=== PATIENT | male | born 1940 | race Caucasian/White ===

== ENCOUNTER → 2016-12-19 | Outpatient (CLI) | payer BC | END | disposition home or self-care (01) | LOC: C.MAMM 08:44 | PROVIDERS: ATTEND Internal Medicine | DX: M85.851 Other specified disorders of bone density and structure, right thigh (principal); M85.852 Other specified disorders of bone density and structure, left thigh ==

== ENCOUNTER → 2017-06-17 | Outpatient (CLI) | payer BC ==
[2017-06-17 13:37] LABS: URINE APPEARANCE CLEAR (CLEAR); URINE BILIRUBIN NEG (NEG); URINE COLOR DK YELLOW; URINE NITRITE NEG (NEG); URINE SPECIFIC GRAVITY 1.017 (1.000-1.030); UROBILINOGEN NEG (NEG)
[2017-06-17 13:41] LABS: MANUAL MICROSCOPIC REQUIRED? NO; REVIEW REQ? NO
== END | disposition home or self-care (01) ==
LOC: C.LABBC 11:43
PROVIDERS: ATTEND Internal Medicine
DX: R39.9 Unspecified symptoms and signs involving the genitourinary system (principal)

== ENCOUNTER → 2017-10-27 | Outpatient (CLI) | payer BC ==
[2017-10-27 11:02] LABS: BASO % 0.5 %; BASO ABS # 0.03 K/uL (0-0.2); EOS % 1.9 %; EOS ABS # 0.12 K/uL (0-0.5); HEMATOCRIT 40.5 % (42-52); HEMOGLOBIN 13.6 g/dL (14.0-18.0); IG# 0.01 K/uL (0.00-0.02); LYMPH % 35.3 %; LYMPH ABS # 2.19 K/uL (1.2-3.4); MEAN CELL VOLUME 94.2 fL (80-100); MEAN CORPUSCULAR HEMOGLOBIN 31.6 pg (25-34); MEAN CORPUSCULAR HGB CONC 33.6 g/dl (32-36); MEAN PLATELET VOLUME 10.8 fL (7.4-10.4); MONO ABS # 0.81 K/uL (0.11-0.59); NEUT % 49.1 %; NEUT ABS # 3.05 K/uL (1.4-6.5); PLATELET COUNT 217 K/uL (130-400); RED CELL DISTRIBUTION WIDTH CV 12.9 % (11.5-14.5); RED CELL DISTRIBUTION WIDTH SD 44.6 fL (36.4-46.3); WHITE BLOOD COUNT 6.21 K/uL (4.8-10.8)
[2017-10-27 11:23] LABS: ALT/SGPT 26 U/L (12-78); AST/SGOT 23 U/L (15-37); BLOOD UREA NITROGEN 26 mg/dl (7-18); CALCIUM 8.8 mg/dl (8.5-10.1); CARBON DIOXIDE 30 mmol/L (21-32); CHOLESTEROL 193 mg/dl (0-200); CREATININE 1.13 mg/dl (0.60-1.40); GLUCOSE 90 mg/dl (70-99); POTASSIUM 4.3 mmol/L (3.5-5.1); SODIUM 138 mmol/L (136-145)
[2017-10-27 11:28] LABS: LDL CHOLESTEROL CALCULATED 116 mg/dl
== END | disposition home or self-care (01) ==
LOC: C.LABBC 07:41
PROVIDERS: ATTEND Internal Medicine
DX: Z12.5 Encounter for screening for malignant neoplasm of prostate (principal); E78.5 Hyperlipidemia, unspecified; D64.9 Anemia, unspecified

== ENCOUNTER → 2018-02-25 | Outpatient (CLI) | payer BC | END | disposition home or self-care (01) | LOC: C.PATHSPEC 10:44 | PROVIDERS: ATTEND Otolaryngology | DX: L57.0 Actinic keratosis (principal) ==

== ENCOUNTER → 2018-05-19 | Outpatient (CLI) | payer BC ==
--- NOTE | 2018-05-19 10:18 | DIAGNOSTIC IMAGING REPORT ---
R HIP UNILATERAL 2 VIEWS CLINICAL HISTORY: M25.551 Right hip painM25.561 Right knee painRADRight pain COMPARISON: None. DISCUSSION: Significant degenerative narrowing right hip joint space. Sclerosis of the margins of the acetabulum. Minimal peripheral osteophytic reaction. No evidence for acetabular protrusion. There is no evidence for soft tissue swelling. IMPRESSION: Significant degenerative change. No acute process. The above report was generated using voice recognition software. It may contain grammatical, syntax or spelling errors. Electronically signed by: Stoney Vuaghn M.D. 05/19/2018 10:16 AM Dictated Date/Time: 05/19/2018 10:16 AM
--- NOTE | 2018-05-19 10:20 | DIAGNOSTIC IMAGING REPORT ---
R KNEE 2 VIEWS ROUTINE CLINICAL HISTORY: M25.551 Right hip pain M25.561 Right knee painRADRight COMPARISON: None. DISCUSSION: No fractures or dislocations are visualized. There is no radiographic evidence of joint effusion. There is chondrocalcinosis. The joint space appears relatively well preserved for age. IMPRESSION: 1. Chondrocalcinosis 2. No fractures or destructive lesions are visualized. Electronically signed by: Lexx Molina M.D. 05/19/2018 10:18 AM Dictated Date/Time: 05/19/2018 10:17 AM
== END | disposition home or self-care (01) ==
LOC: C.RAD1850 09:39
PROVIDERS: ATTEND Internal Medicine
DX: M25.551 Pain in right hip (principal); M25.561 Pain in right knee; M11.261 Other chondrocalcinosis, right knee

== ENCOUNTER 2020-03-29 15:06 | Inpatient (IN) ==
[2020-03-29] MEDS ORDERED: SODIUM CHLORIDE 0.9% 1000ML 1,000 ML IV ONE (16:45)
[2020-03-29] MEDS ORDERED: DiphenhydrAMINE HCL 50 MG/ML VIAL IV STA (16:48)
[2020-03-29] MEDS ORDERED: METOCLOPRAMIDE HCL INJ 5 MG/ML 2 ML VIAL IV STA (16:49)
[2020-03-29] MEDS ORDERED: FAMOTIDINE 20MG/5ML IV PUSH IV ONE (16:54)
[2020-03-29] MEDS ORDERED: FAMOTIDINE 20 MG in SYRINGE 3 ML IV SCH (17:00)
[2020-03-29] MEDS ORDERED: PROCHLORPERAZINE 2 ML IV ONE (17:36)
[2020-03-29 17:45] LABS: Lipase 168 U/L (73-393); Phosphorus 3.5 mg/dl (2.5-4.9); Troponin I < 0.015 ng/ml (0-0.045)
[2020-03-29] MEDS ORDERED: MoRPHine SULFATE 10 MG/ML CARP/VIAL IV STA (17:59)
[2020-03-29] MEDS ORDERED: MoRPHine SULFATE 4 MG/ML 1 ML CARP\\VIAL ONE (18:00)
[2020-03-29] MEDS ORDERED: MoRPHine SULFATE 2 MG/ML CARP ONE (18:01)
[2020-03-29] MEDS ORDERED: IOVERSOL 100ml IV PRN (18:19)
--- NOTE | 2020-03-29 18:35 | CT Scan Report ---
CT abd pelvis IV con only CLINICAL HISTORY: Abdominal pain, nausea, vomiting, history of gastric carcinoma. COMPARISON STUDY: 02/07/2020 TECHNIQUE: Patient was scanned in a dynamic helical fashion during intravenous administration of 93 c c of Optiray 320 A dose lowering technique was utilized adhering to the principles of ALARA. CT DOSE: 475.36 mGycm FINDINGS: Lower chest: There are persistent right basilar interstitial opacities, similar to the prior study an d likely inflammatory/postinflammatory. Liver: There are stable nonspecific subcentimeter hepatic hypodensities. These likely are present hep atic cysts. The portal vein is patent. The hepatic veins appear patent. Gallbladder: Unremarkable. Spleen: Normal in size and attenuation. Pancreas: Unremarkable. Adrenal glands: Unremarkable. Kidneys: There is symmetric renal cortical enhancement. The kidneys are normal in size without hydron ephrosis. Bowel: There is gastric wall thickening. There are fluid-filled mid abdominal small bowel loops with associated bowel wall thickening. There are focal transition zones both proximal and distal to the di lated small bowel loops. This could represent a closed loop obstruction. There is associated mesenter ic fluid. There is colonic diverticulosis. There is no evidence of acute diverticulitis. Peritoneum: There is low volume ascites. There is fluid within bilateral inguinal hernias. Vasculature: The abdominal aorta is normal in course and caliber. Adenopathy: None. Pelvic viscera: The bladder, and pelvic viscera are unremarkable. Skeletal structures: No destructive osseous lesions are seen. IMPRESSION: 1. Focally dilated fluid-filled mid abdominal small bowel loops with associated bowel wall thickening . The findings are consistent with a small bowel obstruction, possibly closed loop. There is associat ed interloop fluid, as well as associated low volume ascites. 2. Nonspecific gastric wall thickening 3. No evidence of portal venous gas. No evidence of free intraperitoneal air. ACT 112: Negative or not required by law. Electronically signed by: Lexx Molina M.D. 03/29/2020 6:34 PM
--- NOTE | 2020-03-29 18:43 | Emergency Department Note ---
Impression & Plan Small bowel obstruction, Gastric adenocarcinoma, Abdominal pain, Nausea & vomiting ED Provider Note NAME: SHARMAINE HAQ II AGE: 80 SEX: M ARRIVES VIA: Walk-In INFORMANT: Patient, ED PROVIDER(S): Ronny Ruelas MD CHIEF COMPLAINT: Abdominal pain, nausea and vomiting. PLAN: Disposition: Admit MEDICAL DECISION MAKING: The patient is a pleasant 80-year-old gentleman with a past medical history of stage 4 gastric adenocarcinoma diagnosed several months ago on chemotherapy who presents emergency department with acute onset nausea and vomiting began today after lunch with associated abdominal bloating and pain. He reports having a normal bowel movement this morning that was nonbloody nonblack. He reports feeling fine this morning and did his usual activities. He reports emesis was nonbloody and did not have coffee-ground emesis. He initially contact his oncologist office and they arrange to have outpatient bloodwork. However, while at the outpatient [facility] lab he described his symptoms and was referred to the Emergency department. On arrival patient uncomfortable but in no acute distress, afebrile stable vital signs. On exam patient has moderate generalized abdominal tenderness without guarding or rebound. Blood work performed at outpatient lab just prior to arrival demonstrated WBC within normal limits. H/H 11.3/34.1 similar to prior range of values. Platelets within normal limits. Chemistry without acidosis. Electrolytes and LFTs unremarkable. Troponin negative/undetectable. Lipase within normal limits. EKG without overt acute ischemia. CT abd pelvis performed and demonstrates evidence of small bowel obstruction with possibility of closed-loop. On reevaluation the patient was feeling improved after IV fluid hydration, antiemetics and analgesia with morphine. His abdominal tenderness was improved. However he still had persistent fullness and nausea and therefore NG tube was explained and then ordered after patient's agreement. Case was reviewed with general surgery on- call, Dr. Rehman, and we agree that given the patient's abdominal exam is not peritoneal and the patient is without fever or leukocytosis CT findings are less likely to represent closed-loop bowel obstruction. Recommends NG tube and IV fluids which have been ordered. He will be available for inpatient team consultation. Patient ordered for empiric CTX. Case was discussed with Dr. Hong, [facility] hospitalist, who will evaluate the patient for admission. Triage Nursing notes reviewed and agree them. Prior medical records reviewed Vital Signs: reviewed and remarkable for no significant abnormalities Differential diagnosis: Appendicitis, testicular torsion, infections, diverticulitis, UTI, obstruction, mesenteric ischemia, aortic pathology, inflammatory bowel disease, renal colic, PUD, pancreatitis, biliary pathology, hernia, volvulus, constipation, as well as other pathologies. ER treatment provided: See below. Diagnostics interpreted by me: ECG: Sinus Bradycardia, 57 bpm, RBBB, no ectopy, no overt ST elevation or depression. Cardiac Monitoring: An order for continuous cardiac monitoring was placed and demonstrated sinus bradycardia, 57 bpm, no ecotpy. Laboratory studies: See below Imaging studies: CT abd pelvis IV con only CLINICAL HISTORY: Abdominal pain, nausea, vomiting, history of gastric carcinoma. COMPARISON STUDY: 02/07/2020 TECHNIQUE: Patient was scanned in a dynamic helical fashion during intravenous administration of 93 cc of Optiray 320 A dose lowering technique was utilized adhering to the principles of ALARA. CT DOSE: 475.36 mGycm FINDINGS: Lower chest: There are persistent right basilar interstitial opacities, similar to the prior study and likely inflammatory/postinflammatory. Liver: There are stable nonspecific subcentimeter hepatic hypodensities. These likely are present hepatic cysts. The portal vein is patent. The hepatic veins appear patent. Gallbladder: Unremarkable. Spleen: Normal in size and attenuation. Pancreas: Unremarkable. Adrenal glands: Unremarkable. Kidneys: There is symmetric renal cortical enhancement. The kidneys are normal in size without hydronephrosis. Bowel: There is gastric wall thickening. There are fluid-filled mid abdominal small bowel loops with associated bowel wall thickening. There are focal transition zones both proximal and distal to the dilated small bowel loops. This could represent a closed loop obstruction. There is associated mesenteric fluid. There is colonic diverticulosis. There is no evidence of acute diverticulitis. Peritoneum: There is low volume ascites. There is fluid within bilateral inguinal hernias. Vasculature: The abdominal aorta is normal in course and caliber. Adenopathy: None. Pelvic viscera: The bladder, and pelvic viscera are unremarkable. Skeletal structures: No destructive osseous lesions are seen. IMPRESSION: 1. Focally dilated fluid-filled mid abdominal small bowel loops with associated bowel wall thickening. The findings are consistent with a small bowel obstruction, possibly closed loop. There is associated interloop fluid, as well as associated low volume ascites. 2. Nonspecific gastric wall thickening 3. No evidence of portal venous gas. No evidence of free intraperitoneal air. Consultation(s): Dr. Rehman, General surgery on-call. Case was discussed with Dr. Hong, [facility] hospitalist, who will evaluate t he patient for admission. 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 He reports having a normal bowel movement this morning that was nonbloody nonblack. He reports feeling fine this morning and did his usual activities. He reports emesis was nonbloody and did not have coffee-ground emesis. He initially contact his oncologist office and they arrange to have outpatient bloodwork. However, while at the outpatient [facility] lab he described his symptoms and was referred to the Emergency department. ROS: See above HPI for pertinent positives & negatives. A total of 10 systems reviewed and were otherwise negative. PAST MEDICAL HISTORY:See Below PAST SURGICAL HISTORY:See Below FAMILY HISTORY:See Below SOCIAL HISTORY:See Below HOME MEDICATIONS:See Below ALLERGIES:See Below VITALS:See Below PHYSICAL EXAMINATION: GENERAL: Awake, alert, uncomfortable-appearing, in no distress HENT: Normocephalic, atraumatic. Oropharynx with dry mucous membranes and otherwise unremarkable. EYES: Normal conjunctiva. Sclera non-icteric. NECK: Supple. No nuchal rigidity. FROM. No JVD. RESPIRATORY: Clear to auscultation. CARDIAC: Regular rate, normal rhythm. Extremities warm and well perfused. Pulses equal. ABDOMEN: Mild distension but soft. Moderate generalzed tenderness to palpation. No rebound or guarding. No masses. RECTAL: Deferred. MUSCULOSKELETAL: Chest examination reveals no tenderness. The back is symmetrical on inspection without obvious abnormality. There is no CVA tenderness to palpation. No joint edema. LOWER EXTREMITIES: Calves are equal size bilaterally and non-tender. No edema. No discoloration. NEURO: Normal sensorium. No sensory or motor deficits noted. SKIN: No rash or jaundice noted. ED COURSE: Critical Care: I have personally spent greater than 35 minutes of critical care time in the direct management of this patient. This includes bedside care, interpretation of diagnostic studies, and testing, discussion with consultants, patient, and family members, and other required patient management activities. This 35 minutes is in excess of all separately billable procedures. Ronny Ruelas MD Past Med/Surg History Social History Preferred Language: Yemeni Communication Ability: Effective Title Processor Required: No Beliefs That Will Affect Care: None marital status: Current Living Situation: Spouse current occupational status: retired Other Information That Helps Us Care for You: No Feels Safe at Home: Yes Safety Concerns: Feels Safe At This Time Smoking Status: Never smoker Second Hand Exposure: No ; Hx Alcohol Use: Yes Alcohol type: wine Alcohol Intake Frequency: Daily Hx Substance Use: No Dental Care, Regularly: Yes Physical Activity Frequency: 5-6 Times per Week Seatbelt Use: always Sunscreen Use: Yes Allergies Allergies Allergy/AdvReac Type Severity Reaction Status Date / Time No Known Drug Allergies Allergy Unknown Verified 03/29/20 17:38 Home Meds Home Medications Medication Instructions Recorded Confirmed 5-Fu 0 mg IV, .[id number] 03/29/20 03/29/20 ascorbic acid (vitamin C) [Vitamin 1 g PO DAILY 03/29/20 03/29/20 C] famotidine [Pepcid] 20 mg PO QPM 03/29/20 03/29/20 multivitamin 1 tab PO QAM 03/29/20 03/29/20 nivolumab [Opdivo] 0 mg IV MONTHLY 03/29/20 03/29/20 omeprazole 20 mg PO Q9W 03/29/20 03/29/20 ondansetron HCl [Zofran] 8 mg PO Q8 PRN 03/29/20 03/29/20 polysaccharide iron complex 150 mg PO DAILY 03/29/20 03/29/20 prochlorperazine maleate 10 mg PO Q6 PRN 03/29/20 03/29/20 [Compazine] Results & Data (ED) Vital Signs Vital Signs - 24 hr 03/29/20 15:10 03/29/20 16:38 03/29/20 17:00 Temperature 36.4 C L Temperature Source Oral Pulse Rate 56 L 58 L Pulse Rate [Apical] 60 Pulse Rate from SpO2 Sensor 55 L Respiratory Rate 16 17 12 Respiratory Effort / Characteristics Non-Labored Respiratory Depth Normal Blood Pressure 173/83 H 171/83 H Blood Pressure [Right Arm] 168/79 H Blood Pressure Mean 113 102 Blood Pressure Mean [Right Arm] 108 Pulse Oximetry 100 99 100 Oxygen Delivery Method Room Air Room Air Room Air Sepsis Recent Fever Within 48 Hours No Sepsis New/Unexplained Change in Mental Status No Sepsis Action Taken by Nursing No Action Required 03/29/20 17:31 03/29/20 18:38 03/29/20 19:00 Temperature Temperature Source Pulse Rate 65 77 68 Pulse Rate [Apical] Pulse Rate from SpO2 Sensor 61 75 73 Respiratory Rate 24 14 Respiratory Effort / Characteristics Respiratory Depth Blood Pressure 182/92 H 147/72 H 157/75 H Blood Pressure [Right Arm] Blood Pressure Mean 102 109 85 Blood Pressure Mean [Right Arm] Pulse Oximetry 100 94 98 Oxygen Delivery Method Room Air Sepsis Recent Fever Within 48 Hours Sepsis New/Unexplained Change in Mental Status Sepsis Action Taken by Nursing 03/29/20 19:30 03/29/20 20:00 03/29/20 20:30 Temperature Temperature Source Pulse Rate 69 66 74 Pulse Rate [Apical] Pulse Rate from SpO2 Sensor 66 74 Respiratory Rate 14 21 Respiratory Effort / Characteristics Respiratory Depth Blood Pressure 157/69 H 160/84 H 167/90 H Blood Pressure [Right Arm] Blood Pressure Mean 112 121 126 Blood Pressure Mean [Right Arm] Pulse Oximetry 96 95 Oxygen Delivery Method Sepsis Recent Fever Within 48 Hours Sepsis New/Unexplained Change in Mental Status Sepsis Action Taken by Nursing 03/29/20 21:00 Temperature Temperature Source Pulse Rate 65 Pulse Rate [Apical] Pulse Rate from SpO2 Sensor 65 Respiratory Rate 13 Respiratory Effort / Characteristics Respiratory Depth Blood Pressure 171/96 H Blood Pressure [Right Arm] Blood Pressure Mean 131 Blood Pressure Mean [Right Arm] Pulse Oximetry 96 Oxygen Delivery Method Sepsis Recent Fever Within 48 Hours Sepsis New/Unexplained Change in Mental Status Sepsis Action Taken by Nursing Laboratory Data Attestation: I reviewed the patient's lab results. Lab Results 03/29/20 Range/Units 16:57 Phosphorus 3.5 (2.5-4.9) mg/dl Troponin I < 0.015 (0-0.045) ng/ml Lipase 168 (73-393) U/L Administered Medications Sodium Chloride (Nss 1000ml) 1,000 mls @ 125 mls/hr IV .Q8H SANTINO Stop: 04/28/20 19:14 Last Infusion: 03/30/20 00:32 Dose: 125 mls/hr Documented by: [id number] Infusion: 03/29/20 22:44 Dose: 0 mls/hr Documented by: [id number] Admin: 03/29/20 20:07 Dose: 125 mls/hr Documented by: [id number] Metronidazole (Flagyl) 500 mg in 100 mls @ 100 mls/hr IV Q8H SANTINO Stop: 04/08/20 21:59 Last Infusion: 03/29/20 23:44 Dose: 0 mls/hr Documented by: [id number] Admin: 03/29/20 22:44 Dose: 100 mls/hr Documented by: [id number] Famotidine 20 mg/ Syringe 5 mls @ 2.5 mls/min IV BID SANTINO Stop: 04/28/20 21:52 Last Admin: 03/29/20 22:36 Dose: 2.5 mls/min Documented by: [id number] Ioversol (Optiray 320 100ml) 93 ml IV ONCE PRN PRN Reason: Interaction Checking Stop: 04/02/20 18:18 Last Admin: 03/29/20 18:20 Dose: 1 ml Documented by: [id number] Morphine Sulfate (Morphine Sulfate) 2 mg IV Q2H PRN PRN Reason: Pain Stop: 04/12/20 21:52 Last Admin: 03/30/20 02:06 Dose: 2 mg Documented by: [id number] Admin: 03/30/20 00:20 Dose: 2 mg Documented by: [id number] Ondansetron HCl (Zofran) 4 mg IV Q6H PRN PRN Reason: Nausea Stop: 04/28/20 21:52 Last Admin: 03/30/20 00:14 Dose: 4 mg Documented by: [id number] Discontinued Medications Diphenhydramine HCl (Benadryl) 12.5 mg IV NOW STA Stop: 03/29/20 16:49 Last Admin: 03/29/20 17:04 Dose: 12.5 mg Documented by: [id number] Famotidine (Pepcid 20mg Iv Push) Confirm Administered Dose 20 mg IV .STK-MED ONE Stop: 03/29/20 16:55 Last Admin: 03/29/20 17:03 Dose: 20 mg Documented by: [id number] Sodium Chloride (Nss 1000ml) 1,000 mls @ 999 mls/hr IV .Q1H1M ONE Stop: 03/29/20 17:45 Last Infusion: 03/29/20 18:03 Dose: 0 mls/hr Documented by: [id number] Admin: 03/29/20 17:02 Dose: 999 mls/hr Documented by: [id number] Prochlorperazine (Compazine) 2 mls @ 1 mls/min IV ONE ONE Stop: 03/29/20 17:37 Last Admin: 03/29/20 17:48 Dose: 1 mls/min Documented by: [id number] Ceftriaxone Sodium (Rocephin) 2,000 mg in 70 mls @ 140 mls/hr IV NOW STA Stop: 03/29/20 19:42 Last Infusion: 03/29/20 21:23 Dose: 0 mls/hr Documented by: [id number] Admin: 03/29/20 20:04 Dose: 140 mls/hr Documented by: [id number] Metoclopramide HCl (Reglan) 5 mg IV NOW STA Stop: 03/29/20 16:50 Last Admin: 03/29/20 17:04 Dose: 5 mg Documented by: [id number] Morphine Sulfate (Morphine Sulfate) 6 mg IV NOW STA Stop: 03/29/20 18:00 Last Admin: 03/29/20 18:02 Dose: Not Given Documented by: [id number] Morphine Sulfate (Morphine Sulfate) Confirm Administered Dose 4 mg .ROUTE .STK- MED ONE Stop: 03/29/20 18:01 Last Admin: 03/29/20 18:02 Dose: 4 mg Documented by: [id number] Morphine Sulfate (Morphine Sulfate) Confirm Administered Dose 2 mg .ROUTE .STK- MED ONE Stop: 03/29/20 18:02 Last Admin: 03/29/20 18:02 Dose: 2 mg Documented by: [id number] Morphine Sulfate (Morphine Sulfate) 2 mg IV NOW STA Stop: 03/29/20 19:54 Last Admin: 03/29/20 20:04 Dose: 2 mg Documented by: [id number] Blood Pressure Blood Pressure Findings: Elevated blood pressure Discharge Plan Visit Data *Final* Discharge Date/Time: 03/29/20 21:31 Chief Complaint: Vomiting Stated Complaint: [facility] REFERRED,VOMITING ED Provider: Ronny Ruelas Discharge Problem: Small bowel obstruction, Gastric adenocarcinoma, Abdominal pain, Nausea & vomiting Patient Disposition: Admitted As Inpatient Discharge Instructions Interventions: ED Discharge Assessment Last Done: 03/29/20 21:31
[2020-03-29] MEDS ORDERED: cefTRIAXone SODIUM 2,000 MG/70 ML BAG IV STA (19:13)
[2020-03-29] MEDS ORDERED: MoRPHine SULFATE 2 MG/ML CARP IV STA (19:53)
[2020-03-29] MEDS: SODIUM CHLORIDE 0.9% 1000ML 1,000 ML IV SCH (20:07)
[2020-03-29] MEDS ORDERED: ACETAMINOPHEN 1000 MG/100 ML IV IV PRN (21:53)
[2020-03-29] MEDS ORDERED: ONDANSETRON INJ 2 MG/ML 2 ML VIAL IV PRN (21:53)
[2020-03-29] MEDS: FAMOTIDINE 20 MG in SYRINGE 3 ML IV SCH (22:36)
[2020-03-29] MEDS: metroNIDAZOLE 500 MG/100 ML BAG IV SCH (22:44)
[2020-03-30] MEDS: MoRPHine SULFATE 2 MG/ML CARP IV PRN ×2 (00:20→02:06)
[2020-03-30] MEDS ORDERED: HEPARIN 100 UNIT/ML 5ML FLUSH FLUSH PRN (01:56)
[2020-03-30] MEDS: metroNIDAZOLE 500 MG/100 ML BAG IV SCH ×3 (05:32→22:04)
[2020-03-30 06:45] LABS: Creatinine Clr Calc Pharmacy 50.6 ml/min; Est GFR (African American) 76.2; Est GFR (Non-African American) 65.8
[2020-03-30 08:51] LABS: Basophils # (auto) 0.01 K/uL (0-0.2); Basophils % (auto) 0.1 %; Eosinophils # (auto) 0.01 K/uL (0-0.5); Eosinophils % (auto) 0.1 %; Hematocrit (blood only) 37.7 % (42-52); Hemoglobin 12.5 g/dL (14.0-18.0); Immature Granulocytes # (auto) 0.03 K/uL (0.00-0.02); Immature Granulocytes % (auto) 0.4 %; Lymphocytes # (auto) 1.79 K/uL (1.2-3.4); Lymphocytes % (auto) 20.9 %; Mean Corpuscular Hemoglobin 32.2 pg (25-34); Mean Corpuscular Hgb Conc 33.2 g/dL (32-36); Mean Corpuscular Volume 97.2 fL (80-100); Monocytes # (auto) 1.14 K/uL (0.11-0.59); Monocytes % (auto) 13.3 %; Neutrophils # (auto) 5.57 K/uL (1.4-6.5); Neutrophils % (auto) 65.2 %; Platelet Count 186 K/uL (130-400); RDW Coefficient of Variation 16.5 % (11.5-14.5); RDW Standard Deviation 57.9 fL (36.4-46.3); Red Blood Count 3.88 M/uL (4.7-6.1); White Blood Count 8.55 K/uL (4.8-10.8)
[2020-03-30 09:09] LABS: Albumin Level 2.9 gm/dl (3.4-5.0); BUN Creatinine Ratio 27.4 (10-20); Calcium 8.5 mg/dl (8.5-10.1); Est GFR (African American) 69.8; Est GFR (Non-African American) 60.2; Potassium 4.8 mmol/L (3.5-5.1)
[2020-03-30 09:12] LABS: Albumin Globulin Ratio 0.9 (0.9-2); Bilirubin,Total 0.4 mg/dl (0.2-1); Globulin 3.1 gm/dl (2.5-4.0)
[2020-03-30] MEDS: FAMOTIDINE 20 MG in SYRINGE 3 ML IV SCH ×2 (09:20→22:03)
[2020-03-30] MEDS: SODIUM CHLORIDE 0.9% 1000ML 1,000 ML IV SCH ×2 (09:20→17:32)
[2020-03-30] MEDS: ENOXAPARIN INJ 30 MG/0.3 ML SYR SQ SCH (09:21)
--- NOTE | 2020-03-30 11:22 | Surgery Consultation ---
Date of Consultation March 30, 2020 Assessment & Plan (1) Abdominal pain: This patient developed abdominal pain with nausea and minimal vomiting. CT scan shows evidence of small bowel obstruction with concern for closed-loop. His only previous abdominal surgery was an appendectomy. He has no evidence of peritonitis at the present time. There is a chance this could resolve spontaneously. We will need to follow him with serial exams. If there is no improvement then surgical intervention will be necessary. There is also concern with his history of gastric cancer that this could be due to intra-abdominal implants although the CAT scan does not demonstrate them and there has been sig nificant decrease and possible resolution of the primary. The lymph nodes that were enlarged have decreased as well. We will continue to follow make further decisions in the morning. History of Present Illness Reason for Consultation: Small bowel obstruction Requesting Physician: Sherman Schmitz MD Attending Physician: Sherman Schmitz MD History of Present Illness We have been asked by Dr. Schmitz to see this 80-year-old gentleman who presented to the emergency room with abdominal pain and "just not feeling well" the patient states that he was well until yesterday afternoon. He then began to experience discomfort in his abdomen that he described as a dull ache and pressure. The severity however did reach 9 at some points. The discomfort was mostly in the upper abdomen but no one particular area predominated. He has never had discomfort like this before. Associated with this was some nausea and he had what he described as some reflux of material but he denies suresh vomiting. There were these were for small amounts. He has had a few similar episodes since coming to the hospital. He typically has a regular bowel pattern with formed stool. His last normal bowel movement was yesterday morning. He has not passed flatus since the onset of the discomfort. An NG tube was placed with very little output. He was bloated when he came to the hospital but feels that that has almost resolved. The discomfort now is at a level of a maximum of 1. The patient has a history of what is described as stage IV gastric cancer but the patient states it was near the junction of the esophagus and stomach. He is undergoing chemotherapy at the present time. He has had 9 out of 10 treatments and is scheduled for 6 days from now. His last 2 CT scans have showe d a significant decrease if not resolution of the mass. He has an appetite and has been able to eat. Allergies Allergy/AdvReac Type Severity Reaction Status Date / Time No Known Drug Allergies Allergy Unknown Verified 03/29/20 17:38 Home Medications Home Medications Medication Instructions Recorded Confirmed Type 5-Fu 0 mg IV, .[id number] 03/29/20 03/29/20 History ascorbic acid (vitamin C) [Vitamin 1 g PO DAILY 03/29/20 03/29/20 History C] famotidine [Pepcid] 20 mg PO QPM 03/29/20 03/29/20 History multivitamin 1 tab PO QAM 03/29/20 03/29/20 History nivolumab [Opdivo] 0 mg IV MONTHLY 03/29/20 03/29/20 History omeprazole 20 mg PO Q9W 03/29/20 03/29/20 History ondansetron HCl [Zofran] 8 mg PO Q8 PRN 03/29/20 03/29/20 History polysaccharide iron complex 150 mg PO DAILY 03/29/20 03/29/20 History prochlorperazine maleate 10 mg PO Q6 PRN 03/29/20 03/29/20 History [Compazine] Patient History Medical History (Updated 03/30/20 @ 02:43 by Ronny Ruelas MD) Acid reflux Carotid artery plaque "mild carotid plaque and normal velocity" per 2016 PCP records (unable to obtain official imaging) Deafness in left ear per records, not verbalized per patient via RN phone interview 11/19/19 History of anemia History of basal cell carcinoma s/p excision (in office) Metastasis from gastric cancer Osteoarthritis Stomach cancer Surgical History (Updated 03/30/20 @ 11:24 by Stoney Huston MD) History of appendectomy History of bilateral cataract extraction History of colonoscopy History of eye surgery R DETACHED RETINA History of tonsillectomy History of tooth extraction Port-A-Cath in place (11/29/19) Port placement. Dr. Cano 11/29/19 Social History Preferred Language: Ghanaian Communication Ability: Effective Tobacco Wrapping Machine Tender Required: No Beliefs That Will Affect Care: None marital status: Current Living Situation: Spouse current occupational status: retired Other Information That Helps Us Care for You: No Feels Safe at Home: Yes Safety Concerns: Feels Safe At This Time Smoking Status: Never smoker Second Hand Exposure: No ; Hx Alcohol Use: Yes Alcohol type: wine Alcohol Intake Frequency: Daily Hx Substance Use: No Dental Care, Regularly: Yes Physical Activity Frequency: 5-6 Times per Week Seatbelt Use: always Sunscreen Use: Yes Physical Exam Constitutional: no acute distress Respiratory: normal respiratory effort, lungs clear to auscultation Cardiovascular: Rate/Rhythm: regular rate and regular rhythm Gastrointestinal (Abdomen): Inspection/Auscultation: abdomen normal to inspection; abdomen not distended Percussion/Palpation: + abdomen tender (Minimal upper abdomen mostly to the right side) and abdomen soft; no abdominal mass Skin: no rashes, warm and dry Lymphatic: no cervical lymphadenopathy Results & Data Vital Signs (Past 12 Hours) Vital Signs Temp Pulse Resp BP BP Pulse Ox 03/30/20 07:27 36.4 C L 67 16 142/78 H 97 03/30/20 00:38 180/81 H 03/29/20 23:44 173/85 H 03/29/20 23:43 36.6 C 68 18 164/82 H 97 Laboratory Results 03/30/20 03/30/20 03/30/20 Range/Units 08:38 08:38 05:07 WBC 8.55 (4.8-10.8) K/uL RBC 3.88 L (4.7-6.1) M/uL Hgb 12.5 L (14.0-18.0) g/dL Hct 37.7 L (42-52) % MCV 97.2 (80-100) fL MCH 32.2 (25-34) pg MCHC 33.2 (32-36) g/dL RDW Std Deviation 57.9 H (36.4-46.3) fL RDW Coeff of Jf 16.5 H (11.5-14.5) % Plt Count 186 (130-400) K/uL MPV 10.0 (7.4-10.4) fL Immature Gran % (Auto) 0.4 % Neut % (Auto) 65.2 % Lymph % (Auto) 20.9 % Mason % (Auto) 13.3 % Eos % (Auto) 0.1 % Baso % (Auto) 0.1 % Immature Gran # (Auto) 0.03 H (0.00-0.02) K/uL Neut # (Auto) 5.57 (1.4-6.5) K/uL Lymph # (Auto) 1.79 (1.2-3.4) K/uL Mason # (Auto) 1.14 H (0.11-0.59) K/uL Eos # (Auto) 0.01 (0-0.5) K/uL Baso # (Auto) 0.01 (0-0.2) K/uL Sodium 137 (136-145) mmol/L Potassium 4.8 (3.5-5.1) mmol/L Chloride 105 (98-107) mmol/L Carbon Dioxide 26 (21-32) mmol/L Anion Gap 6.0 (3-11) BUN 31 H (7-18) mg/dl Creatinine 1.13 1.05 (0.6-1.4) mg/dl Est Cr Clr Drug Dosing 47.0 50.6 ml/min Est GFR ( Amer) 69.8 76.2 Est GFR (Non-Af Amer) 60.2 65.8 BUN/Creatinine Ratio 27.4 H (10-20) Glucose 121 H (70-99) mg/dl Calcium 8.5 (8.5-10.1) mg/dl Phosphorus (2.5-4.9) mg/dl Total Bilirubin 0.4 (0.2-1) mg/dl AST 35 (15-37) U/L ALT 54 (12-78) U/L Alkaline Phosphatase 88 (45-117) U/L Troponin I (0-0.045) ng/ml Total Protein 6.0 L (6.4-8.2) gm/dl Albumin 2.9 L (3.4-5.0) gm/dl Globulin 3.1 (2.5-4.0) gm/dl Albumin/Globulin Ratio 0.9 (0.9-2) Lipase (73-393) U/L 03/29/20 Range/Units 16:57 WBC (4.8-10.8) K/uL RBC (4.7-6.1) M/uL Hgb (14.0-18.0) g/dL Hct (42-52) % MCV (80-100) fL MCH (25-34) pg MCHC (32-36) g/dL RDW Std Deviation (36.4-46.3) fL RDW Coeff of Jf (11.5-14.5) % Plt Count (130-400) K/uL MPV (7.4-10.4) fL Immature Gran % (Auto) % Neut % (Auto) % Lymph % (Auto) % Mason % (Auto) % Eos % (Auto) % Baso % (Auto) % Immature Gran # (Auto) (0.00-0.02) K/uL Neut # (Auto) (1.4-6.5) K/uL Lymph # (Auto) (1.2-3.4) K/uL Mason # (Auto) (0.11-0.59) K/uL Eos # (Auto) (0-0.5) K/uL Baso # (Auto) (0-0.2) K/uL Sodium (136-145) mmol/L Potassium (3.5-5.1) mmol/L Chloride (98-107) mmol/L Carbon Dioxide (21-32) mmol/L Anion Gap (3-11) BUN (7-18) mg/dl Creatinine (0.6-1.4) mg/dl Est Cr Clr Drug Dosing ml/min Est GFR ( Amer) Est GFR (Non-Af Amer) BUN/Creatinine Ratio (10-20) Glucose (70-99) mg/dl Calcium (8.5-10.1) mg/dl Phosphorus 3.5 (2.5-4.9) mg/dl Total Bilirubin (0.2-1) mg/dl AST (15-37) U/L ALT (12-78) U/L Alkaline Phosphatase (45-117) U/L Troponin I < 0.015 (0-0.045) ng/ml Total Protein (6.4-8.2) gm/dl Albumin (3.4-5.0) gm/dl Globulin (2.5-4.0) gm/dl Albumin/Globulin Ratio (0.9-2) Lipase 168 (73-393) U/L Diagnostic Findings CT abd pelvis IV con only CLINICAL HISTORY: Abdominal pain, nausea, vomiting, history of gastric carcinoma. COMPARISON STUDY: 02/07/2020 TECHNIQUE: Patient was scanned in a dynamic helical fashion during intravenous administration of 93 cc of Optiray 320 A dose lowering technique was utilized adhering to the principles of ALARA. CT DOSE: 475.36 mGycm FINDINGS: Lower chest: There are persistent right basilar interstitial opacities, similar to the prior study and likely inflammatory/postinflammatory. Liver: There are stable nonspecific subcentimeter hepatic hypodensities. These likely are present hepatic cysts. The portal vein is patent. The hepatic veins appear patent. Gallbladder: Unremarkable. Spleen: Normal in size and attenuation. Pancreas: Unremarkable. Adrenal glands: Unremarkable. Kidneys: There is symmetric renal cortical enhancement. The kidneys are normal in size without hydronephrosis. Bowel: There is gastric wall thickening. There are fluid-filled mid abdominal small bowel loops with associated bowel wall thickening. There are focal transition zones both proximal and distal to the dilated small bowel loops. This could represent a closed loop obstruction. There is associated mesenteric fluid. There is colonic diverticulosis. There is no evidence of acute diverticulitis. Peritoneum: There is low volume ascites. There is fluid within bilateral inguinal hernias. Vasculature: The abdominal aorta is normal in course and caliber. Adenopathy: None. Pelvic viscera: The bladder, and pelvic viscera are unremarkable. Skeletal structures: No destructive osseous lesions are seen. IMPRESSION: 1. Focally dilated fluid-filled mid abdominal small bowel loops with associated bowel wall thickening. The findings are consistent with a small bowel obstruction, possibly closed loop. There is associated interloop fluid, as well as associated low volume ascites. 2. Nonspecific gastric wall thickening 3. No evidence of portal venous gas. No evidence of free intraperitoneal air.
--- NOTE | 2020-03-30 13:01 | Hospitalist Progress Note ---
Date of Service March 30, 2020 Assessment & Plan (1) Small bowel obstruction: Mr. 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 - risk factors for SBO include hx of appendectomy and recent gastric neoplasm. He also has bilateral inguinal hernias that were incidentally discovered on CT scan, but denies any associated pain; unlikely to be contributory - given the presence of a closed loop of bowel with interloop fluid, there is concern this may serve as a nidus for infection. Continue IV Flagyl and IV ceftriaxone for anaerobic and gram - coverage. - keep patient NPO, NG tube in place - continue IVF - pain control, anti emetics - general surgery consult placed - will observe with NG tube for now (2) Gastric adenocarcinoma: - stage IV with distal phoebe metastasis - currently undergoing FOLFOX chemo with 5 Fluro-uracil. Most recent infusion 03/22/20. Previously, regimen also contained oxaliplatin, but this was d/c after last infusion - immunotherapy with Opdivo - most recent surveillance CT scan of abdomen showed total resolution of cancer; CT scan performed on admission showed no evidence of recurrence or adenopathy - consulted Dr. Solis (3) GERD (gastroesophageal reflux disease): Continue famotidine bid (4) Bilateral inguinal hernia: incidental finding on CT a/p No groin pain or symptoms (5) Hepatic cyst: - noted incidentally on CT of abdomen/pelvis; characterized as "stable" when compared to scan on 02/07/20 - no acute management (6) Diverticulosis: Seen incidentally on CT No acute diverticulitis (7) Hyperglycemia: Mild, on morning labs A1c am (8) DVT prophylaxis: SCDs, enoxaparin Admission and Anticipated Discharge Date Admission Date: March 29, 2020 Subjective Mr. Xiong denies abdominal pain or nausea. NG tube in place. No other complaints at this time. ROS Constitutional: no chills, aches, sweats or fever Respiratory: no sob,cough, sputum, or wheezing Cardiac: no chest pain, palpitations, edema, orthopnea or lightheadedness GI: no abdominal pain, nausea, vomiting, diarrhea or constipation : no dysuria or hesitancy Extremities: no joint pain or weakness Skin: no rash All other systems reviewed and negative Physical Exam Physical Exam: General: no distress Eyes: normal inspection, PERLL Respiratory: chest non tender, clear to auscultation, normal breath sounds, no respiratory distress, no accessory muscle use Cardiac: regular rate and rhythm, no rub or gallop, no murmur, no edema, no jvd GI/: active bowel sounds, no abd pain or tenderness, soft, non distended Extremities: normal range of motion, normal strength, non tender Neuro/Psych: alert and oriented x 3, normal mood and affect Skin: normal color, dry Results & Data Results & Data ([facility]) Vital Signs (Past 12 Hours) Vital Signs Temp Pulse Resp BP Pulse Ox 03/30/20 07:27 36.4 C L 67 16 142/78 H 97 PG Care Time/CCT Total # of Minutes Spent Total Time Spent with Patient: Total time spent is greater than 50% in coordination of care (as documented) at patient's floor/unit and/or counseling patient: Coding Level of Care Code 46646 Subseq Hosp Care Lvl 3 Diagnoses Small bowel obstruction K56.609 Gastric adenocarcinoma C16.9 GERD (gastroesophageal reflux disease) K21.9 Bilateral inguinal hernia K40.20 Hepatic cyst K76.89 Diverticulosis K57.90 Hyperglycemia R73.9 DVT prophylaxis Z29.9
--- NOTE | 2020-03-30 19:13 | Electrocardiogram Report ---
Test Reason : Blood Pressure : / mmHG Vent. Rate : 057 BPM Atrial Rate : 057 BPM P-R Int : 206 ms QRS Dur : 132 ms QT Int : 484 ms P-R-T Axes : 032 020 018 degrees QTc Int : 471 ms Sinus bradycardia Right bundle branch block Abnormal ECG When compared with ECG of 17-NOV-2019 10:09, No significant change was found Confirmed by Berry Rivera ([id number]) on 03/30/2020 7:13:25 PM Referred By: Sharmaine Moreland Confirmed By:Berry Rivera
[2020-03-30] MEDS: cefTRIAXone SODIUM 1,000 MG in DEXTROSE 5% 50 ML IV SCH (20:13)
[2020-03-31] MEDS: SODIUM CHLORIDE 0.9% 1000ML 1,000 ML IV SCH ×3 (02:55→11:36)
[2020-03-31] MEDS: metroNIDAZOLE 500 MG/100 ML BAG IV SCH ×3 (06:03→21:03)
[2020-03-31 07:30] LABS: Estimated Average Glucose 123 mg/dl; Hemoglobin A1C 5.9 % (4.5-5.6)
[2020-03-31 08:38] LABS: Basophils # (auto) 0.01 K/uL (0-0.2); Basophils % (auto) 0.1 %; Eosinophils # (auto) 0.03 K/uL (0-0.5); Eosinophils % (auto) 0.3 %; Hematocrit (blood only) 34.2 % (42-52); Hemoglobin 11.3 g/dL (14.0-18.0); Immature Granulocytes # (auto) 0.03 K/uL (0.00-0.02); Immature Granulocytes % (auto) 0.3 %; Lymphocytes # (auto) 1.45 K/uL (1.2-3.4); Lymphocytes % (auto) 16.1 %; Mean Corpuscular Hemoglobin 32.4 pg (25-34); Mean Platelet Volume 9.8 fL (7.4-10.4); Monocytes # (auto) 1.14 K/uL (0.11-0.59); Monocytes % (auto) 12.6 %; Neutrophils # (auto) 6.36 K/uL (1.4-6.5); Neutrophils % (auto) 70.6 %; Platelet Count 179 K/uL (130-400); RDW Standard Deviation 59.3 fL (36.4-46.3); Red Blood Count 3.49 M/uL (4.7-6.1); White Blood Count 9.02 K/uL (4.8-10.8)
--- NOTE | 2020-03-31 08:46 | Surgery Progress Note ---
Date of Service March 31, 2020 Assessment & Plan (1) SBO (small bowel obstruction): CT originally concerning for closed loop obstruction. NO signs of ischemia. minimal NGT output since admission + bowel function abdominal distention resolved, abdominal pain resolved Plan: Remove NGT and start clear liquids ambulate in hallway continue medical management Dr. Cano covering this weekend (2) Abdominal pain: Secondary to SBO resolved plan as above Dr. Huston has seen and examined pt, agrees with above Subjective feeling better this am had normal bowel movement and passed gas this am no nausea or vomiting Physical Exam Constitutional: WD/WN, vitals as above no acute distress Respiratory: normal respiratory effort Gastrointestinal (Abdomen): Inspection/Auscultation: abdomen normal to inspection; abdomen not distended Percussion/Palpation: + abdomen tender (mild) and abdomen soft; no guarding and abdomen not rigid NGT with bilious output, minimal in canister Skin: no rashes, warm and dry Psychiatric: A+Ox3, euthymic affect Results & Data Vital Signs (Past 12 Hours) Vital Signs Temp Pulse Resp BP BP Pulse Ox 03/31/20 07:41 36.7 C 80 16 149/82 H 96 03/30/20 23:08 36.7 C 76 16 173/77 H 155/81 H 96 Laboratory Results 03/31/20 03/31/20 03/30/20 Range/Units 08:15 08:15 08:38 WBC 9.02 (4.8-10.8) K/uL RBC 3.49 L (4.7-6.1) M/uL Hgb 11.3 L (14.0-18.0) g/dL Hct 34.2 L (42-52) % MCV 98.0 (80-100) fL MCH 32.4 (25-34) pg MCHC 33.0 (32-36) g/dL RDW Std Deviation 59.3 H (36.4-46.3) fL RDW Coeff of Jf 17.0 H (11.5-14.5) % Plt Count 179 (130-400) K/uL MPV 9.8 (7.4-10.4) fL Immature Gran % (Auto) 0.3 % Neut % (Auto) 70.6 % Lymph % (Auto) 16.1 % Long % (Auto) 12.6 % Eos % (Auto) 0.3 % Baso % (Auto) 0.1 % Immature Gran # (Auto) 0.03 H (0.00-0.02) K/uL Neut # (Auto) 6.36 (1.4-6.5) K/uL Lymph # (Auto) 1.45 (1.2-3.4) K/uL Long # (Auto) 1.14 H (0.11-0.59) K/uL Eos # (Auto) 0.03 (0-0.5) K/uL Baso # (Auto) 0.01 (0-0.2) K/uL Sodium Pending (136-145) mmol/L Potassium Pending (3.5-5.1) mmol/L Chloride Pending (98-107) mmol/L Carbon Dioxide Pending (21-32) mmol/L Anion Gap Pending (3-11) BUN Pending (7-18) mg/dl Creatinine Pending (0.6-1.4) mg/dl Est Cr Clr Drug Dosing Pending ml/min Est GFR ( Amer) Pending Est GFR (Non-Af Amer) Pending BUN/Creatinine Ratio Pending (10-20) Glucose Pending (70-99) mg/dl Estimat Average Glucose 123 mg/dl Hemoglobin A1c 5.9 H (4.5-5.6) % Calcium Pending (8.5-10.1) mg/dl Total Bilirubin Pending (0.2-1) mg/dl AST Pending (15-37) U/L ALT Pending (12-78) U/L Alkaline Phosphatase Pending (45-117) U/L Total Protein Pending (6.4-8.2) gm/dl Albumin Pending (3.4-5.0) gm/dl Globulin Pending (2.5-4.0) gm/dl Albumin/Globulin Ratio Pending (0.9-2) 03/30/20 03/30/20 Range/Units 08:38 08:38 WBC 8.55 (4.8-10.8) K/uL RBC 3.88 L (4.7-6.1) M/uL Hgb 12.5 L (14.0-18.0) g/dL Hct 37.7 L (42-52) % MCV 97.2 (80-100) fL MCH 32.2 (25-34) pg MCHC 33.2 (32-36) g/dL RDW Std Deviation 57.9 H (36.4-46.3) fL RDW Coeff of Jf 16.5 H (11.5-14.5) % Plt Count 186 (130-400) K/uL MPV 10.0 (7.4-10.4) fL Immature Gran % (Auto) 0.4 % Neut % (Auto) 65.2 % Lymph % (Auto) 20.9 % Long % (Auto) 13.3 % Eos % (Auto) 0.1 % Baso % (Auto) 0.1 % Immature Gran # (Auto) 0.03 H (0.00-0.02) K/uL Neut # (Auto) 5.57 (1.4-6.5) K/uL Lymph # (Auto) 1.79 (1.2-3.4) K/uL Long # (Auto) 1.14 H (0.11-0.59) K/uL Eos # (Auto) 0.01 (0-0.5) K/uL Baso # (Auto) 0.01 (0-0.2) K/uL Sodium 137 (136-145) mmol/L Potassium 4.8 (3.5-5.1) mmol/L Chloride 105 (98-107) mmol/L Carbon Dioxide 26 (21-32) mmol/L Anion Gap 6.0 (3-11) BUN 31 H (7-18) mg/dl Creatinine 1.13 (0.6-1.4) mg/dl Est Cr Clr Drug Dosing 47.0 ml/min Est GFR ( Amer) 69.8 Est GFR (Non-Af Amer) 60.2 BUN/Creatinine Ratio 27.4 H (10-20) Glucose 121 H (70-99) mg/dl Estimat Average Glucose mg/dl Hemoglobin A1c (4.5-5.6) % Calcium 8.5 (8.5-10.1) mg/dl Total Bilirubin 0.4 (0.2-1) mg/dl AST 35 (15-37) U/L ALT 54 (12-78) U/L Alkaline Phosphatase 88 (45-117) U/L Total Protein 6.0 L (6.4-8.2) gm/dl Albumin 2.9 L (3.4-5.0) gm/dl Globulin 3.1 (2.5-4.0) gm/dl Albumin/Globulin Ratio 0.9 (0.9-2)
[2020-03-31] MEDS: FAMOTIDINE 20 MG in SYRINGE 3 ML IV SCH ×2 (09:12→20:13)
[2020-03-31] MEDS: ENOXAPARIN INJ 30 MG/0.3 ML SYR SQ SCH (09:12)
[2020-03-31 09:13] LABS: Albumin Globulin Ratio 0.9 (0.9-2); Albumin Level 2.6 gm/dl (3.4-5.0); BUN Creatinine Ratio 38.2 (10-20); Bilirubin,Total 0.5 mg/dl (0.2-1); Calcium 8.3 mg/dl (8.5-10.1); Creatinine Clr Calc Pharmacy 54.7 ml/min; Est GFR (African American) 83.9; Est GFR (Non-African American) 72.4; Globulin 3.1 gm/dl (2.5-4.0); Potassium 3.8 mmol/L (3.5-5.1); Total Protein 5.7 gm/dl (6.4-8.2)
--- NOTE | 2020-03-31 14:26 | Hospitalist Progress Note ---
Date of Service March 31, 2020 Assessment & Plan (1) Small bowel obstruction: -closed loop of bowel with interloop fluid - Continue IV Flagyl and IV ceftriaxone for anaerobic and gram - coverage. - NG removed, tolerating clears - dc IVF - pain control, anti emetics - general surgery consulted (2) Gastric adenocarcinoma: - stage IV with distal phoebe metastasis - currently undergoing FOLFOX chemo with 5 Fluro-uracil. Most recent infusion 03/22/20. Previously, regimen also contained oxaliplatin, but this was d/c after last infusion - immunotherapy with Opdivo - most recent surveillance CT scan of abdomen showed total resolution of cancer; CT scan performed on admission showed no evidence of recurrence or adenopathy - consulted Dr. Solis (3) GERD (gastroesophageal reflux disease): Continue famotidine bid (4) Bilateral inguinal hernia: incidental finding on CT a/p No groin pain or symptoms (5) Hepatic cyst: - noted incidentally on CT of abdomen/pelvis; characterized as "stable" when compared to scan on 02/07/20 - no acute management (6) Diverticulosis: Seen incidentally on CT No acute diverticulitis (7) Hyperglycemia: Mild, on morning labs now resolved A1c 5.9 - follow up with pcp (8) DVT prophylaxis: SCDs, enoxaparin Admission and Anticipated Discharge Date Admission Date: March 29, 2020 Subjective Feeling better, tolerated clear liquids, up and moving around the room. No further abdominal pain or nausea. Had bm ROS Constitutional: no chills, aches, sweats or fever Respiratory: no sob,cough, sputum, or wheezing Cardiac: no chest pain, palpitations, edema, orthopnea or lightheadedness GI: no abdominal pain, nausea, vomiting, diarrhea or constipation : no dysuria or hesitancy Extremities: no joint pain or weakness Skin: no rash All other systems reviewed and negative Physical Exam Physical Exam: General: no distress Eyes: normal inspection, PERLL Respiratory: chest non tender, clear to auscultation, normal breath sounds, no respiratory distress, no accessory muscle use Cardiac: regular rate and rhythm, no rub or gallop, no murmur, no edema, no jvd GI/: active bowel sounds, no abd pain or tenderness, soft, non distended Extremities: normal range of motion, normal strength, non tender Neuro/Psych: alert and oriented x 3, normal mood and affect Skin: normal color, dry Results & Data Results & Data ([facility]) Vital Signs (Past 12 Hours) Vital Signs Temp Pulse Resp BP Pulse Ox 03/31/20 07:41 36.7 C 80 16 149/82 H 96 PG Care Time/CCT Total # of Minutes Spent Total Time Spent with Patient: Total time spent is greater than 50% in coordination of care (as documented) at patient's floor/unit and/or counseling patient: Coding Level of Care Code 62306 Subseq Hosp Care Lvl 2 Diagnoses Small bowel obstruction K56.609 Gastric adenocarcinoma C16.9 GERD (gastroesophageal reflux disease) K21.9 Bilateral inguinal hernia K40.20 Hepatic cyst K76.89 Diverticulosis K57.90 Hyperglycemia R73.9 DVT prophylaxis Z29.9
[2020-03-31] MEDS: cefTRIAXone SODIUM 1,000 MG in DEXTROSE 5% 50 ML IV SCH (20:19)
[2020-04-01] MEDS: metroNIDAZOLE 500 MG/100 ML BAG IV SCH ×2 (05:56→13:51)
[2020-04-01 06:29] LABS: Basophils # (auto) 0.01 K/uL (0-0.2); Basophils % (auto) 0.1 %; Eosinophils # (auto) 0.09 K/uL (0-0.5); Hematocrit (blood only) 33.4 % (42-52); Hemoglobin 11.1 g/dL (14.0-18.0); Immature Granulocytes # (auto) 0.02 K/uL (0.00-0.02); Immature Granulocytes % (auto) 0.2 %; Lymphocytes # (auto) 1.76 K/uL (1.2-3.4); Lymphocytes % (auto) 20.1 %; Mean Corpuscular Hemoglobin 32.1 pg (25-34); Mean Corpuscular Hgb Conc 33.2 g/dL (32-36); Mean Corpuscular Volume 96.5 fL (80-100); Mean Platelet Volume 10.3 fL (7.4-10.4); Monocytes # (auto) 1.34 K/uL (0.11-0.59); Monocytes % (auto) 15.3 %; Neutrophils # (auto) 5.54 K/uL (1.4-6.5); Neutrophils % (auto) 63.3 %; Platelet Count 188 K/uL (130-400); RDW Coefficient of Variation 16.7 % (11.5-14.5); RDW Standard Deviation 57.1 fL (36.4-46.3); Red Blood Count 3.46 M/uL (4.7-6.1); White Blood Count 8.76 K/uL (4.8-10.8)
[2020-04-01 06:58] LABS: Albumin Level 2.6 gm/dl (3.4-5.0); Calcium 7.9 mg/dl (8.5-10.1); Creatinine Clr Calc Pharmacy 57.1 ml/min; Est GFR (African American) 88.3; Est GFR (Non-African American) 76.2; Potassium 3.7 mmol/L (3.5-5.1)
[2020-04-01 07:00] LABS: Albumin Globulin Ratio 0.9 (0.9-2); Bilirubin,Total 0.5 mg/dl (0.2-1); Total Protein 5.6 gm/dl (6.4-8.2)
[2020-04-01] MEDS: ENOXAPARIN INJ 30 MG/0.3 ML SYR SQ SCH (08:55)
[2020-04-01] MEDS: FAMOTIDINE 20 MG in SYRINGE 3 ML IV SCH (08:58)
--- NOTE | 2020-04-01 09:16 | Surgery Progress Note ---
Date of Service April 01, 2020 Assessment & Plan (1) SBO (small bowel obstruction): NGT out yesterday, pt has been tolerating clears Starting to have BM's Denies abdominal pain, n/v Will advance to full liquids this AM, if does well can advance diet as tolerates Continue medical management, onc following Dr Cano- agree with above plan Subjective Patient examined, waking up this AM. He has been tolerating clear liquids. Denies any nausea/vomiting or abdominal pain. Said he is starting to have BM's, last was yesterday. Physical Exam Physical Exam: awake/alert Gastrointestinal (Abdomen): Inspection/Auscultation: + abdomen distended (mild) Percussion/Palpation: abdomen soft; abdomen nontender Results & Data Vital Signs (Past 12 Hours) Vital Signs Temp Pulse Resp BP Pulse Ox 04/01/20 08:19 36.6 C 69 16 144/77 H 95 03/31/20 23:10 36.7 C 72 16 122/68 96 PG Care Time/CCT Total # of Minutes Spent Total Time Spent with Patient: Total time spent is greater than 50% in coordination of care (as documented) at patient's floor/unit and/or counseling p atient: Coding Level of Care Code 07330 Subseq Hosp Care Lvl 1 Diagnoses SBO (small bowel obstruction) K56.609
--- NOTE | 2020-04-01 14:01 | Discharge Summary ---
Date of Service April 01, 2020 Admission HPI Per Admitting Provider Mr. 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 He is currently on FOLFOX chemotherapy (most recent infusion 03/22/20) and immunotherapy with Opdivo. He presented to the ED today for nausea with multiple vomiting episodes that came on abruptly this morning. His vomitus was non-bloody and non- bilious. He experienced associated bloating and abdominal pain. He had a bowel movement upon awakening in the morning, but has not passed gas since. He also did not consume any food today, endorsing a diminished appetite. Of note, Mr. Xiong's had a surveillance cat scan of the abdomen/pelvis on 02/07/20 which showed total resolution of his cancer. He followed with Dr. 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 He denies any surgery or radiation therapy as part of his cancer treatment. He also has a history of GERD, for which he takes famotidine 20mg, daily. ED course: Patient with low temperature of 36.4 on admission. WBC WNL. Hgb low at 11.3, MCV 95. Lipase WNL. AST mildly elevated to 49. Electrolytes normal with the exception of magnesium to 2.5. Troponin undetectable. CT scan of abdomen and pelvis revealed evidence of a closed loop small bowel obstruction with interloop fluid; diverticulosis without diverticulitis, bilateral inguinal hernias and sta ble hepatic cysts. Patient was started on IV fluids, administered a dose of Zofran and given 6mg IV morphine. NG tube was placed in the emergency department. Principal Diagnosis SBO Discharge Exam Constitutional WD/WN, vitals as above Respiratory normal respiratory effort, lungs clear to auscultation Cardiovascular RRR, no murmur, no edema Gastrointestinal (Abdomen) Inspection/Auscultation: abdomen normal to inspection and normal bowel sounds; abdomen not distended Percussion/Palpation: abdomen soft; abdomen nontender Musculoskeletal no cyanosis or clubbing, extremities motor strength 5/5 Skin no rashes, warm and dry Neurologic moves all extremities and awake Psychiatric A+Ox3, euthymic affect Discharge Data Allergies Allergy/AdvReac Type Severity Reaction Status Date / Time No Known Drug Allergies Allergy Unknown Verified 03/29/20 17:38 Consultations 03/29/20 19:11 ED Decision to Admit Stat 03/29/20 21:53 Consult General Surgery Routine Ordered Studies 03/29/20 16:45 CT abd pelvis IV con only Stat Hospital Course (1) Small bowel obstruction: -closed loop of bowel with interloop fluid - Given IV Flagyl and IV ceftriaxone for anaerobic and gram - coverage while inpatient but will dc for discharge as patient does not have any indication for infection - NG removed 03/31, tolerating low fat/low fiber diet, ambulating the halls, no further abdominal pain or nausea, had large bm - pain control, anti emetics - general surgery consulted (2) Gastric adenocarcinoma: - stage IV with distal phoebe metastasis - currently undergoing FOLFOX chemo with 5 Fluro-uracil. Most recent infusion 03/22/20. Previously, regimen also contained oxaliplatin, but this was d/c after last infusion - immunotherapy with Opdivo - most recent surveillance CT scan of abdomen showed total resolution of cancer; CT scan performed on admission showed no evidence of recurrence or adenopathy - consulted Dr. Solis (3) GERD (gastroesophageal reflux disease): Continue famotidine bid (4) Bilateral inguinal hernia: incidental finding on CT a/p No groin pain or symptoms (5) Hepatic cyst: - noted incidentally on CT of abdomen/pelvis; characterized as "stable" when compared to scan on 02/07/20 - no acute management (6) Diverticulosis: Seen incidentally on CT No acute diverticulitis (7) Hyperglycemia: Mild, on morning labs now resolved A1c 5.9 - follow up with pcp (8) DVT prophylaxis: SCDs, enoxaparin Total Time Total Time Spent Total Time Spent (In Minutes): greater than 30 minutes Discharge Plan Discharge Items Patient Disposition: Home - Self-Care Reason For Visit: SMALL BOWEL OBSTRUCTION Discharge Diagnosis: Small bowel obstruction Activity: Resume your previous activity Non-emergency contact: Primary Care Provider Call non-emergency contact if: you have any medication questions Follow-up/Referrals: Alli Dick MD [Primary Care Provider] - Diet: Low Fiber and Low Fat Diet Comment: advance your diet slowly as tolerated Addtl Attending Provider Instructions: (1) Small bowel obstruction: Resolved - general surgery was consulted and you were seen by Dr. Huston as well as Luna Mccormick PA-C and Deborah Berrios PA-C (2) Gastric adenocarcinoma: Please follow up with Dr. Martin (3) Bilateral inguinal hernia: incidental finding on your CT scan. Please discuss with your doctor in follow up. Please read the enclosed information on inguinal hernias so that you are aware of warning signs and when to see your doctor. (4) Hepatic cyst: - noted incidentally on CT of abdomen/pelvis; characterized as "stable" when compared to scan on 02/07/20 - no acute management (5) Diverticulosis: Seen incidentally on CT No acute inflammation, no need for intervention at this time. (6) Hyperglycemia: Mild, on morning labs Your A1c, which is a measure of your three month average blood sugar, was 5.9 - this value is above normal but below threshold for diabetes Please discuss this with your doctor at your next follow up Pending Studies at Discharge: No Stand-Alone Forms: My [facility] [email or web address], Smoking Cessation Medications and DC Order Prescriptions: Continued multivitamin Tablet 1 tab PO QAM RF: 0 ascorbic acid (vitamin C) [Vitamin C] 1,000 mg Tablet 1 g PO DAILY RF: 0 ondansetron HCl [Zofran] 8 mg tablet 8 mg PO Q8 PRN (Reason: Nausea) RF: 0 polysaccharide iron complex 150 mg iron Capsule 150 mg PO DAILY RF: 0 prochlorperazine maleate [Compazine] 10 mg tablet 10 mg PO Q6 PRN (Reason: Nausea) RF: 0 famotidine [Pepcid] 20 mg tablet 20 mg PO QPM RF: 0 omeprazole 20 mg Tablet,Delayed Release (Dr/Ec) 20 mg PO Q9W RF: 0 5-Fu 0 mg IV, .[id number] RF: 0 Opdivo 40 mg/4 mL Solution 0 mg IV MONTHLY RF: 0 Discharge Orders: Discharge Order (Routine); Ordered 04/01/20 Ordered By: Cassia Caceres/Other Patient Handouts: ED Hernia Inguinal Admission Data Admit Date/Time: 03/29/20 21:04 Attending Provider: Sherman Schmitz Admit Provider: Jessica Batista Primary Care Provider: Alli Dick Other Providers: Des Rehman ; Sherman Schmitz Other Interventions: Discharge Summary Assessment (RN) Last Done: 04/01/20 14:07 DC Date/Time DO NOT enter until pt leaves facility: 04/01/20 16:04 Supervising Physician Co-Signing Physician Notes I supervised Cassia Zaragoza NP on this patient's care. I examined the patient today independently of her. I discussed the plan of care with her with the plan being as written in her note except for any following changes/exceptions: None. In no distress today. Will have lunch with us and if he tolerates solid food, he can go today. Discussed with Dr. Martin. Coding Level of Care Code D/C Day Management >30 mins Diagnoses Small bowel obstruction K56.609 Gastric adenocarcinoma C16.9 GERD (gastroesophageal reflux disease) K21.9 Bilateral inguinal hernia K40.20 Hepatic cyst K76.89 Diverticulosis K57.90 Hyperglycemia R73.9 DVT prophylaxis Z29.9
== END 2020-04-01 16:04 | disposition home or self-care (01) | DRG 389 ==
LOC: ED 15:06 → 3E 21:04 → SUATTDRO 21:04 → 3E 21:31

== ENCOUNTER 2022-06-29 12:03 | Observation (INO) ==
[2022-06-29] MEDS ORDERED: XYLOCAINE 1%/SOD BICARB 20 ML VIAL INFIL ONE (12:14)
[2022-06-29] MEDS ORDERED: ONDANSETRON INJ 2 MG/ML 2 ML VIAL IV STA (12:14)
[2022-06-29] MEDS ORDERED: SODIUM CHLORIDE 0.9% 500 ML IV SCH (12:15)
--- NOTE | 2022-06-29 12:19 | Emergency Department Note ---
Impression & Plan Syncope, Anemia, Laceration of scalp, Elevated troponin ED Provider Note NAME: SHARMAINE HAQ II AGE: 82 SEX: M : 1940 ARRIVES VIA: Ambulance INFORMANT: [Patient][nursing] ED PROVIDER(S): [Yahir William MD] CHIEF COMPLAINT: Syncope HISTORY OF PRESENT ILLNESS: The patient is an 82-year-old male who presents to the ER after a syncopal event. The patient played some basketball and had gone for a walk. He was on the way back to his car when he collapsed and struck the back of his head. He cannot recall feeling dizzy or lightheaded. He was not short of breath, there was no chest pain. He was unconscious for about 2 minutes and when he woke up, seemed a bit confused and was slurring his words. He remembers waking up in the back of the ambulance. He does not remember lying on the ground. He did suffer a laceration of the posterior scalp. The bleeding is controlled. He states his tetanus is current. There has been no cough or congestion. No vomiting or diarrhea. He has not had fever. He has been in baseline health. His exercise regimen is stable, today's activity was not unusual for him. The patient did eat this morning, he felt well and at baseline this morning. REVIEW OF SYSTEMS: See HPI for pertinent positives and negatives. A total of ten systems were reviewed and were otherwise negative. PMHx/PSHx: See Below SOCIAL HISTORY: See Below. PHYSICAL EXAM: GENERAL: Patient is in no acute distress. HEENT: There is a 2 cm posterior scalp laceration, no active bleeding. No facial trauma. Mucous membranes moist. NECK: No stridor, no adenopathy, nontender cervical spine, trachea is midline. LUNGS: Clear to auscultation bilaterally, no wheeze, no rhonchi, breath sounds equal. HEART: Subtle systolic murmur, regular rate and rhythm. ABDOMEN: Soft, nontender, bowel sounds positive, no peritonitis. EXTREMITIES: No cyanosis or edema, full range of motion of all the joints without pain or difficulty, no signs for acute trauma. NEUROLOGIC: Oriented x 3, no acute motor or sensory deficits, no focal weakness. SKIN: No rash, no jaundice, no diaphoresis. Rectal: Darker stool, heme-negative. DIFFERENTIAL DIAGNOSIS: Infection, dehydration, dysrhythmia, metabolic abnormality, hypo/hyperglycemia, electrolyte disturbance, anemia, hypoxia, cardiac sources, intracerebral event, toxicologic issues, stroke, TIA, as well as other pathologies. EMERGENCY DEPARTMENT COURSE/PROCEDURES: ECG: Indication was syncope. The ECG shows a sinus rhythm with a first-degree AV block. The rate is 80. There is no ST elevation, no PVCs. The QTc is 472. A right bundle branch block is present. Compared to an ECG from 03/29/2020, criteria for the first degree A-V block is now present. Continuous Cardiac Monitoring: An order was placed for continuous cardiac monitoring. The monitor shows a rate of 75 with sinus rhythm with a first- degree block. Observation Note: The patient has a family history of cancer. Patient was first seen at 1220 and observation began at 1220 and was necessary in order to evaluate for potential cardiac ischemia or dysrhythmia. Upon reevaluation, over 4 hours of observation revealed that the patient should be admitted for further work-up. Laceration repair: This procedure was performed by me. The wound was prepped and draped in sterile fashion. The area was anesthetized with lidocaine. Using saline it was cleansed thoroughly. No foreign debris was noted. The wound was visualized and explored to its deepest regions. There was no nervous, deep structure, or tendon involvement. Using sterile technique the wound was closed. There were no complications. The area was then dressed. The patient tolerated the procedure well. Number of phuong: 3. MEDICAL DECISION MAKING: There is no leukocytosis. The patient is anemic with a hemoglobin of 10.4. He has been anemic before but today's value was a bit lower than baseline. A rectal exam was done, the stool was heme-negative. There was a normal platelet count. Some renal insufficiency was noted although this, appears baseline. No electrolyte abnormality in need of emergent correction. No concerning liver enzyme elevation. Total CK was not elevated making rhabdomyolysis unlikely. The patient appeared to be in a euthyroid state. Urinalysis does not show i nfection. COVID test returned negative. Chest x-ray does not show pneumonia or CHF. Brain CT shows no acute bleed or mass-effect. ECG shows a sinus rhythm with a first review block. No obvious ischemia. Cardiac enzyme testing x2 does show an elevation to the troponin concerning for potential dysrhythmia or cardiac injury. The patient received a 500 cc saline bolus, a second bolus was given. He was given IV Zofran for nausea. His laceration was repaired as noted above without complication. I did speak with Dr. Alston of cardiology, given the circumstances surrounding the syncope/drop event, given the elevation of the delta troponin, hospitalization, observation and further cardiac work-up was felt warranted. I spoke with the patient and case management, the on-call hospitalist was consulted. 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 Osteoarthritis SBO (small bowel obstruction) Small bowel obstruction Stomach cancer Surgical History History of appendectomy History of bilateral cataract extraction History of colonoscopy History of eye surgery History of tonsillectomy History of tooth extraction Port-A-Cath in place (11/29/19) S/P appendectomy S/P tonsillectomy Family History Mother Colon cancer Colorectal cancer Grandfather (Maternal) Myocardial infarction Grandfather Colorectal cancer Father Heart disease Other Hearing loss No family history of adverse response to anesthesia No family history of bleeding disorder Denies family history of Ovarian cancer Prostate cancer Breast cancer Social History Smoking Status: Never smoker Second Hand Exposure: No; Hx Alcohol Use: Yes Alcohol type: wine Hx Substance Use: No Preferred Language: Malaysian Communication Ability: Effective Visual Impairment: No Limitations Securities Analyst Required: No Beliefs That Will Affect Care: None marital status: Current Living Situation: Spouse current occupational status: retired Feels Safe at Home: Yes Dental Care, Regularly: Yes Physical Activity Frequency: 5-6 Times per Week Seatbelt Use: always Sunscreen Use: Yes Assistive Devices: None Allergies Allergies Allergy/AdvReac Type Severity Reaction Status Date / Time No Known Drug Allergies Allergy Unknown Verified 06/29/22 15:17 Home Meds Home Medications Medication Instructions Recorded Confirmed multivitamin 1 tab PO QAM 03/29/20 06/26/22 polysaccharide iron complex 150 mg 150 mg PO DAILY 03/29/20 06/26/22 iron capsule cholecalciferol (vitamin D3) 50 50 mcg PO DAILY 09/21/21 06/26/22 mcg (2,000 unit) capsule famotidine 20 mg tablet (Pepcid) 20 mg PO BID 09/21/21 06/26/22 Previous Rx's Medication Instructions Recorded calcitriol 0.25 mcg capsule 0.25 mcg PO DAILY #90 caps 04/02/22 Results & Data (ED) Vital Signs Vital Signs - 24 hr 06/29/22 12:06 06/29/22 12:06 06/29/22 12:38 Temperature 36.8 C 36.8 C Temperature Source Oral Oral Pulse Rate 75 Pulse Rate [Right Finger] 75 Pulse Rate from SpO2 Sensor Respiratory Rate 16 17 Respiratory Effort / Characteristics Non-Labored Respiratory Depth Normal Respiratory Pattern Regular Blood Pressure 159/93 H Blood Pressure [Right Arm] 159/93 H Blood Pressure Mean 115 Blood Pressure Mean [Right Arm] 115 Blood Pressure Position Sitting Blood Pressure Position [Right Arm] Lying Pulse Oximetry 97 99 100 Oxygen Delivery Method Room Air Room Air Room Air Sepsis Recent Fever Within 48 Hours No Sepsis New/Unexplained Change in Mental Status No Sepsis Action Taken by Nursing No Action Required 06/29/22 12:38 06/29/22 12:07 06/29/22 12:08 Temperature Temperature Source Pulse Rate 68 79 Pulse Rate [Right Finger] Pulse Rate from SpO2 Sensor 79 Respiratory Rate 18 17 Respiratory Effort / Characteristics Respiratory Depth Respiratory Pattern Blood Pressure 159/93 H Blood Pressure [Right Arm] Blood Pressure Mean 115 Blood Pressure Mean [Right Arm] Blood Pressure Position Blood Pressure Position [Right Arm] Pulse Oximetry 100 98 Oxygen Delivery Method Room Air Sepsis Recent Fever Within 48 Hours Sepsis New/Unexplained Change in Mental Status Sepsis Action Taken by Nursing 06/29/22 12:10 06/29/22 12:20 06/29/22 12:30 Temperature Temperature Source Pulse Rate 78 71 71 Pulse Rate [Right Finger] Pulse Rate from SpO2 Sensor 77 72 71 Respiratory Rate 22 12 21 Respiratory Effort / Characteristics Respiratory Depth Respiratory Pattern Blood Pressure Blood Pressure [Right Arm] Blood Pressure Mean Blood Pressure Mean [Right Arm] Blood Pressure Position Blood Pressure Position [Right Arm] Pulse Oximetry 97 98 99 Oxygen Delivery Method Sepsis Recent Fever Within 48 Hours Sepsis New/Unexplained Change in Mental Status Sepsis Action Taken by Nursing 06/29/22 12:40 06/29/22 12:50 06/29/22 13:00 Temperature Temperature Source Pulse Rate 73 70 68 Pulse Rate [Right Finger] Pulse Rate from SpO2 Sensor 73 69 69 Respiratory Rate 17 15 19 Respiratory Effort / Characteristics Respiratory Depth Respiratory Pattern Blood Pressure Blood Pressure [Right Arm] Blood Pressure Mean Blood Pressure Mean [Right Arm] Blood Pressure Position Blood Pressure Position [Right Arm] Pulse Oximetry 100 100 99 Oxygen Delivery Method Sepsis Recent Fever Within 48 Hours Sepsis New/Unexplained Change in Mental Status Sepsis Action Taken by Nursing 06/29/22 13:19 06/29/22 13:20 06/29/22 13:30 Temperature Temperature Source Pulse Rate 69 67 71 Pulse Rate [Right Finger] Pulse Rate from SpO2 Sensor Respiratory Rate 16 16 13 Respiratory Effort / Characteristics Respiratory Depth Respiratory Pattern Blood Pressure Blood Pressure [Right Arm] Blood Pressure Mean Blood Pressure Mean [Right Arm] Blood Pressure Position Blood Pressure Position [Right Arm] Pulse Oximetry Oxygen Delivery Method Sepsis Recent Fever Within 48 Hours Sepsis New/Unexplained Change in Mental Status Sepsis Action Taken by Nursing 06/29/22 13:40 06/29/22 13:50 06/29/22 14:00 Temperature Temperature Source Pulse Rate 68 77 83 Pulse Rate [Right Finger] Pulse Rate from SpO2 Sensor Respiratory Rate 14 22 19 Respiratory Effort / Characteristics Respiratory Depth Respiratory Pattern Blood Pressure Blood Pressure [Right Arm] Blood Pressure Mean Blood Pressure Mean [Right Arm] Blood Pressure Position Blood Pressure Position [Right Arm] Pulse Oximetry Oxygen Delivery Method Sepsis Recent Fever Within 48 Hours Sepsis New/Unexplained Change in Mental Status Sepsis Action Taken by Nursing 06/29/22 14:06 06/29/22 14:06 06/29/22 14:10 Temperature Temperature Source Pulse Rate 76 67 Pulse Rate [Right Finger] Pulse Rate from SpO2 Sensor Respiratory Rate 19 17 Respiratory Effort / Characteristics Respiratory Depth Respiratory Pattern Blood Pressure 174/79 H Blood Pressure [Right Arm] Blood Pressure Mean 110 Blood Pressure Mean [Right Arm] Blood Pressure Position Blood Pressure Position [Right Arm] Pulse Oximetry Oxygen Delivery Method Sepsis Recent Fever Within 48 Hours Sepsis New/Unexplained Change in Mental Status Sepsis Action Taken by Nursing 06/29/22 14:20 06/29/22 14:30 06/29/22 14:40 Temperature Temperature Source Pulse Rate 70 76 79 Pulse Rate [Right Finger] Pulse Rate from SpO2 Sensor Respiratory Rate 15 19 22 Respiratory Effort / Characteristics Respiratory Depth Respiratory Pattern Blood Pressure Blood Pressure [Right Arm] Blood Pressure Mean Blood Pressure Mean [Right Arm] Blood Pressure Position Blood Pressure Position [Right Arm] Pulse Oximetry Oxygen Delivery Method Sepsis Recent Fever Within 48 Hours Sepsis New/Unexplained Change in Mental Status Sepsis Action Taken by Nursing 06/29/22 14:50 06/29/22 15:00 06/29/22 15:00 Temperature Temperature Source Pulse Rate 70 70 Pulse Rate [Right Finger] Pulse Rate from SpO2 Sensor Respiratory Rate 18 12 Respiratory Effort / Characteristics Respiratory Depth Respiratory Pattern Blood Pressure 155/82 H Blood Pressure [Right Arm] Blood Pressure Mean 106 Blood Pressure Mean [Right Arm] Blood Pressure Position Blood Pressure Position [Right Arm] Pulse Oximetry Oxygen Delivery Method Sepsis Recent Fever Within 48 Hours Sepsis New/Unexplained Change in Mental Status Sepsis Action Taken by Nursing 06/29/22 15:10 06/29/22 15:20 06/29/22 15:30 Temperature Temperature Source Pulse Rate 75 79 76 Pulse Rate [Right Finger] Pulse Rate from SpO2 Sensor Respiratory Rate 19 25 H 24 Respiratory Effort / Characteristics Respiratory Depth Respiratory Pattern Blood Pressure Blood Pressure [Right Arm] Blood Pressure Mean Blood Pressure Mean [Right Arm] Blood Pressure Position Blood Pressure Position [Right Arm] Pulse Oximetry Oxygen Delivery Method Sepsis Recent Fever Within 48 Hours Sepsis New/Unexplained Change in Mental Status Sepsis Action Taken by Nursing 06/29/22 15:40 06/29/22 15:50 06/29/22 16:00 Temperature Temperature Source Pulse Rate 75 79 Pulse Rate [Right Finger] Pulse Rate from SpO2 Sensor Respiratory Rate 18 17 Respiratory Effort / Characteristics Respiratory Depth Respiratory Pattern Blood Pressure 165/86 H Blood Pressure [Right Arm] Blood Pressure Mean 112 Blood Pressure Mean [Right Arm] Blood Pressure Position Blood Pressure Position [Right Arm] Pulse Oximetry Oxygen Delivery Method Sepsis Recent Fever Within 48 Hours Sepsis New/Unexplained Change in Mental Status Sepsis Action Taken by Nursing 06/29/22 16:00 06/29/22 16:10 06/29/22 16:20 Temperature Temperature Source Pulse Rate 73 71 74 Pulse Rate [Right Finger] Pulse Rate from SpO2 Sensor Respiratory Rate 21 24 Respiratory Effort / Characteristics Respiratory Depth Respiratory Pattern Blood Pressure Blood Pressure [Right Arm] Blood Pressure Mean Blood Pressure Mean [Right Arm] Blood Pressure Position Blood Pressure Position [Right Arm] Pulse Oximetry Oxygen Delivery Method Sepsis Recent Fever Within 48 Hours Sepsis New/Unexplained Change in Mental Status Sepsis Action Taken by [facility] Medications Current Medication List: was personally reviewed by me Laboratory Data Attestation: I reviewed the patient's lab results. Result diagrams: 06/29/22 12:20 06/29/22 12:20 Lab Results 06/29/22 06/29/22 06/29/22 Range/Units 12:20 12:20 12:20 WBC 7.27 (4.8-10.8) K/ul RBC 3.41 L (4.63-6.08) M/uL Hgb 10.4 L (14.0-18.0) g/dl Hct 31.4 L (40.1-51.0) % MCV 92.1 (80.0-100.0) fL MCH 30.5 (25.0-34.0) pg MCHC 33.1 (32.0-36.0) g/dL RDW Std Deviation 42.5 (36.4-46.3) fL RDW Coeff of Jf 12.7 (11.5-14.5) % Plt Count 184 (130-400) K/uL MPV 10.4 (9.4-12.4) fL Immature Gran % (Auto) 0.6 % Neut % (Auto) 67.9 % Lymph % (Auto) 20.4 % [place] % (Auto) 8.8 % Eos % (Auto) 1.9 % Baso % (Auto) 0.4 % Neut # (Auto) 4.94 (1.4-6.5) K/uL Lymph # (Auto) 1.48 (1.2-3.4) K/uL [place] # (Auto) 0.64 (0.24-0.82) K/uL Eos # (Auto) 0.14 (0-0.50) K/uL Baso # (Auto) 0.03 (0-0.2) K/uL Immature Gran # (Auto) 0.04 H (0.00-0.02) K/uL Sodium 135 L (136-145) mmol/L Potassium 5.1 (3.5-5.1) mmol/L Chloride 102 (98-107) mmol/L Carbon Dioxide 25 (21-32) mmol/L Anion Gap 8 (3-11) BUN 34 H (6-23) mg/dl Creatinine 1.64 H (0.6-1.4) mg/dl Est Cr Clr Drug Dosing 34.4 ml/min Est GFR ( Amer) 43.9 ml/min Est GFR (Non-Af Amer) 37.8 ml/min BUN/Creatinine Ratio 20.7 H (10-20) Glucose 115 H (70-99(Fasting)) mg/dl Calcium 8.8 (8.5-10.1) mg/dl Magnesium 2.3 (1.7-2.4) mg/dl Total Bilirubin 0.5 (0.2-1.0) mg/dl AST 32 (13-39) U/L ALT 18 (7-52) U/L Alkaline Phosphatase 54 (34-104) U/L Troponin I High Sens 11.0 (0-20) pg/ml Total Protein 6.6 (6.0-8.3) gm/dl Albumin 4.0 (3.4-5.0) gm/dl Globulin 2.6 (2.5-4.0) gm/dl Albumin/Globulin Ratio 1.5 (0.9-2) TSH 3.144 (0.300-4.500) uIu/ml Urine Color Urine Appearance (Clear) Urine pH (4.5-7.5) Ur Specific [place] (1.000-1.030) Urine Protein (Negative) Urine Glucose (UA) (Negative) Urine Ketones (Negative) Urine Blood (Negative) Urine Nitrite (Negative) Urine Bilirubin (Negative) Urine Urobilinogen (Negative) Ur Leukocyte Esterase (Negative) Urine WBC (Auto) (0-5) /hpf Urine RBC (Auto) (0-4) /hpf U Hyaline Cast (Auto) (0-5) /lpf U Epithel Cells (Auto) (0-5) /lpf Urine Bacteria (Auto) (Negative) SARS-CoV-2, RNA, NAAT (NEGATIVE) 06/29/22 06/29/22 06/29/22 Range/Units 12:23 14:07 15:20 WBC (4.8-10.8) K/ul RBC (4.63-6.08) M/uL Hgb (14.0-18.0) g/dl Hct (40.1-51.0) % MCV (80.0-100.0) fL MCH (25.0-34.0) pg MCHC (32.0-36.0) g/dL RDW Std Deviation (36.4-46.3) fL RDW Coeff of Jf (11.5-14.5) % Plt Count (130-400) K/uL MPV (9.4-12.4) fL Immature Gran % (Auto) % Neut % (Auto) % Lymph % (Auto) % [place] % (Auto) % Eos % (Auto) % Baso % (Auto) % Neut # (Auto) (1.4-6.5) K/uL Lymph # (Auto) (1.2-3.4) K/uL [place] # (Auto) (0.24-0.82) K/uL Eos # (Auto) (0-0.50) K/uL Baso # (Auto) (0-0.2) K/uL Immature Gran # (Auto) (0.00-0.02) K/uL Sodium (136-145) mmol/L Potassium (3.5-5.1) mmol/L Chloride (98-107) mmol/L Carbon Dioxide (21-32) mmol/L Anion Gap (3-11) BUN (6-23) mg/dl Creatinine (0.6-1.4) mg/dl Est Cr Clr Drug Dosing ml/min Est GFR ( Amer) ml/min Est GFR (Non-Af Amer) ml/min BUN/Creatinine Ratio (10-20) Glucose (70-99(Fasting)) mg/dl Calcium (8.5-10.1) mg/dl Magnesium (1.7-2.4) mg/dl Total Bilirubin (0.2-1.0) mg/dl AST (13-39) U/L ALT (7-52) U/L Alkaline Phosphatase (34-104) U/L Troponin I High Sens 28.1 H D (0-20) pg/ml Total Protein (6.0-8.3) gm/dl Albumin (3.4-5.0) gm/dl Globulin (2.5-4.0) gm/dl Albumin/Globulin Ratio (0.9-2) TSH (0.300-4.500) uIu/ml Urine Color Yellow Urine Appearance Clear (Clear) Urine pH 8.0 H (4.5-7.5) Ur Specific [place] 1.013 (1.000-1.030) Urine Protein Trace H (Negative) Urine Glucose (UA) Negative (Negative) Urine Ketones Negative (Negative) Urine Blood Negative (Negative) Urine Nitrite Negative (Negative) Urine Bilirubin Negative (Negative) Urine Urobilinogen Negative (Negative) Ur Leukocyte Esterase Negative (Negative) Urine WBC (Auto) 1-5 (0-5) /hpf Urine RBC (Auto) 0-4 (0-4) /hpf U Hyaline Cast (Auto) 0 (0-5) /lpf U Epithel Cells (Auto) 0-5 (0-5) /lpf Urine Bacteria (Auto) Negative (Negative) SARS-CoV-2, RNA, NAAT NEGATIVE (NEGATIVE) Administered Medications Discontinued Medications Sodium Chloride (Nss) 500 mls @ 999 mls/hr IV .Q31M SANTINO Stop: 06/29/22 12:45 Last Infusion: 06/29/22 13:03 Dose: 0 mls/hr Documented By: Admin: 06/29/22 12:26 Dose: 999 mls/hr Documented By: PARK Sodium Chloride (Nss 1000ml) 500 mls @ 999 mls/hr IV .Q31M ONE Stop: 06/29/22 14:09 Last Infusion: 06/29/22 14:33 Dose: 0 mls/hr Documented By: Admin: 06/29/22 13:48 Dose: 999 mls/hr Documented By: PARK Lidocaine HCl (Xylocaine 1%/Sod Bicarb 20 Ml Vial) 20 ml INFIL NOW ONE Stop: 06/29/22 12:15 Last Admin: 06/29/22 12:37 Dose: 20 ml Documented By: PARK Ondansetron HCl (Ondansetron Inj 2 Mg/Ml 2 Ml Vial) 4 mg IV NOW STA Stop: 06/29/22 12:15 Last Admin: 06/29/22 12:37 Dose: 4 mg Documented By: PARK Imaging Data Radiologist's Impression: Head CT 06/29/22 12:14 CT OF THE HEAD WITHOUT CONTRAST CLINICAL HISTORY: fall, hit head COMPARISON STUDY: MRI of the brain October 27, 2012. CT DOSE: 614.27 mGy.cm TECHNIQUE: Helical axial images of the head were obtained without IV contrast. Automated exposure control was utilized for the study. A dose lowering technique was utilized adhering to the principles of ALARA. FINDINGS: No acute intracranial hemorrhage, midline shift or mass effect is present. White matter hypodensity suggests small vessel disease. Atrophy is noted. The ventricular system is unremarkable. The basal cisterns are patent. No extra-axial collections are present. There are no findings to suggest acute dural sinus thrombosis or acute territorial infarct. Right posterior scalp laceration is noted. No associated calvarial fracture. Postoperative findings of the right globe are incidentally noted. IMPRESSION: 1. No acute intracranial findings. 2. Posterior right scalp laceration. No calvarial fracture. ACT 112: Negative or not required by law. Electronically signed by: Trevor Smart M.D. 06/29/2022 1:31 PM Chest X-Ray 06/29/22 12:15 XR chest 1V portable CLINICAL HISTORY: weakness COMPARISON STUDY: Chest CT September 26, 2020. FINDINGS: Left subclavian [id number] is in place. Calcified granulomas within the right lower lobe are unchanged. Lung volumes are normal. Linear left basilar opacity reflects atelectasis. There is no pneumothorax or pleural effusion. Cardiac size is normal. Mediastinal contours are normal. There is no evidence fo r pulmonary edema. IMPRESSION: No acute cardiopulmonary findings. No change in appearance of the chest. ACT 112: Negative or not required by law. Electronically signed by: Trevor Smart M.D. 06/29/2022 1:05 PM Discharge Plan Visit Data Chief Complaint: Syncope Stated Complaint: syncope ED Provider: Yahir William Discharge Problem: Syncope, Anemia, Laceration of scalp, Elevated troponin Patient Disposition: Admitted As Inpatient Condition: Good Forms Stand Alone Forms: [employer] Prescriptions Prescriptions: No Action cholecalciferol (vitamin D3) 50 mcg (2,000 unit) capsule 50 mcg PO DAILY calcitriol 0.25 mcg capsule 0.25 mcg PO DAILY Qty: 90 3RF multivitamin Tablet 1 tab PO QAM polysaccharide iron complex 150 mg iron Capsule 150 mg PO DAILY famotidine [Pepcid] 20 mg tablet 20 mg PO BID Referrals Referrals: Pro,Alli Mai MD [Primary Care Provider] -
[2022-06-29 12:44] LABS: Basophils # (auto) 0.03 K/uL (0-0.2); Basophils % (auto) 0.4 %; Eosinophils # (auto) 0.14 K/uL (0-0.50); Eosinophils % (auto) 1.9 %; Hematocrit (blood only) 31.4 % (40.1-51.0); Hemoglobin 10.4 g/dl (14.0-18.0); Immature Granulocytes # (auto) 0.04 K/uL (0.00-0.02); Immature Granulocytes % (auto) 0.6 %; Lymphocytes # (auto) 1.48 K/uL (1.2-3.4); Lymphocytes % (auto) 20.4 %; Mean Corpuscular Hemoglobin 30.5 pg (25.0-34.0); Mean Corpuscular Hgb Conc 33.1 g/dL (32.0-36.0); Mean Corpuscular Volume 92.1 fL (80.0-100.0); Mean Platelet Volume 10.4 fL (9.4-12.4); Monocytes # (auto) 0.64 K/uL (0.24-0.82); Monocytes % (auto) 8.8 %; Neutrophils # (auto) 4.94 K/uL (1.4-6.5); Neutrophils % (auto) 67.9 %; Platelet Count 184 K/uL (130-400); RDW Coefficient of Variation 12.7 % (11.5-14.5); RDW Standard Deviation 42.5 fL (36.4-46.3); Red Blood Count 3.41 M/uL (4.63-6.08); White Blood Count 7.27 K/ul (4.8-10.8)
--- NOTE | 2022-06-29 13:06 | XRay Report ---
XR chest 1V portable CLINICAL HISTORY: weakness COMPARISON STUDY: Chest CT September 26, 2020. FINDINGS: Left subclavian Xgoily-i-Ayan is in place. Calcified granulomas within the right lower lobe are unchanged. Lung volumes are normal. Linear left basilar opacity reflects atelectasis. There is n o pneumothorax or pleural effusion. Cardiac size is normal. Mediastinal contours are normal. There is no evidence for pulmonary edema. IMPRESSION: No acute cardiopulmonary findings. No change in appearance of the chest. ACT 112: Negative or not required by law. Electronically signed by: Trevor Smart M.D. 06/29/2022 1:05 PM
[2022-06-29 13:08] LABS: Albumin Globulin Ratio 1.5 (0.9-2); BUN Creatinine Ratio 20.7 (10-20); Bilirubin,Total 0.5 mg/dl (0.2-1.0); Calcium 8.8 mg/dl (8.5-10.1); Creatinine Clr Calc Pharmacy 34.4 ml/min; Est GFR (African American) 43.9 ml/min; Est GFR (Non-African American) 37.8 ml/min; Globulin 2.6 gm/dl (2.5-4.0); Magnesium 2.3 mg/dl (1.7-2.4); Potassium 5.1 mmol/L (3.5-5.1); Total Protein 6.6 gm/dl (6.0-8.3)
--- NOTE | 2022-06-29 13:32 | CT Scan Report ---
CT OF THE HEAD WITHOUT CONTRAST CLINICAL HISTORY: fall, hit head COMPARISON STUDY: MRI of the brain October 27, 2012. CT DOSE: 614.27 mGy.cm TECHNIQUE: Helical axial images of the head were obtained without IV contrast. Automated exposure con trol was utilized for the study. A dose lowering technique was utilized adhering to the principles o f ALARA. FINDINGS: No acute intracranial hemorrhage, midline shift or mass effect is present. White matter hyp odensity suggests small vessel disease. Atrophy is noted. The ventricular system is unremarkable. The basal cisterns are patent. No extra-axial collections are present. There are no findings to suggest acute dural sinus thrombosis or acute territorial infarct. Right posterior scalp laceration is noted. No associated calvarial fracture. Postoperative findings of the right globe are incidentally noted. IMPRESSION: 1. No acute intracranial findings. 2. Posterior right scalp laceration. No calvarial fracture. ACT 112: Negative or not required by law. Electronically signed by: Trevor Smart M.D. 06/29/2022 1:31 PM
[2022-06-29] MEDS ORDERED: SODIUM CHLORIDE 0.9% 1000ML 500 ML IV ONE (13:39)
[2022-06-29 15:03] LABS: Appearance Urine Clear (Clear); Bacteria Urine Automated Negative (Negative); Bilirubin Urine Negative (Negative); Blood Urine Negative (Negative); Cast Urine Automated 0 /lpf (0-5); Color Urine Yellow; Epithelial Cell Urine Auto 0-5 /lpf (0-5); Glucose Urine UA Negative (Negative); Ketones Urine Negative (Negative); Leukocyte Esterase Urine Negative (Negative); Nitrite Urine Negative (Negative); RBC Urine Automated 0-4 /hpf (0-4); Specific Gravity Urine 1.013 (1.000-1.030); Urobilinogen Urine Negative (Negative)
[2022-06-29 15:04] LABS: Protein Urine Trace (Negative)
--- NOTE | 2022-06-29 15:20 | History & Physical Report ---
Date of Service June 29, 2022 Assessment & Plan (1) Syncope: Plan: -Admit to med/tele -Patient is currently afebrile, hemodynamically stable, and stable on RA -Etiology of patient's syncopal episode include cardiac arrhythmia, valvular abnormality, carotid stenosis, stroke, seizure -CT of the head negative for acute intracranial findings, will obtain MRI of the brain WO contrast to rule out other structural causes. 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 In the ED the patient was found to be afebrile, hemodynamically stable, and stable on room air. Chest xray was negative for acute changes and CT of the head revealed a Posterior right scalp laceration but no other abnormalities. He was noted to have an increased createnine of 1.64, his baseline appears to be around 1.30-1.50. He was given 2L NSS bolus in the ED. At the time of the exam the patient was resting comfortably in bed in no acute distress. They state that the patient had been in his normal state of health, of which he plays basketball every morning without issue. They went for a hike this morning for approximately 30 minutes. They were walking downhill at the end of their hike and his was a few steps in front of him when he suddenly fell backwards, hitting the back of his head. He denies any symptoms prior to the fall such as lightheadedness, dizziness, headache, changes in vision, hearing, taste, and smell, chest pain, heart palpitations, and SOB. His states that his eyes remained open the entire time but he would not respond to her. She also noticed that the patient was posturing with both his upper extremities flexed. He would not respond to her questioning for about 5-10 minutes during the episode but eventually regained consciousness and would respond appropriately. He denies any loss of bowel or bladder function and he denies any other pain besides the pain from the laceration on his posterior scalp. Of note, the patient has been off chemotherapy and immunotherapy for the past year due to interstitial nephritis, he is still followed outpatient by heme/onc (Sathya Kunz). His last echo was in 2019 and showed a LVEF of 65-70%, aortic valve sclerosis without stenosis, trace mitral regurg and tricuspid regurg, and normal PA and RA pressures. Allergies Allergy/AdvReac Type Severity Reaction Status Date / Time No Known Drug Allergies Allergy Unknown Verified 06/29/22 15:17 Home Medications Medication Instructions Recorded Confirmed Type multivitamin 1 tab PO QAM 03/29/20 06/29/22 History polysaccharide iron complex 150 mg 150 mg PO DAILY 03/29/20 06/29/22 History iron capsule cholecalciferol (vitamin D3) 50 50 mcg PO DAILY 09/21/21 06/29/22 History mcg (2,000 unit) capsule famotidine 20 mg tablet (Pepcid) 20 mg PO BID 09/21/21 06/29/22 History calcitriol 0.25 mcg capsule 0.25 mcg PO DAILY #90 caps 04/02/22 06/29/22 Rx 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 Osteoarthritis SBO (small bowel obstruction) Small bowel obstruction Stomach cancer Surgical History History of appendectomy History of bilateral cataract extraction History of colonoscopy History of eye surgery History of tonsillectomy History of tooth extraction Port-A-Cath in place (11/29/19) S/P appendectomy S/P tonsillectomy Family History Mother Colon cancer Colorectal cancer Grandfather (Maternal) Myocardial infarction Grandfather Colorectal cancer Father Heart disease Other Hearing loss No family history of adverse response to anesthesia No family history of bleeding disorder Denies family history of Ovarian cancer Prostate cancer Breast cancer Social History Smoking Status: Never smoker Second Hand Exposure: No; Hx Alcohol Use: Yes Alcohol type: wine Hx Substance Use: No Preferred Language: Amharic Communication Ability: Effective Visual Impairment: No Limitations Doctor Of Dental Surgery Required: No Beliefs That Will Affect Care: None marital status: Current Living Situation: Spouse current occupational status: retired Other Information That Helps Us Care for You: No Feels Safe at Home: Yes Safety Concerns: Feels Safe At This Time Dental Care, Regularly: Yes Physical Activity Frequency: 5-6 Times per Week Seatbelt Use: always Sunscreen Use: Yes Assistive Devices: Glasses Review of Systems Review of Systems: Denies current fever, chills, headache, changes in vision, hearing, taste, and smell, chest pain, SOB, cough, abdominal pain, nausea, vomiting, diarrhea, hematemesis, melena, dysuria, hematuria All systems have been reviewed and are otherwise negative. Physical Exam Physical Exam: Physical Exam: General: In no acute distress, stated age, well-nourished, good hygiene HEENT: Normocephalic, patient currently with head wrap in place over posterior scalp laceration, no other acute trauma of the head or neck, no scleral icterus, pupils around round, symmetrical, and reactive to light, moist mucus membranes, trachea midline, no thyromegaly Chest/Pulm: Patient with mediport in place in the left upper chest without signs of irritation or infection, No respiratory distress, symmetrical chest expansion, clear breath sounds throughout Cardiac: RRR, systolic murmur noted Abdomen: Negative for ascites and bruising, normoactive bowel sounds, soft, non-tender to palpation throughout Musculoskeletal: Symmetrical and without signs of acute trauma, upper and lower extremities with full ROM, no atrophy, spasticity, or flaccidity Extremities: Radial, dorsalis pedis, and posterior tibial pulses are intact and symmetrical, no edema noted in the BL LE's Skin: Warm, dry, no rashes , lesions, or scars noted Neuro: Alert and oriented to person, place, month, year, and president, no focal defects, CN II-XII tested and intact, finger to nose test negative, no tremors noted Psych: No acute distress, calm and cooperative during the exam Results & Data Results & Data ([facility]) Vital Signs (Past 12 Hours) Vital Signs Temp Pulse Pulse Resp BP BP Pulse Ox 06/29/22 12:38 68 18 100 06/29/22 12:38 100 06/29/22 12:06 36.8 C 75 17 159/93 H 99 06/29/22 12:06 36.8 C 75 16 159/93 H 97 O2 Del Method 06/29/22 12:38 Room Air 06/29/22 12:38 Room Air 06/29/22 12:06 Room Air 06/29/22 12:06 Room Air Laboratory Results Abnormal lab results 06/29/22 06/29/22 06/29/22 Range/Units 12:20 12:20 14:07 RBC 3.41 L (4.63-6.08) M/uL Hgb 10.4 L (14.0-18.0) g/dl Hct 31.4 L (40.1-51.0) % Immature Gran # (Auto) 0.04 H (0.00-0.02) K/uL Sodium 135 L (136-145) mmol/L BUN 34 H (6-23) mg/dl Creatinine 1.64 H (0.6-1.4) mg/dl BUN/Creatinine Ratio 20.7 H (10-20) Glucose 115 H (70-99(Fasting)) mg/dl Urine pH 8.0 H (4.5-7.5) Urine Protein Trace H (Negative) Diagnostic Findings Head CT 06/29/22 12:14 CT OF THE HEAD WITHOUT CONTRAST CLINICAL HISTORY: fall, hit head COMPARISON STUDY: MRI of the brain October 27, 2012. CT DOSE: 614.27 mGy.cm TECHNIQUE: Helical axial images of the head were obtained without IV contrast. Automated exposure control was utilized for the study. A dose lowering technique was utilized adhering to the principles of ALARA. FINDINGS: No acute intracranial hemorrhage, midline shift or mass effect is present. White matter hypodensity suggests small vessel disease. Atrophy is noted. The ventricular system is unremarkable. The basal cisterns are patent. No extra-axial collections are present. There are no findings to suggest acute dural sinus thrombosis or acute territorial infarct. Right posterior scalp laceration is noted. No associated calvarial fracture. Postoperative findings of the right globe are incidentally noted. IMPRESSION: 1. No acute intracranial findings. 2. Posterior right scalp laceration. No calvarial fracture. ACT 112: Negative or not required by law. Electronically signed by: Trevor Smart M.D. 06/29/2022 1:31 PM Chest X-Ray 06/29/22 12:15 XR chest 1V portable CLINICAL HISTORY: weakness COMPARISON STUDY: Chest CT September 26, 2020. FINDINGS: Left subclavian [id number] is in place. Calcified granulomas within the right lower lobe are unchanged. Lung volumes are normal. Linear left basilar opacity reflects atelectasis. There is no pneumothorax or pleural effusion. Cardiac size is normal. Mediastinal contours are normal. There is no evidence for pulmonary edema. IMPRESSION: No acute cardiopulmonary findings. No change in appearance of the chest. ACT 112: Negative or not required by law. Electronically signed by: Trevor Smart M.D. 06/29/2022 1:05 PM ECG Additional Comments: 29-JUN-2022 12:08:43 [facility]-EDSTAT ROUTINE RETRIEVAL Sinus rhythm with 1st degree A-V block Right bundle branch block Abnormal ECG When compared with ECG of 29-MAR-2020 16:35, No significant change was found Code Status & VTE Plan Code Status Ful code VTE Prophylaxis Plan VTE Prophylaxis will be ordered: Yes Supervising Physician Co-Signing Physician Notes I supervised Stephan Keller PA-C on this admission. I interviewed and examined the patient independently of him. The plan is as written in his note except for any following changes/exceptions: None 82yo M w/ hx of metastatic gastric cancer who presents with syncopal episode. The patient and report they were out walking, and with no warning at all, he fell backwards. The patient has no recollection of the event and has no recollection of any prodrome including lightheadedness, dizziness, palpitations, or anything else. He fell back, and his notes that he postured with his arms updrawn against him and stared straight ahead. He also had some kind of "gasping" breaths. He woke up, and for about 5 minutes, he could not speak, then he slowly regained his speech and was quite confused about where he was and what happened. EMS arrived and brought him to the hospital. Hx is concerning for a more serious type of syncope, namely seizure or possibly arrhythmia. MRI pending. Prolactin is elevated to roughly 3x normal, which from my reading would be fairly specific for a seizure. Will reach out to neurology and determine next steps. For arrhythmia, will also consider 30-day Holter monitor. Other medical issues fairly stable. PG Care Time/CCT Total # of Minutes Spent Total Time Spent with Patient: Total time spent is greater than 50% in coordination of care (as documented) at patient's floor/unit and/or counseling patient: Coding Level of Care Code Established Pt INT OBSERVATION CARE 70M LVL 3 Patient Type Established Medical Decision Making High Complexity Diagnoses Syncope R55 SOM (acute kidney injury) N17.9 Hyperlipidemia E78.5 Gastric adenocarcinoma C16.9 GERD (gastroesophageal reflux disease) K21.9
[2022-06-29] MEDS ORDERED: ONDANSETRON INJ 2 MG/ML 2 ML VIAL IV PRN (17:59)
[2022-06-29] MEDS ORDERED: ACETAMINOPHEN 325 MG TAB PO PRN (19:33)
[2022-06-29] MEDS: FAMOTIDINE 20 MG TAB PO SCH (19:34)
[2022-06-29] MEDS: HEPARIN SOD 5,000 UNIT/0.5 ML VIAL SQ SCH (21:15)
[2022-06-30 05:49] LABS: Hematocrit (blood only) 29.2 % (40.1-51.0); Mean Corpuscular Hemoglobin 30.9 pg (25.0-34.0); Mean Corpuscular Hgb Conc 34.2 g/dL (32.0-36.0); Mean Corpuscular Volume 90.1 fL (80.0-100.0); Mean Platelet Volume 9.8 fL (9.4-12.4); Platelet Count 163 K/uL (130-400); RDW Coefficient of Variation 12.6 % (11.5-14.5); RDW Standard Deviation 41.1 fL (36.4-46.3); Red Blood Count 3.24 M/uL (4.63-6.08); White Blood Count 7.89 K/ul (4.8-10.8)
[2022-06-30 06:12] LABS: BUN Creatinine Ratio 18.1 (10-20); Calcium 8.5 mg/dl (8.5-10.1); Creatinine Clr Calc Pharmacy 34.5 ml/min; Est GFR (African American) 45.2 ml/min; Magnesium 2.3 mg/dl (1.7-2.4); Potassium 4.4 mmol/L (3.5-5.1)
--- NOTE | 2022-06-30 08:15 | Hospitalist Progress Note ---
Date of Service June 30, 2022 Assessment & Plan (1) Syncope: Plan: -remain on telemetry for arrhythmia monitoring. given trauma will recommend arrhythmia work up if eeg negative -Patient is currently afebrile, hemodynamically stable, and stable on RA -Etiology of patient's syncopal episode include cardiac arrhythmia, valvular abnormality, carotid stenosis, stroke, seizure -CT of the head negative for acute intracranial findings, pending MRI of the brain read -ECHO preserved EF mild , no RWMA would recommend event recorder on discharge -Could consider seizure as elevated prolactin, repeat prolactin 07/01, have neurology eval and EEG prolactin could be up due to CKD3 (2) SMO (acute kidney injury): Plan: -Cr today is 1.64, baseline appears to be 1.3-1.5 -HAs been given 2L NSS in the ED able to take po -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 -Avoid nephrotoxic agents (3) Hyperlipidemia: Plan: -Not currently on a statin (4) Gastric adenocarcinoma: Plan: -Follows outpatient with Heme/onc -Has been off therapy for the past year due to interstitial nephritis from treatment (5) GERD (gastroesophageal reflux disease): 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 Admission and Anticipated Discharge Date Admission Date: June 29, 2022 Subjective pt is in his usual state with his , has no residual defects except scalp laceration Review of Systems Review of Systems: Mild distress and fatigue no headache, no visual changes no speech or swallowing issues no chest pain, pressure or palpitations no shortness of breath, cough or wheezes no abdominal pain, nausea or vomiting, diarrhea or constipation no dysuria, hematuria or frequency no focal joint pain or swelling no back pain, CVA tenderness or radicular pain Laceration on scalp with bandage in place no focal signs of weakness or numbness or altered sensation no complaints of anxiety or depression.. Physical Exam Physical Exam: The patient appeared well nourished and normally developed. Vital signs as documented. Head exam is normocephalic wound closed with 3 phuong Neck is without JVD, thyromegaly, or carotid bruits. Lungs are clear to auscultation, no focal loss of breath sounds Cardiac exam, Rhythm is regular.. No murmurs, rubs or gallops. Abdominal exam reveals normal bowel sounds, soft non tender, no masses Extremities are nonedematous and both pedal pulses are present Neurologic exam is alert and oriented, no focal loss of strength or sensation Skin is without bruises or rashes Psychologically is without concerns for anxiety or depression.. Results & Data Results & Data ([facility]) Vital Signs (Past 12 Hours) Vital Signs Temp Pulse Pulse Resp BP BP Pulse Ox 06/30/22 07:29 97.9 F 57 L 18 129/75 96 06/30/22 07:22 55 L 06/30/22 03:10 97.7 F 59 L 16 115/53 L 97 06/30/22 00:07 60 06/29/22 22:18 98.4 F 63 18 148/73 H 98 O2 Del Method 06/30/22 07:29 Room Air 06/30/22 07:22 06/30/22 03:10 06/30/22 00:07 06/29/22 22:18 Room Air PG Care Time/CCT Total # of Minutes Spent Total Time Spent with Patient: Total time spent is greater than 50% in coordination of care (as documented) at patient's floor/unit and/or counseling patient: Coding Level of Care Code 34501 Subseq Hosp Care Lvl 3 Diagnoses Syncope R55 SOM (acute kidney injury) N17.9 Hyperlipidemia E78.5 Gastric adenocarcinoma C16.9 GERD (gastroesophageal reflux disease) K21.9
[2022-06-30] MEDS: FAMOTIDINE 20 MG TAB PO SCH ×2 (08:34→21:41)
[2022-06-30] MEDS: CALCITRIOL 0.25 MCG CAPSULE PO SCH (08:34)
--- NOTE | 2022-06-30 09:45 | Magnetic Resonance Report ---
MR brain wo con HISTORY: 82 years-old Male No prodrome syncope acute syncope with head trauma COMPARISON: Head CT of same day, brain MRI 10/27/2012 TECHNIQUE: Multiplanar multisequence MRI of the brain was obtained without the use of IV contrast. FINDINGS: Posterior right scalp laceration with scalp hematoma measuring up to 6.4 cm transversely. No restrict ed diffusion to suggest acute or subacute infarct. The midline structures appear unremarkable. Partia lly empty sella. Degenerative changes of the imaged cervical spine. The study is mildly motion degrad ed. No acute intracranial hemorrhage, midline shift, abnormal extra axial collection, hydrocephalus or in tracranial mass. Involutional changes. Moderate to extensive T2/FLAIR hyperintense foci are noted thr oughout the white matter. Cerebral venous sinuses and major arterial flow voids appear patent. Prior bilateral lens repair with right-sided scleral banding. Mastoid air cells and paranasal sinuses appea r clear. IMPRESSION: 1. No acute intracranial abnormality. 2. Right posterior scalp laceration and hematoma. 3. Involutional changes with chronic microvascular ischemic disease. ACT 112: Negative or not required by law. The above report was generated using voice recognition software. It may contain grammatical, syntax o r spelling errors. Electronically signed by: Rolo Brar M.D. 06/30/2022 9:44 AM
[2022-06-30] MEDS: HEPARIN SOD 5,000 UNIT/0.5 ML VIAL SQ SCH ×2 (10:34→21:43)
--- NOTE | 2022-06-30 14:47 | Electrocardiogram Report ---
Test Reason : Blood Pressure : / mmHG Vent. Rate : 080 BPM Atrial Rate : 080 BPM P-R Int : 222 ms QRS Dur : 140 ms QT Int : 410 ms P-R-T Axes : 041 039 016 degrees QTc Int : 472 ms Sinus rhythm with 1st degree A-V block Right bundle branch block Abnormal ECG When compared with ECG of 29-MAR-2020 16:35, No significant change was found Confirmed by Nader Alston ([id number]) on 06/30/2022 2:46:59 PM Referred By: REFERRED SELF Confirmed By:Nader Alston
[2022-07-01 07:08] LABS: BUN Creatinine Ratio 23.2 (10-20); Calcium 8.7 mg/dl (8.5-10.1); Est GFR (Non-African American) 46.6 ml/min; Potassium 4.1 mmol/L (3.5-5.1)
[2022-07-01] MEDS: HEPARIN SOD 5,000 UNIT/0.5 ML VIAL SQ SCH (09:04)
[2022-07-01] MEDS: CALCITRIOL 0.25 MCG CAPSULE PO SCH (09:08)
[2022-07-01] MEDS: FAMOTIDINE 20 MG TAB PO SCH (09:09)
--- NOTE | 2022-07-01 09:25 | Neurology Consultation ---
Date of Consultation July 01, 2022 Assessment & Plan (1) Seizure-like activity: (2) Syncope: (3) Head trauma: Plan Patient had an episode June 29 of sudden onset (no warning backwards fall/ passing out hitting his right occiput with a brief loss of consciousness, scalp contusion and laceration, and some very brief generalized tonic seizure activity. clinical examination is unremarkable with no focal abnormalities, meningeal signs, or encephalopathy. Subjectively he feels back to normal today. MRI of the brain showed no stroke or focal findings although it did show moderate old small vessel ischemic disease and atrophy. EEG showed no abnormalities (no slowing or potentially epileptogenic activities). Overall, I believe this patient had a syncopal event ( cardiovascular in origin ), had closed head trauma and brief concussion, with some brief secondary seizure activity. Recommendations: 1. In lieu of his small-vessel ischemic disease he would be a candidate for 81 mg aspirin tablet daily. 2. I see no need for additional neurologic testing at this time. 3. see no need to initiate anticonvulsants on this patient at this time. 4. I can follow up as an outpatient in Neurology ( in 2-3 weeks with a PA). Overall, I spent a total of house 90 minutes with this case including review of records, review of MRI films, direct evaluation the patient bedside, and discussion of the case with the patient and RN at bedside, and Dr. Marshall including differential diagnosis and treatment options. History of Present Illness Reason for Consultation: Patient is an 82-year-old, who I was asked to see at the request of Dr. Marshall, for neurologic consultation regarding syncope, question seizure. Requesting Physician: Dr. Marshall Attending Physician: Nilesh Marshall MD History of Present Illness this patient has a borderline history of hypertension, dyslipidemia and carotid artery plaque without stenosis. The patient has a history of gastric adenocarcinoma diagnosed in October 2019 post chemotherapy with [id number], followed by Oncology at [facility]. He had metastasis to supraclavicular lymph nodes. He stopped chemotherapy in April of 2021 and there has been no obvious recurrence and he is being followed closely. Unfortunately he had some nephrotoxicity has been following with Dr. Ventura. This has improved over time. The patient exercises regularly shooting baskets in his driveway for about 20-30 minutes then walking for about 30 minutes. He also will do a rowing machine. He has no history of syncope or seizures. On June 29, the patient finished his shooting of baskets in the morning around 10 30 and then arrived at [place] to walk [place] the [place] at around 11:15 a.m.. He had eaten and drink fluids that morning. He was feeling well with no significant issues although he was slightly tired. He noted that it was very hot outside and he was sweaty. Near the end of his walk which lasted about 30 minutes, he suddenly, without any warning or symptoms, fell straight back hit his right occiput on the pavement causing a contusion and laceration. He had some clenching of his fists and flexing of the arms for few seconds and then it was over. When he came to he was tired somewhat but was otherwise unremarkable.He had no tongue biting or incontinence of urine. He arrived to the emergency room at 12:06 p.m. with a temperature of 36.8, pulse 75 and regular, respiratory rate 16, blood pressure 159/93 and O2 saturation 97%. His neurologic and general physical exam was totally within normal limits with no meningeal signs, focal abnormalities, or encephalopathy. CBC showed mild anemia ( chronic ). His BUN and creatinine were elevated still and the rest of his urinalysis thyroid and other tests were normal. Prolactin was elevated at 38 on admission and then today is down to 9.1. CT scan of the head showed right scalp laceration and contusion was otherwise unremarkable intracranially. Chest x-ray was unremarkable. MRI of the brain showed moderate atrophy and moderate old small vessel ischemia. I reviewed these films. This morning he feels asymptomatic and back to baseline. Nursing reports no issues overnight and has been in normal sinus rhythm. Creatinine is approved and blood pressure is down to 133/74. Pulse is low at 59. EEG was unremarkable with no focal abnormalities or potentially epileptogenic Discharges. Echocardiogram was largely unremarkable although there was a calcified aortic valve and mild concentric LVH Allergies Allergy/AdvReac Type Severity Reaction Status Date / Time No Known Drug Allergies Allergy Unknown Verified 06/29/22 15:17 Home Medications Medication Instructions Recorded Confirmed Type multivitamin 1 tab PO QAM 03/29/20 06/29/22 History polysaccharide iron complex 150 mg 150 mg PO DAILY 03/29/20 06/29/22 History iron capsule cholecalciferol (vitamin D3) 50 50 mcg PO DAILY 09/21/21 06/29/22 History mcg (2,000 unit) capsule famotidine 20 mg tablet (Pepcid) 20 mg PO BID 09/21/21 06/29/22 History calcitriol 0.25 mcg capsule 0.25 mcg PO DAILY #90 caps 04/02/22 06/29/22 Rx Patient History Medical History Acid reflux Bilateral inguinal hernia Carotid artery plaque "mild carotid plaque and normal velocity" per 2016 PCP records (unable to obtain official imaging) Deafness in left ear per records, not verbalized per patient via RN phone interview 11/19/19 Hepatic cyst History of actinic keratosis History of anemia History of basal cell carcinoma s/p excision (in office) Metastasis from gastric cancer Osteoarthritis SBO (small bowel obstruction) Small bowel obstruction Stomach cancer Surgical History History of appendectomy History of bilateral cataract extraction History of colonoscopy History of eye surgery R DETACHED RETINA History of tonsillectomy History of tooth extraction Port-A-Cath in place (11/29/19) Port placement. Dr. Cano 11/29/19 S/P appendectomy S/P tonsillectomy Family History Mother , age 60 colon cancer Colon cancer Colorectal cancer Grandfather (Maternal) Myocardial infarction Grandfather Colorectal cancer Father , age 77 of heart disease Heart disease Other Hearing loss No family history of adverse response to anesthesia No family history of bleeding disorder Denies family history of Ovarian cancer Prostate cancer Breast cancer Social History Smoking Status: Never smoker Second Hand Exposure: No; Hx Alcohol Use: Yes Alcohol type: wine Alcohol Intake Frequency Comment: 1 glass with dinner 4 times a week Hx Substance Use: No Preferred Language: Setswana Communication Ability: Effective Visual Impairment: No Limitations Hog Driver Required: No Beliefs That Will Affect Care: None marital status: Current Living Situation: Spouse current occupational status: retired 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 [employer] Other Information That Helps Us Care for You: No Feels Safe at Home: Yes Safety Concerns: Feels Safe At This Time Dental Care, Regularly: Yes Physical Activity Frequency: 5-6 Times per Week Seatbelt Use: always Sunscreen Use: Yes Assistive Devices: Glasses Review of Systems Constitutional: no fever, no fatigue and no weakness Eyes: + loss of peripheral vision ( on the right); no diplopia, no eye pain and no worsening vision Ear, Nose, Mouth, Throat: + hearing loss ( on the left); no ear pain, no tinnitus, no dizziness, no snoring, no hoarseness and no dysphagia Respiratory: no cough and no dyspnea Cardiovascular: no chest pain, no palpitations and no lightheadedness Gastrointestinal: no abdominal pain, no nausea and no vomiting Musculoskeletal: no back pain, no neck pain, no radicular pain, no joint pain and no myalgia Integumentary: no rash and no lesions Neurologic: no gait abnormality, no localized weakness, no generalized weakness, no tingling, no numbness, no tremor(s), no abnormal movements, no headache(s), no abnormal speech, no confusion and no memory loss Psychiatric: no depression, no irritability, no anxiety, no difficulty concentrating, no confusion and no hallucinations Endocrine: no fatigue and no flushing Hematologic / Lymphatic: no easy bleeding and no easy bruising Allergy / Immunological: no urticaria and no problem reported Exam (Neuro) Physical Exam: The patient is right-handed. The patient is awake, alert, and attentive. Speech is normal without any aphasia or dysarthria. The patient can name objects, repeat phrases, and has normal spontaneous speech. Mentation and thought processes are intact, with orientation to person, place and time, and normal fund of knowledge. Attention and concentration are normal. Mood and affect are normal and appropriate. Gen eral appearance and grooming are normal. Short and long-term memory are intact. Pupils are 2-3 mm bilaterally and reactive to light. Extraocular eye muscles are intact without nystagmus. Visual acuity and visual reeves seem normal, although there may be some decreased far lateral vision on the right There are no deficits to sensation in the face in all 3 distributions of the fifth cranial nerve bilaterally. Corneal reflexes are positive bilaterally. Facial strength and symmetry was normal bilaterally. Hearing is decreased particularly on the left. Palate moves well without asymmetry. There is normal sternocleidomastoid and trapezius (shoulder shrug) strength bilaterally. Tongue is midline with good strength bilaterally. Neck has a full range of motion without discomfort. There are no cervical bruits bilaterally. There are no cranial or ocular bruits. Heart is without murmur. There is a regular rhythm and rate. Cervical, thoracic, and lumbar spine are nontender to palpation. Gait is narrow based, with good arm swing, turns, and stance. Balance is normal eyes open or closed. With outstretched arms there is no drift. There are no resting, postural, or action tremors. There is no ataxia with finger to nose testing. There is good facility in the hands. No other abnormal involuntary movements are noted. Motor strength is 5/5 diffusely in the arms bilaterally including deltoids, biceps, triceps, brachioradialis, wrist flexors and extensors, network communications engineer, and intrinsic hand muscles. Motor strength is 5/5 diffusely in the legs bilaterally including hip flexors, quadriceps, hamstrings, gastrocnemius, tibialis anterior, tibialis posterior, and Peroneii muscles. Toe extensors are normal and there is good bulk in the extensor digitorum brevis muscles bilaterally. The limbs have good tone without rigidity or spasticity. There is no atrophy noted in the muscles. Muscle bulk is normal, there is no tenderness to palpation, no myotonia to percussion, and no fasciculations seen. Sensory examination is intact to touch and pin throughout all 4 limbs diffusely. Reflexes are 1/4 in the biceps, triceps, and quadriceps tendons bilaterally. brachioradialis and Achilles tendon reflexes were absent bilaterally. There is no clonus bilaterally. Toes are downgoing with plantar stimulation bilaterally. Peripheral pulses are present and of normal quality distally in all 4 limbs. T here is no peripheral edema noted in the limbs. Results & Data ([facility]) Vital Signs (Past 12 Hours) Vital Signs Temp Pulse Pulse Resp BP Pulse Ox O2 Del Method 07/01/22 07:30 37.0 C 59 L 18 133/74 97 Room Air 07/01/22 03:00 36.6 C 57 L 18 109/62 99 Room Air 06/30/22 22:15 55 L 06/30/22 22:00 36.9 C 59 L 20 153/73 H 99 Room Air PG Care Time/CCT Total # of Minutes Spent Total Time Spent with Patient: Total time spent is greater than 50% in coordination of care (as documented) at patient's floor/unit and/or counseling patient: Coding Level of Care Code 60506 Initial Inpt Care Lvl 3 Diagnoses Seizure-like activity R56.9 Syncope R55 Syncope type: unspecified Head trauma S09.90XA Time Spent (min) 90 Comment add modifiers as able (1) Syncope Syncope type: unspecified Qualified Code(s): R55 - Syncope and collapse
--- NOTE | 2022-07-01 09:36 | Electroencephalogram ---
EEG Procedure Note Date of Service July 01, 2022 Start / End Times Start Time: 658 End Time: [address] Marshall. History 82-year-old with history of syncope and seizure-like activity. Home Medication List Medication Instructions Recorded Confirmed Type multivitamin 1 tab PO QAM 03/29/20 06/29/22 History polysaccharide iron complex 150 mg 150 mg PO DAILY 03/29/20 06/29/22 History iron capsule cholecalciferol (vitamin D3) 50 50 mcg PO DAILY 09/21/21 06/29/22 History mcg (2,000 unit) capsule famotidine 20 mg tablet (Pepcid) 20 mg PO BID 09/21/21 06/29/22 History calcitriol 0.25 mcg capsule 0.25 mcg PO DAILY #90 caps 04/02/22 06/29/22 Rx Inpatient Medication List Acetaminophen (Acetaminophen 325 Mg Tab) 650 mg PO Q4H PRN PRN Reason: pain or fever Stop: 07/29/22 19:32 Last Admin: 06/29/22 20:03 Dose: 650 mg Documented By: [id number] Calcitriol (Calcitriol 0.25 Mcg Capsule) 0.25 mcg PO DAILY SANTINO Stop: 07/30/22 08:59 Last Admin: 07/01/22 09:08 Dose: Not Given Documented By: Admin: 06/30/22 08:34 Dose: 0.25 mcg Documented By: AMANDA Famotidine (Famotidine 20 Mg Tab) 20 mg PO BID SANTINO Stop: 07/29/22 20:59 Last Admin: 07/01/22 09:09 Dose: Not Given Documented By: Admin: 06/30/22 21:41 Dose: Not Given Documented By: Admin: 06/30/22 08:34 Dose: 20 mg Documented By: Admin: 06/29/22 19:34 Dose: 20 mg Documented By: [id number] Heparin Sodium (Porcine) (Heparin Sod 5,000 Unit/0.5 Ml Vial) 5,000 units SQ Q12 SANTINO Stop: 07/29/22 20:59 Last Admin: 07/01/22 09:04 Dose: Not Given Documented By: Admin: 06/30/22 21:43 Dose: Not Given Documented By: Admin: 06/30/22 10:34 Dose: Not Given Documented By: Admin: 06/29/22 21:15 Dose: Not Given Documented By: [id number] Discontinued Medications Sodium Chloride (Nss) 500 mls @ 999 mls/hr IV .Q31M SANTINO Stop: 06/29/22 12:45 Last Infusion: 06/29/22 13:03 Dose: 0 mls/hr Documented By: Admin: 06/29/22 12:26 Dose: 999 mls/hr Documented By: PARK Sodium Chloride (Nss 1000ml) 500 mls @ 999 mls/hr IV .Q31M ONE Stop: 06/29/22 14:09 Last Infusion: 06/29/22 14:33 Dose: 0 mls/hr Documented By: Admin: 06/29/22 13:48 Dose: 999 mls/hr Documented By: PARK Lidocaine HCl (Xylocaine 1%/Sod Bicarb 20 Ml Vial) 20 ml INFIL NOW ONE Stop: 06/29/22 12:15 Last Admin: 06/29/22 12:37 Dose: 20 ml Documented By: PARK Ondansetron HCl (Ondansetron Inj 2 Mg/Ml 2 Ml Vial) 4 mg IV NOW STA Stop: 06/29/22 12:15 Last Admin: 06/29/22 12:37 Dose: 4 mg Documented By: PARK Description This is a 21 electrode EEG with a single channel dedicated to limited EKG. The electrodes were placed in accordance with the International 10-20 system. Interpretation The predominant background activity consists of a very well modulated 8 Hz activity, of up to 40 mV in amplitude,seen symmetrically distributed over the posterior head regions bilaterally. This activity attenuates nicely with eye- opening and other alerting procedures. Photic stimulation was performed and elicited no change in the background activity and no abnormal responses were seen. Hyperventilation was not performed. A minimal amount of muscle and movement artifact activity contaminated the recording and did not hinder interpretation to any significant degree. Throughout the waking portion of the recording, no focal abnormalities, abnormal slow activity, or potentially epileptogenic discharges are seen. The patient entered the drowsy state and brief periods of stage II sleep with no further activation. In summary, this EEG was normal during wakefulness and sleep. No focal abnormalities, potentially epileptogenic discharges, or abnormal slow activity was seen. Clinical Correlation The abscence of potentially epileptogenic activity does not exclude a seizure disorder, since interictally, EEGs can be normal. Clinical correlation is required. [facility] EEG Procedure Codes Indication for Procedure (1) Seizure-like activity: (2) Syncope: (3) Head trauma: Neurology Neurology: 82581 EEG include record awake & sleepy
--- NOTE | 2022-07-01 18:28 | Discharge Summary ---
Date of Service July 01, 2022 Admission HPI Per Admitting Provider Juan Antonio is an 82 year old male with a PMH significant for GERD, hyperparathyroidism, history of basal cell carcinoma, metastatic adenocarcinoma of the gastric cardia with mets to the supraclavicular lymph node previously on leucovorin and opdivo, small bowel obstruction, anemia, diverticulosis, and hyperglycemia who presented to the [facility] ED on 06/29/22 with syncope. In the ED the patient was found to be afebrile, hemodynamically stable, and stable on room air. Chest xray was negative for acute changes and CT of the head revealed a Posterior right scalp laceration but no other abnormalities. He was noted to have an increased createnine of 1.64, his baseline appears to be around 1.30-1.50. He was given 2L NSS bolus in the ED. At the time of the exam the patient was resting comfortably in bed in no acute distress. They state that the patient had been in his normal state of health, of which he plays basketball every morning without issue. They went for a hike this morning for approximately 30 minutes. They were walking downhill at the end of their hike and his was a few steps in front of him when he suddenly fell backwards, hitting the back of his head. He denies any symptoms prior to the fall such as lightheadedness, dizziness, headache, changes in vision, hearing, taste, and smell, chest pain, heart palpitations, and SOB. His states that his eyes remained open the entire time but he would not respond to her. She also noticed that the patient was posturing with both his upper extremities flexed. He would not respond to her questioning for about 5-10 minutes during the episode but eventually regained consciousness and would respond appropriately. He denies any loss of bowel or bladder function and he denies any other pain besides the pain from the laceration on his posterior scalp. Of note, the patient has been off chemotherapy and immunotherapy for the past year due to interstitial nephritis, he is still followed outpatient by heme/onc (Sathya Kunz). His last echo was in 2019 and showed a LVEF of 65-70%, aortic valve sclerosis without stenosis, trace mitral regurg and tricuspid regurg, and normal PA and RA pressures. Principal Diagnosis traumatic syncope scalp laceration Discharge Exam The patient appeared well nourished and normally developed. Vital signs as documented. Head exam is normocephalic wound closed with 3 phuong Neck is without JVD, thyromegaly, or carotid bruits. Lungs are clear to auscultation, no focal loss of breath sounds Cardiac exam, Rhythm is regular.. No murmurs, rubs or gallops. Abdominal exam reveals normal bowel sounds, soft non tender, no masses Extremities are nonedematous and both pedal pulses are present Neurologic exam is alert and oriented, no focal loss of strength or sensation Skin is without bruises or rashes Psychologically is without concerns for anxiety or depression.. Discharge Data Allergies Allergy/AdvReac Type Severity Reaction Status Date / Time No Known Drug Allergies Allergy Unknown Verified 06/29/22 15:17 Consultations 06/29/22 15:00 ED Decision to Admit Stat 06/30/22 14:32 Consult Neurology Routine Ordered Studies 06/29/22 12:14 CT head/brain wo con Stat 06/29/22 17:59 MR brain wo con Routine Hospital Course (1) Syncope: -no significant arrythmia seen while pt on monitor -Patient is currently afebrile, hemodynamically stable, and stable on RA -Etiology of patient's syncopal episode has had neurogenic ruled out , will arrange for a multiday event monitor and cardiology follow up -CT of the head negative for acute intracranial findings, pending MRI of the brain read -ECHO preserved EF mild , no RWMA would recommend event recorder on discharge on admission elevated prolactin, repeat prolactin 07/01negative , have neurology eval and read negative EEG feels prolactin from head trauma also prolactin could be up due to CKD3 (2) SOM (acute kidney injury): -resolved -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 -Avoid nephrotoxic agents (3) Hyperlipidemia: -Not currently on a statin (4) Gastric adenocarcinoma: -Follows outpatient with Heme/onc -Has been off therapy for the past year due to interstitial nephritis from treatment (5) GERD (gastroesophageal reflux disease): -PEARL RESTORER famotidine Total Time Total Time Spent Total Time Spent (In Minutes): It required greater than 30 minutes to prepare this patient for discharge Discharge Plan Discharge Items Patient Disposition: Home - Self-Care Reason For Visit: NO PRODROME SYNCOPE Discharge Diagnosis: fall syncope with head laceration Condition on Discharge: Good Activity: Per Instructions section Activity Comment: be careful when standing for long periods or when changing posture Non-emergency contact: Primary Care Provider and Mathematics Instructor Call non-emergency contact if: your symptoms worsen Follow-up/Referrals: Dave Vidal MD, PhD [Physician] - 07/31/22 10:15 am Alli Dick MD [Primary Care Provider] - 07/09/22 11:45 am Diet: Regular Addtl Attending Provider Instructions: Dr Ridley does not feel that you had a seizure, will recommend starting aspirin and we will have Cardiology send you a multi day event monitor and follow up with Cardiology to discuss, you will be recommended to see you family doctor and Dr Dick can take out your phuong at that time. Pending Studies at Discharge: No Stand-Alone Forms: My [facility] LIN TV, Smoking Cessation Medications and DC Order Prescriptions: New aspirin [Elvin Low Dose Aspirin] 81 mg tablet,delayed release (DR/EC) 81 mg PO DAILY Qty: 30 0RF Continued cholecalciferol (vitamin D3) 50 mcg (2,000 unit) capsule 50 mcg PO DAILY calcitriol 0.25 mcg capsule 0.25 mcg PO DAILY Qty: 90 3RF multivitamin Tablet 1 tab PO QAM polysaccharide iron complex 150 mg iron Capsule 150 mg PO DAILY famotidine [Pepcid] 20 mg tablet 20 mg PO BID Discharge Orders: Discharge Order (Routine); Ordered 07/01/22 Ordered By: Nilesh Caceres/Other Patient Handouts: Scalp Laceration Tx Admission Data Admit Date/Time: 06/29/22 15:27 Attending Provider: Nilesh Marshall Admit Provider: Sherman Schmitz Primary Care Provider: Alli Dick Other Providers: Sherman Schmitz ; Jonathon Ridley Other Interventions: Discharge Summary Assessment (RN) Last Done: 07/01/22 13:28 Coding Level of Care Code D/C DAY MANAGEMENT >30 MINS Diagnoses Syncope R55 SOM (acute kidney injury) N17.9 Hyperlipidemia E78.5 Gastric adenocarcinoma C16.9 GERD (gastroesophageal reflux disease) K21.9
== END 2022-07-01 15:16 | disposition home or self-care (01) ==
LOC: 2N 12:03 → ED 12:03 → SUATTDRO 15:27 → 2N 17:10
DX: R55 Syncope and collapse; S01.01XA Laceration without foreign body of scalp, initial encounter; E78.5 Hyperlipidemia, unspecified; Z79.899 Other long term (current) drug therapy; N17.9 Acute kidney failure, unspecified; K21.9 Gastro-esophageal reflux disease without esophagitis; C16.9 Malignant neoplasm of stomach, unspecified

== ENCOUNTER 2022-09-23 16:19 | Inpatient (IN) ==
[2022-09-23] MEDS ORDERED: IBUPROFEN 600 MG TAB PO STA (17:29)
--- NOTE | 2022-09-23 17:32 | Emergency Department Note ---
Impression & Plan LeFort I fracture ED Provider Note CHIEF COMPLAINT: Fall 2 hours ago, head and facial injuries HISTORY OF PRESENT ILLNESS: Patient is a an 82-year-old male who presents emergency department for evaluation after he sustained a mechanical fall about 2 hours ago. He is without, when he tripped and fell, landing on his face. There was no loss of consciousness. He was able to get up and walk home. He notes pain, swelling and bruising in his face and lips. He has several abrasions. There was no epistaxis. He is complaining primarily of facial pain, denies headache, no lightheadedness or dizziness. No vision changes. He denies any neck pain. He did chip a tooth. He denies any other injuries. He states that his jaw initially did not feel like it was lining up properly, but now it feels like it is. His pain was initially a 2/10, but he now states that it is a 5/10. He was given an ice pack here in the emergency department. He has not had any medication for pain. No nausea or vomiting. He does not use any blood thinning medications. REVIEW OF SYSTEMS: Review of systems as per HPI. All other systems reviewed were negative. 10 systems reviewed. PMH: Electronic medical records are reviewed and summarized as above/below. See Problem List. Last tetanus administered in May 2021. SOCIAL HISTORY: Patient lives at home. PHYSICAL EXAM: Vital Signs: Reviewed Nurse's notes. GCS 15 GENERAL: Patient is a pleasant well-appearing 82-year-old male who is awake and alert and in no acute distress. HEENT: Head - normocephalic and atraumatic. Pupils are equal, round, and reactive to light. Extraocular eye muscles are intact and sclera are anicteric. Ears - bilaterally patent canals with no evidence of hemotympanum. Nose -nasal bridge is swollen and ecchymotic, tender to palpation. Nasal mucosa are moist, no evidence for septal hematoma. Mouth - moist buccal mucosa, there is a small chip from the left upper lateral incisor. The lips are both swollen and bruised. There is a minor mucosal injury on the inner aspect of the bottom lip. He is able to open and close the jaw fully. No appreciable malalignment. FACE: Abrasions noted on the left forehead, nasal bridge, upper and lower lips and the chin. He is quite swollen and ecchymotic primarily over the left cheek. No pain over the superior orbital rims bilaterally. He does have some disco mfort over the inferior orbital rims, left greater than right. There is subcutaneous air palpable in the cheeks primarily, he is tender over the nasal bridge, over the zygomatic's and over the maxilla. No pain over the mandible. Neck: The neck is supple and there is no pain to palpation over the posterior cervical spine and no obvious step-offs or deformities. There is no JVD or tracheal deviation. Chest: There are no signs of deformities, contusions or abrasions to the chest wall. There is no obvious crepitus or paradoxical chest rise. Heart: Regular rate, and regular rhythm. Lungs: Breath sounds equal and clear to auscultation. Extremities: Superficial abrasions and bruising over the anterior knees bilaterally. There are easily palpable peripheral pulses. Neuro: The patient is awake and alert and easily able to follow commands. Muscle strength is 5 out of 5 in all 4 extremities. ED course: The patient was seen and assessed as above. Old records were reviewed. He was initially reluctant but then was agreeable to some p.o. ibuprofen for discomfort. Head and maxillofacial CT scan were obtained. Findings are concerning for a LeFort I facial fracture. There are facial contusions and subcutaneous and deep tissue gas in the face and layering hemorrhage in the maxillary sinuses. Head CT is negative for acute intracranial bleed or skull fracture. Patient history and presentation were reviewed with attending physician Dr. Thomas. I did discuss CT scan findings with maxillofacial surgery, Dr. Dimas, who would like to have the patient admitted for IV antibiotics and for consideration of surgical intervention. This was discussed with the patient and he was in agreement. IV lock was initiated. He was given Unasyn 3 g IV. Blood work and COVID test were obtained for admitting purposes. He was ordered a full liquid diet prior to being made n.p.o. this evening. Consultation was placed with the [facility] for further care and management. Dr. Dimas will see the patient tomorrow morning. Differential diagnoses considered included skull fracture, acute intracranial bleed, concussion, facial fracture, C-spine injury, among others. 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 Dr. Cano 11/29/19 S/P appendectomy S/P tonsillectomy Family History Mother Colon cancer Colorectal cancer Grandfather (Maternal) Myocardial infarction Grandfather Colorectal cancer Father Heart disease Other Hearing loss No family history of adverse response to anesthesia No family history of bleeding disorder Denies family history of Ovarian cancer Prostate cancer Breast cancer Social History Smoking Status: Never smoker Second Hand Exposure: No; Hx Alcohol Use: Yes Alcohol type: wine Alcohol Intake Frequency Comment: 1 glass with dinner 4 times a week Hx Substance Use: No Preferred Language: Slovak Communication Ability: Effective Visual Impairment: No Limitations Income Tax Auditor Required: No Beliefs That Will Affect Care: None marital status: Current Living Situation: Spouse current occupational status: retired 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 [employer] Feels Safe at Home: Yes Dental Care, Regularly: Yes Physical Activity Frequency: 5-6 Times per Week Seatbelt Use: always Sunscreen Use: Yes Assistive Devices: None Allergies Allergies Allergy/AdvReac Type Severity Reaction Status Date / Time No Known Drug Allergies Allergy Unknown Verified 09/17/22 10: Home Meds Home Medications Medication Instructions Recorded Confirmed multivitamin 1 tab PO QAM 03/29/20 09/17/22 polysaccharide iron complex 150 mg 150 mg PO DAILY 03/29/20 09/17/22 iron capsule cholecalciferol (vitamin D3) 50 50 mcg PO DAILY 09/21/21 09/17/22 mcg (2,000 unit) capsule famotidine 20 mg tablet (Pepcid) 20 mg PO BID 09/21/21 09/17/22 Previous Rx's Medication Instructions Recorded calcitriol 0.25 mcg capsule 0.25 mcg PO DAILY #90 caps 04/02/22 Results & Data (ED) Vital Signs Vital Signs - 24 hr 09/23/22 16:39 09/23/22 19:25 09/23/22 19:25 Temperature 36.5 C Temperature Source Temporal Artery Scan Pulse Rate 72 80 Pulse Rate [Left Finger] 80 Pulse Rhythm Regular Pulse Rhythm [Left Finger] Regular Pulse Strength [Left Finger] Strong Respiratory Rate 20 16 16 Respiratory Effort / Characteristics Non-Labored Non-Labored Spontaneous Respiratory Depth Normal Normal Respiratory Pattern Regular Blood Pressure 193/92 H Blood Pressure [Right Arm] 185/100 H Blood Pressure Mean 125 Blood Pressure Mean [Right Arm] 128 Blood Pressure Position Sitting Blood Pressure Position [Right Arm] Sitting Pulse Oximetry 99 100 100 Oxygen Delivery Method Room Air Room Air Room Air Sepsis Recent Fever Within 48 Hours No Sepsis New/Unexplained Change in Mental Status Yes Sepsis Action Taken by Nursing No Action Required 09/23/22 19:57 09/23/22 19:57 Temperature Temperature Source Pulse Rate Pulse Rate [Left Finger] 80 Pulse Rhythm Pulse Rhythm [Left Finger] Pulse Strength [Left Finger] Respiratory Rate 20 Respiratory Effort / Characteristics Respiratory Depth Respiratory Pattern Blood Pressure Blood Pressure [Right Arm] 165/93 H Blood Pressure Mean Blood Pressure Mean [Right Arm] 117 Blood Pressure Position Blood Pressure Position [Right Arm] Pulse Oximetry 98 98 Oxygen Delivery Method Room Air Room Air Sepsis Recent Fever Within 48 Hours Sepsis New/Unexplained Change in Mental Status Sepsis Action Taken by Halfway Medications Current Medication List: was personally reviewed by me Laboratory Data Attestation: I reviewed the patient's lab results. Result diagrams: 09/23/22 19:35 09/23/22 19:35 Lab Results 09/23/22 09/23/22 09/23/22 Range/Units 19:30 19:35 19:35 WBC 12.02 H (4.8-10.8) K/ul RBC 3.81 L (4.63-6.08) M/uL Hgb 12.1 L (14.0-18.0) g/dl Hct 34.7 L (40.1-51.0) % MCV 91.1 (80.0-100.0) fL MCH 31.8 (25.0-34.0) pg MCHC 34.9 (32.0-36.0) g/dL RDW Std Deviation 40.3 (36.4-46.3) fL RDW Coeff of Jf 12.0 (11.5-14.5) % Plt Count 190 (130-400) K/uL MPV 9.7 (9.4-12.4) fL Immature Gran % (Auto) 0.2 % Neut % (Auto) 81.3 % Lymph % (Auto) 11.6 % [facility] % (Auto) 6.5 % Eos % (Auto) 0.2 % Baso % (Auto) 0.2 % Neut # (Auto) 9.75 H (1.4-6.5) K/uL Lymph # (Auto) 1.40 (1.2-3.4) K/uL [facility] # (Auto) 0.78 (0.24-0.82) K/uL Eos # (Auto) 0.03 (0-0.50) K/uL Baso # (Auto) 0.03 (0-0.2) K/uL Immature Gran # (Auto) 0.03 H (0.00-0.02) K/uL PT 10.4 (9.0-12.0) Seconds INR 1.0 (0.9-1.1) APTT 26.1 (21.0-31.0) Seconds PTT Ratio 0.9 Sodium (136-145) mmol/L Potassium (3.5-5.1) mmol/L Chloride (98-107) mmol/L Carbon Dioxide (21-32) mmol/L Anion Gap (3-11) BUN (6-23) mg/dl Creatinine (0.6-1.4) mg/dl Est Cr Clr Drug Dosing ml/min Est GFR ( Amer) ml/min Est GFR (Non-Af Amer) ml/min BUN/Creatinine Ratio (10-20) Glucose (70-99(Fasting)) mg/dl Calcium (8.5-10.1) mg/dl SARS-CoV-2, RNA, NAAT NEGATIVE (NEGATIVE) 09/23/22 Range/Units 19:35 WBC (4.8-10.8) K/ul RBC (4.63-6.08) M/uL Hgb (14.0-18.0) g/dl Hct (40.1-51.0) % MCV (80.0-100.0) fL MCH (25.0-34.0) pg MCHC (32.0-36.0) g/dL RDW Std Deviation (36.4-46.3) fL RDW Coeff of Jf (11.5-14.5) % Plt Count (130-400) K/uL MPV (9.4-12.4) fL Immature Gran % (Auto) % Neut % (Auto) % Lymph % (Auto) % [facility] % (Auto) % Eos % (Auto) % Baso % (Auto) % Neut # (Auto) (1.4-6.5) K/uL Lymph # (Auto) (1.2-3.4) K/uL [facility] # (Auto) (0.24-0.82) K/uL Eos # (Auto) (0-0.50) K/uL Baso # (Auto) (0-0.2) K/uL Immature Gran # (Auto) (0.00-0.02) K/uL PT (9.0-12.0) Seconds INR (0.9-1.1) APTT (21.0-31.0) Seconds PTT Ratio Sodium 132 L (136-145) mmol/L Potassium 4.2 (3.5-5.1) mmol/L Chloride 98 (98-107) mmol/L Carbon Dioxide 26 (21-32) mmol/L Anion Gap 8 (3-11) BUN 28 H (6-23) mg/dl Creatinine 1.52 H (0.6-1.4) mg/dl Est Cr Clr Drug Dosing 36.9 ml/min Est GFR ( Amer) 48.1 ml/min Est GFR (Non-Af Amer) 41.5 ml/min BUN/Creatinine Ratio 18.4 (10-20) Glucose 94 (70-99(Fasting)) mg/dl Calcium 9.3 (8.5-10.1) mg/dl SARS-CoV-2, RNA, NAAT (NEGATIVE) Administered Medications Discontinued Medications Ampicillin Sodium/Sulbactam Sodium 3,000 mg/ Sodium Chloride 108 mls @ 200 mls/hr IV NOW STA; Protocol Stop: 09/23/22 19:41 Last Infusion: 09/23/22 20:35 Dose: 0 mls/hr Documented By: Admin: 09/23/22 19:56 Dose: 200 mls/hr Documented By: RASHAWN Ibuprofen (Ibuprofen 600 Mg Tab) 600 mg PO NOW STA Stop: 09/23/22 17:30 Last Admin: 09/23/22 17:48 Dose: 600 mg Documented By: GENEVA Imaging Data Attestation: I personally reviewed and interpreted this imaging study as fo llows: Radiologist's Impression: Face CT 09/23/22 17:29 CT facial bones wo con CLINICAL HISTORY: 82 years-old Male presenting with FALL, EVAL FX. Acute head and facial trauma status post fall COMPARISON STUDY: Head CT of same day TECHNIQUE: High-resolution CT scan of the facial bones is performed. Images are reviewed in the axial, sagittal, and coronal planes. IV contrast was not administered for this examination. A dose lowering technique was utilized adhering to the principles of ALARA. FINDINGS: Degenerative changes of the imaged cervical spine. Mastoid air cells are clear. The mandible appears intact. Acute and comminuted fractures involving the medial and lateral pterygoid plates bilaterally. Acute comminuted acute mildly displaced fractures are noted involving the anterior and posterior maxillary w alls bilaterally as well as the medial wall of the left maxillary sinus. Acute, angulated and displaced nasal septal fracture. The zygomatic arches appear intact. Acute nondisplaced fracture involves the left aspect of the bony palate with fracture extension into the root of the left lateral incisor. The anterior maxillary wall fractures extend into the inferior orbital floors. No displaced orbital wall fracture identified. There is mild cortical regularity involving the right lamina papyracea. Nasal bone appears intact. Layering hemorrhage within the maxillary sinuses. Moderate mucosal thickening of the ethmoid air cells. Moderate subcutaneous gas in face. Right-sided scleral banding. Prior bilateral 1.. Facial contusions. No acute intracranial hemorrhage. IMPRESSION: 1. Numerous acute facial bone fractures which includes a LeFort type I component as described above. 2. Facial contusions with subcutaneous and deep tissue gas of the face. 3. Layering hemorrhage within the maxillary sinuses. ACT 112: Negative or not required by law. The above report was generated using voice recognition software. It may contain grammatical, syntax or spelling errors. Electronically signed by: Rolo Brar M.D. 09/23/2022 6:[address] 09/23/22 17:29 CT head/brain wo con CLINICAL HISTORY: 82 years-old Male with FALL, EVAL TRAUMA. Acute head trauma TECHNIQUE: Multiple axial CT images of the head were obtained without contrast. A dose lowering technique was utilized adhering to the principles of ALARA. CT DOSE: 832.45 mGy.cm COMPARISON: Brain MRI and head CT studies 06/29/2022. FINDINGS: No acute intracranial hemorrhage, midline shift, intracranial mass, hydrocephalus, territorial ischemia or abnormal extra-axial collection. Involutional changes with chronic microvascular ischemic disease. No acute calvarial fracture identified. Mastoid air cells are clear. Acute facial bone fractures with layering hemorrhage within the maxillary sinuses. Soft tissue gas is noted within the face. Facial soft tissue swelling. Prior bilateral lens repair. Right-sided scleral banding. IMPRESSION: 1. No acute intracranial abnormality or calvarial fracture. 2. Please refer to CT maxillofacial study of same day for discussion of the acute facial bone fractures. ACT 112: Negative or not required by law. The above report was generated using voice recognition software. It may contain grammatical, syntax or spelling errors. Electronically signed by: Rolo Brar M.D. 09/23/2022 6:06 PM Chest X-Ray 09/23/22 20:17 XR chest 1V portable HISTORY: 82 years-old Male pre-op preoperative exam. No acute chest complaints COMPARISON: Chest radiograph 06/29/2022, PET CT 04/04/2021 TECHNIQUE: AP view of the chest FINDINGS: Calcified granuloma of the lateral right midlung. Left subclavian [id number] in similar positioning. Cardiomediastinal and hilar silhouettes are within normal limits. Chronic interstitial coarsening. There is no pneumothorax, pleu ral effusion, airspace consolidation or overt pulmonary edema. Degenerative changes of the shoulders and spine. IMPRESSION: No acute process. ACT 112: Negative or not required by law. The above report was generated using voice recognition software. It may contain grammatical, syntax or spelling errors. Electronically signed by: Rolo Brar M.D. 09/23/2022 8:52 PM Discharge Plan Visit Data Chief Complaint: Bleeding Stated Complaint: FALL, ABRASION,CUTS TO FACE AND FOREHEAD. ED Provider: Jamilah Thomas ED Midlevel Provider: Jaime Reynolds Discharge Problem: LeFort I fracture Patient Disposition: Admitted As Inpatient Discharge Instructions Interventions: ED Discharge Assessment Last Done: 09/23/22 21:44
--- NOTE | 2022-09-23 18:08 | CT Scan Report ---
CT head/brain wo con CLINICAL HISTORY: 82 years-old Male with FALL, EVAL TRAUMA. Acute head trauma TECHNIQUE: Multiple axial CT images of the head were obtained without contrast. A dose lowering tech nique was utilized adhering to the principles of ALARA. CT DOSE: 832.45 mGy.cm COMPARISON: Brain MRI and head CT studies 06/29/2022. FINDINGS: No acute intracranial hemorrhage, midline shift, intracranial mass, hydrocephalus, territorial ischem ia or abnormal extra-axial collection. Involutional changes with chronic microvascular ischemic disea se. No acute calvarial fracture identified. Mastoid air cells are clear. Acute facial bone fractures wit h layering hemorrhage within the maxillary sinuses. Soft tissue gas is noted within the face. Facial soft tissue swelling. Prior bilateral lens repair. Right-sided scleral banding. IMPRESSION: 1. No acute intracranial abnormality or calvarial fracture. 2. Please refer to CT maxillofacial study of same day for discussion of the acute facial bone fractur es. ACT 112: Negative or not required by law. The above report was generated using voice recognition software. It may contain grammatical, syntax o r spelling errors. Electronically signed by: Rolo Brar M.D. 09/23/2022 6:06 PM
--- NOTE | 2022-09-23 18:19 | CT Scan Report ---
CT facial bones wo con CLINICAL HISTORY: 82 years-old Male presenting with FALL, EVAL FX. Acute head and facial trauma statu s post fall COMPARISON STUDY: Head CT of same day TECHNIQUE: High-resolution CT scan of the facial bones is performed. Images are reviewed in the axia l, sagittal, and coronal planes. IV contrast was not administered for this examination. A dose lower ing technique was utilized adhering to the principles of ALARA. FINDINGS: Degenerative changes of the imaged cervical spine. Mastoid air cells are clear. The mandible appears intact. Acute and comminuted fractures involving the medial and lateral pterygoid plates bilaterally. Acute comminuted acute mildly displaced fractures are noted involving the anterior and posterior max illary cary bilaterally as well as the medial wall of the left maxillary sinus. Acute, angulated and displaced nasal septal fracture. The zygomatic arches appear intact. Acute nondisplaced fracture inv olves the left aspect of the bony palate with fracture extension into the root of the left lateral in cisor. The anterior maxillary wall fractures extend into the inferior orbital floors. No displaced or bital wall fracture identified. There is mild cortical regularity involving the right lamina papyrace a. Nasal bone appears intact. Layering hemorrhage within the maxillary sinuses. Moderate mucosal thickening of the ethmoid air cell s. Moderate subcutaneous gas in face. Right-sided scleral banding. Prior bilateral 1.. Facial contusi ons. No acute intracranial hemorrhage. IMPRESSION: 1. Numerous acute facial bone fractures which includes a LeFort type I component as described above. 2. Facial contusions with subcutaneous and deep tissue gas of the face. 3. Layering hemorrhage within the maxillary sinuses. ACT 112: Negative or not required by law. The above report was generated using voice recognition software. It may contain grammatical, syntax o r spelling errors. Electronically signed by: Rolo Brar M.D. 09/23/2022 6:17 PM
[2022-09-23] MEDS ORDERED: AMPICILLIN/SULBACTAM SOD 3,000 MG in 0.9 % SODIUM CHLORIDE 100 ML IV STA (19:09)
--- NOTE | 2022-09-23 19:34 | History & Physical Report ---
Date of Service September 23, 2022 Assessment & Plan (1) LeFort I fracture: Plan: Mechanical fall this afternoon while walking in neighborhood. Face CT: * Acute and comminuted fractures involving the medial and lateral pterygoid plates bilaterally * Acute comminuted acutely mildly displaced fractures involving anterior and posterior maxillary cary bilaterally as well as medial wall of the left maxillary sinus * Acute angulated displaced nasal septal fracture, zygomatic arches appear intact * Acute nondisplaced fractures involving the left aspect of the bony palate with fracture extension into the root of the left lateral incisor * Anterior maxillary wall fracture extending to the inferior orbital floors, no displaced orbital wall fracture identified, * Layering hemorrhage within the maxillary sinuses and moderate subcutaneous gas in the face with right-sided scleral banding No acute hemorrhage or other findings on head CT. Per oromaxillary surgery: ABX coverage w/ Unasyn, may have a diet as tolerated and then NPO at midnight for possible OR tomorrow. Pain adequately controlled so far with ibuprofen, will switch to Tylenol for mild pain given CKD, Dilaudid for more severe pain. Admitted to PCU to monitor airway status. (2) Gastric adenocarcinoma: Plan: Initially diagnosed in 2019, with metastatic disease supraclavicular lymph nodes Continue Pepcid, no longer on chemo due to interstitial nephritis, however follows with oncology [id number]. (3) GERD (gastroesophageal reflux disease): Plan: Continue Pepcid. (4) First degree atrioventricular block by electrocardiogram: Plan: New as of June, thought to be a potential cause of syncope at that time, follows with cardiology. On telemetry, admission/pre-op EKG pending. (5) CKD (chronic kidney disease): Plan: Cr baseline 1.3 - 1.5, about baseline today. Avoid nephrotoxins and renally dose medications as able. Plan Admit to PCU. SCDs, defer on chemoppx given facial fractures with evidence fo bleeding/to OR tomorrow. - Full Code. 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 Patient was out for his daily walk when he stepped off a curb and fell, landing on his face. He denies feeling any preceding lightheadedness, dizziness, chest pain, palpitations, shortness of breath and is adamant it was mechanical fall from him tripping over his feet or curb. No loss of consciousness, patient was able to get back up and walk quarter mile home before presenting to the ED. Head CT unremarkable, however face CT shows numerous acute facial bone fractures which include a LeFort type I fracture with facial contusions and subcutaneous, deep tissue gas of the face and layering hemorrhage within the maxillary sinuses. The case was discussed by ED provider with Dr. Dimas of oromaxillary surgery, he recommended the patient be admitted to the medicine service for IV antibiotics, with possible surgery tomorrow morning. On presentation to the ED, is significantly hypertensive 193/92, recheck after pain medications given, now down to 165/83. Otherwise vital signs within normal limits and stable. Labs largely unremarkable, WBC 12, Hgb 12.1 which is his baseline, sodium mildly low at 132, BUN 28 and Cr 1.5, which is his baseline. COVID negative. Allergies Allergy/AdvReac Type Severity Reaction Status Date / Time No Known Drug Allergies Allergy Unknown Verified 09/17/22 10:22 Home Medications Medication Instructions Recorded Confirmed Type multivitamin 1 tab PO QAM 03/29/20 09/24/22 History polysaccharide iron complex 150 mg 150 mg PO DAILY 03/29/20 09/24/22 History iron capsule cholecalciferol (vitamin D3) 50 50 mcg PO DAILY 09/21/21 09/24/22 History mcg (2,000 unit) capsule famotidine 20 mg tablet (Pepcid) 20 mg PO BID 09/21/21 09/24/22 History calcitriol 0.25 mcg capsule 0.25 mcg PO DAILY #90 caps 04/02/22 09/24/22 Rx amoxicillin 875 mg-potassium 1 tab PO Q12H #20 tabs 09/24/22 Rx clavulanate 125 mg tablet chlorhexidine gluconate 0.12 % 15 ml mucous membrane BID #473 mL 09/24/22 Rx mouthwash (Peridex) hydrocodone 5 mg-acetaminophen 325 1 tab PO Q4H PRN pain #14 tabs 09/24/22 Rx mg tablet sodium chloride 0.65 % nasal spray 3 spray intranasal Q4H #1 mL 09/24/22 Rx aerosol (Saline Nose) Past Med/Surg History Medical History Acid reflux Bilateral inguinal hernia Carotid artery plaque Deafness in left ear Hepatic cyst History of actinic keratosis History of anemia History of basal cell carcinoma Metastasis from gastric cancer Osteoarthritis SBO (small bowel obstruction) Small bowel obstruction Stomach cancer Surgical History History of appendectomy History of bilateral cataract extraction History of colonoscopy History of eye surgery History of tonsillectomy History of tooth extraction Port-A-Cath in place (11/29/19) S/P appendectomy S/P tonsillectomy Family History Mother Colon cancer Colorectal cancer Grandfather (Maternal) Myocardial infarction Grandfather Colorectal cancer Father Heart disease Other Hearing loss No family history of adverse response to anesthesia No family history of bleeding disorder Denies family history of Ovarian cancer Prostate cancer Breast cancer Social History Smoking Status: Never smoker Second Hand Exposure: No; Hx Alcohol Use: Yes Alcohol type: wine Alcohol Intake Frequency Comment: 1 glass with dinner 4 times a week Hx Substance Use: No Preferred Language: Italian Communication Ability: Effective Visual Impairment: No Limitations Rn Charge Required: No Beliefs That Will Affect Care: None marital status: Current Living Situation: Spouse current occupational status: retired 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 [employer] Feels Safe at Home: Yes Dental Care, Regularly: Yes Physical Activity Frequency: 5-6 Times per Week Seatbelt Use: always Sunscreen Use: Yes Assistive Devices: None Review of Systems Review of Systems: Constitutional: No fever/chills, weakness, fatigue, myalgias, anorexia, night sweats Eyes: No diplopia, no worsening or blurred vision ENT: nose, jaw, face pain with some difficulty breathing through nose due to congestion; normal hearing, no trouble swallowing Respiratory: No cough, sputum, dyspnea at rest or on exertion Cardiovascular: No chest pain, tightness or palpitations Abdomen: No pain, nausea, vomiting, diarrhea or constipation : Denies dysuria, hematuria, increased urgency/frequency, urinary retention Musculoskeletal: No joint pain, calf pain, swelling Neurologic: No weakness, numbness/tingling, or balance problems Psychiatric: No anxiety or depression Skin: No rash or itch Physical Exam Physical Exam: General: awake, alert, no apparent distress, on RA Head: abrasions above left orbit, upper and lower lips, and bridge of nose, none requiring suture repair in ED ENT: b/l nares patent but full of blood product; airway is patent without unilateral swelling, oropharynx with some evidence of post-nasal blood drainage upper and lower lips swollen; TTP along forehead, bridge of nose, mandible and maxilla b/l; PERRL, EOMI, no pharyngeal exudate, mucous membranes moist Chest: Clear to auscultation, on room air, no adventitious breath sounds Cardiac: Regular rate and rhythm, no murmur, no JVD, normal peripheral pulses, good capillary refill Abdominal: NABS x 4 quadrants, soft, nontender to palpation, no rebound, guarding or tenderness Extremities: Normal inspection, no peripheral edema or erythema, calfs nontender to palpation Psych: Normal mood and affect Neuro: AAO x 3, strength intact bilaterally and rated 5/5, no motor deficits, speech is clear, no peripheral sensory deficits Skin: no rash or erythema Results & Data Results & Data ([place]) Vital Signs (Past 12 Hours) Vital Signs Temp Pulse Resp BP Pulse Ox O2 Del Method 09/23/22 16:39 36.5 C 72 20 193/92 H 99 Room Air Laboratory Results Abnormal lab results 09/23/22 09/23/22 Range/Units 19:35 19:35 WBC 12.02 H (4.8-10.8) K/ul RBC 3.81 L (4.63-6.08) M/uL Hgb 12.1 L (14.0-18.0) g/dl Hct 34.7 L (40.1-51.0) % Neut # (Auto) 9.75 H (1.4-6.5) K/uL Immature Gran # (Auto) 0.03 H (0.00-0.02) K/uL Sodium 132 L (136-145) mmol/L BUN 28 H (6-23) mg/dl Creatinine 1.52 H (0.6-1.4) mg/dl Diagnostic Findings Face CT 09/23/22 17:29 CT facial bones wo con CLINICAL HISTORY: 82 years-old Male presenting with FALL, EVAL FX. Acute head and facial trauma status post fall COMPARISON STUDY: Head CT of same day TECHNIQUE: High-resolution CT scan of the facial bones is performed. Images are reviewed in the axial, sagittal, and coronal planes. IV contrast was not admini stered for this examination. A dose lowering technique was utilized adhering to the principles of ALARA. FINDINGS: Degenerative changes of the imaged cervical spine. Mastoid air cells are clear. The mandible appears intact. Acute and comminuted fractures involving the medial and lateral pterygoid plates bilaterally. Acute comminuted acute mildly displaced fractures are noted involving the anterior and posterior maxillary cary bilaterally as well as the medial wall of the left maxillary sinus. Acute, angulated and displaced nasal septal fracture. The zygomatic arches appear intact. Acute nondisplaced fracture involves the left aspect of the bony palate with fracture extension into the root of the left lateral incisor. The anterior maxillary wall fractures extend into the inferior orbital floors. No displaced orbital wall fracture identified. There is mild cortical regularity involving the right lamina papyracea. Nasal bone appears intact. Layering hemorrhage within the maxillary sinuses. Moderate mucosal thickening of the ethmoid air cells. Moderate subcutaneous gas in face. Right-sided scleral banding. Prior bilateral 1.. Facial contusions. No acute intracranial hemorrhage. IMPRESSION: 1. Numerous acute facial bone fractures which includes a LeFort type I component as described above. 2. Facial contusions with subcutaneous and deep tissue gas of the face. 3. Layering hemorrhage within the maxillary sinuses. ACT 112: Negative or not required by law. The above report was generated using voice recognition software. It may contain grammatical, syntax or spelling errors. Electronically signed by: Rloo Brar M.D. 09/23/2022 6:[address] 09/23/22 17:29 CT head/brain wo con CLINICAL HISTORY: 82 years-old Male with FALL, EVAL TRAUMA. Acute head trauma TECHNIQUE: Multiple axial CT images of the head were obtained without contrast. A dose lowering technique was utilized adhering to the principles of ALARA. CT DOSE: 832.45 mGy.cm COMPARISON: Brain MRI and head CT studies 06/29/2022. FINDINGS: No acute intracranial hemorrhage, midline shift, intracranial mass, hydrocephalus, territorial ischemia or abnormal extra-axial collection. Involutional changes with chronic microvascular ischemic disease. No acute calvarial fracture identified. Mastoid air cells are clear. Acute facial bone fractures with layering hemorrhage within the maxillary sinuses. Soft tissue gas is noted within the face. Facial soft tissue swelling. Prior bilateral lens repair. Right-sided scleral banding. IMPRESSION: 1. No acute intracranial abnormality or calvarial fracture. 2. Please refer to CT maxillofacial study of same day for discussion of the acute facial bone fractures. ACT 112: Negative or not required by law. The above report was generated using voice recognition software. It may contain grammatical, syntax or spelling errors. Electronically signed by: Rolo Brar M.D. 09/23/2022 6:06 PM Code Status & VTE Plan Code Status Full Code. Supervising Physician Co-Signing Physician Notes Attending addendum: I have physically seen this patient, have supervised the KATARZYNA's activities, and agree with the H&P unless as otherwise noted. Assessment and Plan: LeFort I fracture- Status post mechanical fall by walking Acute fractures as noted Maxillofacial surgery Dr. Dimas aware and will see patient in a.m. Unasyn 3 g IV every 6 hours N.p.o. after midnight IV fluids as noted Admitting to PCU to monitor airway status Gastric adenocarcinoma- Metastatic disease to supraclavicular lymph nodes Symptomatic treatment with famotidine Following outpatient with oncology every 3 months CKD- Creatinine near baseline of 1.3-1.5 Follow serially First-degree heart block- N remaining orders and notations as noted ot on any negative inotropes Follow-up telemetry Not likely symptomatic Remaining orders and notations as noted PG Care Time/CCT Total # of Minutes Spent Total Time Spent with Patient: Total time spent is greater than 50% in coordination of care (as documented) at patient's floor/unit and/or counseling patient: Coding Level of Care Code 87772 Initial Inpt Care Lvl 3 Diagnoses LeFort I fracture S02.411A Gastric adenocarcinoma C16.9 GERD (gastroesophageal reflux disease) K21.9 First degree atrioventricular block by electrocardiogram I44.0 CKD (chronic kidney disease) N18.9
[2022-09-23 19:57] LABS: Basophils # (auto) 0.03 K/uL (0-0.2); Basophils % (auto) 0.2 %; Eosinophils # (auto) 0.03 K/uL (0-0.50); Eosinophils % (auto) 0.2 %; Hematocrit (blood only) 34.7 % (40.1-51.0); Hemoglobin 12.1 g/dl (14.0-18.0); Immature Granulocytes # (auto) 0.03 K/uL (0.00-0.02); Immature Granulocytes % (auto) 0.2 %; Lymphocytes % (auto) 11.6 %; Mean Corpuscular Hemoglobin 31.8 pg (25.0-34.0); Mean Corpuscular Hgb Conc 34.9 g/dL (32.0-36.0); Mean Corpuscular Volume 91.1 fL (80.0-100.0); Mean Platelet Volume 9.7 fL (9.4-12.4); Monocytes # (auto) 0.78 K/uL (0.24-0.82); Monocytes % (auto) 6.5 %; Neutrophils # (auto) 9.75 K/uL (1.4-6.5); Neutrophils % (auto) 81.3 %; Platelet Count 190 K/uL (130-400); RDW Standard Deviation 40.3 fL (36.4-46.3); Red Blood Count 3.81 M/uL (4.63-6.08); White Blood Count 12.02 K/ul (4.8-10.8)
[2022-09-23 20:12] LABS: Partial Thromboplastin Ratio 0.9; Partial Thromboplastin Time 26.1 Seconds (21.0-31.0); Prothrombin Time 10.4 Seconds (9.0-12.0)
[2022-09-23 20:23] LABS: BUN Creatinine Ratio 18.4 (10-20); Calcium 9.3 mg/dl (8.5-10.1); Creatinine Clr Calc Pharmacy 36.9 ml/min; Est GFR (African American) 48.1 ml/min; Est GFR (Non-African American) 41.5 ml/min; Potassium 4.2 mmol/L (3.5-5.1)
--- NOTE | 2022-09-23 20:54 | XRay Report ---
XR chest 1V portable HISTORY: 82 years-old Male pre-op preoperative exam. No acute chest complaints COMPARISON: Chest radiograph 06/29/2022, PET CT 04/04/2021 TECHNIQUE: AP view of the chest FINDINGS: Calcified granuloma of the lateral right midlung. Left subclavian [id number] in similar positionin g. Cardiomediastinal and hilar silhouettes are within normal limits. Chronic interstitial coarsening. There is no pneumothorax, pleural effusion, airspace consolidation or overt pulmonary edema. Degener ative changes of the shoulders and spine. IMPRESSION: No acute process. ACT 112: Negative or not required by law. The above report was generated using voice recognition software. It may contain grammatical, syntax o r spelling errors. Electronically signed by: Rolo Brar M.D. 09/23/2022 8:52 PM
[2022-09-23] MEDS ORDERED: ACETAMINOPHEN 1,000 MG/100 ML VIAL IV PRN (22:12)
[2022-09-23] MEDS ORDERED: POLYETHYLENE (MIRALAX) 17 GM PACK PO PRN (22:12)
[2022-09-23] MEDS ORDERED: HYDROmorphone INJ 0.5 MG/0.5 ML SYR IV PRN ×2 (22:12)
[2022-09-23] MEDS ORDERED: ALUMINUM/MAGNESIUM SUSP 30 ML UDC PO PRN (22:12)
[2022-09-23] MEDS ORDERED: ONDANSETRON INJ 2 MG/ML 2 ML VIAL IV PRN (22:12)
[2022-09-23 22:14] LABS: Albumin Level 4.3 gm/dl (3.4-5.0); Bilirubin Direct 0.1 mg/dl (0-0.2); Bilirubin,Total 0.6 mg/dl (0.2-1.0); Total Protein 7.2 gm/dl (6.0-8.3)
[2022-09-23] MEDS: FAMOTIDINE 20 MG TAB PO SCH (22:43)
[2022-09-23] MEDS: LACTATED RINGER'S 1,000 ML IV SCH (22:43)
[2022-09-24] MEDS: AMPICILLIN/SULBACTAM SOD 3,000 MG in 0.9 % SODIUM CHLORIDE 100 ML IV SCH ×2 (02:35→08:36)
--- NOTE | 2022-09-24 08:46 | Hospitalist Progress Note ---
Date of Service September 24, 2022 Assessment & Plan (1) LeFort I fracture: Plan: Mechanical fall 09/23/22 while walking in neighborhood. Face CT: * Acute and comminuted fractures involving the medial and lateral pterygoid plates bilaterally * Acute comminuted acutely mildly displaced fractures involving anterior and posterior maxillary cary bilaterally as well as medial wall of the left maxillary sinus * Acute angulated displaced nasal septal fracture, zygomatic arches appear intact * Acute nondisplaced fractures involving the left aspect of the bony palate with fracture extension into the root of the left lateral incisor * Anterior maxillary wall fracture extending to the inferior orbital floors, no displaced orbital wall fracture identified, * Layering hemorrhage within the maxillary sinuses and moderate subcutaneous gas in the face with right-sided scleral banding No acute hemorrhage or other findings on head CT. Per oromaxillary surgery: ABX coverage w/ Unasyn, may have a diet as tolerated and then NPO at midnight for possible OR today 09/24/22. Pain adequately controlled so far with ibuprofen, will switch to Tylenol for mild pain given CKD, Dilaudid for more severe pain. Admitted to PCU to monitor airway status. (2) Gastric adenocarcinoma: Plan: Initially diagnosed in 2019, with metastatic disease supraclavicular lymph nodes Continue Pepcid, no longer on chemo due to interstitial nephritis, however follows with oncology [id number]. (3) GERD (gastroesophageal reflux disease): Plan: Continue Pepcid. (4) First degree atrioventricular block by electrocardiogram: Plan: New as of June, thought to be a potential cause of syncope at that time, follows with cardiology. On telemetry, admission/pre-op EKG with non-specific intra-ventricular conduction block has replaced the Right bundle branch block when compared with EKG 06/2022 (5) CKD (chronic kidney disease): Plan: Cr baseline 1.3 - 1.5, about baseline today (1.52) Avoid nephrotoxins and renally dose medications as able. Plan Admitted to PCU. SCDs, defer on chemoppx given facial fractures with evidence fo bleeding/to OR tomorrow. - Full Code. Admission and Anticipated Discharge Date Admission Date: September 23, 2022 Subjective Patient Results & Data Results & Data ([facility]) Vital Signs (Past 12 Hours) Vital Signs Temp Pulse Pulse Resp BP BP Pulse Ox 09/24/22 06:00 57 L 12 09/24/22 06:00 112/54 L 09/24/22 05:00 58 L 14 09/24/22 05:00 125/63 09/24/22 04:00 61 13 99 09/24/22 04:00 126/60 09/24/22 03:00 60 15 09/24/22 03:00 126/63 09/24/22 02:00 61 15 09/24/22 02:00 133/65 09/24/22 01:00 61 13 09/24/22 01:00 131/61 09/24/22 00:00 66 20 09/24/22 00:00 134/71 09/23/22 23:24 64 15 99 09/23/22 23:24 132/63 09/23/22 23:00 66 13 09/23/22 23:00 140/68 09/23/22 22:47 68 12 100 09/23/22 22:47 153/72 H 09/23/22 22:35 112/57 L 09/23/22 22:34 109/67 09/23/22 22:33 99 09/23/22 22:32 93/77 L 09/23/22 21:46 78 20 97 09/23/22 21:20 132/74 09/23/22 21:20 79 20 98 09/23/22 21:00 85 19 99 09/24/22 02:30 36.5 C 09/23/22 22:00 36.6 C 68 15 140/68 96 09/23/22 23:00 36.6 C 09/23/22 23:30 36.4 C L 09/23/22 21:22 78 20 132/74 98 09/23/22 21:21 99 O2 Del Method 09/24/22 06:00 09/24/22 06:00 09/24/22 05:00 09/24/22 05:00 09/24/22 04:00 09/24/22 04:00 09/24/22 03:00 09/24/22 03:00 09/24/22 02:00 09/24/22 02:00 09/24/22 01:00 09/24/22 01:00 09/24/22 00:00 09/24/22 00:00 09/23/22 23:24 09/23/22 23:24 09/23/22 23:00 09/23/22 23:00 09/23/22 22:47 09/23/22 22:47 09/23/22 22:35 09/23/22 22:34 09/23/22 22:33 09/23/22 22:32 09/23/22 21:46 09/23/22 21:20 09/23/22 21:20 09/23/22 21:00 09/24/22 02:30 09/23/22 22:00 Room Air 09/23/22 23:00 09/23/22 23:30 09/23/22 21:22 Room Air 09/23/22 21:21 Room Air Laboratory Results Abnormal lab results 09/23/22 09/23/22 Range/Units 19:35 19:35 WBC 12.02 H (4.8-10.8) K/ul RBC 3.81 L (4.63-6.08) M/uL Hgb 12.1 L (14.0-18.0) g/dl Hct 34.7 L (40.1-51.0) % Neut # (Auto) 9.75 H (1.4-6.5) K/uL Immature Gran # (Auto) 0.03 H (0.00-0.02) K/uL Sodium 132 L (136-145) mmol/L BUN 28 H (6-23) mg/dl Creatinine 1.52 H (0.6-1.4) mg/dl Diagnostic Findings Face CT 09/23/22 17:29 CT facial bones wo con CLINICAL HISTORY: 82 years-old Male presenting with FALL, EVAL FX. Acute head and facial trauma status post fall COMPARISON STUDY: Head CT of same day TECHNIQUE: High-resolution CT scan of the facial bones is performed. Images are reviewed in the axial, sagittal, and coronal planes. IV contrast was not administered for this examination. A dose lowering technique was utilized adhering to the principles of ALARA. FINDINGS: Degenerative changes of the imaged cervical spine. Mastoid air cells are clear. The mandible appears intact. Acute and comminuted fractures involving the medial and lateral pterygoid plates bilaterally. Acute comminuted acute mildly displaced fractures are noted involving the anterior and posterior maxillary cary bilaterally as well as the medial wall of the left maxillary sinus. Acute, angulated and displaced nasal septal fracture. The zygomatic arches appear intact. Acute nondisplaced fracture involves the left aspect of the bony palate with fracture extension into the root of the left lateral incisor. The anterior maxillary wall fractures extend into the inferior orbital floors. No displaced orbital wall fracture identified. There is mild cortical regularity involving the right lamina papyracea. Nasal bone appears intact. Layering hemorrhage within the maxillary sinuses. Moderate mucosal thickening of the ethmoid air cells. Moderate subcutaneous gas in face. Right-sided scleral banding. Prior bilateral 1.. Facial contusions. No acute intracranial hemorrhage. IMPRESSION: 1. Numerous acute facial bone fractures which includes a LeFort type I component as described above. 2. Facial contusions with subcutaneous and deep tissue gas of the face. 3. Layering hemorrhage within the maxillary sinuses. ACT 112: Negative or not required by law. The above report was generated using voice recognition software. It may contain grammatical, syntax or spelling errors. Electronically signed by: Rolo Brar M.D. 09/23/2022 6:[address] 09/23/22 17:29 CT head/brain wo con CLINICAL HISTORY: 82 years-old Male with FALL, EVAL TRAUMA. Acute head trauma TECHNIQUE: Multiple axial CT images of the head were obtained without contrast. A dose lowering technique was utilized adhering to the principles of ALARA. CT DOSE: 832.45 mGy.cm COMPARISON: Brain MRI and head CT studies 06/29/2022. FINDINGS: No acute intracranial hemorrhage, midline shift, intracranial mass, hydrocephalus, territorial ischemia or abnormal extra-axial collection. Involutional changes with chronic microvascular ischemic disease. No acute calvarial fracture identified. Mastoid air cells are clear. Acute facial bone fractures with layering hemorrhage within the maxillary sinuses. Soft tissue gas is noted within the face. Facial soft tissue swelling. Prior bilateral lens repair. Right-sided scleral banding. IMPRESSION: 1. No acute intracranial abnormality or calvarial fracture. 2. Please refer to CT maxillofacial study of same day for discussion of the acute facial bone fractures. ACT 112: Negative or not required by law. The above report was generated using voice recognition software. It may contain grammatical, syntax or spelling errors. Electronically signed by: Rolo Brar M.D. 09/23/2022 6:06 PM Chest X-Ray 12/05/22 20:17 XR chest 1V portable HISTORY: 82 years-old Male pre-op preoperative exam. No acute chest complaints COMPARISON: Chest radiograph 06/29/2022, PET CT 04/04/2021 TECHNIQUE: AP view of the chest FINDINGS: Calcified granuloma of the lateral right midlung. Left subclavian [id number] in similar positioning. Cardiomediastinal and hilar silhouettes are within normal limits. Chronic interstitial coarsening. There is no pneumothorax, pleural effusion, airspace consolidation or overt pulmonary edema. Degenerative changes of the shoulders and spine. IMPRESSION: No acute process. ACT 112: Negative or not required by law. The above report was generated using voice recognition software. It may contain grammatical, syntax or spelling errors. Electronically signed by: Rolo Brar M.D. 09/23/2022 8:52 PM PG Care Time/CCT Total # of Minutes Spent Total Time Spent with Patient: Total time spent is greater than 50% in coordination of care (as documented) at patient's floor/unit and/or counseling patient: Coding Diagnoses LeFort I fracture S02.411A Gastric adenocarcinoma C16.9 GERD (gastroesophageal reflux disease) K21.9 First degree atrioventricular block by electrocardiogram I44.0 CKD (chronic kidney disease) N18.9
[2022-09-24] MEDS: LACTATED RINGER'S 1,000 ML IV SCH (08:48)
[2022-09-24] MEDS ORDERED: IRON POLYSACCHARIDE COMPLEX 150 MG CAPSULE PO SCH (09:00)
[2022-09-24] MEDS ORDERED: CHOLECALCIFEROL 1,000 UNITS 25 MCG TAB PO SCH (09:00)
[2022-09-24] MEDS ORDERED: MULTIVITAMIN TAB PO SCH (09:00)
[2022-09-24] MEDS ORDERED: CALCITRIOL 0.25 MCG CAPSULE PO SCH (09:00)
--- NOTE | 2022-09-24 10:03 | Oral/Maxillofacial Consult ---
Date of Consultation September 24, 2022 Assessment & Plan (1) LeFort I fracture: (2) Head trauma: (3) First degree atrioventricular block by electrocardiogram: (4) CKD (chronic kidney disease): (5) Maxillary sinus fracture: History of Present Illness Attending Physician: Polo Araujo History of Present Illness Oral Maxillofacial Surgery Exam Diagnoses LeFort I fracture S02.411A Head trauma S09.90XA First degree atrioventricular block by electrocardiogram I44.0 CKD (chronic kidney disease) N18.9 Maxillary sinus fracture S02.401A Present Complaint: Patient tripped yesterday falling on his denia (left side) Taken to the ER He sustained a LeFort fracture (I possible II) left side His bite is off and the left marian maxilla is mobile. He has swelling and numbness left side Ecchymosis of the face lip chin and forehead Chipped # 10 tooth The swelling is to extensive to operate at present--a nasal intubation is needed I allowing the nasal swelling to subsite is necessary Oral Exam: Finding-Teeth are in an abnormal position as a result of the fracture and reduction will be necessary once the swelling subsides, Hopefully by Friday or Friday Imaging: CT facial bones wo con CLINICAL HISTORY: 82 years-old Male presenting with FALL, EVAL FX. Acute head and facial trauma status post fall COMPARISON STUDY: Head CT of same day FINDINGS: Acute and comminuted fractures involving the medial and lateral pterygoid plates bilaterally. Acute comminuted acute mildly displaced fractures are noted involving the anterior and posterior maxillary cary bilaterally as well as the medial wall of the left maxillary sinus. Acute, angulated and displaced nasal septal fracture. Acute nondisplaced fracture involves the left aspect of the bony palate with fracture extension into the root of the left lateral incisor The anterior maxillary wall fractures extend into the inferior orbital floors. Degenerative changes of the imaged cervical spine. Mastoid air cells are clear. The mandible appears intact. The zygomatic arches appear intact. No displaced orbital wall fracture identified. There is mild cortical regularity involving the right lamina papyracea. Nasal bone appears intact. Layering hemorrhage within the maxillary sinuses. Moderate mucosal thickening of the ethmoid air cells. Moderate subcutaneous gas in face. Right-sided scleral banding. Prior bilateral 1.. Facial contusions. No acute intracranial hemorrhage. IMPRESSION: 1. Numerous acute facial bone fractures which includes a LeFort type I component as described above. 2. Facial contusions with subcutaneous and deep tissue gas of the face. 3. Layering hemorrhage within the maxillary sinuses. Soft tissue: floor of the mouth, tongue all WNL Swelling and ecchymosis of the left posterior pharyngeal area, cheek, palate hard and soft Mucobuccal fold grossly swollen left side Oral Care: Overall oral care is good Occlusion: Class I with crowding Bite is off and not meeting secondary to the displacement from the fracture TMJ exam: No pop, clicking, pain, good ROM, No history of TMJ injury or dysfunction Periodontal exam: Healthy gingival tissue without evidence of periodontal pathology. Fracture between 10-11 across hard palate, lateral sinus wall (LeFort I ) Head/Neck exam: Neck is supple, FROM, Able to extend and flex neck w/o difficulty, no masses, no abnormalities, no airway issues, no evidence of sleep apnea. Treatment Plan: I will discuss with hospitalist and consider D/C., Send home with oral antibiotics, soft diet and arrange for follow up on . Once swelling subsides plan open reduction LeFort fracture in OR Set up with general anesthesia in hospital due to complexity of the procedure I reviewed the treatment plan and consent with the patient Understanding was expressed. Time was given for questions regarding the possible surgery, risks and post op care. Discussed alternative to treatment--procedure as planned, Do not do surgery I will finalize the treatment once I see him . Risks discussed: Bleeding,Pain,swelling,infection, delayed healing, nerve injury to face,lips,tongue,chin area which could be permanent (rare). TMJ, jaw stiffness, change in bite (rare), ear pain (referred). Sinus problems like fistula or infection. infection from plates.damage to roots of upper teeth need for possible jaw fixation Home care reviewed: tooth brushing, rinsing, follow up care with Dr Dimas. diet=[id number] dental. Discussed activity level, driving/work while on Rx pain Meds. Surgery to be set up once he is evaluated on at 1 pm Allergies Allergy/AdvReac Type Severity Reaction Status Date / Time No Known Drug Allergies Allergy Unknown Verified 09/25/22 09:33 Home Medications Medication Instructions Recorded Confirmed Type multivitamin 1 tab PO QAM 03/29/20 09/26/22 History cholecalciferol (vitamin D3) 50 50 mcg PO QDL 09/21/21 09/26/22 History mcg (2,000 unit) capsule famotidine 20 mg tablet (Pepcid) 20 mg PO BID 09/21/21 09/26/22 History calcitriol 0.25 mcg capsule 0.25 mcg PO DAILY #90 caps 04/02/22 09/26/22 Rx amoxicillin 875 mg-potassium 1 tab PO Q12H #20 tabs 09/24/22 09/26/22 Rx clavulanate 125 mg tablet chlorhexidine gluconate 0.12 % 15 ml mucous membrane BID #473 mL 09/24/22 Rx mouthwash (Peridex) hydrocodone 5 mg-acetaminophen 325 1 tab PO Q4H PRN pain #14 tabs 09/24/22 09/26/22 Rx mg tablet sodium chloride 0.65 % nasal spray 3 spray intranasal Q4H #1 mL 09/24/22 09/26/22 Rx aerosol (Saline Nose) Patient History Medical History Acid reflux Bilateral inguinal hernia Carotid artery plaque "mild carotid plaque and normal velocity" per 2016 PCP records (unable to obtain official imaging) Chronic anemia CKD (chronic kidney disease) Deafness in left ear per records, not verbalized per patient via RN phone interview 11/19/19 Gastric adenocarcinoma Hepatic cyst History of actinic keratosis History of anemia History of basal cell carcinoma s/p excision (in office) Hyperlipidemia LeFort I fracture 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 (until 03/2021) Mild aortic stenosis Per 06/2022 echo Osteoarthritis Osteopenia SBO (small bowel obstruction) Hx Surgical History History of bilateral cataract extraction History of colonoscopy History of eye surgery R DETACHED RETINA History of Mohs micrographic surgery for skin cancer History of tonsillectomy History of tooth extraction Port-A-Cath in place Port placement S/P appendectomy S/P tonsillectomy Family History Mother , age 60 colon cancer Colon cancer Colorectal cancer Grandfather (Maternal) Myocardial infarction Grandfather Colorectal cancer Father , age 77 of heart disease Heart disease Other Hearing loss No family history of adverse response to anesthesia No family history of bleeding disorder Denies family history of Ovarian cancer Prostate cancer Breast cancer Social History Smoking Status: Never smoker Second Hand Exposure: No; Do You Dip or Chew Tobacco: No; Tobacco Cessation Education Requested by Patient: No Hx Alcohol Use: Yes Alcohol type: wine Alcohol Intake Frequency Comment: 1 glass with dinner 4 times a week Hx Substance Use: No Preferred Language: [place] Communication Ability: Effective Visual Impairment: No Limitations Bag Repairer Required: No Beliefs That Will Affect Care: None marital status: Current Living Situation: Spouse current occupational status: retired 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 Other Information That Helps Us Care for You: No Feels Safe at Home: Yes Safety Concerns: Feels Safe At This Time Dental Care, Regularly: Yes Physical Activity Frequency: 5-6 Times per Week Seatbelt Use: always Sunscreen Use: Yes Assistive Devices: Glasses Assistive Devices Comment: 2 DENTAL IMPLANTS Results & Data ([facility]) Vital Signs (Past 12 Hours) Vital Signs Temp Pulse Pulse Resp BP BP Pulse Ox 09/24/22 06:00 57 L 12 09/24/22 06:00 112/54 L 09/24/22 05:00 58 L 14 09/24/22 05:00 125/63 09/24/22 04:00 61 13 99 09/24/22 04:00 126/60 09/24/22 03:00 60 15 09/24/22 03:00 126/63 09/24/22 02:00 61 15 09/24/22 02:00 133/65 09/24/22 01:00 61 13 09/24/22 01:00 131/61 09/24/22 00:00 66 20 09/24/22 00:00 134/71 09/23/22 23:24 64 15 99 09/23/22 23:24 132/63 09/23/22 23:00 66 13 09/23/22 23:00 140/68 09/23/22 22:47 68 12 100 09/23/22 22:47 153/72 H 09/23/22 22:35 112/57 L 09/23/22 22:34 109/67 09/23/22 22:33 99 09/23/22 22:32 93/77 L 09/24/22 02:30 36.5 C 09/23/22 22:00 36.6 C 68 15 140/68 96 09/23/22 23:00 36.6 C 09/23/22 23:30 36.4 C L O2 Del Method 09/24/22 06:00 09/24/22 06:00 09/24/22 05:00 09/24/22 05:00 09/24/22 04:00 09/24/22 04:00 09/24/22 03:00 09/24/22 03:00 09/24/22 02:00 09/24/22 02:00 09/24/22 01:00 09/24/22 01:00 09/24/22 00:00 09/24/22 00:00 09/23/22 23:24 09/23/22 23:24 09/23/22 23:00 09/23/22 23:00 09/23/22 22:47 09/23/22 22:47 09/23/22 22:35 09/23/22 22:34 09/23/22 22:33 09/23/22 22:32 09/24/22 02:30 09/23/22 22:00 Room Air 09/23/22 23:00 09/23/22 23:30 PG Care Time/CCT Total # of Minutes Spent Total Time Spent with Patient: Total time spent is greater than 50% in coordination of care (as documented) at patient's floor/unit and/or counseling patient: Coding Level of Care Code 55772 Initial Inpt Care Lvl 3 Diagnoses LeFort I fracture S02.411A Head trauma S09.90XA First degree atrioventricular block by electrocardiogram I44.0 CKD (chronic kidney disease) N18.9 Maxillary sinus fracture S02.401A
[2022-09-24] MEDS: FAMOTIDINE 20 MG TAB PO SCH (11:11)
[2022-09-24] MEDS ORDERED: SODIUM CHLORIDE 0.65% NA SOLN 45 ML (OCEAN) ONE (11:15)
[2022-09-24] MEDS ORDERED: NURSING DECISION MEDICATION ONE (12:45)
--- NOTE | 2022-09-24 13:13 | Discharge Summary ---
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 Patient was out for his daily walk when he stepped off a curb and fell, landing on his face. He denies feeling any preceding lightheadedness, dizziness, chest pain, palpitations, shortness of breath and is adamant it was mechanical fall from him tripping over his feet or curb. No loss of consciousness, patient was able to get back up and walk quarter mile home before presenting to the ED. Head CT unremarkable, however face CT shows numerous acute facial bone fractures which include a LeFort type I fracture with facial contusions and subcutaneous, deep tissue gas of the face and layering hemorrhage within the maxillary sinuses. The case was discussed by ED provider with Dr. Dimas of oromaxillary surgery, he recommended the patient be admitted to the medicine service for IV antibiotics, with possible surgery tomorrow morning. On presentation to the ED, is significantly hypertensive 193/92, recheck after pain medications given, now down to 165/83. Otherwise vital signs within normal limits and stable. Labs largely unremarkable, WBC 12, Hgb 12.1 which is his baseline, sodium mildly low at 132, BUN 28 and Cr 1.5, which is his baseline. COVID negative. Admission Exam Per Admitting Provider General: awake, alert, no apparent distress, on RA Head: abrasions above left orbit, upper and lower lips, and bridge of nose, none requiring suture repair in ED ENT: b/l nares patent but full of blood product; airway is patent without unilateral swelling, oropharynx with some evidence of post-nasal blood drainage upper and lower lips swollen; TTP along forehead, bridge of nose, mandible and maxilla b/l; PERRL, EOMI, no pharyngeal exudate, mucous membranes moist Chest: Clear to auscultation, on room air, no adventitious breath sounds Cardiac: Regular rate and rhythm, no murmur, no JVD, normal peripheral pulses, good capillary refill Abdominal: NABS x 4 quadrants, soft, nontender to palpation, no rebound, guarding or tenderness Extremities: Normal inspection, no peripheral edema or erythema, calfs nontender to palpation Psych: Normal mood and affect Neuro: AAO x 3, strength intact bilaterally and rated 5/5, no motor deficits, speech is clear, no peripheral sensory deficits Skin: no rash or erythema Principal Diagnosis LeFort I fracture Discharge Exam Constitutional WD/WN, vitals as above Eyes Abrasion above left orbit to frontal area, bilateral eyes slightly swollen, PERRLA, Full EOM ENMT Bilateral nares full of dried blood, oropharynx with some old blood in posterior pharynx, uvula midline, lips swollen left side greater than right top and bottom Teeth/bite slightly off Neck trachea midline, no thyromegaly Respiratory normal respiratory effort, lungs clear to auscultation Cardiovascular RRR, no murmur, no edema Gastrointestinal (Abdomen) normal bowel sounds, soft, nontender, no hepatosplenomegaly Musculoskeletal small abrasion left proximal knee, FROM extremities and nontender no deformities Neurologic patellar DTR's 2+ bilat, sensation intact and PERRL, EOMI, accommodation nl, no face palsy, no dysarthria Psychiatric A+Ox3, euthymic affect Discharge Data Allergies Allergy/AdvReac Type Severity Reaction Status Date / Time No Known Drug Allergies Allergy Unknown Verified 10/01/22 06:06 Consultations 09/23/22 19:31 ED Decision to Admit Stat 09/23/22 22:12 Consult Oromaxillofacial Surgery Routine Ordered Studies 09/23/22 17:29 CT facial bones wo con Stat CT head/brain wo con Stat Hospital Course (1) LeFort I fracture: Mechanical fall 09/23/22 while walking in neighborhood. - Patient denies any syncope, he states he knows he tripped on the uneven pavement and had no LOC Face CT: * Acute and comminuted fractures involving the medial and lateral pterygoid plates bilaterally * Acute comminuted acutely mildly displaced fractures involving anterior and posterior maxillary cary bilaterally as well as medial wall of the left maxillary sinus * Acute angulated displaced nasal septal fracture, zygomatic arches appear intact * Acute nondisplaced fractures involving the left aspect of the bony palate with fracture extension into the root of the left lateral incisor * Anterior maxillary wall fracture extending to the inferior orbital floors, no displaced orbital wall fracture identified, * Layering hemorrhage within the maxillary sinuses and moderate subcutaneous gas in the face with right-sided scleral banding No acute hemorrhage or other findings on head CT. Per oromaxillary surgery: ABX coverage w/ Unasyn, may have a diet as tolerated and then NPO at midnight for possible OR today 09/24/22. Pain adequately controlled so far with ibuprofen, will switch to Tylenol for mild pain given CKD, Dilaudid for more severe pain. Admitted to PCU to monitor airway status. (2) Gastric adenocarcinoma: Initially diagnosed in 2019, with metastatic disease supraclavicular lymph nodes Continue Pepcid, no longer on chemo due to interstitial nephritis, however follows with oncology [id number]. (3) GERD (gastroesophageal reflux disease): Continue Pepcid. (4) First degree atrioventricular block by electrocardiogram: New as of June, thought to be a potential cause of syncope at that time, follows with cardiology. On telemetry, admission/pre-op EKG with non-specific intra-ventricular conduction block has replaced the Right bundle branch block when compared with EKG 06/2022 - Patient follows with cardiology (Dr Finley) and last visit was 07/26/22 - Patient denies any syncope and denies any chest pain or SOB (5) CKD (chronic kidney disease): Cr baseline 1.3 - 1.5, about baseline today (1.52) Avoid nephrotoxins and renally dose medications as able. Plan Patient was admitted to PCU and evaluated in the AM by Dr Dimas who suggested to d/c patient to home today with office follow up in 48 hours and surgery either Friday08/28/22 or Friday08/31/22 after the inflammation has improved. SCDs, defer on chemoppx given facial fractures with evidence of bleeding - Full Code. Dr Dimas ordered Augmentin 875 mg one BID saline nasal spray Peridex mouth wash Percocet as needed for severe pain Total Time Total Time Spent Total Time Spent (In Minutes): 35 Discharge Plan Discharge Items Patient Disposition: Home - Self-Care Reason For Visit: MULTIPLE MAXILLARY FRACTURES Discharge Diagnosis: Maxillary Fractures-too swollen for procedure I will follow and arrange surgery in a few days Condition on Discharge: Good Activity: Per Instructions section Lifting: No more than 5 pounds Bathing: No limitations Exercise/Sports: Wait until after follow-up appointment Driving/Machine Use: none until you see Dr Dimas on Sep 26 at 1 pm Weightbearing: Full weightbearing Non-emergency contact: Surgeon Call non-emergency contact if: your wound has increased redness and your wound has increased drainage Follow-up/Referrals: Kaela Dickerson PA-C [Physician Teacher Theater Arts] - 10/04/22 11:00 am Leland Dimas DMD [Physician] - 09/26/22 1:15 pm Diet: Other - See Diet Comment Diet Texture: Mechanical soft (ground) Diet Comment: clear--full--dental soft==no chewing Addtl Attending Provider Instructions: Fracture INSTRUCTIONS FOLLOW UP APPOINTMENT FridaySEPTEMBER 26 AT 1:15 BLEEDING: Some oozing or blood-tinged saliva may persist for up to 24 hours. Should excessive bleeding occur call the office or Dr. Dimas. Expect nasal oozing for a few days. This also will occur after getting up or after you shower. PAIN: Is best controlled by the medications recommended. They are most effective when taken before the local anesthesia diminishes and normal sensation returns to the area. Do not take pain pills on an empty stomach. Narcotic pain medication such as Vicodin or Percocet may cause nausea, vomiting, drowsiness, dizziness, itching or constipation. If these side effects occur, discontinue the medication. You may take an alternative over the counter pain medication (Tylenol or Motrin) as necessary or call our office for assistance. SWELLING: May occur immediately and increase gradually over 24-48 hours. Swelling from the surgical procedure will maximize at 48-72 hours. Ice packs applied externally to the area at 20 minute intervals throughout the day of surgery may help control swelling, but only use them if advised to by our office. Sleeping with the head of bed elevated above the level of the heart for the first two post-operative nights may tend to lessen swelling. NAUSEA: May result from a general anesthetic or the drugs prescribed for pain. Drinking a small glass of a carbonated beverage will generally control mild nausea. If not controlled, call the office. The Zofran ODT may be used as instructed. DIET: Soft foods and liquids will be required for 24-48 hours following surgery. Avoid hot, spicy foods. Do not smoke. Non-chewy foods are okay if you are using the elastic bands. ORAL HYGIENE: Should not be neglected. [place] your teeth as usual and rinse with warm salt water after each meal beginning gently the night of surgery. Use Peridex twice a day. Other mouth rinses can be used to keep your mouth clean. ACTIVITY: None until I see you afternoon . Strenuous work or exercise may promote bleeding. SIDE EFFECTS: Such as an ear ache, temporary ache of adjacent teeth, restricted mouth opening, stretching or cracking at the corners of the mouth or discoloration These are temporary conditions that will improve as healing progresses. As a result of the surgery your bite will feel off, this is normal. Your lower and upper lip will also feel numb as a result of trauma EMERGENCIES: In case of profuse bleeding, uncontrolled pain, persistent nausea or abnormal elevation of temperature, if you have any questions about these instructions or your surgery please call our office or Dr. Rodgers cell phone. Our goal is to make this procedure as safe and pleasant as possible. Email Dr. Dimas---[email or web address] Phone Dr. Dimas after hours and weekends, Add Candy Catcher Provider Instructions: You were admiited to the hospital after a mechanical ground level fall and suffering multiple facial fractures. You were evaluated by Dr Dimas a oromaxillary surgeon who evaluated you and cleared you yari discharged home today. You will be discharged on [id number] mg one pill two times per day, you also will be given some pain medication to use for severe pain or discomfort. Also will be prescribed peridex oral mouth wash. The saline nasal spray is OTC. Pending Studies at Discharge: No Stand-Alone Forms: My [facility], Pain - Opioid Pain Management Medications and DC Order Prescriptions: Continued cholecalciferol (vitamin D3) 50 mcg (2,000 unit) capsule 50 mcg PO QDL calcitriol 0.25 mcg capsule 0.25 mcg PO DAILY Qty: 90 3RF multivitamin Tablet 1 tab PO QAM famotidine [Pepcid] 20 mg tablet 20 mg PO BID hydrocodone-acetaminophen 5-325 mg tablet 1 tab PO Q4H PRN (Reason: pain) Qty: 14 0RF amoxicillin-pot clavulanate 875-125 mg tablet 1 tab PO Q12H Qty: 20 0RF Saline Nose 0.65 % aerosol,spray 3 spray intranasal Q4H Qty: 1 0RF Rx Instructions: while awake chlorhexidine gluconate [Peridex] 0.12 % mouthwash 15 ml mucous membrane BID Qty: 473 0RF Rx Instructions: RINSE WITH 15 ML 2 X A DAY HOLD IN MOUTH FO R30 SECONDS AND SPIT OUT No Action ibuprofen 100 mg Tablet 100 mg PO DIRECTED PRN (Reason: Pain) Discharge Orders: Discharge Order (Routine); Ordered 09/24/22 Ordered By: Angelia Caceres/Other Patient Handouts: ED Facial Fracture Admission Data Admit Date/Time: 09/23/22 20:36 Attending Provider: Polo Araujo Admit Provider: Phu Hong Primary Care Provider: Alli Dick Other Providers: Leland Dimas Other Interventions: Discharge Summary Assessment (RN) Last Done: 09/24/22 10:52 Supervising Physician Co-Signing Physician Notes During face to face encounter with patient. I discussed the hospital course and obtained a physical examination. I discussed discharge plan with patient and ZAFAR Duff. I reviewed above note and agree with it. Patient admitted with a Lefort I fracture. Patient will followup with Dr. Dimas as an outpatient and will be placed on antibiotics. Coding Level of Care Code D/C DAY MANAGEMENT >30 MINS Diagnoses LeFort I fracture S02.411A Gastric adenocarcinoma C16.9 GERD (gastroesophageal reflux disease) K21.9 First degree atrioventricular block by electrocardiogram I44.0 CKD (chronic kidney disease) N18.9 Time Spent (min) 35
--- NOTE | 2022-09-24 16:39 | Electrocardiogram Report ---
Test Reason : Blood Pressure : / mmHG Vent. Rate : 061 BPM Atrial Rate : 061 BPM P-R Int : 222 ms QRS Dur : 134 ms QT Int : 442 ms P-R-T Axes : 038 031 040 degrees QTc Int : 444 ms Sinus rhythm with 1st degree A-V block Non-specific intra-ventricular conduction block Abnormal ECG When compared with ECG of 29-JUN-2022 12:08, Non-specific intra-ventricular conduction block has replaced Right bundle branch block Confirmed by Alli Gtz ([id number]) on 09/24/2022 4:39:12 PM Referred By: REFERRED SELF Confirmed By:Alli Gtz
== END 2022-09-24 12:49 | disposition home or self-care (01) | DRG 158 ==
LOC: ED 16:19 → SUATTDRO 20:36 → 1E 20:36
DX: Z80.0 Family history of malignant neoplasm of digestive organs; C16.9 Malignant neoplasm of stomach, unspecified; K21.9 Gastro-esophageal reflux disease without esophagitis; W10.1XXA Fall (on)(from) sidewalk curb, initial encounter; S02.411A LeFort I fracture, initial encounter for closed fracture; I44.0 Atrioventricular block, first degree; Z20.822 Contact with and (suspected) exposure to COVID-19; Z79.899 Other long term (current) drug therapy; Y99.8 Other external cause status; Y93.01 Activity, walking, marching and hiking; N12 Tubulo-interstitial nephritis, not specified as acute or chronic; D64.9 Anemia, unspecified; N18.9 Chronic kidney disease, unspecified

== ENCOUNTER 2022-10-01 05:42 | Observation (INO) ==
--- NOTE | 2022-09-26 09:41 | Anesthesiology Consultation ---
Date of Service September 26, 2022 Assessment & Plan (1) Encounter for pre-operative examination: - COVID screening: Per assessment on 09/26: No known COVID-19 positive contacts or current COVID-19 related symptoms. Travel screen negative. Patient vaccinated. At surgeon discretion if preop Covid testing being done. Pt requiring admission post-operatively. Plan for recheck with COVID Kevin AM DOS due to possibility that patient may have a roommate. Kevin order placed. - Cardiology office visit (07/26/22): "Syncope: At this point we have no specific etiology for his syncope, in some ways it sounds like it was probably an arrhythmia (likely bradycardia, possibly complete heart block based on his electrocardiogram) although another ways it does not sound like it including the fact that he may have had a pulse very quickly after this occurred but I do not know timing and this is thirdhand. He is wearing an event monitor now, we should wait for the results of that but so far I believe nothing serious has been identified. If this monitor is unremarkable we should consider a loop recorder implantation. I showed him one, I told him that is the only way we would be able to identify infrequent episodes and if he had another episode of syncope having a monitor in place would be helpful, even if it was not an arrhythmia because it could exclude it. The other option is continued ob servation and he is leaning toward this rather than having a monitor implanted. We can reevaluate this once we have the monitor results.. Elevated troponin: His troponin elevation is a little bit worrisome. Although not specific it does suggest there is some type of cardiac event, either transient bradycardia or a tachycardia causing transient ischemia. I do not suspect a coronary artery event however.. Right bundle branch block: He has longstanding right bundle branch block, this in and of itself is not worrisome however in associated with syncope it could suggest infra his block as a cause which would be compatible with his symptoms. I do not think we have enough data to implant a pacemaker however.. First-degree AV block: First-degree AV block appears to be new compared to his electrocardiogram from several years ago. This also suggests AV block may have been a cause of his episode. Again, I do not think we have enough information at this point to implant a pacemaker. I will review the monitor when available and see whether any specific treatment is indicated." 19 day hall monitor done 06/2022-07/2022- no significant findings (no high grade AVB or pauses greater than 2 seconds). - [facility] admission (09/23-09/24/22): "Patient was out for his daily walk when he stepped off a curb and fell, landing on his face. He denies feeling any preceding lightheadedness, dizziness, chest pain, palpitations, shortness of breath and is adamant it was mechanical fall from him tripping over his feet or curb. No loss of consciousness, patient was able to get back up and walk quarter mile home before presenting to the ED. Head CT unremarkable, however face CT shows numerous acute facial bone fractures which include a LeFort type I fracture with facial contusions and subcutaneous, deep tissue gas of the face and layering hemorrhage within the maxillary sinuses. The case was discussed by ED provider with Dr. Dimas of oromaxillary surgery, he recommended the patient be admitted to the medicine service for IV antibiotics.. Patient was admitted to PCU and evaluated in the AM by Dr Dimas who suggested to d/c patient to home today with office follow up in 48 hours and surgery either Friday.. or Friday.. after the inflammation has improved." - Case reviewed with Dr. Slaughter. He feels patient okay to proceed with given surgery as scheduled without further cardiac evaluation and/or testing from his perspective. He does feel that patient should stay at least overnight and be monitored/on telemetry post-operatively (Melody at surgeon's office aware). At anesthesiologist discretion AM DOS regarding A-line/pacer pads. Chart Review Chart Review: Acceptable Risk for Surgery (pending evaluation AM DOS) and Patient NOT seen in Pre Admission Testing History Surgery Operation Date: 10/01/22 07:15 Proposed Procedures p Open Reduction of Lefort 1 Fracture with Bone Plates - Leland Dimas, DMD Height/Weight Height: 6 ft Weight: 70.307 kg Allergies Allergy/AdvReac Type Severity Reaction Status Date / Time No Known Drug Allergies Allergy Unknown Verified 09/25/22 09:33 Medications Home Medications Medication Instructions Recorded Confirmed Last Taken multivitamin 1 tab PO QAM 03/29/20 09/26/22 Unknown cholecalciferol (vitamin D3) 50 50 mcg PO QDL 09/21/21 09/26/22 Unknown mcg (2,000 unit) capsule famotidine 20 mg tablet (Pepcid) 20 mg PO BID 09/21/21 09/26/22 Unknown calcitriol 0.25 mcg capsule 0.25 mcg PO DAILY #90 caps 04/02/22 09/26/22 Unknown amoxicillin 875 mg-potassium 1 tab PO Q12H #20 tabs 09/24/22 09/26/22 Unknown clavulanate 125 mg tablet chlorhexidine gluconate 0.12 % 15 ml mucous membrane BID #473 mL 09/24/22 09/26/22 Unknown mouthwash (Peridex) hydrocodone 5 mg-acetaminophen 325 1 tab PO Q4H PRN pain #14 tabs 09/24/22 09/26/22 Unknown mg tablet sodium chloride 0.65 % nasal spray 3 spray intranasal Q4H #1 mL 09/24/22 09/26/22 Unknown aerosol (Saline Nose) Past Medical History Medical History Acid reflux Bilateral inguinal hernia Carotid artery plaque "mild carotid plaque and normal velocity" per 2016 PCP records (unable to obtain official imaging) Chronic anemia CKD (chronic kidney disease) Deafness in left ear per records, not verbalized per patient via RN phone interview 11/19/19 Gastric adenocarcinoma Hepatic cyst History of actinic keratosis History of anemia History of basal cell carcinoma s/p excision (in office) Hyperlipidemia LeFort I fracture 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 (until 03/2021) Mild aortic stenosis Per 06/2022 echo Osteoarthritis Osteopenia SBO (small bowel obstruction) Hx Past Family History Family History Mother , age 60 colon cancer Colon cancer Colorectal cancer Grandfather (Maternal) Myocardial infarction Grandfather Colorectal cancer Father , age 77 of heart disease Heart disease Other Hearing loss No family history of adverse response to anesthesia No family history of bleeding disorder Denies family history of Ovarian cancer Prostate cancer Breast cancer Past Surgical History Surgical History History of bilateral cataract extraction History of colonoscopy History of eye surgery R DETACHED RETINA History of Mohs micrographic surgery for skin cancer History of tonsillectomy History of tooth extraction Port-A-Cath in place Port placement S/P appendectomy S/P tonsillectomy Social History Smoking Status: Never smoker Do You Dip or Chew Tobacco: No Hx Alcohol Use: Yes Alcohol type: wine alcohol intake frequency: a few times a week Hx Substance Use: No substance use type: does not use Lab Results Anesthesia Preop Results Results Anesthesia Widget: WBC 12.02 K/ul (4.8-10.8) H 09/23/22 Hgb 12.1 g/dl (14.0-18.0) L 09/23/22 Hct 34.7 % (40.1-51.0) L 09/23/22 Plt 190 K/uL (130-400) 09/23/22 Na 132 mmol/L (136-145) L 09/23/22 K 4.2 mmol/L (3.5-5.1) 09/23/22 Cl 98 mmol/L (98-107) 09/23/22 CO2 26 mmol/L (21-32) 09/23/22 BUN 28 mg/dl (6-23) H 09/23/22 Creat 1.52 mg/dl (0.6-1.4) H 09/23/22 Glucose Level 94 mg/dl (70-99(Fasting)) 09/23/22 PT 10.4 Seconds (9.0-12.0) 09/23/22 PTT 26.1 Seconds (21.0-31.0) 09/23/22 INR 1.0 (0.9-1.1) 09/23/22 TSH 2.349 uIu/ml (0.300-4.500) 09/10/22 HA1c 5.9 % (4.5-5.6) H 09/10/22 SARS-CoV-2, RNA, NAAT NEGATIVE (NEGATIVE) 09/23/22 Testing Electrocardiogram Date: 09/23/22 SR with first degree AVB at 61bpm. NS IVCD. Chest X-Ray Date: 09/23/22 FINDINGS: Calcified granuloma of the lateral right midlung. Left subclavian [id number] in similar positioning. Cardiomediastinal and hilar silhouettes are within normal limits. Chronic interstitial coarsening. There is no pneumothorax, pleural effusion, airspace consolidation or overt pulmonary edema. Degenerative changes of the shoulders and spine. IMPRESSION: No acute process. Echocardiogram Date: 06/30/22 EF 55-60%. No RWMA. Mild LAD/RAD. Mild MR. Grade I DD. Mild aortic stenosis (dimensionless index 0.55, BRITTANY 1.29cm2, MG 9.1mmhg). Other Testing nurse monitoring (07/04/22-07/26/22) Rare PACs. No pairs or PSVT. Max HR 120 (sinus tachy). Min HR 50 (sinus nikhil). No pauses greater than 2 secs. No high grade AVB. Baseline rhythm is sinus, IVCD, with borderline 1st degree AVB and intermittent first degree AVB. Patient triggered once for NSR. Head CT (09/23/22) No acute intracranial abnormality or calvarial fracture. Please refer to CT maxillofacial study of same day for discussion of the acute facial bone fractures. Face CT (09/23/22) Numerous acute facial bone fractures which includes a LeFort type I component as described above. Facial contusions with subcutaneous and deep tissue gas of the face. Layering hemorrhage within the maxillary sinuses.
[2022-10-01] MEDS ORDERED: LACTATED RINGER'S 1,000 ML IV SCH (06:00)
[2022-10-01] MEDS ORDERED: ceFAZolin 2000MG 2,000 MG/15 ML SYR IV SCH (06:00)
[2022-10-01] MEDS ORDERED: OXYMETAZOLINE 0.05% 30 ML BTL ONE (06:49)
[2022-10-01] MEDS ORDERED: PHENYLEPHRINE 100MCG/ML 5ML SYR ONE (07:15)
[2022-10-01] MEDS ORDERED: ROCURONIUM BROMIDE 10 MG/ML 5 ML VIAL IV ONE (07:15)
[2022-10-01] MEDS ORDERED: fentaNYL citrate 100 MCG/2 ML VIAL ONE (07:15)
[2022-10-01] MEDS ORDERED: PROPOFOL IV EMULSION 10 MG/ML 20 ML VIAL IV ONE (07:15)
[2022-10-01] MEDS ORDERED: DEXAMETHASONE SOD INJ 4 MG/ML VIAL ONE (07:15)
[2022-10-01] MEDS ORDERED: LIDOCAINE 2% MPF LOCAL 5 ML VIAL INFIL ONE (07:15)
[2022-10-01] MEDS ORDERED: ONDANSETRON INJ 2 MG/ML 2 ML VIAL ONE (07:15)
[2022-10-01] MEDS ORDERED: GLYCOPYRROLATE 0.2 MG/ML VIAL ONE (07:15)
[2022-10-01] MEDS ORDERED: ePHEDrine sulfate 50 MG/ML SYR ONE (07:15)
[2022-10-01] MEDS ORDERED: NEOSTIGMINE METHYLSULFATE 1 MG/ML 10ML VIAL ONE (07:15)
--- NOTE | 2022-10-01 07:16 | History & Physical Bridge Note ---
Date of Service October 01, 2022 History & Physical Bridge Note I have examined the patient, reviewed the History & Physical and in the interval since the performance of the History & Physical I have noted the following changes of clinical significance: no changes noted Swelling has decreased and we will be planning for open reduction of maxillary fracture (level I or II) all questions answered OK for surgery plan 23 hr observation
[2022-10-01] MEDS ORDERED: TRIAMCINOLONE ACET 0.1% OINT 15 GM TUBE ONE (07:18)
[2022-10-01] MEDS ORDERED: BUPIVACAINE/EPINEPHRINE 0.5% 1:200,000 1.8 ML CARP ONE (07:19)
[2022-10-01] MEDS ORDERED: CHLORHEXIDINE GLUCONATE 0.12% 480 ML MT ONE (07:19)
[2022-10-01] MEDS ORDERED: LABETALOL HCL IV 5 MG/ML 20ML IV ONE (08:04)
[2022-10-01] MEDS ORDERED: ePHEDrine sulfate 50 MG/ML AMP ONE (08:11)
[2022-10-01] MEDS ORDERED: ONDANSETRON INJ 2 MG/ML 2 ML VIAL IV PRN (09:59)
[2022-10-01] MEDS ORDERED: ACETAMINOPHEN SUSP 325 MG/10.15 ML UDC PO PRN (09:59)
[2022-10-01] MEDS ORDERED: MoRPHine SULFATE 2 MG/ML CARP IV PRN (09:59)
[2022-10-01] MEDS ORDERED: OXYMETAZOLINE 0.05% 30 ML BTL PRN (09:59)
[2022-10-01] MEDS ORDERED: SODIUM CHLORIDE 0.65% NA SOLN 45 ML (OCEAN) PRN (09:59)
[2022-10-01] MEDS ORDERED: LORazepam 1 MG in SYRINGE 0 ML IV PRN (09:59)
[2022-10-01] MEDS ORDERED: ACETAMINOPHEN/HYDROcodone ELIX 15 ML/CUP PO PRN ×2 (09:59)
--- NOTE | 2022-10-01 10:10 | Post Operative Brief Note ---
PG Immediate Post Op with CF Date of Surgery October 01, 2022 Pre & Post Diagnosis Operation Date: 10/01/22 07:15 Pre-Op Diagnosis: Fractures Upper Jaw Lefort II Fracture Post-Op Diagnosis: Fractures Upper Jaw Lefort II Fracture I identified the patient and participated in the time-out.: No Procedure Operation Date: 10/01/22 07:15 Actual Procedures p Open Reduction of Lefort II Fracture(Not Applicable) - Leland Dimas, ALLAN Surgeon Leland Dimas, ALLAN Market Development Director none Estimated Blood Loss 10 Findings Consistent with Post-Op Diagnosis grossly fractured maxillary fracture+ Specimens Specimen Description: None per surgeon Anesthesia Type General Complications none
--- NOTE | 2022-10-01 10:27 | Anesthesiology Progress Note ---
Date of Service October 01, 2022 Anesthesia Post Procedure Vital Signs Vital Signs: Temp Pulse Pulse Resp BP Pulse Ox O2 Del Method 10/01/22 10:15 62 14 167/69 H 100 Oxymask 10/01/22 10:05 57 L 11 L 162/69 H 100 Oxymask 10/01/22 09:57 36.0 C L 53 L 16 165/79 H 99 Oxymask 10/01/22 06:13 36.7 C 70 20 175/81 H 100 Room Air O2 Flow Rate 10/01/22 10:15 6 10/01/22 10:05 6 10/01/22 09:57 6 10/01/22 06:13 Transfer of Care Handoff Completed per policy Notes Mental Status: alert / awake / arousable Patient Amnestic to Procedure: Yes Nausea / Vomiting: adequately controlled Pain: adequately controlled Airway Patency, RR, SpO2: stable & adequate BP & HR: stable & adequate Hydration State: stable & adequate Anesthetic Complications: no major complications apparent
[2022-10-01] MEDS: KETOROLAC TROMETHAMINE 15 MG/ML VIAL IV SCH ×3 (11:42→23:15)
[2022-10-01] MEDS: dexAMETHasone 6 MG in SYRINGE 0 ML IV SCH ×3 (11:43→23:15)
--- NOTE | 2022-10-01 13:37 | Hospitalist Consultation ---
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 He was seen by OMFS at that time, was recommended for discharge home with oral antibiotics and soft diet with close outpatient follow-up. Once initial swelling improved p atient was recommended to return for open reduction of Le Fort fracture. He was seen 10/01/2022 for scheduled open reduction of LeFort II fracture, medicine has been consulted for postoperative management of comorbidities. S/p open reduction of LeFort II fracture 10/01/2022 EBL 10 cc, no complications during procedure Postoperative care per OMFS Preoperative x-ray was normal DVT prophylaxis per primary team Pain adequately controlled at bedside Gastric adenocarcinoma Diagnosed 2019 with metastatic disease to supraclavicular lymph nodes Follows as outpatient with oncology every 3 months, on chemotherapy/immunotherapy until 2018 which was discontinued due to interstitial nephritis development. Subsequent to this has followed up every 3 months with [facility], "he is administrated them, cancer has been latent and not growing or causing any problems since " No acute management, has a known residual gastric junction tumor but patient has no dysphagia or odynophagia, continue outpatient follow-up Continue H2 jayce First-degree heart block Follows with cardiology, had an episode of syncope 06/2022 Preop EKG: Sinus rhythm. First-degree heart block OR 2 2 2 ms. QTc 4 [address] segment changes or T wave inversions. QRS 134. Nonspecific IV conduction block Echo 06/2022: EF 55-60%, normal wall motion and size. Cardiac event monitor 07/2022: No pauses greater than 2 seconds, no high-grade block, Baseline rhythm sinus IVCD with borderline first-degree AV block and intermittent first-degree AV block. Single patient trigger occurred during normal sinus rhythm. Rare PACs. Occasional PVCs Patient reports he did not syncopized, he was walking on his daily walk when he stepped off the curb and misstepped causing him to slip forward and landed on the pavement striking his face. He had no preceding syncopal/presyncopal symptoms, shortness of breath, or chest pain and sustained no loss of consciousness. He did get up and walk home before going to the ER for evaluation. He does have a history of heart block, patient was adamant at time of assessment that his fall was not caused by a syncopal/presyncopal event Continue to monitor clinically for chest pain, lightheadedness, syncopal symptoms. Slow disease no remained present we will continue to monitor on medical surgical. 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 Has deferred aspirin therapy previously. Continue outpatient follow-up Hyperlipidemia monitoring LDL 123 08/2022, takes [id number] supplements and is active daily. Has discussed pharmacologic management in context with mild carotid plaque versus lifestyle, will continue with lifestyle and OTC medications at this time and continue outpatient follow-up Patient is doing well postoperatively, is hemodynamically stable, and neurovascularly intact. Recommend management of LeFort II fracture per OMFS recommendations, other chronic medical issues are stable. BMP in the morning and adjust medications for renal function as needed. 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 He was seen by OMFS at that time, was recommended for discharge home with oral antibiotics and soft diet with close outpatient follow-up. Once initial swelling improved patient was recommended to return for open reduction of Le Fort fracture. He was seen 10/01/2022 for scheduled open reduction of LeFort II fracture, medicine has been consulted for postoperative management of comorbidities. Seen at bedside with his present Some dry throat postop, otherwise feels OK. Denies any pain postop, no pain in the face at time of assessment No fevers, chills, sweats no abdominal pain no chest pain, chest pressure, shortness of breath, dyspnea No hx of lung disease, COPD, heart disease, GA, hyperlipidemia, or HTN Pt reports he exercises for 90 minutes 6x per week without chest pain or SoB Fall that led to his fxr was mechanical, stepped off an uneven curb and fell forward. No syncope/presyncope/dizziness No tobacco, rare social ETOH use Past chemo/rads with Optivo and nivalumab for gastric adeno. No recent tx since 2018 2/2 renal nephritis. Doing well since, no tumor progression. Follows [facility]3M with [facility], serial surveillance. No problems with swallowing Medical History: Reviewed Medications: Reviewed Surgical History: Reviewed Allergies: Reviewed Social History: No tobacco, social ETOH/wine Code Status: Full Allergies Allergy/AdvReac Type Severity Reaction Status Date / Time No Known Drug Allergies Allergy Unknown Verified 10/01/22 06:06 Home Medications Medication Instructions Recorded Confirmed Type multivitamin 1 tab PO QAM 03/29/20 10/01/22 History cholecalciferol (vitamin D3) 50 50 mcg PO QDL 09/21/21 10/01/22 History mcg (2,000 unit) capsule famotidine 20 mg tablet (Pepcid) 20 mg PO BID 09/21/21 10/01/22 History calcitriol 0.25 mcg capsule 0.25 mcg PO DAILY #90 caps 04/02/22 10/01/22 Rx amoxicillin 875 mg-potassium 1 tab PO Q12H #20 tabs 09/24/22 10/01/22 Rx clavulanate 125 mg tablet chlorhexidine gluconate 0.12 % 15 ml mucous membrane BID #473 mL 09/24/22 10/01/22 Rx mouthwash (Peridex) hydrocodone 5 mg-acetaminophen 325 1 tab PO Q4H PRN pain #14 tabs 09/24/22 10/01/22 Rx mg tablet sodium chloride 0.65 % nasal spray 3 spray intranasal Q4H #1 mL 09/24/22 10/01/22 Rx aerosol (Saline Nose) ibuprofen 100 mg tablet 100 mg PO DIRECTED PRN Pain 10/01/22 10/01/22 History Patient History Medical History Acid reflux Bilateral inguinal hernia Carotid artery plaque "mild carotid plaque and normal velocity" per 2016 PCP records (unable to obtain official imaging) Chronic anemia CKD (chronic kidney disease) Deafness in left ear per records, not verbalized per patient via RN phone interview 11/19/19 Gastric adenocarcinoma Hepatic cyst History of actinic keratosis History of anemia History of basal cell carcinoma s/p excision (in office) Hyperlipidemia LeFort I fracture 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 (until 03/2021) Mild aortic stenosis Per 06/2022 echo Osteoarthritis Osteopenia SBO (small bowel obstruction) Hx Surgical History History of bilateral cataract extraction History of colonoscopy History of eye surgery R DETACHED RETINA History of Mohs micrographic surgery for skin cancer History of tonsillectomy History of tooth extraction Port-A-Cath in place Port placement S/P appendectomy S/P tonsillectomy Family History Mother , age 60 colon cancer Colon cancer Colorectal cancer Grandfather (Maternal) Myocardial infarction Grandfather Colorectal cancer Father , age 77 of heart disease Heart disease Other Hearing loss No family history of adverse response to anesthesia No family history of bleeding disorder Denies family history of Ovarian cancer Prostate cancer Breast cancer Social History Smoking Status: Never smoker Second Hand Exposure: No; Do You Dip or Chew Tobacco: No; Tobacco Cessation Education Requested by Patient: No Hx Alcohol Use: Yes Alcohol type: wine Alcohol Intake Frequency Comment: 1 glass with dinner 4 times a week Hx Substance Use: No Preferred Language: Slovak Communication Ability: Effective Visual Impairment: No Limitations Vp Celebrity Services Required: No Beliefs That Will Affect Care: None marital status: Current Living Situation: Spouse current occupational status: retired 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 Other Information That Helps Us Care for You: No Feels Safe at Home: Yes Safety Concerns: Feels Safe At This Time Dental Care, Regularly: Yes Physical Activity Frequency: 5-6 Times per Week Seatbelt Use: always Sunscreen Use: Yes Assistive Devices: None Assistive Devices Comment: 2 DENTAL IMPLANTS Review of Systems Review of Systems: All systems reviewed & are unremarkable except as noted in HPI & below Physical Exam Physical Exam: General: A&Ox3. NAD. Cooperative. HEENT: Jaw with postoperative ice pack in place. Right mandible with overlying contusion, ecchymoses and no fluctuance/redness/firm hematoma. Upper L incisor w/ chip. Airway patent, no wheezing Pulm: Breathing unlabored, no wheezing symmetrical chest rise. No increased work of breathing. No respiratory distress. Cardiac: RRR, -mrg. Radial pulses intact and symmetrical. Abdominal: Nontender, nondistended, soft. BS present. Extremities: Warm, dry. 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, ankle dorsiflexion/plantarflexion Results & Data Results & Data ([facility]) Vital Signs (Past 12 Hours) Vital Signs Temp Pulse Pulse Resp BP Pulse Ox O2 Del Method 10/01/22 12:35 36.5 C 75 15 125/74 95 Room Air 10/01/22 12:05 36.7 C 74 17 150/75 H 94 Room Air 10/01/22 11:35 69 12 169/80 H 94 Room Air 10/01/22 11:20 66 13 163/77 H 95 Room Air 10/01/22 11:05 60 16 154/70 H 93 Room Air 10/01/22 10:50 63 14 158/74 H 95 Room Air 10/01/22 10:35 58 L 15 160/74 H 96 Room Air 10/01/22 10:25 36.1 C L 59 L 15 170/75 H 96 Room Air 10/01/22 10:15 62 14 167/69 H 100 Oxymask 10/01/22 10:05 57 L 11 L 162/69 H 100 Oxymask 10/01/22 09:57 36.0 C L 53 L 16 165/79 H 99 Oxymask 10/01/22 06:13 36.7 C 70 20 175/81 H 100 Room Air O2 Flow Rate 10/01/22 12:35 10/01/22 12:05 10/01/22 11:35 10/01/22 11:20 10/01/22 11:05 10/01/22 10:50 10/01/22 10:35 10/01/22 10:25 10/01/22 10:15 6 10/01/22 10:05 6 10/01/22 09:57 6 10/01/22 06:13 PG Care Time/CCT Total # of Minutes Spent Total Time Spent with Patient: Total time spent is greater than 50% in coordination of care (as documented) at patient's floor/unit and/or counseling patient: Coding Level of Care Code 11429 Inpt Consult Level 3 Diagnoses LeFort I fracture S02.411A RBBB (right bundle branch block) I45.10 Carotid artery plaque I65.29 CKD (chronic kidney disease) N18.9 Stomach cancer C16.9 GERD (gastroesophageal reflux disease) K21.9
[2022-10-01] MEDS ORDERED: ceFAZolin 1000MG 1,000 MG/7.5 ML SYR IV ONE (15:00)
[2022-10-01] MEDS ORDERED: ACETAMINOPHEN 1,000 MG/100 ML VIAL IV PRN (16:15)
[2022-10-01] MEDS: CHLORHEXIDINE GLUCONATE 0.12% 480 ML MT SCH (20:20)
[2022-10-01] MEDS ORDERED: TRIAMCINOLONE ACET 0.1% OINT 15 GM TUBE EXT SCH (21:00)
[2022-10-02] MEDS: dexAMETHasone 6 MG in SYRINGE 0 ML IV SCH ×2 (04:55→10:18)
[2022-10-02] MEDS: KETOROLAC TROMETHAMINE 15 MG/ML VIAL IV SCH ×2 (04:55→10:18)
[2022-10-02] MEDS: CHLORHEXIDINE GLUCONATE 0.12% 480 ML MT SCH (08:27)
--- NOTE | 2022-10-02 09:46 | Oral/Maxillofacial Progress Nt ---
Date of Service October 02, 2022 Assessment & Plan Admission and Anticipated Discharge Date Admission Date: October 01, 2022 Subjective Fracture surgery post op note at 24 hours Excellent result, ROM improving almost back to normal pre-surgical range Sutures in place Tissue tone, gingival tissue--excellent Occlusion very stable with a reproducible bite. No TMJ issues-pain, nose, pop. Reviewed use of functional elastics No nasal congestion or bleeding, septum well positioned. No sinus issues Facial alignment excellent Reviewed post op care--diet, oral care, use of elastics, activities. Next appointment set up for: October 08 at 3:15 Overall excellent result from recent fracture repair surgery RTC for continued follow up Results & Data ([facility]) Vital Signs (Past 12 Hours) Vital Signs Temp Pulse Pulse Resp BP BP Pulse Ox 10/02/22 07:17 36.8 C 73 16 112/60 96 10/02/22 04:52 36.9 C 90 16 113/64 97 10/01/22 23:30 36.9 C 88 18 116/65 95 O2 Del Method 10/02/22 07:17 Room Air 10/02/22 04:52 Room Air 10/01/22 23:30 Room Air PG Care Time/CCT Total # of Minutes Spent Total Time Spent with Patient: Total time spent is greater than 50% in coordination of care (as documented) at patient's floor/unit and/or counseling patient: Coding
--- NOTE | 2022-10-02 12:56 | XRay Report ---
XR mandible <4V CLINICAL HISTORY: Status Post-Op Surgery AP Mandibular and Jaw View COMPARISON STUDY: None. FINDINGS: Small maxillary plate and screws are noted. The hardware appears intact. Multiple wire is n oted overlying the teeth. Right greater than left maxillary sinus fluid levels. IMPRESSION: 1. Status post maxillary surgery with plates and screws. The hardware appears intact. 2. Small maxillary sinus fluid levels, right greater than left. ACT 112: Negative or not required by law. Electronically signed by: Duane Fang M.D. 10/02/2022 12:54 PM
--- NOTE | 2022-10-06 22:27 | Operative Report ---
PG Post Operative Report Pre & Post Diagnosis Operation Date: 10/01/22 07:15 Pre-Op Diagnosis: Fractures Upper Jaw Lefort 1Fracture Post-Op Diagnosis: Fractures Upper Jaw Lefort 1Fracture I identified the patient and participated in the time-out.: Yes Procedure Operation Date: 10/01/22 07:15 Actual Procedures p Open Reduction of Lefort II Fracture(Not Applicable) - Leland Dimas DMD Surgeon Leland Dimas, ALLAN Switch Technician none Estimated Blood Loss 10 Findings Consistent with Post-Op Diagnosis Specimens none Anesthesia Type General Complications none Description of Procedure Operation Date: 09/02/22 13:15 Pre-Op Diagnosis: Lefort II Fracture Mid Face Fracture Post-Op Diagnosis: LeFort II Fracture Mid Face Fracture I identified the patient and participated in the time-out.: Yes Procedure LeFort II Fracture and Nasal laceration Repair Codes CPT 57004 LeFort II Fracture repair ICD 10 SO2.412B When Juan Antonio wascleared for surgery general anesthesia was achieved, the eyes were protected by the anesthesia dept criteria.A time out was take for patient ID, antibiotics, equipment and position verification once all agreed the procedure began.Local anesthesia was given into each area using Marcaine with a vasoconstrictor ( 1.8 ml per site). A throat pack was placed after the oral cavity was irrigated with saline. Once a surgical level of anesthesia was obtained and the local anesthesia was given time for the blocks the surgery was started. I turned my attention now to the fractured maxilla. This patient has a LeFort II fracture with separation of the naso-maxillary area. The maxillary-nasal segment was fractured resulting in a posterior displacement of the maxilla with open bite. There was also a fracture between teeth 10-11 splitting the maxilla along the palate. Pre operatively I was able to obtain a set of models of the upper and lower teeth. I preformed model surgery on the upper model to establish an ideal arch form. From the model surgery I was able to make a palatal splint and an occlusion guide to help establish the most ideal occlusion. To accomplish the reduction of thisLe Fort II a maxillary osteotomy a soft tissue incision was carried out. An electrocautery instrument was used to make an incision from the 1st bicuspid area on the right side across the midline to the opposite bicuspid area. The tissues reflected in the usual manner to expose the mucoperiosteal tissue and to get good exposure of the anterior nasal spine, the roots of the maxillary anterior and posterior teeth and the piriform rim. In addition I was able to get good visualization of the posterior maxilla and noted the the buttress was not fractured and would act a stable posterior vertical support. Once the tissue was was reflected I was able to get a good idea of the fracture anatomy and density of the bone to plan the direct fixation process. I was able to then reflect posteriorly to get good access to the pterygoid plate areas. I then spent a lot of time dissecting superior to ensure that we had good visualization of the stable bone. With temporary interdental fixation I established occlusion. Once I was able to reduce the LeFort II fracture and line up the teeth I had excellent alignment of the fracture sites.Starting posterior I was able to bend bone plates and placed them with fixation screws. Once I was able to achieve superior stability of the fractured left segment and across the palate I noted that a plate parallel to the occlusion plan from the buttress across the nasomaxillary area required a long plate to secure fixation.Now the anterior maxilla, inferior orbital rims and nasal frontal area were very stable. I now adapted another plate across stable bone on the right side to complete the direct fixation. Once this was done the stability of the LeFort fracture was excellent. I now removed the fixation wires and the intermediate splint.I noted that the maxilla was extremely stable The occlusion was reproducible.The maxilla was now stable and in ideal post surgical position. I irrigated the maxillary sinuses of any debris and/or polyps that were noted. Hemostasis was in good control.I noted that the maxilla was now positioned in its Natural position. The hemostasis was in control and all bony margins were stable and in excellent position. At this time, the oropharyngeal throat pack was placed and I then began the closure. To ensure proper closure with good anatomical form, I was able to grasp the alar cartilages on both the right and left side and then using a 3-0 Mersilene suture, I was ableto perform an alar cinch technique to ensure good positioning of the lateral alar cartilages of the nose and to establish good base anatomy of the nose. Once this was done, I made sure that the nasal septum was well positioned in the midline. Being satisfied with this, I then began the V-Y closure of the mucosal tissue starting in the midline and then closed laterally on either side to ensure an even contouring of the tissue. When all was said and done, we had excellent closure of the soft tissue with great support of the nose. Overall, he did extremely well from the surgery, we had minimal blood loss, probably less than 20 ml. I placed 2 light elastics on the right and left MICHELLE LOOPS to help with aligning the dental units. The patient was now turned over to the Anesthesia Department. The patient was allowed to recover and then once fully recovered he was extubated and transferred to the hospital litter and moved to the recovery room with all VS stable. Overall, the procedure went extremely well and I am anticipating a good postoperative phase. I attest to the content of the Intraoperative Record and any orders documented therein. Any exceptions are noted below.
--- NOTE | 2022-10-06 22:32 | Discharge Summary ---
Date of Service October 06, 2022 Admission HPI Per Admitting Provider [facility], [id number] Oral/Maxillofacial Progress Nt Signed Patient:SHARMAINE HAQ II Admit Date:10/01/22 MR#:[id number] Att Phy:Leland Dimas DMD Acct ID:[id number] Annabel Phy:Alli Dick MD Date:1940 Fam Phy: Age:82 Location:3N Sex:M Room/Bed:N375-2 cc: ~ *NOTICE TO RECEIVING CONSTITUTION PARTY/AGENCY This information is strictly Confidential and protected under [place] law. [place] law prohibits you from making any further disclosure of this information unless further disclosure is expressly permitted by the written consent of the person to whom it pertains or is authorized by law. A general authorization for the release of medical or other information is not sufficient for this purpose. Hospital accepts no responsibility if the information is made available to any other person, INCLUDING THE PATIENT. Date of Service October 02, 2022 Subjective Fell 1 week ago sustained a LeFort II fracture Operative procedure October 01 23 hr observation Don did extremely well and is able to be discharged this morning. Fracture surgery post op note at 24 hours OK for discharge reviewed post op care--see instructions Excellent result, ROM improving almost back to normal pre-surgical range Sutures in place Tissue tone, gingival tissue--excellent Occlusion very stable with a reproducible bite. No TMJ issues-pain, nose, pop. Reviewed use of functional elastics No nasal congestion or bleeding, septum well positioned. No sinus issues Facial alignment excellent Reviewed post op care--diet, oral care, use of elastics, activities. Next appointment set up for: October 08 at 3:15 Overall excellent result from recent fracture repair surgery RTC for continued follow up Discharge Data Consultations 10/01/22 10:05 Consult Hospitalist Routine Procedures Performed Operation Date: 10/01/22 07:15 Actual Procedures p Open Reduction of Lefort II Fracture(Not Applicable) - Leland Dimas DMD Coding Level of Care Code 34297 OBS Care - Discharge
== END 2022-10-02 12:58 | disposition home or self-care (01) ==
LOC: ASU 05:42 → PACUINP 05:42 → 3N 13:19

== ENCOUNTER 2023-12-10 13:05 | Inpatient (IN) ==
--- NOTE | 2023-12-10 13:27 | Emergency Department Note ---
ED Provider Note History of Present Illness Chief Complaint: Hip Pain Stated Complaint: HIP PAIN Time Seen by Provider: 12/10/23 13:25 This is an 83-year-old male with a history of CKD, cancer survivor, patient at [facility], accompanied by his , who presents to the emergency department with a fall last night and right hip pain. Patient has been experiencing acute right hip pain over the past 2 months and has been following with [facility] orthopedics. In short, patient has had a lumbar MRI to rule out any back pathology related to his hip pain. He saw Dr. castro who did not feel his pain was related to his MRI. He did see Dr. Samuels at [facility] orthopedics who scheduled him for a hip replacement next week. Last night the patient was using his walker, lost his balance and fell to the left side. He laid on the couch and his walker. Did not hit his head and remembers everything. States that his right hip pain has become slightly more significant than it has been. He has not been able to walk on the right hip/leg since the fall occurred. Was evaluated by his primary care provider today who referred him to the emergency department due to the amount of pain he has been experiencing. Was initially using Tylenol for pain and was placed on oxycodone to control his pain. That is not helping either. His states that patient had some outpatient blood work done which showed anemia and low sodium. Patient currently denies any headache, neck pain, back pain, chest pain, shortness of breath, abdominal pain, nausea, vomiting, numbness tingling weakness in his lower extremities. Does not take any blood thinners. Patient also states that he has had an increase in lower extremity edema over the past 2 months as he has not been very active due to the pain in his right hip. No history of CHF. No cough or dyspnea. Home Medications Medication Instructions Recorded Confirmed Type multivitamin 1 tab PO QAM 03/29/20 12/10/23 History famotidine 20 mg tablet (Pepcid) 20 mg PO BID 09/21/21 12/10/23 History B6 100 mg-FA 800 mcg-B12 200 1 tab PO HS 01/03/23 12/10/23 History mcg-co Q10 100 mg-herbal no.225 tablet (Healthy Heart Complex) polysaccharide iron complex 150 mg 150 mg PO QPM 01/03/23 12/10/23 History iron capsule (Ferrex) fluocinonide 0.05 % topical 1 applic topical UD PRN scalp 02/21/23 12/10/23 History solution acetaminophen 500 mg capsule 1,000 mg PO Q6H PRN Pain 12/08/23 12/10/23 History calcitriol 0.25 mcg capsule 0.25 mcg PO QPM 12/08/23 12/10/23 History cholecalciferol (vitamin D3) 25 25 mcg PO QPM 12/08/23 12/10/23 History mcg (1,000 unit) capsule oxycodone 5 mg tablet 5 mg PO Q4H PRN Pain 12/08/23 12/10/23 History Allergies Allergy/AdvReac Type Severity Reaction Status Date / Time gabapentin AdvReac Intermediate Hallucinati Verified 12/10/23 15:21 ng pregabalin [From Lyrica] AdvReac Intermediate Dizziness Verified 12/10/23 15:21 Past Med/Surg History Medical History 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, chemo and immunotherapy tx only (11/2019-04/18/21) Mild aortic stenosis Per 11/2023 echo CKD (chronic kidney disease) Chronic anemia Seizure-like activity - 06/2022, had episode of fall/syncope- seen by neuro at [facility] 07/01/22- "believe this patient had a syncopal event ( cardiovascular in origin ), had closed head trauma and brief concussion, with some brief secondary seizure activity." No need for additional neurological testing or anticonvulsants; EEG normal - No recurrence of issues since that time (possibly dehydrated per patient) SBO (small bowel obstruction) Hx- during chemo Hepatic cyst Acid reflux Well controlled and stable 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 (until 03/2021) Deafness in left ear per records, bilat hearing aids History of actinic keratosis History of basal cell carcinoma s/p excision (in office) Osteopenia Hyperlipidemia Carotid artery plaque "mild carotid plaque and normal velocity" per 2015 PCP records (unable to obtain official imaging) Surgical History History of esophagogastroduodenoscopy (EGD) Hx of detached retina repair Hx of oral surgery (10/01/22) Open Reduction of Lefort II Fracture(Not Applicable) - Leland Dimas, DMD able to open mouth entire way History of Mohs micrographic surgery for skin cancer Port-A-Cath in place History of tonsillectomy History of colonoscopy History of tooth extraction History of bilateral cataract extraction S/P appendectomy S/P tonsillectomy Family History Mother , age 60 colon cancer Colon cancer Colorectal cancer Grandfather (Maternal) Myocardial infarction Grandfather Colorectal cancer Father , age 77 of heart disease Heart disease Other Hearing loss No family history of adverse response to anesthesia No family history of bleeding disorder Denies family history of Ovarian cancer Prostate cancer Breast cancer Social History Smoking Status: Never smoker Second Hand Exposure: No; Do You Dip or Chew Tobacco: No; Hx Alcohol Use: No Hx Substance Use: No Preferred Language: Occitan Communication Ability: Effective Visual Impairment: No Limitations Hearing Ability: Normal Donation Specialist Required: No Beliefs That Will Affect Care: None marital status: Current Living Situation: Spouse current occupational status: retired 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 [employer] Other Information That Helps Us Care for You: No Feels Safe at Home: Yes Safety Concerns: Feels Safe At This Time Childhood Exposure to Second-Hand Smoke: No Dental Care, Regularly: Yes Physical Activity Frequency: 5-6 Times per Week Seatbelt Use: always Sunscreen Use: Yes Assistive Devices: Glasses and Hearing Aid - Bilateral Physical Exam Vital Signs Vital Signs - 24 hr 12/10/23 13:19 12/10/23 13:59 Temperature 98.2 F Temperature Source Oral Pulse Rate 79 90 Respiratory Rate 16 Respiratory Effort / Characteristics Non-Labored Spontaneous Respiratory Depth Normal Respiratory Pattern Regular Blood Pressure 157/87 H Blood Pressure Mean 110 Blood Pressure Position Semi-fowlers Pulse Oximetry 95 Oxygen Delivery Method Room Air Sepsis Recent Fever Within 48 Hours No Sepsis New/Unexplained Change in Mental Status No Sepsis Action Taken by Nursing No Action Required CONSTITUTIONAL: Well developed, well nourished, in no acute distress resting comfortably on stretcher. Appears to be in pain in the right hip anytime he tries to change position with the right leg. HEAD: Normocephalic, atraumatic. NECK: Full active range of motion. No spinous process tenderness RESPIRATORY: Breathing unlabored and symmetric. Lungs clear to auscultation bilaterally. No wheeze, rales, or rhonchi. CARDIOVASCULAR: Regular rate and rhythm. No murmurs, rubs, or gallops. DP pulses 2+ bilaterally. 3+ pitting edema in bilateral lower extremities. CHEST: Nontender, no crepitus. ABDOMEN: Soft, nontender, no peritonitis. No masses. MUSCULOSKELETAL: Moves bilateral upper and left lower extremities at all joints without pain or difficulty. Pain elicited in the right hip with AP compression of the pelvis. Patient with some mild reproducible tenderness over the right hip region. Unable to perform straight leg raise on the right. Pain elicited in the right hip with passive hip flexion. Moves all toes bilaterally. Back: No thoracic, lumbar, sacral spinous process tenderness. No step-off deformity. SKIN: [place], warm, dry. NEUROLOGIC: Awake, alert, oriented. Gaze is conjugate. Face symmetric. No sensory deficits in bilateral lower extremities. PSYCHIATRIC: Appropriate. Normal affect. Course Administered Medications Acetaminophen (Acetaminophen 325 Mg Tab) 650 mg PO Q6H [facility] Stop: 01/09/24 17:59 Last Admin: 12/10/23 18:04 Dose: Not Given Documented By: [facility] Calcitriol (Calcitriol 0.25 Mcg Capsule) 0.25 mcg PO QDL [facility] Stop: 01/09/24 20:59 Last Admin: 12/10/23 20:15 Dose: 0.25 mcg Documented By: RPW Famotidine (Famotidine 20 Mg Tab) 20 mg PO BID [facility] Stop: 01/09/24 20:59 Last Admin: 12/10/23 20:15 Dose: 20 mg Documented By: RPW Morphine Sulfate (Morphine Sulfate 2 Mg/Ml Carp) 2 mg IV Q4H PRN PRN Reason: Pain (5+) Stop: 12/24/23 18:59 Last Admin: 12/10/23 18:54 Dose: 2 mg Documented By: [facility] Vitamin D (Cholecalciferol 25 Mcg (1000 Units) Tab) 25 mcg PO QDL [facility] Stop: 01/09/24 20:59 Last Admin: 12/10/23 20:15 Dose: 25 mcg Documented By: RPW Discontinued Medications Acetaminophen (Ofirmev) 1,000 mg in 100 mls @ 400 mls/hr IV NOW STA Stop: 12/10/23 15:06 Last Infusion: 12/10/23 16:38 Dose: Infused Documented By: Admin: 12/10/23 15:22 Dose: 400 mls/hr Documented By: AB Lidocaine (Lidocaine 5% 1 Patch) 1 patch TD NOW STA Stop: 12/10/23 16:24 Last Admin: 12/10/23 18:17 Dose: 1 patch Documented By: LAURIE Morphine Sulfate (Morphine Sulfate 2 Mg/Ml Carp) 2 mg IV NOW STA Stop: 12/10/23 13:45 Last Admin: 12/10/23 13:58 Dose: 2 mg Documented By: AB Morphine Sulfate (Morphine Sulfate 4 Mg/Ml 1 Ml Carp\\Vial) 4 mg IV NOW Stop: 12/10/23 14:53 Last Admin: 12/10/23 15:02 Dose: Not Given Documented By: OAC Medical Decision Making Differential Diagnosis Fracture, dislocation, subluxation, neurovascular injury, contusion, avascular necrosis, hematoma, osteoarthritis, CHF, anemia, ambulatory dysfunction, electrolyte imbalance, among other pathology Laboratory Data 12/10/23 13:53 12/10/23 13:53 Lab Results 12/10/23 Range/Units 13:53 WBC 8.87 (4.8-10.8) K/ul RBC 3.37 L (4.70-6.10) M/uL Hgb 10.4 L (14.0-18.0) g/dl Hct 29.5 L (42.0-52.0) % MCV 87.5 (80.0-100.0) fL MCH 30.9 (25.0-34.0) pg MCHC 35.3 (32.0-36.0) g/dL RDW Std Deviation 42.1 (36.4-46.3) fL RDW Coeff of Jf 13.3 (11.5-14.5) % Plt Count 224 (130-400) K/uL MPV 9.2 L (9.4-12.4) fL Immature Gran % (Auto) 0.6 % Neut % (Auto) 81.5 % Lymph % (Auto) 8.2 % [place] % (Auto) 8.8 % Eos % (Auto) 0.7 % Baso % (Auto) 0.2 % Neut # (Auto) 7.23 H (1.40-6.50) K/uL Lymph # (Auto) 0.73 L (1.20-3.40) K/uL [place] # (Auto) 0.78 H (0.11-0.59) K/uL Eos # (Auto) 0.06 (0.00-0.50) K/uL Baso # (Auto) 0.02 (0.00-0.20) K/uL Immature Gran # (Auto) 0.05 (0.01-0.20) K/uL ESR 79 H (0-20) mm/hr Sodium 127 L (136-145) mmol/L Potassium 4.7 (3.5-5.1) mmol/L Chloride 95 L (98-107) mmol/L Carbon Dioxide 22 (21-32) mmol/L Anion Gap 10 (3-11) BUN 43 H (6-23) mg/dl Creatinine 1.40 (0.6-1.4) mg/dl Est Cr Clr Drug Dosing 39.8 ml/min Est GFR ( Amer) 52.7 ml/min Est GFR (Non-Af Amer) 45.5 ml/min BUN/Creatinine Ratio 30.7 H (10-20) Glucose 106 H (70-99(Fasting)) mg/dl Calcium 9.2 (8.6-10.3) mg/dl Total Bilirubin 0.7 (0.2-1.0) mg/dl AST 47 H (13-39) U/L ALT 51 (7-52) U/L Alkaline Phosphatase 127 H (34-104) U/L C-Reactive Protein 14.10 H (0-0.5) mg/dl Total Protein 6.7 (6.0-8.3) gm/dl Albumin 3.6 (3.4-5.0) gm/dl Globulin 3.1 (2.5-4.0) gm/dl Albumin/Globulin Ratio 1.2 (0.9-2) Imaging Data Radiologist's Impression: Hip/Pelvis X-Ray 12/10/23 13:31 XR hip RT 2V w pelvis CLINICAL HISTORY: fall right hip injury TECHNIQUE: 2 views of the right hip and single frontal view of the pelvis were obtained. Comparison: Comparison is made to the radiograph 05/19/2018 and PET/CT 05/22/2023 FINDINGS: Likely impacted fracture of the right femoral head and neck. Severe degenerative changes are seen. Soft tissue swelling is seen. IMPRESSION: Likely impacted fracture of the right femoral head and neck. ACT 112: Negative or not required by law. Electronically signed by: Chris Angeles M.D. 12/10/2023 2:[address] 12/10/23 16:08 CT pelvis wo con CLINICAL HISTORY: fall, R hip pain, abnormal xray TECHNIQUE: Helical axial images of the pelvis were obtained and displayed at 5 and 1 mm intervals. Automated dose lowering techniques and/or adjustment according to patient size were utilized for this exam. This exam was performed without intravenous contrast. CT DOSE: 632.91 mGy.cm COMPARISON: Comparison is made to CT abdomen pelvis 11/22/2020 FINDINGS: Bladder: Unremarkable. Reproductive organs: Unremarkable. Bowel: Unremarkable. Lymph nodes Pelvic: Unremarkable. Mesenteric: Unremarkable. Peritoneum: Normal Vessels: Atherosclerotic calcifications are seen. Abdominal wall: Bilateral fat-containing inguinal hernias. The left also contains nondilated loops of bowel. Bones: Degenerative changes in the visualized spine. Severe degenerative changes are seen in the right hip joint with collapse of the femoral head, however no acute component is seen. Bony fragmentation is seen about the lateral aspect of the acetabulum. IMPRESSION: Severe degenerative changes with flattening of the right femoral head and bone on bone morphology. However, no definite acute fracture is seen bony fragmentation about the acetabulum is likely chronic. ACT 112: Negative or not required by law. Electronically signed by: Chris Angeles M.D. 12/10/2023 5:05 PM MDM Narrative 83-year-old male is referred to the emergency department for worsening right hip pain, is due for a right hip replacement next week due to progression of right hip pain over the past few months. Had a fall yesterday, was unable to ambulate today. Has had recent blood work that showed anemia and hyponatremia. See above for further details. Patient well-appearing in no acute distress at rest, appears to be in pain in the right hip anytime he changes position. There is some reproducible tenderness over the right hip and patient unable to perform straight leg raise on the right. Neurovascularly intact. He has significant edema in bilateral lower extremities which he states is not new though seems to be worse over the past few months possibly secondary to inactivity. No history of CHF. X-ray of the right hip and pelvis was obtained. Initially read as a likely impacted fracture of the right femoral head and neck. Admission was initiated and case was reviewed with ED attending Dr. Agrawal. Labs: No leukocytosis. Mild anemia hemoglobin 10.4. Hyponatremia at 127 which has been trending down recently. Stable creatinine at 1.4. I spoke with Dr. Eaton (orthopedics on-call) regarding the patient's abnormal x-ray. 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 CT of the pelvis was obtained demonstrating severe degenerative changes with flattening of the right femoral head no definitive fracture was seen. Dr. Eaton recommends that the patient will require a total hip arthroplasty within the next day or 2 and recommends additional labs which were conveyed to hospitalist group. Patient not demonstrating any infectious symptoms at this time. Due to the patient's rapid progressive ambulatory dysfunction, I spoke with Dr. Claros and Stephan Keller PA-C with the [facility] hospitalist group. They both agree admission is warranted. Patient agreeable with this plan. Impression Arthralgia of hip, right, Ambulatory dysfunction, Hyponatremia Discharge Plan Visit Data Chief Complaint: Hip Pain Stated Complaint: HIP PAIN ED Provider: Lenny Agrawal ED Midlevel Provider: Alex Paredes Discharge Problem: Arthralgia of hip, right, Ambulatory dysfunction, Hyponatremia Patient Disposition: Admitted As Inpatient Condition: Fair Discharge Instructions Interventions: ED Discharge Assessment Last Done: 12/10/23 16:47
[2023-12-10] MEDS: MoRPHine SULFATE 2 MG/ML CARP IV STA (13:58)
[2023-12-10 14:16] LABS: Basophils # (auto) 0.02 K/uL (0.00-0.20); Basophils % (auto) 0.2 %; Eosinophils # (auto) 0.06 K/uL (0.00-0.50); Eosinophils % (auto) 0.7 %; Hematocrit (blood only) 29.5 % (42.0-52.0); Hemoglobin 10.4 g/dl (14.0-18.0); Immature Granulocytes # (auto) 0.05 K/uL (0.01-0.20); Immature Granulocytes % (auto) 0.6 %; Lymphocytes # (auto) 0.73 K/uL (1.20-3.40); Lymphocytes % (auto) 8.2 %; Mean Corpuscular Hemoglobin 30.9 pg (25.0-34.0); Mean Corpuscular Hgb Conc 35.3 g/dL (32.0-36.0); Mean Corpuscular Volume 87.5 fL (80.0-100.0); Mean Platelet Volume 9.2 fL (9.4-12.4); Monocytes # (auto) 0.78 K/uL (0.11-0.59); Monocytes % (auto) 8.8 %; Neutrophils # (auto) 7.23 K/uL (1.40-6.50); Neutrophils % (auto) 81.5 %; Platelet Count 224 K/uL (130-400); RDW Coefficient of Variation 13.3 % (11.5-14.5); RDW Standard Deviation 42.1 fL (36.4-46.3); Red Blood Count 3.37 M/uL (4.70-6.10); White Blood Count 8.87 K/ul (4.8-10.8)
--- NOTE | 2023-12-10 14:31 | XRay Report ---
XR hip RT 2V w pelvis CLINICAL HISTORY: fall right hip injury TECHNIQUE: 2 views of the right hip and single frontal view of the pelvis were obtained. Comparison: Comparison is made to the radiograph 05/19/2018 and PET/CT 05/22/2023 FINDINGS: Likely impacted fracture of the right femoral head and neck. Severe degenerative changes are seen. So ft tissue swelling is seen. IMPRESSION: Likely impacted fracture of the right femoral head and neck. ACT 112: Negative or not required by law. Electronically signed by: Chris Angeles M.D. 12/10/2023 2:29 PM
[2023-12-10 14:40] LABS: Albumin Globulin Ratio 1.2 (0.9-2); Albumin Level 3.6 gm/dl (3.4-5.0); BUN Creatinine Ratio 30.7 (10-20); Bilirubin,Total 0.7 mg/dl (0.2-1.0); Calcium 9.2 mg/dl (8.6-10.3); Creatinine Clr Calc Pharmacy 39.8 ml/min; Est GFR (African American) 52.7 ml/min; Est GFR (Non-African American) 45.5 ml/min; Globulin 3.1 gm/dl (2.5-4.0); Potassium 4.7 mmol/L (3.5-5.1); Total Protein 6.7 gm/dl (6.0-8.3)
--- NOTE | 2023-12-10 14:47 | Emergency Department Note ---
ED Visit Note I was consulted by the Advanced Practice Provider Alex Paredes PA-C. I personally made/approved the management plan and take responsibility for the patient management. I performed a substantive portion of the visit. This includes the aspects of: -History/Physical/Personally seeing the patient -MDM -I independently interpreted the following studies: I informally interpreted the patient's right hip and pelvis x-ray which does show impaction of the right femoral head. Patient presented due to concern for ground level fall. Patient may have an impacted femur fracture although the patient was discussed with orthopedics and thought that the patient would benefit from a CT of the pelvis to better evaluate whether or not the patient does have an acute fracture. Patient was admitted to the medicine service. .
[2023-12-10] MEDS: MoRPHine SULFATE 4 MG/ML 1 ML CARP\\VIAL IV STA (15:02)
[2023-12-10] MEDS: ACETAMINOPHEN 1,000 MG/100 ML VIAL IV STA (15:22)
--- NOTE | 2023-12-10 15:51 | History & Physical Report ---
Date of Service December 10, 2023 Assessment & Plan (1) Right hip pain: Plan: -Admit to med/surge on pulse oximetry -Currently stable and non-toxic appearing -Presented to the ED this am after sustaining a mechanical fall last night while ambulating in their home -Did not hit his head or lose consciousness -Patient had known, severe right hip osteoarthritis and was scheduled for elective hip replacement with Dr. Samuels on 12/16/23 -Initial xray of the right hip/pelvis was read as "Likely impacted fracture of the right femoral head and neck." -Spoke with Orthopedics, appreciate their help, after examination of the xray they are not convinced the patient has an acute fracture, they recommend CT of the pelvis for further evaluation -CT of the pelvis has been ordered -Regardless, the patient is unable to ambulate safely at this time and has significant shortening of the RLE compared to left on exam; we will admit to medicine with orthopedics following to help with coordination of likely hip replacement while admitted -Orthopedics requested we obtain an ESR and CRP to monitor for signs of infection, will order these on admission -Orthopedic surgery consult placed -Will obtain CXR with his fall last night to rule out other trauma -Pain control with tylenol, IV morphine, heat, and lidocaine patch -PRN Narcan for oversedation/respiratory depression -SQ lovenox for DVT PPX -HH diet for now, NPO except meds at midnight in case of OR tomorrow -AM CBC, CMP, mag, PT/INR (2) Fall: Plan: -Fall precuations -PT/OT -Orthopedic surgery consult (3) Ambulatory dysfunction: Plan: -See right hip pain (4) Hyponatremia: Plan: -Patient noted to have a sodium of 127 today -Was noted to be 127 yesterday when pre-operative labs were obtained in the outpatient setting -Patient appears dry on exam, has not been eating/drinking as well over the past week with increased pain and oxycodone use -Chloride noted to be low as well -Not on diuretics -Will obtain serum/urine osmolality and urine sodium for further evaluation -Free water restriction until workup is back -Monitor am electrolytes (5) GERD (gastroesophageal reflux disease): Plan: -Continue famotidine Plan The patient was discussed with Dr. Claros at the time of the admission History of Present Illness Primary Care Provider: MD Juan Antonio Elliott is an 83 year old male with a PMH significant for metastatic gastric adenocarcinoma S/P chemotherapy (currently on surveillance), lumbar spinal stenosis, and GERD who presented to the [facility] ED on 12/10/23 after sustaining a fall at home with resultant right hip pain. He remained stable in the ED. Labs were significant for a sodium of 127, and chloride of 95. Xray of the right hip and BL pelvis was read as "Likely impacted fracture of the right femoral head and neck.". Prior to admission the patient was given 1gm IV tylenol and a total of 6 mg IV morphine. At the time of the exam the patient was lying in bed in no acute distress with his bedside. The patient was drowsy due to recent dose of morphine given in the ED. They explain that the patient had been scheduled for right hip replacement with Dr. Samuels on 12/16/23 due to severe right hip arthritis. His ambulation has been difficult recently due to pain, he had been using a walker. Last night, while walking in their hallway the patient's foot hit the edge of the wall, causing him to fall. He denies lightheadedness/dizziness, chest pain, or SOB prior to the fall but states that he did feel a bit "loopy" due to taking oxycodone at home. He did not lose consciousness or hit his head. His pain progressed throughout the night causing ED evaluation this am. When asked, the patient states that his appetite has been poor recently due to pain and oxycodone. They deny the patient having recent fever, chills, headache, neck/back pain, chest pain, SOB, abd pain, nausea, vomiting, diarrhea, dysuria, hematuria, and melena. He is a full code and his is his POA if he cannot make decisions himself. Please refer to Dr. Claros's attestation for any changes to the treatment plan Allergies Allergy/AdvReac Type Severity Reaction Status Date / Time gabapentin AdvReac Intermediate Hallucinati Verified 12/10/23 15:21 ng pregabalin [From Lyrica] AdvReac Intermediate Dizziness Verified 12/10/23 15:21 Home Medications Medication Instructions Recorded Confirmed Type multivitamin 1 tab PO QAM 03/29/20 12/10/23 History famotidine 20 mg tablet (Pepcid) 20 mg PO BID 09/21/21 12/10/23 History B6 100 mg-FA 800 mcg-B12 200 1 tab PO HS 01/03/23 12/10/23 History mcg-co Q10 100 mg-herbal no.225 tablet (Healthy Heart Complex) polysaccharide iron complex 150 mg 150 mg PO QPM 01/03/23 12/10/23 History iron capsule (Ferrex) fluocinonide 0.05 % topical 1 applic topical UD PRN scalp 02/21/23 12/10/23 History solution acetaminophen 500 mg capsule 1,000 mg PO Q6H PRN Pain 12/08/23 12/10/23 History calcitriol 0.25 mcg capsule 0.25 mcg PO QPM 12/08/23 12/10/23 History cholecalciferol (vitamin D3) 25 25 mcg PO QPM 12/08/23 12/10/23 History mcg (1,000 unit) capsule oxycodone 5 mg tablet 5 mg PO Q4H PRN Pain 12/08/23 12/10/23 History Past Med/Surg History Medical History 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, chemo and immunotherapy tx only (11/2019-04/18/21) Mild aortic stenosis Per 11/2023 echo CKD (chronic kidney disease) Chronic anemia Seizure-like activity - 06/2022, had episode of fall/syncope- seen by neuro at [facility] 07/01/22- "believe this patient had a syncopal event ( cardiovascular in origin ), had closed head trauma and brief concussion, with some brief secondary seizure activity." No need for additional neurological testing or anticonvulsants; EEG normal - No recurrence of issues since that time (possibly dehydrated per patient) SBO (small bowel obstruction) Hx- during chemo Hepatic cyst Acid reflux Well controlled and stable 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 (until 03/2021) Deafness in left ear per records, bilat hearing aids History of actinic keratosis History of basal cell carcinoma s/p excision (in office) Osteopenia Hyperlipidemia Carotid artery plaque "mild carotid plaque and normal velocity" per 2016 PCP records (unable to obtain official imaging) Surgical History History of esophagogastroduodenoscopy (EGD) Hx of detached retina repair Hx of oral surgery (10/01/22) Open Reduction of Lefort II Fracture(Not Applicable) - Leland Dimas, DMD able to open mouth entire way History of Mohs micrographic surgery for skin cancer Port-A-Cath in place History of tonsillectomy History of colonoscopy History of tooth extraction History of bilateral cataract extraction S/P appendectomy S/P tonsillectomy Family History Mother , age 60 colon cancer Colon cancer Colorectal cancer Grandfather (Maternal) Myocardial infarction Grandfather Colorectal cancer Father , age 77 of heart disease Heart disease Other Hearing loss No family history of adverse response to anesthesia No family history of bleeding disorder Denies family history of Ovarian cancer Prostate cancer Breast cancer Social History Smoking Status: Never smoker Second Hand Exposure: No; Do You Dip or Chew Tobacco: No; Hx Alcohol Use: No Hx Substance Use: No Preferred Language: Mozambican Communication Ability: Effective Visual Impairment: No Limitations Hearing Ability: Normal [employer] Fuel Enrichment Technician Required: No Beliefs That Will Affect Care: None marital status: Current Living Situation: Spouse current occupational status: retired 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 [employer] Other Information That Helps Us Care for You: No Feels Safe at Home: Yes Safety Concerns: Feels Safe At This Time Childhood Exposure to Second-Hand Smoke: No Dental Care, Regularly: Yes Physical Activity Frequency: 5-6 Times per Week Seatbelt Use: always Sunscreen Use: Yes Assistive Devices: Cane and Walker Physical Exam Physical Exam: Physical Exam: General: Drowsy, stated age, well-nourished, good hygiene HEENT: Normocephalic, atraumatic, no scleral icterus, pupils around round, symmetrical, and reactive to light, dry mucus membranes, trachea midline, no thyromegaly Chest/Pulm: No respiratory distress, symmetrical chest expansion, clear breath sounds throughout Cardiac: RRR, no murmurs noted Abdomen: Negative for ascites and bruising, normoactive bowel sounds, soft, non-tender to palpation throughout Musculoskeletal: Right LE is currently shortened compared to left, patient with pain on palpation of the right hip but with intact and symmetrical sensation and motor function in the BL feet, no other acute trauma noted on inspection of the head, neck, thoracic/lumbar spine, left hip, left LE, chest, and abdomen Extremities: Radial, dorsalis pedis, and posterior tibial pulses are intact and symmetrical, 1+ edema noted in the BL LE's Skin: Warm, dry, no rashes , lesions, or scars noted Neuro: Alert and oriented to person, place, month, year, and president, no focal defects, CN II-XII tested and intact, no tremors noted Psych: drowsy but wakes easily and responds to questions appropiately, calm and cooperative during the exam Results & Data Results & Data Vital Signs (Past 12 Hours) Vital Signs Temp Pulse Resp BP Pulse Ox O2 Del Method 12/10/23 13:59 90 12/10/23 13:19 36.8 C 79 16 157/87 H 95 Room Air Laboratory Results Abnormal lab results 12/10/23 Range/Units 13:53 RBC 3.37 L (4.70-6.10) M/uL Hgb 10.4 L (14.0-18.0) g/dl Hct 29.5 L (42.0-52.0) % MPV 9.2 L (9.4-12.4) fL Neut # (Auto) 7.23 H (1.40-6.50) K/uL Lymph # (Auto) 0.73 L (1.20-3.40) K/uL Mcculloch # (Auto) 0.78 H (0.11-0.59) K/uL Sodium 127 L (136-145) mmol/L Chloride 95 L (98-107) mmol/L BUN 43 H (6-23) mg/dl BUN/Creatinine Ratio 30.7 H (10-20) Glucose 106 H (70-99(Fasting)) mg/dl AST 47 H (13-39) U/L Alkaline Phosphatase 127 H (34-104) U/L Diagnostic Findings Hip/Pelvis X-Ray 12/10/23 13:31 XR hip RT 2V w pelvis CLINICAL HISTORY: fall right hip injury TECHNIQUE: 2 views of the right hip and single frontal view of the pelvis were obtained. Comparison: Comparison is made to the radiograph 05/19/2018 and PET/CT 05/22/2023 FINDINGS: Likely impacted fracture of the right femoral head and neck. Severe degenerative changes are seen. Soft tissue swelling is seen. IMPRESSION: Likely impacted fracture of the right femoral head and neck. ACT 112: Negative or not required by law. Electronically signed by: Chris Angeles M.D. 12/10/2023 2:29 PM ECG Additional Comments: will obtain at the time of the admission Code Status & VTE Plan Code Status Full code VTE Prophylaxis Plan VTE Prophylaxis will be ordered: Yes Supervising Physician Co-Signing Physician Notes I personally saw and examined the patient. I verified all rowell points and agree with Stephan Keller PA-C with the following exceptions and/or additions: 83 year old male with known avascular necrosis of the right hip presents to the ER with worsening hip pain and unable to weight bear after a fall yesterday. O/E A&Ox3, HS RRR, no murmurs, Chest CTAB, Abdo SNT, bilateral lower extremity pitting edema with lower extremity erythema not including foot without warmth A/P Right hip pain - AVN, consult orthopedics - discussed with Dr Samuels on admission. Given significantly increased CRP will get Blood cultures to assess for infection. Bilateral pitting edema - suspect this is from his decreased mobility but since plan if for THR will get US venous doppler PG Care Time/CCT Total # of Minutes Spent Total Time Spent with Patient: Total time spent is greater than 50% in coordination of care (as documented) at patient's floor/unit and/or counseling patient: Coding [place] [address] INT INP/OBS CARE 3/75MIN Patient Type Established Medical Decision Making High Complexity Diagnoses Right hip pain M25.551 Fall W19.XXXA Ambulatory dysfunction R26.2 Hyponatremia E87.1 GERD (gastroesophageal reflux disease) K21.9
[2023-12-10] MEDS ORDERED: NALOXONE HCL 0.4 MG/1 ML VIAL/CARP IV PRN (16:22)
[2023-12-10 16:50] LABS: C Reactive Protein 14.1 mg/dl (0-0.5)
--- NOTE | 2023-12-10 17:08 | CT Scan Report ---
CT pelvis wo con CLINICAL HISTORY: fall, R hip pain, abnormal xray TECHNIQUE: Helical axial images of the pelvis were obtained and displayed at 5 and 1 mm intervals. Au tomated dose lowering techniques and/or adjustment according to patient size were utilized for this e xam. This exam was performed without intravenous contrast. CT DOSE: 632.91 mGy.cm COMPARISON: Comparison is made to CT abdomen pelvis 11/22/2020 FINDINGS: Bladder: Unremarkable. Reproductive organs: Unremarkable. Bowel: Unremarkable. Lymph nodes Pelvic: Unremarkable. Mesenteric: Unremarkable. Peritoneum: Normal Vessels: Atherosclerotic calcifications are seen. Abdominal wall: Bilateral fat-containing inguinal hernias. The left also contains nondilated loops of bowel. Bones: Degenerative changes in the visualized spine. Severe degenerative changes are seen in the righ t hip joint with collapse of the femoral head, however no acute component is seen. Bony fragmentation is seen about the lateral aspect of the acetabulum. IMPRESSION: Severe degenerative changes with flattening of the right femoral head and bone on bone morphology. Ho wever, no definite acute fracture is seen bony fragmentation about the acetabulum is likely chronic. ACT 112: Negative or not required by law. Electronically signed by: Chris Angeles M.D. 12/10/2023 5:05 PM
--- NOTE | 2023-12-10 17:09 | XRay Report ---
XR chest 1V portable CLINICAL HISTORY: fall TECHNIQUE: Single frontal radiograph of the chest was obtained. Comparison: Comparison is made to chest radiograph 12/09/2023 FINDINGS: A port catheter is seen. The cardiomediastinal silhouette is normal. The lungs are clear. No evidence of pleural effusion or pneumothorax. IMPRESSION: No acute chest disease. ACT 112: Negative or not required by law. Electronically signed by: Chris Angeles M.D. 12/10/2023 5:07 PM
[2023-12-10] MEDS: ACETAMINOPHEN 325 MG TAB PO SCH (18:04)
[2023-12-10] MEDS: LIDOCAINE 5% 1 PATCH TD STA (18:17)
[2023-12-10] MEDS: MoRPHine SULFATE 2 MG/ML CARP IV PRN (18:54)
[2023-12-10 19:54] LABS: Appearance Urine Clear (Clear); Bacteria Urine Automated Negative (Negative); Bilirubin Urine Negative (Negative); Blood Urine Negative (Negative); Color Urine Yellow; Epithelial Cell Urine Auto 0-5 /lpf (0-5); Glucose Urine UA Negative (Negative); Ketones Urine Negative (Negative); Leukocyte Esterase Urine Negative (Negative); Nitrite Urine Negative (Negative); Protein Urine Trace (Negative); RBC Urine Automated 0-4 /hpf (0-4); Specific Gravity Urine 1.013 (1.000-1.030); Urobilinogen Urine Negative (Negative); WBC Urine Automated 0 /hpf (0-5)
[2023-12-10] MEDS: FAMOTIDINE 20 MG TAB PO SCH (20:15)
[2023-12-10] MEDS: CALCITRIOL 0.25 MCG CAPSULE PO SCH (20:15)
[2023-12-10] MEDS: CHOLECALCIFEROL 25 MCG (1000 UNITS) TAB PO SCH (20:15)
[2023-12-10] MEDS ORDERED: ENOXAPARIN INJ 40 MG/0.4 ML SYR SQ SCH (21:00)
--- NOTE | 2023-12-11 01:24 | Ultrasound Report ---
Exam(s): US VENOUS BILATERAL LOWER EXTREMITIES EXAM: US Duplex Bilateral Lower Extremities Veins CLINICAL HISTORY: Reason for exam: b/l leg swelling and pain. TECHNIQUE: Real-time duplex ultrasound scan of the bilateral lower extremity veins integrating B-mode two-dimensional vascular structure, Doppler spectral analysis, color flow Doppler imaging and compression. COMPARISON: US Duplex Lower Extremity Veins dated 11/01/2020 FINDINGS: Right deep veins: 2.0 x 0.6 cm echogenic structure within the right distal femoral vein. Appears attached to the anterior wall. May represent nonocclusive thrombus. Age indeterminate, although new since the prior. Rest of the right lower extremity veins appear normal. Right superficial veins: Unremarkable. No thrombus in the visualized right great saphenous vein. Left deep veins: Unremarkable. No DVT in the left common femoral, femoral, proximal deep femoral or popliteal veins. The veins demonstrate normal color flow, are normally compressible, with normal phasic flow and/or augmentation response. Left superficial veins: Unremarkable. No thrombus in the visualized left great saphenous vein. Soft tissues: Edema in the right popliteal fossa and calf. Edema in the left popliteal fossa and calf. Complex left popliteal cyst 5.8 x 1.3 x 2.5 cm. IMPRESSION: 1. 2.0 x 0.6 cm echogenic structure within the right distal femoral vein. Appears attached to the anterior wall. May represent nonocclusive thrombus. Age indeterminate, although new since the prior. 2. Complex left popliteal cyst 5.8 x 1.3 x 2.5 cm. Communications: Verify Receipt Electronically signed by: Nicole Lopez M.D. 12/11/23 01:23 AM
[2023-12-11 04:03] LABS: Basophils # (auto) 0.02 K/uL (0.00-0.20); Basophils % (auto) 0.3 %; Eosinophils # (auto) 0.08 K/uL (0.00-0.50); Eosinophils % (auto) 1.1 %; Hematocrit (blood only) 25.2 % (42.0-52.0); Hemoglobin 8.7 g/dl (14.0-18.0); Immature Granulocytes # (auto) 0.04 K/uL (0.01-0.20); Immature Granulocytes % (auto) 0.6 %; Lymphocytes # (auto) 0.67 K/uL (1.20-3.40); Lymphocytes % (auto) 9.4 %; Mean Corpuscular Hemoglobin 30.4 pg (25.0-34.0); Mean Corpuscular Hgb Conc 34.5 g/dL (32.0-36.0); Mean Corpuscular Volume 88.1 fL (80.0-100.0); Mean Platelet Volume 8.9 fL (9.4-12.4); Monocytes # (auto) 0.67 K/uL (0.11-0.59); Monocytes % (auto) 9.4 %; Neutrophils # (auto) 5.67 K/uL (1.40-6.50); Neutrophils % (auto) 79.2 %; Platelet Count 195 K/uL (130-400); RDW Coefficient of Variation 13.2 % (11.5-14.5); Red Blood Count 2.86 M/uL (4.70-6.10); White Blood Count 7.15 K/ul (4.8-10.8)
[2023-12-11 04:16] LABS: BUN Creatinine Ratio 28.6 (10-20); Calcium 8.5 mg/dl (8.6-10.3); Creatinine Clr Calc Pharmacy 46.9 ml/min; Est GFR (African American) 64.2 ml/min; Est GFR (Non-African American) 55.4 ml/min; Magnesium 1.9 mg/dl (1.7-2.4); Potassium 4.3 mmol/L (3.5-5.1)
[2023-12-11 04:31] LABS: ANTI-Xa, UFH(UnfractionatedHep < 0.10 IU/ml (0.3-0.7); Partial Thromboplastin Time 27 Seconds (21-31); Prothrombin Time 11.4 Seconds (9.0-12.0)
[2023-12-11] MEDS ORDERED: BUPIVACAINE 0.5 % 5 MG/1 ML PF 10ML VIAL ONE (07:14)
[2023-12-11] MEDS ORDERED: STAT IV/IM STA ×2 (07:36→19:15)
--- NOTE | 2023-12-11 08:57 | Orthopedic Consultation ---
Date of Service December 11, 2023 Assessment & Plan (1) Degenerative joint disease of right hip: His esr and crp are elevated. He has this possible thrombosis on ultrasound. We would recommend vascular consult/evaluation. We are going to order a right hip aspiration with interventional radiology to rule out any hip infection given his elevated esr, crp and worsening images of the hip. Anemia and hyponatremia management per hospitalist service. We will keep him npo for now but unlikely to have hip surgery today. History of Present Illness Reason for Consultation: . Requesting Physician: . Attending Physician: Evangelist Claros MD .Juan Antonio is a 83 year old patient who was scheduled for right total hip arthroplasty next with Dr. Samuels. He came to the ER yesterday after a fall at home. He denies any increase in pain since the fall. Imaging showed worsening degenerative changes in his right hip. He has been having swelling in his right leg for the last 3 days approximately, and ultrasound shows a structure in the right distal femoral vein, possible thrombosis. He did have an intra articular h ip injection about a month ago. Allergies Allergy/AdvReac Type Severity Reaction Status Date / Time gabapentin AdvReac Intermediate Hallucinati Verified 12/10/23 15:21 ng pregabalin [From Lyrica] AdvReac Intermediate Dizziness Verified 12/10/23 15:21 Home Medications Medication Instructions Recorded Confirmed Type multivitamin 1 tab PO QAM 03/29/20 12/10/23 History famotidine 20 mg tablet (Pepcid) 20 mg PO BID 09/21/21 12/10/23 History B6 100 mg-FA 800 mcg-B12 200 1 tab PO HS 01/03/23 12/10/23 History mcg-co Q10 100 mg-herbal no.225 tablet (Healthy Heart Complex) polysaccharide iron complex 150 mg 150 mg PO QPM 01/03/23 12/10/23 History iron capsule (Ferrex) fluocinonide 0.05 % topical 1 applic topical UD PRN scalp 02/21/23 12/10/23 History solution acetaminophen 500 mg capsule 1,000 mg PO Q6H PRN Pain 12/08/23 12/10/23 History calcitriol 0.25 mcg capsule 0.25 mcg PO QPM 12/08/23 12/10/23 History cholecalciferol (vitamin D3) 25 25 mcg PO QPM 12/08/23 12/10/23 History mcg (1,000 unit) capsule oxycodone 5 mg tablet 5 mg PO Q4H PRN Pain 12/08/23 12/10/23 History Past Med/Surg History Medical History 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 07/01/22- "believe this patient had a syncopal event ( cardiovascular in origin ), had closed head trauma and brief concussion, with some brief secondary seizure activity." No need for additional neurological testing or anticonvulsants; EEG normal - No recurrence of issues since that time (possibly dehydrated per patient) SBO (small bowel obstruction) Hx- during chemo Hepatic cyst Acid reflux Well controlled and stable 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 (until 03/2021) Deafness in left ear per records, bilat hearing aids History of actinic keratosis History of basal cell carcinoma s/p excision (in office) Osteopenia Hyperlipidemia Carotid artery plaque "mild carotid plaque and normal velocity" per 2015 PCP records (unable to obtain official imaging) Surgical History History of esophagogastroduodenoscopy (EGD) Hx of detached retina repair Hx of oral surgery (10/01/22) Open Reduction of Lefort II Fracture(Not Applicable) - Leland Dimas, DMD able to open mouth entire way History of Mohs micrographic surgery for skin cancer Port-A-Cath in place History of tonsillectomy History of colonoscopy History of tooth extraction History of bilateral cataract extraction S/P appendectomy S/P tonsillectomy Family History Mother , age 60 colon cancer Colon cancer Colorectal cancer Grandfather (Maternal) Myocardial infarction Grandfather Colorectal cancer Father , age 77 of heart disease Heart disease Other Hearing loss No family history of adverse response to anesthesia No family history of bleeding disorder Denies family history of Ovarian cancer Prostate cancer Breast cancer Social History Smoking Status: Never smoker Second Hand Exposure: No; Do You Dip or Chew Tobacco: No; Hx Alcohol Use: No Hx Substance Use: No Preferred Language: Estonian Communication Ability: Effective Visual Impairment: No Limitations Hearing Ability: Normal Sfdc Architect Required: No Beliefs That Will Affect Care: None marital status: Current Living Situation: Spouse current occupational status: retired 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 Physical Exam .alert and oriented. NAD Right leg: painful and limited hip motion. No knee effusion. +edema of his lower leg and some skin discoloration. He says the discoloration is chronic. He can dorsiflex and plantarflex. Results & Data Results & Data Laboratory Results . Diagnostic Findings . xrays and ct scan of the hip are negative for fracture, but show progressive worsening degenerative changes/femoral head flattening. PG Care Time/CCT Total # of Minutes Spent Total Time Spent with Patient: Total time spent is greater than 50% in coordination of care (as documented) at patient's floor/unit and/or counseling patient: Coding Level of Care Code 10456 IN/OBS CONSULT LVL 4,60M Diagnoses Degenerative joint disease of right hip M16.11
[2023-12-11] MEDS ORDERED: Heparin IV Adult Wt-Based Low-Dose *NO* INITIAL Bolus Protocol IV SCH (09:00)
[2023-12-11] MEDS: SODIUM CHLORIDE 3 % 50 ML IV ONE ×2 (09:06→19:50)
--- NOTE | 2023-12-11 09:37 | Communication Note ---
Date of Service: December 11, 2023 Pt does not require full consult. Venous US imaging reviewed by Dr Longo, small area of DVT RLE femoral vein is echogenic, clearly chronic thrombus. No indications for AC or IVC filter insertion, as pt does not have any acute thrombus. Please call if needed.
[2023-12-11 09:39] LABS: Ferritin 578.2 ng/ml (8-388)
[2023-12-11 09:51] LABS: Basophils # (auto) 0.02 K/uL (0.00-0.20); Basophils % (auto) 0.3 %; Eosinophils # (auto) 0.07 K/uL (0.00-0.50); Hemoglobin 8.9 g/dl (14.0-18.0); Immature Granulocytes # (auto) 0.04 K/uL (0.01-0.20); Immature Granulocytes % (auto) 0.6 %; Lymphocytes # (auto) 0.53 K/uL (1.20-3.40); Lymphocytes % (auto) 7.6 %; Mean Corpuscular Hemoglobin 30.1 pg (25.0-34.0); Mean Corpuscular Hgb Conc 34.2 g/dL (32.0-36.0); Mean Corpuscular Volume 87.8 fL (80.0-100.0); Mean Platelet Volume 9.1 fL (9.4-12.4); Monocytes # (auto) 0.58 K/uL (0.11-0.59); Monocytes % (auto) 8.3 %; Neutrophils # (auto) 5.75 K/uL (1.40-6.50); Neutrophils % (auto) 82.2 %; Platelet Count 202 K/uL (130-400); RDW Coefficient of Variation 13.4 % (11.5-14.5); RDW Standard Deviation 43.3 fL (36.4-46.3); Red Blood Count 2.96 M/uL (4.70-6.10); White Blood Count 6.99 K/ul (4.8-10.8)
[2023-12-11 10:21] LABS: Partial Thromboplastin Time 27 Seconds (21-31); Prothrombin Time 11.4 Seconds (9.0-12.0)
[2023-12-11] MEDS: HEPARIN SODIUM/DEXTROSE 25,000 UNITS/500 ML BAG IV SCH (11:12)
--- NOTE | 2023-12-11 12:52 | Electrocardiogram Report ---
Test Reason : Blood Pressure : / mmHG Vent. Rate : 088 BPM Atrial Rate : 088 BPM P-R Int : 160 ms QRS Dur : 128 ms QT Int : 370 ms P-R-T Axes : -04 110 048 degrees QTc Int : 447 ms Normal sinus rhythm Right bundle branch block Left posterior fascicular block Bifascicular block Cannot rule out Inferior infarct , age undetermined Abnormal ECG When compared with ECG of 09-DEC-2023 12:17, (RBBB and left posterior fascicular block) has replaced RSR' pattern in V1 Confirmed by Tonny Hammond ([id number]) on 12/11/2023 12:51:34 PM Referred By: REFERRED SELF Confirmed By:Gallito Hammond
[2023-12-11 13:23] LABS: Appearance Synovial Fluid Bloody; Color Synovial Fluid Red; Mononuclear WBC Synovial 42.7 %; Polynuclear WBC Synovial 57.3 %; RBC Synovial Fluid Auto 143000 /uL; Source Synovial Fluid Right Hip; WBC Synovial Fluid Auto 283 /ul (0-200)
--- NOTE | 2023-12-11 13:38 | Fluoroscopy Report ---
Fluoroscopic guided right hip aspiration INDICATION: Right hip pain with severe degenerative changes; evaluate for septic arthritis PROCEDURE: Procedure and risks were explained. Informed consent was obtained. A final timeout was com pleted. The right hip was prepped and draped in sterile fashion. 1% lidocaine was utilized for skin a nesthesia. Utilizing fluoroscopic guidance, a 20-gauge spinal needle was advanced into the right hip joint capsu le. A scant amount of blood-tinged fluid was aspirated and sent to the lab for analysis. A small amou nt of iodinated contrast was then injected through the spinal needle confirming intra-articular needl e position. Permanent fluoroscopic images were obtained. An additional aspirate was obtained after th e contrast injection and also sent to the lab for analysis. The needle was removed and Band-Aid appli ed. The patient tolerated the procedure well. Total fluoroscopy time was 1.26 minutes. DAP is 9.3 mcGy/m2. IMPRESSION: Right hip aspiration as detailed above. Performed, dictated, and signed by Rayo Camp PA-C; to be co-signed by Dr. Trevor Smart. Electronically signed by: Trevor Smart M.D. 12/11/2023 5:34 PM
[2023-12-11] MEDS ORDERED: Nursing to Pharmacy Communication SCH (16:45)
[2023-12-11] MEDS: ENOXAPARIN INJ 40 MG/0.4 ML SYR SQ ONE (17:45)
[2023-12-11 17:50] LABS: Thyroid Stimulating Hormone 1.656 uIu/ml (0.300-4.500)
[2023-12-11] MEDS: AMINO ACID SYNERGY PO SCH (18:10)
--- NOTE | 2023-12-11 19:15 | Hospitalist Progress Note ---
Date of Service December 11, 2023 Assessment & Plan (1) Right hip pain: Plan: AVN vs. infection vs pathological gastric adenocarcinoma Discussed with Dr Samuels and plan for radiology to aspirate the hip to rule out infection If not infection present plan for total hip replacement NPO after midnight (2) Fall: Plan: Secondary to significant necrosis of femoral head (3) Ambulatory dysfunction: Plan: -See right hip pain (4) Hyponatremia: Plan: Serum osm 378, Na 27 - inappropriately elevated therefore less likely just tea and toast diet TSH WNL, will get AM cortisol with morning labs ?SIADH, fluid restrict 1L, Will improve sodium acutely with hypertonic saline to get him ready for surgery but may need salt tabs following surgery. (5) GERD (gastroesophageal reflux disease): Plan: -Continue famotidine (6) Normocytic anemia: Plan: Ferritin elevated but iron saturations low. Suspect ferritin raised as acute phase reactant given his CRP is also significantly elevated. Appears to be stable after initial drop Repeat CBC in AM Type and screen sent Transfuse < 7 (7) Gastric adenocarcinoma: Plan: Diagnosed in 2019, stage IV with distant phoebe metastasis Currently under observation with PET/CT, last one in May 2023 with no evidence of metastatic disease at that time. (8) Degenerative joint disease of right hip: (9) Chronic deep vein thrombosis (DVT): Plan: Discussed results of US venous doppler with Dr Smart and vascular surgery. DVT suspected to be chronic therefore no treatment required at this time. (10) Bilateral edema of lower extremity: Plan: JESS hose. Low suspicion of cellulitis at this time but will continue to monitor No significant protein on UA LFT WNL Plan VTE Prophylaxis - Lovenox 40mg SQ one dose now Diet - heart healthy, fluid restrict 1L Disposition - continued admission to med/surg Admission and Anticipated Discharge Date Admission Date: December 10, 2023 Subjective No significant change to hip pain. Afebrile. Patient seen following aspiration of hip. Review of Systems Review of Systems: All systems reviewed & are unremarkable except as noted in HPI & below Physical Exam Constitutional: WD/WN, vitals as above Eyes: + anicteric sclerae; normal pupil size ENMT: external ear and nose normal, oropharynx normal Cardiovascular: Rate/Rhythm: regular rate and regular rhythm Heart Sounds: no murmur Extremities: + pedal edema (2+ pitting edema) Gastrointestinal (Abdomen): normal bowel sounds, soft, nontender, no hepatosplenomegaly Skin: venous stasis erythema stable on bilateral lower extremities without warmth Neurologic: moves all extremities and awake; not confused Psychiatric: A+Ox3, euthymic affect Results & Data Results & Data Vital Signs (Past 12 Hours) Vital Signs Temp Pulse Resp BP Pulse Ox O2 Del Method 12/11/23 15:08 36.8 C 83 16 117/64 92 Room Air PG Care Time/CCT Total # of Minutes Spent Total Time Spent with Patient: Total time spent is greater than 50% in coordination of care (as documented) at patient's floor/unit and/or counseling patient: Coding Level of Care Code 19224 SUB INP/OBS CARE 3/50MIN Diagnoses Right hip pain M25.551 Fall W19.XXXA Ambulatory dysfunction R26.2 Hyponatremia E87.1 GERD (gastroesophageal reflux disease) K21.9 Normocytic anemia D64.9 Gastric adenocarcinoma C16.9 Degenerative joint disease of right hip M16.11 Chronic deep vein thrombosis (DVT) I82.509 Bilateral edema of lower extremity R60.0
[2023-12-12 08:09] LABS: Basophils # (auto) 0.01 K/uL (0.00-0.20); Basophils % (auto) 0.1 %; Eosinophils # (auto) 0.11 K/uL (0.00-0.50); Eosinophils % (auto) 1.6 %; Hemoglobin 9.4 g/dl (14.0-18.0); Immature Granulocytes # (auto) 0.05 K/uL (0.01-0.20); Immature Granulocytes % (auto) 0.7 %; Lymphocytes # (auto) 0.83 K/uL (1.20-3.40); Lymphocytes % (auto) 11.8 %; Mean Corpuscular Hemoglobin 30.3 pg (25.0-34.0); Mean Corpuscular Hgb Conc 34.8 g/dL (32.0-36.0); Mean Corpuscular Volume 87.1 fL (80.0-100.0); Mean Platelet Volume 9.1 fL (9.4-12.4); Monocytes # (auto) 0.59 K/uL (0.11-0.59); Monocytes % (auto) 8.4 %; Neutrophils # (auto) 5.46 K/uL (1.40-6.50); Neutrophils % (auto) 77.4 %; Platelet Count 225 K/uL (130-400); RDW Coefficient of Variation 13.5 % (11.5-14.5); RDW Standard Deviation 43.3 fL (36.4-46.3); White Blood Count 7.05 K/ul (4.8-10.8)
[2023-12-12 08:24] LABS: BUN Creatinine Ratio 29.3 (10-20); C Reactive Protein 14.55 mg/dl (0-0.5); Calcium 8.6 mg/dl (8.6-10.3); Creatinine Clr Calc Pharmacy 48.1 ml/min; Est GFR (African American) 66.2 ml/min; Est GFR (Non-African American) 57.1 ml/min; Magnesium 1.9 mg/dl (1.7-2.4); Potassium 3.7 mmol/L (3.5-5.1)
[2023-12-12 08:25] LABS: ANTI-Xa, UFH(UnfractionatedHep < 0.10 IU/ml (0.3-0.7)
[2023-12-12] MEDS: LACTATED RINGER'S 1,000 ML IV SCH (13:10)
--- NOTE | 2023-12-12 13:17 | Anesthesiology Consultation ---
Date of Service December 12, 2023 Assessment & Plan Chart Review Chart Review: Acceptable Risk for Surgery and Patient NOT seen in Pre Admission Testing Consults Requested Pulmonary History Surgery Operation Date: 12/12/23 13:30 Proposed Procedures p Right Total Hip Arthroplasty Cemented - Dave Samuels MD Height/Weight Height: 5 ft 10 in Weight: 75 kg Allergies Allergy/AdvReac Type Severity Reaction Status Date / Time gabapentin AdvReac Intermediate Hallucinati Verified 12/10/23 15:21 ng pregabalin [From Lyrica] AdvReac Intermediate Dizziness Verified 12/10/23 15:21 Medications Home Medications Medication Instructions Recorded Confirmed Last Taken multivitamin 1 tab PO QAM 03/29/20 12/10/23 09/30/22 08:00 famotidine 20 mg tablet (Pepcid) 20 mg PO BID 09/21/21 12/10/23 09/30/22 19:30 B6 100 mg-FA 800 mcg-B12 200 1 tab PO HS 01/03/23 12/10/23 Unknown mcg-co Q10 100 mg-herbal no.225 tablet (Healthy Heart Complex) polysaccharide iron complex 150 mg 150 mg PO QPM 01/03/23 12/10/23 Unknown iron capsule (Ferrex) fluocinonide 0.05 % topical 1 applic topical UD PRN scalp 02/21/23 12/10/23 Unknown solution acetaminophen 500 mg capsule 1,000 mg PO Q6H PRN Pain 12/08/23 12/10/23 Unknown calcitriol 0.25 mcg capsule 0.25 mcg PO QPM 12/08/23 12/10/23 Unknown cholecalciferol (vitamin D3) 25 25 mcg PO QPM 12/08/23 12/10/23 Unknown mcg (1,000 unit) capsule oxycodone 5 mg tablet 5 mg PO Q4H PRN Pain 12/08/23 12/10/23 Unknown Active Medications Generic Name Dose Route Start Last Admin Trade Name Freq PRN Reason Stop Dose Admin Acetaminophen 650 mg 12/10/23 18:00 12/12/23 12:08 Acetaminophen 325 Mg Tab PO 01/09/24 17:59 Not Given Q6H SANTINO Calcitriol 0.25 mcg 12/10/23 21:00 12/12/23 12:08 Calcitriol 0.25 Mcg Capsule PO 01/09/24 20:59 Not Given QDL SANTINO Famotidine 20 mg 12/10/23 21:00 12/12/23 07:38 Famotidine 20 Mg Tab PO 01/09/24 20:59 20 mg BID SANTINO Administration Lactated Ringer's 1,000 mls @ 15 mls/hr 12/12/23 13:15 12/12/23 13:10 Lr IV 01/11/24 13:14 15 mls/hr .Q24H SANTINO Administration Morphine Sulfate 2 mg 12/10/23 19:00 12/12/23 09:21 Morphine Sulfate 2 Mg/Ml Carp IV 12/24/23 18:59 2 mg Q4H PRN Administration Pain (5+) Amino Acid Synergy: 1 each 12/11/23 09:00 12/12/23 07:34 Non-Formulary PO 01/10/24 08:59 1 each Patient's Own Med DAILY SANTINO Administration Vitamin D 25 mcg 12/10/23 21:00 12/12/23 12:08 Cholecalciferol 25 Mcg (1000 Units) Tab PO 01/09/24 20:59 Not Given QDL SANTINO NPO Date Last Intake of Fluids: 12/11/23 Time Last Intake of Fluids: 23:45 Date Last Intake of Solids: 12/11/23 Time Last Intake of Solids: 17:30 Past Medical History Medical History 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, chemo and immunotherapy tx only (11/2019-04/18/21) Mild aortic stenosis Per 11/2023 echo CKD (chronic kidney disease) Chronic anemia Seizure-like activity - 06/2022, had episode of fall/syncope- seen by neuro at [facility] 07/01/22- "believe this patient had a syncopal event ( cardiovascular in origin ), had closed head trauma and brief concussion, with some brief secondary seizure activity." No need for additional neurological testing or anticonvulsants; EEG normal - No recurrence of issues since that time (possibly dehydrated per patient) SBO (small bowel obstruction) Hx- during chemo Hepatic cyst Acid reflux Well controlled and stable 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 (until 03/2021) Deafness in left ear per records, bilat hearing aids History of actinic keratosis History of basal cell carcinoma s/p excision (in office) Osteopenia Hyperlipidemia Carotid artery plaque "mild carotid plaque and normal velocity" per 2016 PCP records (unable to obtain official imaging) Past Family History Family History Mother , age 60 colon cancer Colon cancer Colorectal cancer Grandfather (Maternal) Myocardial infarction Grandfather Colorectal cancer Father , age 77 of heart disease Heart disease Other Hearing loss No family history of adverse response to anesthesia No family history of bleeding disorder Denies family history of Ovarian cancer Prostate cancer Breast cancer Past Surgical History Surgical History History of esophagogastroduodenoscopy (EGD) Hx of detached retina repair Hx of oral surgery (10/01/22) Open Reduction of Lefort II Fracture(Not Applicable) - Leland Dimas, DMD able to open mouth entire way History of Mohs micrographic surgery for skin cancer Port-A-Cath in place History of tonsillectomy History of colonoscopy History of tooth extraction History of bilateral cataract extraction S/P appendectomy S/P tonsillectomy Social History Smoking Status: Never smoker Do You Dip or Chew Tobacco: No Hx Alcohol Use: No Alcohol type: wine alcohol intake frequency: other Hx Substance Use: No substance use type: does not use Physical Exam Vital Signs Last Vital Signs Temp 36.8 C 12/12/23 13:02 Pulse 96 H 12/12/23 13:02 Resp 20 12/12/23 13:02 BP 155/81 H 12/12/23 13:02 Pulse Ox 92 12/12/23 13:02 O2 Del Method Room Air 12/12/23 13:02 Testing Laboratory Results 12/12/23 07:41 12/12/23 07:41 PT 11.4 Seconds (9.0-12.0) 12/11/23 09:29 INR 1.0 (0.9-1.1) 12/11/23 09:29 APTT 27 Seconds (21-31) 12/11/23 09:29 Urine Color Yellow 12/10/23 19:10 Urine Appearance Clear (Clear) 12/10/23 19:10 Urine pH 6.0 (4.5-7.5) 12/10/23 19:10 Ur Specific [place] 1.013 (1.000-1.030) 12/10/23 19:10 Urine Protein Trace (Negative) H 12/10/23 19:10 Urine Glucose (UA) Negative (Negative) 12/10/23 19:10 Urine Ketones Negative (Negative) 12/10/23 19:10 Urine Nitrite Negative (Negative) 12/10/23 19:10 Ur Leukocyte Esterase Negative (Negative) 12/10/23 19:10 Urine WBC (Auto) 0 /hpf (0-5) 12/10/23 19:10 Urine RBC (Auto) 0-4 /hpf (0-4) 12/10/23 19:10 U Hyaline Cast (Auto) 1-5 /lpf (0-5) 12/10/23 19:10 U Epithel Cells (Auto) 0-5 /lpf (0-5) 12/10/23 19:10 Urine Bacteria (Auto) Negative (Negative) 12/10/23 19:10 Blood Type A Positive 12/11/23 08:10 Antibody Screen NEGATIVE 12/11/23 08:10 12/11/23 Unknown Gram Stain - Final Hip Aerobic and Anaerobic Culture - Preliminary No growth to date. 12/10/23 19:07 Aerobic Blood Culture - Preliminary Blood No growth in Aerobic bottle after 24 hours. Anaerobic Blood Culture - Preliminary No growth in Anaerobic bottle after 24 hours. 12/10/23 19:16 Aerobic Blood Culture - Preliminary Blood No growth in Aerobic bottle after 24 hours. Anaerobic Blood Culture - Preliminary No growth in Anaerobic bottle after 24 hours.
--- NOTE | 2023-12-12 13:31 | History & Physical Bridge Note ---
Date of Service December 12, 2023 History & Physical Bridge Note I have examined the patient, reviewed the History & Physical and in the interval since the performance of the History & Physical I have noted the following changes of clinical significance: no changes noted
[2023-12-12] MEDS: TRANEXAMIC ACID / 0.7% NACL 1,000 MG/100 ML BAG IV ONE (13:38)
[2023-12-12] MEDS: ceFAZolin 2000MG 2,000 MG/15 ML SYR IV ONE (13:43)
[2023-12-12] MEDS ORDERED: fentaNYL citrate PF 100 MCG/2 ML VIAL ONE ×2 (14:18)
[2023-12-12] MEDS ORDERED: DEXAMETHASONE SOD INJ 4 MG/ML VIAL ONE (15:11)
[2023-12-12] MEDS ORDERED: LIDOCAINE 2% 2 ML VIAL/AMP(20MG/ML) INFIL ONE (15:11)
[2023-12-12] MEDS ORDERED: PHENYLEPHRINE 100MCG/ML 10ML SYR IV ONE (15:11)
[2023-12-12] MEDS ORDERED: ONDANSETRON INJ 2 MG/ML 2 ML VIAL ONE (15:11)
[2023-12-12] MEDS ORDERED: ROCURONIUM BROMIDE 10 MG/ML 5 ML VIAL IV ONE (15:11)
[2023-12-12] MEDS ORDERED: PROPOFOL IV EMULSION 10 MG/ML 20 ML VIAL IV ONE (15:11)
[2023-12-12] MEDS: VANCOMYCIN HCL 1000MG/20ML VIAL ONE (15:12)
[2023-12-12] MEDS: BUPIVACAINE/EPINEPHRINE 0.5% MPF 1:200,000 30 ML VIAL ONE (15:24)
[2023-12-12] MEDS ORDERED: GLYCOPYRROLATE 0.2 MG/ML VIAL ONE (15:33)
[2023-12-12] MEDS ORDERED: NEOSTIGMINE METHYLSULFATE 1 MG/ML 10ML VIAL ONE (15:33)
--- NOTE | 2023-12-12 15:44 | Operative Report ---
PG Post Operative Report Pre & Post Diagnosis Operation Date: 12/12/23 13:30 Pre-Op Diagnosis: Degenerative joint disease of right hip Post-Op Diagnosis: Degenerative joint disease of right hip I identified the patient and participated in the time-out.: Yes Procedure Operation Date: 12/12/23 13:30 Actual Procedures p Right Total Hip Arthroplasty Cemented(Right) - Dave Samuels MD Surgeon Dave Samuels MD Boxcar Weigher Hitesh Reyes PA-C Estimated Blood Loss 300 Findings Consistent with Post-Op Diagnosis Operative findings were advanced degenerative changes. He will collapse of the femoral head. Chronic tissue and debris in his acetabulum. Moderate-sized joint effusion. Specimens Right femoral head sent for pathology. Anesthesia Type General Complications none Disposition Accompanied Patient To Recovery: No Indications Patient is an 83-year-old gentleman is had a several month history of markedly progressive increasing right hip pain and discomfort. X-rays initially showed DJD. He went on to further collapse of the femoral head and pain with an ambulatory bill that he became less possible. He is essentially wheelchair- bound. He was brought to emergency room after a fall and could not ambulate. X-rays show collapse of the femoral head. Patient is medically optimized indicated for a total hip replacement. We did aspirate his hip preoperatively to rule out infection. There is no signs of infection. Description of Procedure Operative implants consist of: 1 Biomet G7 size 60 mm acetabular shell. 2. 6.5 cancellous acetabular screws 135 mm length 1 to 25 mm length. 3. [place] hole automotive light mechanic. 4. Highly cross-linked polyethylene liner with a 60 mm outer diameter 40 mm inner diameter. 5. DePuy [place] size 6 high offset femoral stem. 6. +5/40 mm metal articular ball. The patient was taken the op room, identified, placed on the operating table in supine position but all contact areas were appropriately padded. IV antibiotics tried by anesthesia team. A general anesthetic was implemented. He was placed in the left lateral decubitus position. An axillary roll was placed. Stulberg hip positioner was used for positioning. The right hip and leg were then scrubbed with Hibiclens and then prepped with ChloraPrep in the usual sterile fashion. Patient was then draped out. Attention drawn to the procedure. Posterolateral approach of the right hip was then performed to a curvilinear incision centered over the greater trochanter. Sharp dissection Through subcutaneous tissue down to level the IT band gluteal fascia. The IT band gluteal fascia was sized longitudinally in line with skin incision. The underlying greater bursa was excised. The piriformis and external rotators along with the posterior hip joint capsule were then released from the posterior aspect hip as a single layer. The hip was internally rotated and dislocated. Femoral neck osteotomy cut was made with a Final Cut about 12 mm above the lesse r trochanter. Femoral head was removed and sent for pathology. The femur was retracted anteriorly. Attention drawn the acetabulum. The acetabular labrum was excised. There is quite a bit of ossification. I then resected the pulmonary fat. Sequential reaming the acetabular was then performed again with size 45 and progressing up to 59. We reamed a little bit with a 60 reamer and then placed a 60 mm acetabular shell in about 40 degrees lateral opening and 20 degrees of anteversion. It was fixed with two 6.5 cancellous acetabular screws. A large anterior inferior osteophyte was removed. Attention drawn the femur. The proximal femur was entered with a cookie cutter followed by canal finder and lateralizing reamer. I then broached beginning the size 1 and progressing up to a 6. Got good fit with a 6. We trialed the hip and the +5 articular ball provided good stability. Leg lengths seemed appropriate and without soft tissue tension seemed appropriate. We elect to place these implants. I did elect to use a hooded liner in order to maximize his stability in flexion. I will trial liner and implants were removed. A highly cross-linked polyethylene liner with a ballard placed inferior and posterior was then placed. A double batch [place] G cement was mixed. I did place a cement restrictor down the canal and the cement was mixed with 2 additional grams of vancomycin. I then injected the canal. A size 6 high offset [place] femoral stem was then placed. All extraneous cement was removed. Once the cement hardened the +5/40 mm metal articular ball was placed. Hip was located and once again found to be stable. Attention drawn toward closing. The wound was irrigated coconuts of pulsatile lavage solution. I did inject locally with 60 cc of half percent Marcaine with epinephrine. The posterior capsule and actual rotators were then repaired through drill holes with #2 Tycron suture. The IT band gluteal fascia then closed with #1 PDS suture running fashion. Subcutaneous tissues then closed with 2 layers the deep layer #1 Vicryl suture in the subcutaneous tissues with 2-0 Dexon suture in a buried interrupted fashion. Skin was closed skin phuong. Leg was then cleaned and dried and sterile dressed with Xeroform, 4 fours, sterile ABD pad and foam tape was applied. The patient then brought out of general esthesia and transferred to the recovery room in stable condition. The patient tolerated procedure well and there were no complications. Hitesh Reyes, my physician catering assistant, was present for the entire procedure. His assistance was essential and required for appropriate patient positioning, prepping and draping, surgical exposure, performing the technical details of the operation, placement the implants, closure of the wound, and placement of the sterile bandage. I attest to the content of the Intraoperative Record and any orders documented therein. Any exceptions are noted below.
[2023-12-12] MEDS ORDERED: ONDANSETRON INJ 2 MG/ML 2 ML VIAL IV PRN ×2 (15:46→16:52)
[2023-12-12] MEDS ORDERED: ATROPINE SULFATE 0.1 MG/ML 10ML SYR IV PRN (15:46)
[2023-12-12] MEDS ORDERED: ePHEDrine sulfate 50 MG/ML AMP IV PRN (15:46)
[2023-12-12] MEDS: fentaNYL citrate PF 100 MCG/2 ML VIAL IV PRN (15:52)
--- NOTE | 2023-12-12 16:17 | Anesthesiology Progress Note ---
Date of Service December 12, 2023 Anesthesia Post Procedure Vital Signs Vital Signs: Temp Pulse Pulse Resp BP Pulse Ox O2 Del Method 12/12/23 16:05 37.1 C 83 19 119/85 93 Room Air 12/12/23 15:55 77 15 144/69 H 100 Oxymask 12/12/23 15:45 73 16 143/62 H 100 Oxymask 12/12/23 15:36 36 C L 73 18 136/48 L 100 Oxymask 12/12/23 13:02 36.8 C 96 H 20 155/81 H 92 Room Air 12/12/23 12:22 37.1 C 86 15 150/78 H 94 Room Air 12/12/23 07:18 36.8 C 90 14 151/79 H 96 Room Air 12/11/23 19:35 36.5 C 84 16 107/66 95 Room Air O2 Flow Rate 12/12/23 16:05 12/12/23 15:55 5 12/12/23 15:45 11 12/12/23 15:36 11 12/12/23 13:02 12/12/23 12:22 12/12/23 07:18 12/11/23 19:35 Pain Intensity Bilateral Hip: Pain Intensity: 7 Right Hip: Pain Intensity: 4 Transfer of Care Handoff Completed per policy Notes Mental Status: alert / awake / arousable and participated in evaluation Patient Amnestic to Procedure: Yes Nausea / Vomiting: adequately controlled Pain: adequately controlled Airway Patency, RR, SpO2: stable & adequate BP & HR: stable & adequate Hydration State: stable & adequate Anesthetic Complications: no major complications apparent and Pt Satisfied with anesthetic care
--- NOTE | 2023-12-12 16:47 | XRay Report ---
XR hip 1V RT w pelvis HISTORY: 83 years-old Male IN PACU - Post Surgical right hip arthroplasty COMPARISON: 12/10/2023 TECHNIQUE: AP view the pelvis with frog-leg view of the right hip FINDINGS: Moderate left hip osteoarthritis. Right hip arthroplasty with lateral skin phuong, expected postoper ative soft tissue swelling and deep tissue air. No acute fracture or dislocation. IMPRESSION: Right hip arthroplasty with expected postoperative changes. ACT 112: Negative or not required by law. The above report was generated using voice recognition software. It may contain grammatical, syntax o r spelling errors. Electronically signed by: Rolo Brar M.D. 12/12/2023 4:45 PM
[2023-12-12] MEDS ORDERED: bisacodyL 10 MG SUPP PR PRN (16:52)
[2023-12-12] MEDS ORDERED: ALUMINUM/MAGNESIUM SUSP 30 ML UDC PO PRN (16:52)
[2023-12-12] MEDS ORDERED: NALOXONE HCL 0.4 MG/1 ML VIAL/CARP IV PRN (16:52)
[2023-12-12] MEDS ORDERED: MAGNESIUM HYDROXIDE SUSP 30 ML UDC PO PRN (16:52)
[2023-12-12] MEDS ORDERED: HYDROmorphone INJ 0.5 MG/0.5 ML SYR IV PRN (16:52)
[2023-12-12] MEDS ORDERED: METOCLOPRAMIDE HCL INJ 5 MG/ML 2 ML VIAL IV PRN (16:52)
[2023-12-12] MEDS ORDERED: TAMSULOSIN HCL 0.4 MG CAP PO PRN (16:52)
[2023-12-12] MEDS: ASCORBIC ACID 500 MG TAB PO SCH (17:52)
[2023-12-12] MEDS: SODIUM CHLORIDE 0.9% 1,000 ML IV SCH (18:48)
--- NOTE | 2023-12-12 19:43 | Hospitalist Progress Note ---
Date of Service December 12, 2023 Assessment & Plan (1) Right hip pain: Plan: S/p total hip replacement 12/[address] Samuels, PT/OT ordered, likely to need inpatient rehabilitation on discharge Needs post operative VTE prophylaxis - will defer this to orthopedics to start tomorrow Gram stain of aspiration 12/11 with no organisms or white blood cells and no growth to date on culture. Fluid analysis suggests hemarthrosis rather than infection. Blood cultures negative at 48 hours Follow-up pathology on femoral head given metastatic gastric adenocarcinoma - although suspected just to be AVN at this time with improving mediastinal and bilateral hilar lymph nodes decreasing on last PET/CT in May 2023 (2) Fall: Plan: Secondary to significant necrosis of femoral head (3) Chronic deep vein thrombosis (DVT): Plan: Discussed results of US venous doppler with Dr Smart and vascular surgery. DVT suspected to be chronic therefore no treatment required at this time. Post operative VTE Prophylaxis per orthopedics (4) Ambulatory dysfunction: Plan: -See right hip pain (5) Hyponatremia: Plan: Serum osm 378, Na 27 - inappropriately elevated therefore less likely just tea and toast diet. Initially improved to have surgery using hypertonic saline boluses. Now on NaCl 1g BID. TSH WNL, AM cortisol appropriate ?SIADH - repeat urine osm/Na to make sure improving, can remove fluid restriction at this time and continue NaCl 1g BID (6) GERD (gastroesophageal reflux disease): Plan: -Continue famotidine (7) Normocytic anemia: Plan: Ferritin elevated but iron saturations low. Suspect ferritin raised as acute phase reactant given his CRP is also significantly elevated. Appears to be stable after initial drop Repeat CBC in AM Type and screen sent Transfuse < 7 Repeat with a.m. labs postsurgery (8) Gastric adenocarcinoma: Plan: Diagnosed in 2019, stage IV with distant phoebe metastasis Currently under observation with PET/CT, last one in May 2023 with no evidence of metastatic disease at that time. (9) Degenerative joint disease of right hip: (10) Bilateral edema of lower extremity: Plan: JESS hose - can be used bilaterally. Low suspicion of cellulitis at this time but will continue to monitor No significant protein on UA LFT WNL (11) Avascular necrosis of right femoral head: Plan VTE Prophylaxis - to be determined tomorrow by orthopedics Diet - heart healthy Disposition - continued admission to med/surg, PT/OT ordered, likely to need inpatient rehabilitation on discharge Admission and Anticipated Discharge Date Admission Date: December 10, 2023 Subjective Patient seen post total hip replacement and doing well. Not yet been out of bed. Denies any dizziness, shortness of breath or chest pain. Review of Systems 2 Review of Systems: All systems reviewed & are unremarkable except as noted in HPI & below Physical Exam 2 Constitutional: WD/WN, vitals as above Eyes: + anicteric sclerae; normal pupil size ENMT: external ear and nose normal, oropharynx normal Cardiovascular: Rate/Rhythm: regular rate and regular rhythm Heart Sounds: no murmur Extremities: + pedal edema (2+ pitting edema) Gastrointestinal (Abdomen): normal bowel sounds, soft, nontender, no hepatosplenomegaly Skin: *Photos pre-operative Neurologic: moves all extremities and awake; not confused Psychiatric: A+Ox3, euthymic affect Results & Data Results & Data Vital Signs (Past 12 Hours) Vital Signs Temp Pulse Pulse Resp BP Pulse Ox O2 Del Method 12/12/23 18:49 36.5 C 92 H 16 100/54 L 94 Room Air 12/12/23 17:49 90 16 107/62 93 Room Air 12/12/23 17:14 36.7 C 93 H 16 140/68 95 Nasal Cannula 12/12/23 16:48 36.7 C 81 16 160/81 H 98 Nasal Cannula 12/12/23 16:30 81 16 151/66 H 99 Nasal Cannula 12/12/23 16:15 78 19 144/75 H 100 Nasal Cannula 12/12/23 16:05 37.1 C 83 19 119/85 93 Room Air 12/12/23 15:55 77 15 144/69 H 100 Oxymask 12/12/23 15:45 73 16 143/62 H 100 Oxymask 12/12/23 15:36 36 C L 73 18 136/48 L 100 Oxymask 12/12/23 13:02 36.8 C 96 H 20 155/81 H 92 Room Air 12/12/23 12:22 37.1 C 86 15 150/78 H 94 Room Air O2 Flow Rate 12/12/23 18:49 12/12/23 17:49 12/12/23 17:14 2 12/12/23 16:48 2 12/12/23 16:30 2 12/12/23 16:15 2 12/12/23 16:05 12/12/23 15:55 5 12/12/23 15:45 11 12/12/23 15:36 11 12/12/23 13:02 12/12/23 12:22 PG Care Time/CCT Total # of Minutes Spent Total Time Spent with Patient: Total time spent is greater than 50% in coordination of care (as documented) at patient's floor/unit and/or counseling patient: Coding Level of Care Code 62465 SUB INP/OBS CARE 2/35MIN Diagnoses Right hip pain M25.551 Fall W19.XXXA Chronic deep vein thrombosis (DVT) I82.509 Ambulatory dysfunction R26.2 Hyponatremia E87.1 GERD (gastroesophageal reflux disease) K21.9 Normocytic anemia D64.9 Gastric adenocarcinoma C16.9 Degenerative joint disease of right hip M16.11 Bilateral edema of lower extremity R60.0 Avascular necrosis of right femoral head M87.051
[2023-12-12] MEDS: DOCUSATE SODIUM 100 MG CAP PO SCH (20:18)
[2023-12-12] MEDS: SENNA 8.6 MG TAB PO SCH (20:18)
[2023-12-12] MEDS: SODIUM CHLORIDE 1 GM TABLET PO SCH (20:18)
[2023-12-12] MEDS: ceFAZolin 1000MG 1,000 MG/7.5 ML SYR IV SCH (21:52)
[2023-12-12] MEDS: TRANEXAMIC ACID / 0.7% NACL 1,000 MG/100 ML BAG IV SCH (21:56)
[2023-12-12] MEDS: ACETAMINOPHEN 500 MG TAB PO SCH (21:56)
[2023-12-12] MEDS: traMADol HCL 50 MG TABLET PO PRN (23:55)
[2023-12-13 06:15] LABS: Basophils # (auto) 0.01 K/uL (0.00-0.20); Basophils % (auto) 0.1 %; Hematocrit (blood only) 21.5 % (42.0-52.0); Hemoglobin 7.2 g/dl (14.0-18.0); Immature Granulocytes # (auto) 0.05 K/uL (0.01-0.20); Immature Granulocytes % (auto) 0.6 %; Lymphocytes # (auto) 0.53 K/uL (1.20-3.40); Lymphocytes % (auto) 5.9 %; Mean Corpuscular Hemoglobin 29.8 pg (25.0-34.0); Mean Corpuscular Hgb Conc 33.5 g/dL (32.0-36.0); Mean Corpuscular Volume 88.8 fL (80.0-100.0); Mean Platelet Volume 9.3 fL (9.4-12.4); Monocytes # (auto) 0.56 K/uL (0.11-0.59); Monocytes % (auto) 6.2 %; Neutrophils # (auto) 7.88 K/uL (1.40-6.50); Neutrophils % (auto) 87.2 %; Platelet Count 207 K/uL (130-400); RDW Coefficient of Variation 13.2 % (11.5-14.5); RDW Standard Deviation 43.2 fL (36.4-46.3); Red Blood Count 2.42 M/uL (4.70-6.10); White Blood Count 9.03 K/ul (4.8-10.8)
[2023-12-13 06:29] LABS: BUN Creatinine Ratio 28.5 (10-20); Calcium 7.9 mg/dl (8.6-10.3); Creatinine Clr Calc Pharmacy 42.9 ml/min; Est GFR (African American) 57.7 ml/min; Est GFR (Non-African American) 49.8 ml/min; Magnesium 1.8 mg/dl (1.7-2.4); Potassium 4.2 mmol/L (3.5-5.1)
[2023-12-13 06:33] LABS: ANTI-Xa, UFH(UnfractionatedHep < 0.10 IU/ml (0.3-0.7)
[2023-12-13 06:53] LABS: Polychromasia 1+
--- NOTE | 2023-12-13 07:46 | Surgery Progress Note ---
Date of Service December 13, 2023 Assessment & Plan (1) Avascular necrosis of right femoral head: Plan: 83-year-old gentleman with medical medical comorbidities postop day 1 from a right hybrid total hip replacement done for severe of AVN and secondary DJD. Got multiple other medical issues but doing quite well this morning. He looks as good as I have seen him. He is quite anemic this morning but really without symptoms. Likely give him 1 unit of blood. Plan: 1. DVT prophylaxis including thigh-high teds, SCDs, aspirin twice a day for 6 weeks. 2. PT/OT. Weight-bear as tolerated. He can fully weight-bear on this right leg. Needs to obey hip precautions. 3. Pain control doing okay with current pain regimen. 4. Disposition he is hoping to be discharged to [facility]. From the orthopedic standpoint he is pretty stable. May be best to give him a unit of blood and follow this today but probably should be ready for discharge tomorrow if medically stable. I need to see him back 2 weeks out from surgery date. Any orthopedic questions can recommend [phone] (2) Degenerative joint disease of right hip: (3) Status post right hip replacement: (4) Normocytic anemia: Admission and Anticipated Discharge Date Admission Date: December 10, 2023 Subjective 83-year-old gentleman postop day 1 from a right hybrid total hip replacement done for severe AVN and femoral head collapse. He is doing well this morning. Reports no pain. No chest pain or shortness of breath. Not feeling dizzy or lightheaded. Physical Exam Physical Exam: Physical examination is a pleasant early male. He is sitting up in bed and ta sam some notes. He looks completely comfortable. Awake alert and oriented. Examination of the right hip reveals the dressing be clean dry and intact. His leg lengths are equal. Hips located. He is neurologically intact. Results & Data Vital Signs (Past 12 Hours) Vital Signs Temp Pulse Pulse Resp BP Pulse Ox O2 Del Method 12/13/23 07:16 36.6 C 76 18 109/65 95 Nasal Cannula 12/13/23 04:31 36.4 C L 90 14 124/68 90 Room Air 12/13/23 00:25 36.5 C 98 H 14 116/60 95 Room Air 12/12/23 20:10 Room Air 12/12/23 20:01 37.0 C 86 14 115/59 L 95 Room Air O2 Flow Rate 12/13/23 07:16 2 12/13/23 04:31 12/13/23 00:25 12/12/23 20:10 12/12/23 20:01 Laboratory Results Hemoglobin 7.2. MAC is 21.5. Electrolytes are stable. PG Care Time/CCT Total # of Minutes Spent Total Time Spent with Patient: Total time spent is greater than 50% in coordination of care (as documented) at patient's floor/unit and/or counseling patient: Coding Level of Care Code 31301 Post Operative Follow-Up Diagnoses Avascular necrosis of right femoral head M87.051 Degenerative joint disease of right hip M16.11 Status post right hip replacement Z96.641 Normocytic anemia D64.9
[2023-12-13] MEDS: MULTIVITAMIN TAB PO SCH (08:23)
[2023-12-13] MEDS: TAMSULOSIN HCL 0.4 MG CAP PO SCH (08:26)
[2023-12-13] MEDS: dexAMETHasone 10 MG in SYRINGE 0 ML IV SCH (08:28)
--- NOTE | 2023-12-13 12:42 | Hospitalist Progress Note ---
Date of Service December 13, 2023 Assessment & Plan (1) Right hip pain: Plan: Day 1 S/p total hip arthroplasty Pain is under good control Orthopedics, weightbearing as tolerated Continue physical therapy Plan is for rehab (2) Fall: Plan: Secondary to significant necrosis of femoral head (3) Chronic deep vein thrombosis (DVT): Plan: Discussed results of US venous doppler with Dr Smart and vascular surgery. DVT suspected to be chronic therefore no treatment required at this time. Post operative VTE Prophylaxis per orthopedics (4) Ambulatory dysfunction: Plan: -See right hip pain (5) Hyponatremia: Plan: Now resolved (6) GERD (gastroesophageal reflux disease): Plan: -Continue famotidine (7) Normocytic anemia: Plan: Ferritin elevated but iron saturations low. Suspect ferritin raised as acute phase reactant given his CRP is also significantly elevated. Appears to be stable after initial drop Repeat CBC in AM Type and screen sent Transfuse < 7 Repeat with a.m. labs postsurgery (8) Gastric adenocarcinoma: Plan: Diagnosed in 2019, stage IV with distant phoebe metastasis Currently under observation with PET/CT, last one in May 2023 with no evidence of metastatic disease at that time. (9) Degenerative joint disease of right hip: (10) Bilateral edema of lower extremity: Plan: JESS hose - can be used bilaterally. Low suspicion of cellulitis at this time but will continue to monitor No significant protein on UA LFT WNL (11) Avascular necrosis of right femoral head: Plan VTE Prophylaxis - to be determined tomorrow by orthopedics Diet - heart healthy Disposition -continue physical therapy, patient needs rehab Admission and Anticipated Discharge Date Admission Date: December 10, 2023 Subjective Patient seen and examined, and son by the bedside, he is stable status post hip arthroplasty. States pain is under good control Review of Systems Review of Systems: All systems reviewed are negative, apart from the ones contained in the history. Physical Exam Physical Exam: The patient is awake, alert and oriented 3, well developed and well nourished, normocephalic and atraumatic, lying in bed and in no acute distress. HEENT--PERRL, EOMI, mucous membranes and oropharynx mildly dry Neck--supple. No JVD. No bruits. Thyroid normal, trachea midline, no adenopathy. Heart--normal S1 and S2. No murmurs, rubs or gallops. Lungs--clear bilaterally, no respiratory distress, no accessory muscle use. Abdomen--normal bowel sounds and soft. Extremities--no cyanosis or clubbing. No edema. Dermatologic--normal skin turgor, normal color, no abnormal lymph nodes, no rash. Neurologic--cranial nerves II through XII grossly intact. Rheumatologic--normal range of motion. Psychiatric--normal affect. Results & Data Results & Data Vital Signs (Past 12 Hours) Vital Signs Temp Pulse Resp BP Pulse Ox O2 Del Method O2 Flow Rate 12/13/23 12:02 98.1 F 86 18 122/66 93 Room Air 12/13/23 07:16 97.9 F 76 18 109/65 95 Nasal Cannula 2 12/13/23 04:31 97.5 F L 90 14 124/68 90 Room Air PG Care Time/CCT Total # of Minutes Spent Total Time Spent with Patient: Total time spent is greater than 50% in coordination of care (as documented) at patient's floor/unit and/or counseling patient: Coding Level of Care Code 07024 SUB INP/OBS CARE 2/35MIN Diagnoses Right hip pain M25.551 Fall W19.XXXA Chronic deep vein thrombosis (DVT) I82.509 Ambulatory dysfunction R26.2 Hyponatremia E87.1 GERD (gastroesophageal reflux disease) K21.9 Normocytic anemia D64.9 Gastric adenocarcinoma C16.9 Degenerative joint disease of right hip M16.11 Bilateral edema of lower extremity R60.0 Avascular necrosis of right femoral head M87.051 Time Spent (min) 35
[2023-12-13] MEDS ORDERED: SODIUM CHLORIDE 0.9% 250 ML IV PRN (13:57)
[2023-12-13] MEDS: HEPARIN SOD 5,000 UNIT/0.5 ML VIAL SQ SCH (15:16)
[2023-12-13] MEDS ORDERED: Nursing to Pharmacy Communication SCH (17:30)
[2023-12-13] MEDS: FAMOTIDINE 20 MG TAB PO SCH (17:43)
[2023-12-13] MEDS: IRON POLYSACCHARIDE COMPLEX 150 MG CAPSULE PO SCH (20:49)
[2023-12-13] MEDS: APIXABAN 2.5 MG TAB PO SCH (20:49)
[2023-12-14 06:39] LABS: Hematocrit (blood only) 23.8 % (42.0-52.0); Hemoglobin 8.4 g/dl (14.0-18.0); Mean Corpuscular Hemoglobin 30.2 pg (25.0-34.0); Mean Corpuscular Hgb Conc 35.3 g/dL (32.0-36.0); Mean Corpuscular Volume 85.6 fL (80.0-100.0); Mean Platelet Volume 9.3 fL (9.4-12.4); Platelet Count 248 K/uL (130-400); RDW Coefficient of Variation 13.6 % (11.5-14.5); RDW Standard Deviation 42.5 fL (36.4-46.3); Red Blood Count 2.78 M/uL (4.70-6.10)
[2023-12-14 07:50] LABS: ANTI-Xa, UFH(UnfractionatedHep 0.28 IU/ml (0.3-0.7)
--- NOTE | 2023-12-14 08:12 | Surgery Progress Note ---
Date of Service December 14, 2023 Assessment & Plan (1) Status post right hip replacement: Plan: 83-year-old gentleman postop day 2 from a right cemented bipolar hip arthroplasty for severe AVN. Got multiple other medical comorbidities. He is doing well. Pain is controlled. His hemoglobin is improved. Hips located. He is neurologically intact. Appears stable. Plan: 1. DVT prophylaxis including thigh-high teds, SCDs, Eliquis at a prophylactic dose for 1 month. 2. PT/OT. Weight-bear as tolerated. Total hip precautions. He can fully weight-bear on the right leg. 3. Medical management as per the medicine service. 4. Pain control doing well with current pain regimen. Really reports minimal pain. 5. Disposition he is orthopedically okay for discharge anytime medically stable. Believe he is can go to [facility]. (2) Avascular necrosis of right femoral head: (3) Normocytic anemia: Admission and Anticipated Discharge Date Admission Date: December 10, 2023 Subjective 83-year-old gentleman postop day 2 from a right cemented hip replacement done for AVN and collapse. He is doing well. Denies any real hip pain. No other complaints. Not feeling dizzy or lightheaded. No chest pain or shortness of breath. Physical Exam Physical Exam: Physical examination is a pleasant elderly male. He is sitting up in bed and eating his breakfast looks comfortable. Examination of the right hip reveals the leg lengths are equal. Dressings clean dry and intact. Thigh is soft and supple. He can dorsiflex and plantarflex his foot appropriately. Results & Data Vital Signs (Past 12 Hours) Vital Signs Temp Pulse Resp BP Pulse Ox O2 Del Method 12/14/23 07:24 36.6 C 84 18 143/67 H 97 Room Air 12/14/23 03:00 36.4 C L 79 16 136/70 98 Room Air 12/13/23 23:00 36.6 C 88 16 138/80 95 Room Air 12/13/23 20:50 Room Air Laboratory Results Hemoglobin is 8.4. Hematocrit 34.8. PG Care Time/CCT Total # of Minutes Spent Total Time Spent with Patient: Total time spent is greater than 50% in coordination of care (as documented) at patient's floor/unit and/or counseling patient: Coding Level of Care Code 53683 Post Operative Follow-Up Diagnoses Status post right hip replacement Z96.641 Avascular necrosis of right femoral head M87.051 Normocytic anemia D64.9
--- NOTE | 2023-12-14 11:30 | Hospitalist Progress Note ---
Date of Service December 14, 2023 Assessment & Plan (1) Right hip pain: Plan: Day 2 S/p total hip arthroplasty Pain is under good control Orthopedics, weightbearing as tolerated Continue physical therapy, do recommend SNF Continue postop DVT prophylaxis with apixaban 2.5 mg twice daily (2) Fall: Plan: Secondary to significant necrosis of femoral head (3) Chronic deep vein thrombosis (DVT): Plan: Discussed results of US venous doppler with Dr Smart and vascular surgery. DVT suspected to be chronic therefore no treatment required at this time. Apixaban 2.5 mg twice daily (4) Ambulatory dysfunction: Plan: -See right hip pain (5) Hyponatremia: Plan: Now resolved (6) GERD (gastroesophageal reflux disease): Plan: -Continue famotidine (7) Normocytic anemia: Plan: Ferritin elevated but iron saturations low. Suspect ferritin raised as acute phase reactant given his CRP is also significantly elevated. Appears to be stable after initial drop Repeat CBC in AM Type and screen sent Transfuse < 7 Repeat with a.m. labs postsurgery (8) Gastric adenocarcinoma: Plan: Diagnosed in 2019, stage IV with distant phoebe metastasis Currently under observation with PET/CT, last one in May 2023 with no evidence of metastatic disease at that time. (9) Degenerative joint disease of right hip: (10) Bilateral edema of lower extremity: Plan: JESS hose - can be used bilaterally. Low suspicion of cellulitis at this time but will continue to monitor No significant protein on UA LFT WNL (11) Avascular necrosis of right femoral head: Plan VTE Prophylaxis -apixaban 2.5 mg twice daily Diet - heart healthy Disposition -continue physical therapy, patient needs rehab Admission and Anticipated Discharge Date Admission Date: December 10, 2023 Subjective Patient seen and examined, lying quietly in bed, he is day 2 status post hip arthroplasty, participating in physical therapy, awaiting SNF Review of Systems Review of Systems: All systems reviewed are negative, apart from the ones contained in the history. Physical Exam Physical Exam: The patient is awake, alert and oriented 3, well developed and well nourished, normocephalic and atraumatic, lying in bed and in no acute distress. HEENT--PERRL, EOMI, mucous membranes and oropharynx mildly dry Neck--supple. No JVD. No bruits. Thyroid normal, trachea midline, no adenopathy. Heart--normal S1 and S2. No murmurs, rubs or gallops. Lungs--clear bilaterally, no respiratory distress, no accessory muscle use. Abdomen--normal bowel sounds and soft. Extremities--no cyanosis or clubbing. No edema. Dermatologic--normal skin turgor, normal color, no abnormal lymph nodes, no rash. Neurologic--cranial nerves II through XII grossly intact. Rheumatologic--normal range of motion. Psychiatric--normal affect. Results & Data Results & Data Vital Signs (Past 12 Hours) Vital Signs Temp Pulse Resp BP Pulse Ox O2 Del Method 12/14/23 07:24 97.9 F 84 18 143/67 H 97 Room Air 12/14/23 03:00 97.5 F L 79 16 136/70 98 Room Air PG Care Time/CCT Total # of Minutes Spent Total Time Spent with Patient: Total time spent is greater than 50% in coordination of care (as documented) at patient's floor/unit and/or counseling patient: Coding Level of Care Code 93374 SUB INP/OBS CARE 2/35MIN Diagnoses Right hip pain M25.551 Fall W19.XXXA Chronic deep vein thrombosis (DVT) I82.509 Ambulatory dysfunction R26.2 Hyponatremia E87.1 GERD (gastroesophageal reflux disease) K21.9 Normocytic anemia D64.9 Gastric adenocarcinoma C16.9 Degenerative joint disease of right hip M16.11 Bilateral edema of lower extremity R60.0 Avascular necrosis of right femoral head M87.051 Time Spent (min) 35
[2023-12-15 06:34] LABS: Basophils # (auto) 0.02 K/uL (0.00-0.20); Basophils % (auto) 0.3 %; Eosinophils # (auto) 0.15 K/uL (0.00-0.50); Hematocrit (blood only) 23.2 % (42.0-52.0); Hemoglobin 7.8 g/dl (14.0-18.0); Immature Granulocytes % (auto) 1.3 %; Lymphocytes # (auto) 1.54 K/uL (1.20-3.40); Lymphocytes % (auto) 20.6 %; Mean Corpuscular Hemoglobin 29.9 pg (25.0-34.0); Mean Corpuscular Hgb Conc 33.6 g/dL (32.0-36.0); Mean Corpuscular Volume 88.9 fL (80.0-100.0); Mean Platelet Volume 9.2 fL (9.4-12.4); Monocytes # (auto) 0.55 K/uL (0.11-0.59); Monocytes % (auto) 7.3 %; Neutrophils # (auto) 5.13 K/uL (1.40-6.50); Neutrophils % (auto) 68.5 %; Platelet Count 251 K/uL (130-400); RDW Standard Deviation 45.7 fL (36.4-46.3); Red Blood Count 2.61 M/uL (4.70-6.10); White Blood Count 7.49 K/ul (4.8-10.8)
[2023-12-15 06:45] LABS: BUN Creatinine Ratio 28.3 (10-20); Creatinine Clr Calc Pharmacy 46.5 ml/min; Est GFR (African American) 63.5 ml/min; Est GFR (Non-African American) 54.8 ml/min; Potassium 3.8 mmol/L (3.5-5.1)
[2023-12-15 07:03] LABS: Polychromasia 1+
[2023-12-15 07:27] LABS: ANTI-Xa, UFH(UnfractionatedHep 0.34 IU/ml (0.3-0.7)
--- NOTE | 2023-12-15 10:37 | Surgery Progress Note ---
Date of Service December 15, 2023 Assessment & Plan (1) Status post right hip replacement: Plan: 83-year-old gentleman now postop day 3 from right hybrid total hip replacement done for severe AVN. He has done well orthopedically. His pain is controlled. Hips located. He is neurologically intact. He has been anemic but he is chronically anemic to some degree and asymptomatic. Plan: 1. DVT prophylaxis including thigh-high teds, SCDs, Eliquis at a prophylactic dose for 1 month. 2. PT/OT. Weight-bear as tolerated right total hip protocol. 3. Pain control doing okay with current pain regimen. Really not have much pain to speak. 4. Disposition he is orthopedically okay for discharge anytime medically stable. He is hoping to go to [facility]. Admission and Anticipated Discharge Date Admission Date: December 10, 2023 Subjective 83-year-old gentleman postop day 3 from a right hybrid total hip replacement. He is doing pretty well. He has not really had much in the way of pain at all since the surgery. Said a little bit of a low hemoglobin date asymptomatic. Denies any chest pain or shortness of breath. Not feeling dizzy or lightheaded. He is hoping to go back to [facility]. Physical Exam Physical Exam: Physical exam shows a pleasant elderly male. Sitting up in his bedside chair looks comfortable this morning. Examination of the right hip and leg reveals the dressing be clean dry and intact. Thigh is soft and supple. Leg lengths are equal. He can dorsiflex and plantarflex his foot appropriately. He is got persistent but stable edema in both lower extremities. Nothing new. Results & Data Vital Signs (Past 12 Hours) Vital Signs Temp Pulse Resp BP Pulse Ox O2 Del Method 12/15/23 08:23 36.4 C L 93 H 18 155/74 H 91 Room Air 12/15/23 05:22 36.6 C 78 18 134/75 94 Room Air 12/15/23 00:21 36.7 C 75 16 133/73 96 Room Air Laboratory Results Hemoglobin is 7.8. Hematocrit is 23.2. Electrolytes are stable. PG Care Time/CCT Total # of Minutes Spent Total Time Spent with Patient: Total time spent is greater than 50% in coordination of care (as documented) at patient's floor/unit and/or counseling patient: Coding Level of Care Code 52651 Post Operative Follow-Up Diagnoses Status post right hip replacement Z96.641
--- NOTE | 2023-12-15 12:15 | Discharge Summary ---
Date of Service December 15, 2023 Admission HPI Per Admitting Provider Juan Antonio is an 83 year old male with a PMH significant for metastatic gastric adenocarcinoma S/P chemotherapy (currently on surveillance), lumbar spinal stenosis, and GERD who presented to the [facility] ED on 12/10/23 after sustaining a fall at home with resultant right hip pain. He remained stable in the ED. Labs were significant for a sodium of 127, and chloride of 95. Xray of the right hip and BL pelvis was read as "Likely impacted fracture of the right femoral head and neck.". Prior to admission the patient was given 1gm IV tylenol and a total of 6 mg IV morphine. At the time of the exam the patient was lying in bed in no acute distress with his bedside. The patient was drowsy due to recent dose of morphine given in the ED. They explain that the patient had been scheduled for right hip replacement with Dr. Samuels on 12/16/23 due to severe right hip arthritis. His ambulation has been difficult recently due to pain, he had been using a walker. Last night, while walking in their hallway the patient's foot hit the edge of the wall, causing him to fall. He denies lightheadedness/dizziness, chest pain, or SOB prior to the fall but states that he did feel a bit "loopy" due to taking oxycodone at home. He did not lose consciousness or hit his head. His pain progressed throughout the night causing ED evaluation this am. When asked, the patient states that his appetite has been poor recently due to pain and oxycodone. They deny the patient having recent fever, chills, headache, neck/back pain, chest pain, SOB, abd pain, nausea, vomiting, diarrhea, dysuria, hematuria, and melena. He is a full code and his is his POA if he cannot make decisions himself. Principal Diagnosis Status post hip arthroplasty Discharge Exam The patient is awake, alert and oriented 3, well developed and well nourished, normocephalic and atraumatic, lying in bed and in no acute distress. HEENT--PERRL, EOMI, mucous membranes and oropharynx mildly dry Neck--supple. No JVD. No bruits. Thyroid normal, trachea midline, no adenopathy. Heart--normal S1 and S2. No murmurs, rubs or gallops. Lungs--clear bilaterally, no respiratory distress, no accessory muscle use. Abdomen--normal bowel sounds and soft. Extremities--no cyanosis or clubbing. No edema. Dermatologic--normal skin turgor, normal color, no abnormal lymph nodes, no rash. Neurologic--cranial nerves II through XII grossly intact. Rheumatologic--normal range of motion. Psychiatric--normal affect. Discharge Data Allergies Allergy/AdvReac Type Severity Reaction Status Date / Time gabapentin AdvReac Intermediate Hallucinati Verified 12/10/23 15:21 ng pregabalin [From Lyrica] AdvReac Intermediate Dizziness Verified 12/10/23 15:21 Consultations 12/10/23 14:59 ED Decision to Admit Stat 12/10/23 16:44 Consult Orthopedic Surgery Routine 12/11/23 08:42 Consult Vascular Surgery Routine Procedures Performed Operation Date: 12/12/23 13:30 Actual Procedures p Right Total Hip Arthroplasty Cemented(Right) - Dave Samuels MD Ordered Studies 12/10/23 16:08 CT pelvis wo con Stat 12/10/23 17:41 US venous doppler LE BI Urgent 12/11/23 IR inj majr joint sh,hip,kn RT Stat Hospital Course (1) Right hip pain: Day 3 S/p total hip arthroplasty Pain is under good control Orthopedics, weightbearing as tolerated Continue physical therapy, do recommend SNF Continue postop DVT prophylaxis with apixaban 2.5 mg twice daily (2) Fall: Secondary to significant necrosis of femoral head (3) Chronic deep vein thrombosis (DVT): Discussed results of US venous doppler with Dr Smart and vascular surgery. DVT suspected to be chronic therefore no treatment required at this time. Apixaban 2.5 mg twice daily (4) Ambulatory dysfunction: -See right hip pain (5) Hyponatremia: Now resolved (6) GERD (gastroesophageal reflux disease): -Continue famotidine (7) Normocytic anemia: Ferritin elevated but iron saturations low. Suspect ferritin raised as acute phase reactant given his CRP is also significantly elevated. Appears to be stable after initial drop Repeat CBC in AM Type and screen sent Transfuse < 7 Repeat with a.m. labs postsurgery (8) Gastric adenocarcinoma: Diagnosed in 2019, stage IV with distant phoebe metastasis Currently under observation with PET/CT, last one in May 2023 with no evidence of metastatic disease at that time. (9) Degenerative joint disease of right hip: (10) Bilateral edema of lower extremity: JESS hose - can be used bilaterally. Low suspicion of cellulitis at this time but will continue to monitor No significant protein on UA LFT WNL (11) Avascular necrosis of right femoral head: Plan VTE Prophylaxis -apixaban 2.5 mg twice daily Diet - heart healthy Disposition -discharge to SNF Total Time Total Time Spent Total Time Spent (In Minutes): 35 Discharge Plan Discharge Items Patient Disposition: Transfer Long-Term Fac Reason For Visit: FALL, RIGHT HIP PAIN, AMBULATORY DYSFUNCTION Discharge Diagnosis: Right Hip Replacement Condition on Discharge: Fair Activity: Per Instructions section Activity Comment: Follow/Obey hip precautions at all times. Weightbearing: Full weightbearing Weightbearing Comment: Weightbear as tolerated obeying hip precautions at all times. Non-emergency contact: Surgeon Call non-emergency contact if: you have any medication questions Follow-up/Referrals: William Huynh MD [Primary Care Provider] - Diet: Regular Addtl Attending Provider Instructions: ACTIVITY RECOMMENDATIONS: Physical Therapy: * Aggressive physical therapy is not usually needed. You will learn to take care of yourself safely and walk. * Follow the "Hip Precautions Instructions." * In some cases, the social psychologist at the hospital will arrange to have a therapist come to your house for the first couple of weeks to help you learn these skills. * You need to practice on your own or with the help of a family member as needed. * When you learn these skills, most of the therapy can be done on your own. Home Exercise: * You were shown a series of exercises in the hospital. Do these exercises three to four times each day including the exercises you were shown in physical therapy. Walking: * Get up and walk several times each day. For the first four weeks, try not to stand or walk for more than one hour at a time. If you do stand or walk for more than one hour, you will not hurt anything, but your leg will likely swell. * As you feel comfortable, you may change from the walker or crutches to a cane and then to independent walking. MEDICATIONS: New Medicine: * You will likely be taking one or more of these medicines: 1. Tramadol - Take, as directed, when you need it, every six hours to control your pain. 2. Eliquis - Thins your blood to lessen the chance of forming a blood clot. * The most common side effects of pain medicine and iron are nausea and constipation. If nausea or constipation is too much of a problem or if you have any questions about your new medicines or doses, call [facility] at [phone]. We will try to help you manage these issues. "VERY IMPORTANT TO READ AND REVIEW" Pain: * The immediate post-operative period after hip replacement surgery is often quite painful. * You are given a prescription for pain medicine. You should take it, as directed, when you need it, especially before physical therapy and before going to bed. Pain that interferes with sleep is very common and can last several months. * You will likely need pain medicine for the first two to four weeks. It will not stop all of the pain. The pain will lessen and as you feel better, you may change to milder pain medicine such as Tylenol. * The most common side effects of pain medicine are nausea and constipation, so don't take more than you need. SPECIAL CARE INSTRUCTIONS: TEDs/Elastic Stockings: * The white elastic stockings help limit swelling and prevent blood clots from forming in your legs. The more you wear them, the more they work. * Wear them for six weeks. Incision Site Care: * Remove dressing postoperative day 2 and then shower. Keep direct shower pressure off the incision site. * After showering, cover phuong with dry gauze and change daily or more frequently if the dressing is getting saturated with drainage. * May completely stop using bandage if wound is dry and no drainage * Phuong are removed between 2 and 3 weeks post-op. If your follow-up appointment is made before 2 weeks, please have your appointment re- scheduled. It is too early to remove the phuong. Prevention of Infection: * Take antibiotics one hour before any dental cleaning, dental work, urological procedure, gastrointestinal procedure or any invasive surgery in order to prevent your new joint from getting infected. * You may get the antibiotics from the doctor performing the procedure or you may call our office at before and we will call in a prescription to the pharmacy of your choice. Things to Watch For: * Drainage from the incision site that occurs more than one week after your surgery. * Severely increased leg pain or swelling. * Increased redness at the incision site. * Fever above 102 degrees Fahrenheit. * Unusual chest pain or shortness of breath. * Unusual pain or burning with urination. Call [facility] at with any of the above problems or if you have any questions about your medicines or recovery. FOLLOW UP VISIT: Make an appointment to see your doctor for approximately two weeks after surgery for a progress check and staple removal by calling the office at . Pending Studies at Discharge: No Stand-Alone Forms: My [facility] Skilled Items Patient informed of condition?: Yes DNR: No Discharge Level of Care: Skilled Communicable Disease: No Discharge Prognosis: Improving Lines: None Urinary Catheter: No Medications and DC Order Prescriptions: New Eliquis 2.5 mg Tablet 2.5 mg PO BID 30 Days Qty: 60 0RF Continued polysaccharide iron complex [Ferrex 150] 150 mg iron capsule 150 mg PO QPM Healthy Heart Complex [id number] tablet 1 tab PO HS fluocinonide 0.05 % solution 1 applic topical UD PRN (Reason: scalp) multivitamin Tablet 1 tab PO QAM famotidine [Pepcid] 20 mg tablet 20 mg PO BID acetaminophen 500 mg Capsule 1,000 mg PO Q6H PRN (Reason: Pain) Patient Comments: takes TID every day oxycodone 5 mg Tablet 5 mg PO Q4H PRN (Reason: Pain) calcitriol 0.25 mcg capsule 0.25 mcg PO QPM Patient Comments: w/vitamin D3 cholecalciferol (vitamin D3) 25 mcg (1,000 unit) capsule 25 mcg PO QPM Discharge Orders: Discharge Order (Routine); Ordered 12/15/23 Ordered By: Wilda Salvador Admission Data Admit Date/Time: 12/10/23 16:19 Attending Provider: Wilda Salvador Admit Provider: Evangelist Claros Primary Care Provider: William Huynh Other Providers: William Huynh; Evangelist Claros; Dave Samuels; Ever Longo Coding Level of Care Code 55209 INP/OBS DISCH >30 MIN Diagnoses Right hip pain M25.551 Fall W19.XXXA Chronic deep vein thrombosis (DVT) I82.509 Ambulatory dysfunction R26.2 Hyponatremia E87.1 GERD (gastroesophageal reflux disease) K21.9 Normocytic anemia D64.9 Gastric adenocarcinoma C16.9 Degenerative joint disease of right hip M16.11 Bilateral edema of lower extremity R60.0 Avascular necrosis of right femoral head M87.051 Time Spent (min) 35
== END 2023-12-15 15:30 | DRG 470 ==
LOC: ED 13:05 → SUATTDRO 16:19 → EDINP 16:19 → 3N 16:47

== ENCOUNTER 2025-06-07 14:33 | Inpatient (IN) ==
[2025-06-07 16:03] LABS: Hematocrit (blood only) 30.1 % (42.0-52.0); Hemoglobin 10.1 g/dl (14.0-18.0); Immature Granulocytes # (auto) 0.02 K/uL (0.01-0.20); Immature Granulocytes % (auto) 0.3 %; Mean Corpuscular Hemoglobin 30.8 pg (25.0-34.0); Mean Corpuscular Volume 91.8 fL (80.0-100.0); Platelet Count 222 K/uL (130-400); RDW Standard Deviation 44.9 fL (36.4-46.3); Red Blood Count 3.28 M/uL (4.70-6.10); White Blood Count 6.81 K/ul (4.8-10.8)
[2025-06-07 16:18] LABS: Alanine Aminotransferase 23.0 U/L (7-52); Albumin Globulin Ratio 1.4 (0.9-2); Alkaline Phosphatase 72.0 U/L (34-104); Anion Gap 5.0 (3-11); Bilirubin,Total 0.4 mg/dl (0.2-1.0); Blood Urea Nitrogen 50.0 mg/dl (6-23); Calcium 8.8 mg/dl (8.6-10.3); Carbon Dioxide 27.0 mmol/L (21-32); Chloride 106.0 mmol/L (98-107); Creatinine Clr Calc Pharmacy 29.1 ml/min; Globulin 2.6 gm/dl (2.5-4.0); Glucose 86.0 mg/dl (70-99(Fasting)); Potassium 4.9 mmol/L (3.5-5.1); Sodium 138.0 mmol/L (136-145); Total Protein 6.3 gm/dl (6.0-8.3)
--- NOTE | 2025-06-07 16:43 | Emergency Department Note ---
History of Present Illness General Chief complaint: Infection Stated complaint: LT LEG INFECTED Time Seen by Provider: 06/07/25 16:24 History of Present Illness Maximum Pain Intensity: 2 This is an 85-year-old male that presents to the emergency department via private vehicle with complaints of "left leg infection". The patient notes that he was here on 05/28/2025 and had a left leg laceration repaired. Per review of the EMR this was a 17 cm laceration receiving 20, 3-0 nylon sutures in a simple rapid fashion. 5 days ago he was prescribed oral antibiotics noting concern for developing infection and presents today referred by physician noting signs of worsening infection. Current pain 2/10. No fevers or chills. No nausea or vomiting. He was compliant with the oral doxycycline over the past 5 days as prescribed by his physician. He does note some drainage from the wound and arrives with a dressing on the wound at this time. Home Medications Medication Instructions Recorded Confirmed Type famotidine 20 mg tablet (Pepcid) 20 mg PO BID 09/21/21 06/07/25 History calcitriol 0.25 mcg capsule 0.25 mcg PO QDL 12/09/24 06/07/25 History dorzolamide 2 % eye drops 1 drp OPR BID 05/28/25 06/07/25 History doxycycline hyclate 100 mg capsule 100 mg PO BID 06/07/25 06/07/25 History Allergies Allergy/AdvReac Type Severity Reaction Status Date / Time gabapentin AdvReac Intermediate Hallucinati Verified 05/28/25 14:31 ng pregabalin [From Lyrica] AdvReac Intermediate Dizziness Verified 05/28/25 14:31 Past Med/Surg History Problem List (Updated 06/07/25 @ 21:30 by Sarina Post MD) Chronic kidney disease Chronic deep vein thrombosis (DVT) Gastric cancer Anemia Aortic stenosis Cellulitis Cellulitis of left lower extremity (Acute) Laceration of left leg (Acute) SOM (acute kidney injury) (Acute) Post surgical complication Fatigue (Acute) Bilateral edema of lower extremity (Acute) Dyspnea (Acute) Pedal edema Sensorineural hearing loss, bilateral 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 Bilateral edema of lower extremity Chronic deep vein thrombosis (DVT) Normocytic anemia Greater trochanteric pain syndrome Lumbar degenerative disc disease Lumbar radiculopathy Decreased hearing of right ear Hearing loss Post herpetic neuralgia CKD (chronic kidney disease) First degree atrioventricular block by electrocardiogram RBBB (right bundle branch block) wore a holter monitor 07/2022- followed w/ Dr Martinez for results Anemia (Acute) Secondary hyperparathyroidism Hepatic cyst Gastric adenocarcinoma (Acute) hx GERD (gastroesophageal reflux disease) Osteopenia Hyperlipidemia Carotid artery plaque "mild carotid plaque and normal velocity" per 2015 PCP records (unable to obtain official imaging) Medical History Sudden-onset sensorineural hearing loss Lumbar spinal stenosis History of syncope - 06/2022, had episode of fall/syncope- seen by neuro at [facility] 07/01/22- "believe this patient had a syncopal event ( cardiovascular in origin ), had closed head trauma and brief concussion, with some brief secondary seizure activity." No need for additional neurological testing or anticonvulsants; EEG normal - No recurrence of issues since that time (possibly dehydrated per patient) Osteopenia Hyperlipidemia History of basal cell carcinoma s/p excision (in office) Carotid artery plaque "mild carotid plaque and normal velocity" per 2015 PCP records Ambulates with cane History of right bundle branch block (RBBB) [place] cardio 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, chemo and immunotherapy tx only (11/2019-04/18/21) Mild aortic stenosis Per 11/2023 echo CKD (chronic kidney disease) Chronic anemia iron daily SBO (small bowel obstruction) Hx- during chemo Hepatic cyst Acid reflux Well controlled and stable 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 (until 03/2021) Deafness in left ear bilat hearing aids History of actinic keratosis Surgical History History of total right hip replacement History of esophagogastroduodenoscopy (EGD) Hx of detached retina repair Hx of oral surgery (10/01/22) Open Reduction of Lefort II Fracture(Not Applicable) - Leland Dimas, DMD able to open mouth entire way History of Mohs micrographic surgery for skin cancer Port-A-Cath in place (11/29/19) bard power port--left cephalic vein--currently in place History of tonsillectomy History of colonoscopy History of tooth extraction History of bilateral cataract extraction S/P appendectomy S/P tonsillectomy Family History Mother , age 60 colon cancer Colon cancer Colorectal cancer Grandfather (Maternal) Myocardial infarction Grandfather Colorectal cancer Father , age 77 of heart disease Heart disease Other Hearing loss No family history of adverse response to anesthesia No family history of bleeding disorder Denies family history of Ovarian cancer Prostate cancer Breast cancer Social History Smoking Status: Never smoker Second Hand Exposure: No; Do You Dip or Chew Tobacco: No; Hx Alcohol Use: Yes Alcohol type: wine Alcohol Intake Frequency: 2-3 x/Week Alcohol Intake Frequency Comment: 1 glass with dinner 4 times a week Hx Substance Use: No Preferred Language: Bhutanese Communication Ability: Effective Visual Impairment: No Limitations Hearing Ability: Normal Tube Mounter Required: No Beliefs That Will Affect Care: None marital status: Current Living Situation: Spouse Current Living Situation Comment: lives at [facility] with current occupational status: retired 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 [employer] Other Information That Helps Us Care for You: No Feels Safe at Home: Yes Safety Concerns: Feels Safe At This Time Childhood Exposure to Second-Hand Smoke: No Diet: other and regular Diet Comment: mediterranean diet caffeine: Yes (2-3 large cups tea daily) Dental Care, Regularly: Yes Physical Activity Frequency: 5-6 Times per Week Seatbelt Use: always Sunscreen Use: Yes Do you think of yourself as: straight/heterosexual Gender Identity: Male Assistive Devices: Cane Review of Systems A total of 10 systems reviewed and were otherwise negative Physical Exam Vital Signs Vital Signs - 24 hr 06/07/25 18:00 06/07/25 20:00 Pulse Rate [Finger] 64 67 Respiratory Rate 16 16 Respiratory Effort / Characteristics Non-Labored Spontaneous Non-Labored Spontaneous Respiratory Depth Normal Normal Blood Pressure [Right Arm] 146/81 H 156/77 H Blood Pressure Mean [Right Arm] 102 103 Pulse Oximetry 100 97 Oxygen Delivery Method Room Air Room Air VITAL SIGNS - Vital signs and nursing notes were reviewed. Stable and afebrile. GENERAL -85-year-old male appearing his stated age who is in no acute distress. Communicates well with provider and answers questions appropriately. SKIN -large area of erythema and edema to the left lower extremity focused around a sutured wound. Please see picture above. Sutures are in place. Wound is well-approximated. Small amount of yellowish drainage noted from the wound channel. No crepitus. HEAD - NC/AT. EYES - Sclera anicteric. LUNGS - CTA CARDIAC - RRR EXTREMITIES - No clubbing or peripheral cyanosis. Skin as above. There is no crepitus. Left lower extremity well-perfused. Increased warmth around the wound noted. +5/5 strength noted in UE/LE bilaterally. NEUROLOGIC - Cranial nerves grossly intact. Left lower extremity sensory intact to light touch. PSYCH -alert, oriented and pleasant on exam Course Administered Medications Acetaminophen (Acetaminophen 325 Mg Tab) 650 mg PO Q4H PRN PRN Reason: pain/fever Stop: 07/07/25 22:30 Last Admin: 06/08/25 08:19 Dose: 650 mg Documented By: ROSANNA Dorzolamide HCl (Dorzolamide Hcl 2% Oph Soln 10 Ml Btl) 1 drops OPR BID [facility] Stop: 07/07/25 20:59 Last Admin: 06/08/25 08:12 Dose: 1 drops Documented By: Admin: 06/07/25 23:11 Dose: 1 drops Documented By: AILEEN Famotidine (Famotidine 20 Mg Tab) 20 mg PO BID [facility] Stop: 07/07/25 20:59 Last Admin: 06/08/25 08:19 Dose: 20 mg Documented By: Admin: 06/07/25 21:36 Dose: 20 mg Documented By: EDMOND Heparin Sodium (Porcine) (Heparin Sod 5,000 Unit/0.5 Ml Vial) 5,000 units SQ Q12 [facility] Stop: 07/07/25 22:30 Last Admin: 06/08/25 08:19 Dose: 5,000 units Documented By: Admin: 06/07/25 23:19 Dose: 5,000 units Documented By: AILEEN Piperacillin Sod/Tazobactam Sod (Zosyn) 4.5 gm in 100 mls @ 25 mls/hr IV Q8H [facility]; Protocol Stop: 06/15/25 00:00 Last Admin: 06/08/25 16:35 Dose: 25 mls/hr Documented By: Infusion: 06/08/25 13:07 Dose: Infused Documented By: Admin: 06/08/25 08:14 Dose: 25 mls/hr Documented By: Infusion: 06/08/25 03:41 Dose: Infused Documented By: Admin: 06/07/25 23:36 Dose: 25 mls/hr Documented By: AILEEN Discontinued Medications Acetaminophen (Acetaminophen 325 Mg Tab) 650 mg PO NOW STA Stop: 06/07/25 21:37 Last Admin: 06/07/25 21:37 Dose: 650 mg Documented By: EDMOND Doxycycline Hyclate (Doxycycline Hyclate 100 Mg Cap) 100 mg PO BID [facility] Stop: 06/14/25 22:30 Last Admin: 06/08/25 08:12 Dose: 100 mg Documented By: Admin: 06/07/25 23:11 Dose: 100 mg Documented By: AILEEN Piperacillin Sod/Tazobactam Sod (Zosyn) 4.5 gm in 100 mls @ 200 mls/hr IV NOW ONE; Protocol Stop: 06/07/25 17:37 Last Infusion: 06/07/25 19:28 Dose: Infused Documented By: Admin: 06/07/25 18:03 Dose: 200 mls/hr Documented By: EDMOND Medical Decision Making Laboratory Data 06/08/25 06:49 06/08/25 06:49 Lab Results 06/07/25 06/07/25 Range/Units 15:40 18:02 WBC 6.81 (4.8-10.8) K/ul RBC 3.28 L (4.70-6.10) M/uL Hgb 10.1 L (14.0-18.0) g/dl Hct 30.1 L (42.0-52.0) % MCV 91.8 (80.0-100.0) fL MCH 30.8 (25.0-34.0) pg MCHC 33.6 (32.0-36.0) g/dL RDW Std Deviation 44.9 (36.4-46.3) fL RDW Coeff of Jf 13.2 (11.5-14.5) % Plt Count 222 (130-400) K/uL MPV 10.0 (9.4-12.4) fL Immature Gran % (Auto) 0.3 % Neut % (Auto) 63.7 % Lymph % (Auto) 19.2 % Craig % (Auto) 14.4 % Eos % (Auto) 2.1 % Baso % (Auto) 0.3 % Neut # (Auto) 4.34 (1.40-6.50) K/uL Lymph # (Auto) 1.31 (1.20-3.40) K/uL Craig # (Auto) 0.98 H (0.11-0.59) K/uL Eos # (Auto) 0.14 (0.00-0.50) K/uL Baso # (Auto) 0.02 (0.00-0.20) K/uL Immature Gran # (Auto) 0.02 (0.01-0.20) K/uL Sodium 138 (136-145) mmol/L Potassium 4.9 (3.5-5.1) mmol/L Chloride 106 (98-107) mmol/L Carbon Dioxide 27 (21-32) mmol/L Anion Gap 5 (3-11) BUN 50 H (6-23) mg/dl Creatinine 1.78 H (0.6-1.4) mg/dl Est Cr Clr Drug Dosing 29.1 ml/min eGFR 36.47 BUN/Creatinine Ratio 28.1 H (10-20) Glucose 86 (70-99(Fasting)) mg/dl Calcium 8.8 (8.6-10.3) mg/dl Total Bilirubin 0.4 (0.2-1.0) mg/dl AST 29 (13-39) U/L ALT 23 (7-52) U/L Alkaline Phosphatase 72 (34-104) U/L C-Reactive Protein 3.83 H (0-0.5) mg/dl Total Protein 6.3 (6.0-8.3) gm/dl Albumin 3.7 (3.4-5.0) gm/dl Globulin 2.6 (2.5-4.0) gm/dl Albumin/Globulin Ratio 1.4 (0.9-2) Procalcitonin 0.05 (0-0.5) ng/ml Nasal Screen MRSA (PCR) Negative (Negative) Imaging Data Radiologist's Impression: Tibia/Fibula X-Ray 06/07/25 18:29 Study: Left tib-fib 2 views History: Infection Comparison: None Findings: There is no acute fracture or dislocation. Alignment is anatomic. Joint spaces are well maintained. Diffuse lower leg edema. Few scattered tiny phleboliths. No foreign body. No soft tissue gas. Chondrocalcinosis of the medial and lateral menisci. Bone mineralization is normal. Impression: No acute bony abnormality. Lower extremity edema Electronically signed by Hatfield Gallitobella 06-07-2025 7:45 PM MDM Narrative Patient was seen and evaluated as above in room C02. Review was performed of triage nursing notes and vital signs. I did review pertinent previous visits and patient history. After obtaining a thorough history and physical examination the above work up was performed. Patient presents to us today for evaluation of an infected wound to the left lower extremity. IV access was established. Labs were drawn. Verbal consent was obtained and a picture of the wound was uploaded to the EMR as visualized here in the PE section. There is no leukocytosis. There is anemia with hemoglobin at 10.1. There is evidence of CKD noting creatinine 1.78 and BUN of 50. Procalcitonin within normal range. MRSA nasal screen negative. Wound culture ordered. Blood cultures ordered. Left leg x-ray per my interpretation reveals no soft tissue air. IV Zosyn was ordered for broad coverage. Case discussed with the hospitalist service. Please refer to further documentation regarding his stay. I do not suspect necrotizing fasciitis at this time. Verbal consent was obtained and I did remove 3 of the sutures. No dehiscence. No purulence when the sutures were removed. A dressing was applied. GCS: 15 In the evaluation and treatment of this patient the following differential diagnoses were entertained: Cellulitis, abscess, necrotizing fasciitis, retained foreign body, among others. Impression & Plan Cellulitis of left lower extremity Discharge Plan Visit Data Chief Complaint: Infection Stated Complaint: LT LEG INFECTED ED Provider: Ronny Ruelas ED Midlevel Provider: Guzman Jones Discharge Problem: Cellulitis of left lower extremity Patient Disposition: Admitted As Inpatient Condition: Fair Discharge Instructions Interventions: ED Discharge Assessment Last Done: 06/07/25 22:13 Addendum June 08, 2025 17:09 I was consulted by the Advanced Practice Provider and was substantively involved in the patient's visit.This includes aspects of the HPI, MDM, diagnostic interpretations, and disposition/plan. I discussed the case with the KATARZYNA and agree with the findings and plan as documented in KATARZYNA Karen's note.
[2025-06-07] MEDS: PIPERACILLIN/TAZOBACTAM 4.5 GM/100 ML BAG IV ONE (18:03)
--- NOTE | 2025-06-07 19:13 | History & Physical Report ---
Date of Service June 07, 2025 Assessment & Plan (1) Cellulitis: (2) Anemia: (3) Aortic stenosis: (4) Gastric cancer: (5) Chronic deep vein thrombosis (DVT): (6) Chronic kidney disease: Plan Pt is an 85 yo male arriving to the ED today with lower left leg pain as a result of an injury treated on 05/28. PMHx includes Moderate to Severe Valvular Aortic Stenosis, Gastric Adenocarcinoma, Anemia of Chronic Disease, CKD Stage 3, Chronic DVTs. Pt is admitted for resistant cellulitis # Cellulitis -Pt's LLE, below the knee (love area), is erythematous and edematous at the site of the sutures, with a consistent sheen, in comparison to the right LLE. Further, the left LLE is warmer than his right to the touch. -Sepsis & SIRS - Negative; No systemic signs of infection -Wound culture --Pending -Xray Tibia/Fibula -- Unremarkable/simply swelling & edema -In the ED Zosyn 4.5 gm in 100 mls administered; -Zosyn - 4.5 gm in 100 mls IV q8 ordered; (once microbe(s) identified consider downgrade) -Doxycycline - 100 mg PO (for potential MRSA coverage) -CBC, CMP, ESR, CRP - ordered - check AM Labs - Consult General Surgery - for laceration/suture integrity in setting of surrounding skin infection - Consult Wound Care Nurse Ordered # Anemia of Chronic Disease 2/2 Gastric Cancer / CKD -hgb 10.1 (within baseline range) -Continue to monitor with AM labs -no acute issues, follow up with PCP # Aortic Stenosis -Echo 03/20/25 -- Moderate to Severe Aortic Valvular Stenosis -No acute issues, follow up with PCP # Gastric Cancer -in remission # Chronic Kidney Disease -Cr 1.78(within baseline range); eGFR 36.47 --> CKD stage 3 -No acute issues, follow up with PCP # Chronic DVT -Venous Doppler Ultrasound -- 12/10/23 -- Right Deep Veins -2.0 x 0.6 cm echogenic structure within the right distal femoral vein -- appears attached to the anterior wall. May represent nonocclusive thrombus. -Not on prophylaxis prior to admission -Heparin 5000 units sq q12 CODE -- Full Code DVT -- Heparin 5000 Units sq DISPO -- MED/SURG History of Present Illness Chief Complaint: Leg pain,redness Primary Care Provider: William Huynh MD Pt is an 85 yo male arriving to the ED today with lower left leg pain as a result of an injury treated on 05/28. PMHx includes Moderate to Severe Valvular Aortic Stenosis, Gastric Adenocarcinoma, Anemia of Chronic Disease, CKD Stage 3, Chronic DVTs. On May 28, pt lacerated his lower left leg (love) on the bottom of the car door,while trying to get out of his vehicle. The wound was treated with 20 sutures on that day. Antibiotic care, however, did not begin until 5 days later with doxycycline. Pt finally decided to come to the ED today as the love area around the sutures had become red, swollen and warm to the touch. Pt is AOx3, with no SOB or chest pain. Auscultation of lungs reveal vesicular sounds, while auscultation of heart identifies S1 & S2, with no gallops, rubs or murmur. Light and heavy touch elicits no pain in the abdomen region. On examination of pt's lower extremities, ptis left lower extremity is noticeably red and swollen, with a consistent sheen, in comparison to the right lower right extremity. Pt's left lower extremity is warmer than his right at the sight of sutures. Based on this information, we admitted this patient for resistant cellulitis Allergies Allergy/AdvReac Type Severity Reaction Status Date / Time gabapentin AdvReac Intermediate Hallucinati Verified 05/28/25 14:31 ng pregabalin [From Lyrica] AdvReac Intermediate Dizziness Verified 05/28/25 14:31 Home Medications Medication Instructions Recorded Confirmed Type famotidine 20 mg tablet (Pepcid) 20 mg PO BID 09/21/21 06/07/25 History calcitriol 0.25 mcg capsule 0.25 mcg PO QDL 12/09/24 06/07/25 History dorzolamide 2 % eye drops 1 drp OPR BID 05/28/25 06/07/25 History doxycycline hyclate 100 mg capsule 100 mg PO BID 06/07/25 06/07/25 History Past Med/Surg History Problem List (Updated 06/07/25 @ 21:30 by Sarina Post MD) Chronic kidney disease Chronic deep vein thrombosis (DVT) Gastric cancer Anemia Aortic stenosis Cellulitis Cellulitis of left lower extremity (Acute) Laceration of left leg (Acute) SOM (acute kidney injury) (Acute) Post surgical complication Fatigue (Acute) Bilateral edema of lower extremity (Acute) Dyspnea (Acute) Pedal edema Sensorineural hearing loss, bilateral 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 Bilateral edema of lower extremity Chronic deep vein thrombosis (DVT) Normocytic anemia Greater trochanteric pain syndrome Lumbar degenerative disc disease Lumbar radiculopathy Decreased hearing of right ear Hearing loss Post herpetic neuralgia CKD (chronic kidney disease) First degree atrioventricular block by electrocardiogram RBBB (right bundle branch block) wore a holter monitor 07/2022- followed w/ Dr Martinez for results Anemia (Acute) Secondary hyperparathyroidism Hepatic cyst Gastric adenocarcinoma (Acute) hx GERD (gastroesophageal reflux disease) Osteopenia Hyperlipidemia Carotid artery plaque "mild carotid plaque and normal velocity" per 2015 PCP records (unable to obtain official imaging) Medical History Sudden-onset sensorineural hearing loss Lumbar spinal stenosis History of syncope - 06/2022, had episode of fall/syncope- seen by neuro at [facility] 07/01/22- "belie ve this patient had a syncopal event ( cardiovascular in origin ), had closed head trauma and brief concussion, with some brief secondary seizure activity." No need for additional neurological testing or anticonvulsants; EEG normal - No recurrence of issues since that time (possibly dehydrated per patient) Osteopenia Hyperlipidemia History of basal cell carcinoma s/p excision (in office) Carotid artery plaque "mild carotid plaque and normal velocity" per 2016 PCP records Ambulates with cane History of right bundle branch block (RBBB) [place] cardio 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, chemo and immunotherapy tx only (11/2019-04/18/21) Mild aortic stenosis Per 11/2023 echo CKD (chronic kidney disease) Chronic anemia iron daily SBO (small bowel obstruction) Hx- during chemo Hepatic cyst Acid reflux Well controlled and stable 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 (until 03/2021) Deafness in left ear bilat hearing aids History of actinic keratosis Surgical History History of total right hip replacement History of esophagogastroduodenoscopy (EGD) Hx of detached retina repair Hx of oral surgery (10/01/22) Open Reduction of Lefort II Fracture(Not Applicable) - Leland Dimas, DMD able to open mouth entire way History of Mohs micrographic surgery for skin cancer Port-A-Cath in place (11/29/19) bard power port--left cephalic vein--currently in place History of tonsillectomy History of colonoscopy History of tooth extraction History of bilateral cataract extraction S/P appendectomy S/P tonsillectomy Family History Mother , age 60 colon cancer Colon cancer Colorectal cancer Grandfather (Maternal) Myocardial infarction Grandfather Colorectal cancer Father , age 77 of heart disease Heart disease Other Hearing loss No family history of adverse response to anesthesia No family history of bleeding disorder Denies family history of Ovarian cancer Prostate cancer Breast cancer Social History Smoking Status: Never smoker Second Hand Exposure: No; Do You Dip or Chew Tobacco: No; Hx Alcohol Use: Yes Alcohol type: wine Alcohol Intake Frequency: 2-3 x/Week Alcohol Intake Frequency Comment: 1 glass with dinner 4 times a week Hx Substance Use: No Preferred Language: Kyrgyz Communication Ability: Effective Visual Impairment: No Limitations Hearing Ability: Normal Revising Clerk Required: No Beliefs That Will Affect Care: None marital status: Current Living Situation: Spouse Current Living Situation Comment: lives at [facility] with current occupational status: retired 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 [employer] Other Information That Helps Us Care for You: No Feels Safe at Home: Yes Safety Concerns: Feels Safe At This Time Childhood Exposure to Second-Hand Smoke: No Diet: other and regular Diet Comment: mediterranean diet caffeine: Yes (2-3 large cups tea daily) Dental Care, Regularly: Yes Physical Activity Frequency: 5-6 Times per Week Seatbelt Use: always Sunscreen Use: Yes Do you think of yourself as: straight/heterosexual Gender Identity: Male Assistive Devices: Glasses and Hearing Aid - Bilateral Results & Data Results & Data Vital Signs (Past 12 Hours) Vital Signs Temp Pulse Pulse Resp BP BP Pulse Ox 06/07/25 18:00 64 16 146/81 H 100 06/07/25 16:45 58 L 20 141/77 H 100 06/07/25 14:58 36.7 C 68 18 118/60 100 O2 Del Method 06/07/25 18:00 Room Air 06/07/25 16:45 Room Air 06/07/25 14:58 Room Air Supervising Physician Co-Signing Physician Notes I personally examined the patient and verified all rowell points of history and exam, discussed case, and agree with decision making with Dr. Post with the following additions/exceptions: S-pt here with worsening redness, swelling, and pain in left leg despite taking po doxycycline. No fevers/chills. Had recent laceration with sutures placed. Hi story and ROS otherwise reviewed as above O- Vitals Reviewed Gen: [AAOx3, NAD] HEENT: [anicteric sclerae, EOMI] CV: [RRR 3/6 KENNETH at RUSB nl S1S2] Pulm: [CTAB no wcr] Abd: [+BS soft NT ND no masses or hernias] Ext: [left leg anteriorly with erythema on leg and dorsal foot, 2+ pitting edema left leg to knee, large laceration with sutures in place, some scant drainage; no ; 2+ DP pulses] Neuro: [full strength throughout] CBC, BMP reviewed xray tib/fib reviewed A/P: 85 yo male here with left leg wound infection and cellulitis, failed outpatient treatment -continue doxy and add ZOsyn for Staph and Strep -continue Surgery to see about removing sutures/wound care
--- NOTE | 2025-06-07 19:46 | XRay Report ---
Study: Left tib-fib 2 views History: Infection Comparison: None Findings: There is no acute fracture or dislocation. Alignment is anatomic. Joint spaces are well maintained. Diffuse lower leg edema. Few scattered tiny phleboliths. No foreign body. No soft tissue gas. Chondrocalcinosis of the medial and lateral menisci. Bone mineralization is normal. Impression: No acute bony abnormality. Lower extremity edema Electronically signed by Tonny Hatfield 06-07-2025 7:45 PM
[2025-06-07] MEDS: FAMOTIDINE 20 MG TAB PO SCH (21:36)
[2025-06-07] MEDS: ACETAMINOPHEN 325 MG TAB PO STA (21:37)
[2025-06-07] MEDS ORDERED: MELATONIN 3 MG TAB PO PRN (22:31)
[2025-06-07] MEDS ORDERED: POLYETHYLENE (MIRALAX) 17 GM PACK PO PRN (22:31)
[2025-06-07] MEDS ORDERED: ONDANSETRON INJ 2 MG/ML 2 ML VIAL IV PRN (22:31)
[2025-06-07] MEDS: DORZOLAMIDE HCL 2% OPH SOLN 10 ML BTL OPR SCH (23:11)
[2025-06-07] MEDS: DOXYCYCLINE HYCLATE 100 MG CAP PO SCH (23:11)
[2025-06-07] MEDS: HEPARIN SOD 5,000 UNIT/0.5 ML VIAL SQ SCH (23:19)
[2025-06-07] MEDS: PIPERACILLIN/TAZOBACTAM 4.5 GM/100 ML BAG IV SCH (23:36)
--- NOTE | 2025-06-07 23:44 | Billing Data ---
Date of Service June 07, 2025 Coding Level of Care Code 80987 INT INP/OBS CARE
[2025-06-08 07:33] LABS: Hematocrit (blood only) 26.2 % (42.0-52.0); Hemoglobin 8.7 g/dl (14.0-18.0); Immature Granulocytes # (auto) 0.01 K/uL (0.01-0.20); Immature Granulocytes % (auto) 0.2 %; Mean Corpuscular Hemoglobin 29.8 pg (25.0-34.0); Mean Corpuscular Volume 89.7 fL (80.0-100.0); Platelet Count 187 K/uL (130-400); RDW Standard Deviation 43.9 fL (36.4-46.3); Red Blood Count 2.92 M/uL (4.70-6.10); White Blood Count 6.48 K/ul (4.8-10.8)
[2025-06-08 07:39] LABS: Alanine Aminotransferase 28.0 U/L (7-52); Albumin Globulin Ratio 1.5 (0.9-2); Alkaline Phosphatase 60.0 U/L (34-104); Anion Gap 6.0 (3-11); Bilirubin,Total 0.5 mg/dl (0.2-1.0); Blood Urea Nitrogen 44.0 mg/dl (6-23); Calcium 8.5 mg/dl (8.6-10.3); Carbon Dioxide 25.0 mmol/L (21-32); Chloride 108.0 mmol/L (98-107); Creatinine Clr Calc Pharmacy 30.7 ml/min; Globulin 2.2 gm/dl (2.5-4.0); Glucose 89.0 mg/dl (70-99(Fasting)); Potassium 4.1 mmol/L (3.5-5.1); Sodium 139.0 mmol/L (136-145); Total Protein 5.4 gm/dl (6.0-8.3)
[2025-06-08] MEDS: ACETAMINOPHEN 325 MG TAB PO PRN (08:19)
--- NOTE | 2025-06-08 09:27 | Surgery Consultation ---
Date of Consultation June 08, 2025 Assessment & Plan (1) Cellulitis of left lower extremity: no surgical issues or drainable collections treat cellulitis with abx History of Present Illness Attending Physician: Erendira Connor MD History of Present Illness This is 85YO male with primary repair of left leg laceration in ED on 05/28. He was admitted with pain and worsening erythema of leg. He has also had some increased swelling. No fevers. Allergies Allergy/AdvReac Type Severity Reaction Status Date / Time gabapentin AdvReac Intermediate Hallucinati Verified 05/28/25 14:31 ng pregabalin [From Lyrica] AdvReac Intermediate Dizziness Verified 05/28/25 14:31 Home Medications Medication Instructions Recorded Confirmed Type famotidine 20 mg tablet (Pepcid) 20 mg PO BID 09/21/21 06/07/25 History calcitriol 0.25 mcg capsule 0.25 mcg PO QDL 12/09/24 06/07/25 History dorzolamide 2 % eye drops 1 drp OPR BID 05/28/25 06/07/25 History doxycycline hyclate 100 mg capsule 100 mg PO BID 06/07/25 06/07/25 History Patient History Medical History Sudden-onset sensorineural hearing loss Lumbar spinal stenosis History of syncope - 06/2022, had episode of fall/syncope- seen by neuro at [facility] 07/01/22- "believe this patient had a syncopal event ( cardiovascular in origin ), had closed head trauma and brief concussion, with some brief secondary seizure activity." No need for additional neurological testing or anticonvulsants; EEG normal - No recurrence of issues since that time (possibly dehydrated per patient) Osteopenia Hyperlipidemia History of basal cell carcinoma s/p excision (in office) Carotid artery plaque "mild carotid plaque and normal velocity" per 2015 PCP records Ambulates with cane History of right bundle branch block (RBBB) CT cardio 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, chemo and immunotherapy tx only (11/2019-04/18/21) Mild aortic stenosis Per 11/2023 echo CKD (chronic kidney disease) Chronic anemia iron daily SBO (small bowel obstruction) Hx- during chemo Hepatic cyst Acid reflux Well controlled and stable 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 (until 03/2021) Deafness in left ear bilat hearing aids History of actinic keratosis Surgical History History of total right hip replacement History of esophagogastroduodenoscopy (EGD) Hx of detached retina repair Hx of oral surgery (10/01/22) Open Reduction of Lefort II Fracture(Not Applicable) - Leland Dimas, DMD able to open mouth entire way History of Mohs micrographic surgery for skin cancer Port-A-Cath in place (11/29/19) bard power port--left cephalic vein--currently in place History of tonsillectomy History of colonoscopy History of tooth extraction History of bilateral cataract extraction S/P appendectomy S/P tonsillectomy Family History Mother , age 60 colon cancer Colon cancer Colorectal cancer Grandfather (Maternal) Myocardial infarction Grandfather Colorectal cancer Father , age 77 of heart disease Heart disease Other Hearing loss No family history of adverse response to anesthesia No family history of bleeding disorder Denies family history of Ovarian cancer Prostate cancer Breast cancer Social History Smoking Status: Never smoker Second Hand Exposure: No; Do You Dip or Chew Tobacco: No; Hx Alcohol Use: Yes Alcohol type: wine Alcohol Intake Frequency: 2-3 x/Week Alcohol Intake Frequency Comment: 1 glass with dinner 4 times a week Hx Substance Use: No Preferred Language: [place]an Communication Ability: Effective Visual Impairment: No Limitations Hearing Ability: Normal Billing Customer Service Representative Required: No Beliefs That Will Affect Care: None marital status: Current Living Situation: Spouse Current Living Situation Comment: lives at [facility] with current occupational status: retired 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, [place] Other Information That Helps Us Care for You: No Feels Safe at Home: Yes Safety Concerns: Feels Safe At This Time Childhood Exposure to Second-Hand Smoke: No Diet: other and regular Diet Comment: mediterranean diet caffeine: Yes (2-3 large cups tea daily) Dental Care, Regularly: Yes Physical Activity Frequency: 5-6 Times per Week Seatbelt Use: always Sunscreen Use: Yes Do you think of yourself as: straight/heterosexual Gender Identity: Male Assistive Devices: Glasses and Hearing Aid - Bilateral Review of Systems Constitutional: no fever and no chills Eyes: no worsening vision Respiratory: no cough and no dyspnea Cardiovascular: no chest pain Gastrointestinal: no abdominal pain, no nausea and no vomiting Integumentary: + erythema and + change in skin color Neurologic: no localized weakness Psychiatric: no behavioral changes Hematologic / Lymphatic: no easy bleeding and no easy bruising Physical Exam Constitutional: + thin Eyes: no scleral abnormality Respiratory: normal respiratory effort Cardiovascular: Rate/Rhythm: regular rate and regular rhythm Gastrointestinal (Abdomen): Inspection/Auscultation: abdomen normal to inspection; abdomen not distended Percussion/Palpation: abdomen soft; abdomen nontender Musculoskeletal: Head/Neck/Chest: normocephalic and head atraumatic Extremities: + lower leg abnormality (laceration repair left LE; cellulitis; no abscess nor fluctuance) Skin: no rashes, warm and dry Results & Data Vital Signs (Past 12 Hours) Vital Signs Temp Pulse Resp BP Pulse Ox O2 Del Method 06/08/25 07:23 36.8 C 60 16 109/65 98 Room Air 06/07/25 22:34 36.7 C 68 18 169/88 H 99 Room Air 06/07/25 21:56 73 16 96 Room Air
--- NOTE | 2025-06-08 09:58 | Hospitalist Progress Note ---
Date of Service June 08, 2025 Assessment & Plan (1) Cellulitis: (2) Anemia: (3) Aortic stenosis: (4) Chronic deep vein thrombosis (DVT): Plan Pt is an 85 yo male arriving to the ED today with lower left leg pain as a result of an injury treated on 05/28. PMHx includes Moderate to Severe Valvular Aortic Stenosis, Gastric Adenocarcinoma, Anemia of Chronic Disease, CKD Stage 3, Chronic DVTs. Pt is admitted for resistant cellulitis of LLE laceration # Cellulitis - LLE 17cm below the knee laceration repair; erythematous to the knee with mildy edema. No overt discharge, bleeding or drainage from the wound. Sutures are still intact. Wound slightly tender to palpation. Sensation intact in BL LE. Normal ROM of BL LE. - currently no systemic signs of infection - remained afebrile and without leukocytosis - wound cultures positive for Pseudomonas - continue zosyn 4.5mg IV q8h. Discontinue doxycycline. - blood cultures still pending - nasal MRSA swab negative. - XR left tibia/fibula without fracture, only notable swelling and edema - ESR 72 and CRP 3.8 - repeat CBC, CMP - general surgery consulted - no surgical intervention needed at this time; recommended to continue abx therapy. Per surgery PA, plan to keep sutures in until cellulitis improves to avoid dehiscence. - wound care orders placed for regular gentle cleansing with soap and water and repeat dressings. # Anemia of Chronic Disease 2/2 Gastric Cancer / CKD - H&H 8.7 & 26.1 - slightly lower than baseline. - currently following with oncology outpatient - recently increased iron tablets to 325mg BID. - iron studies, vitamin 12, folate, and TSH ordered to evaluate in the morning - no overt signs of bleeding, patient hemodynamically stable - will continue to monitor with CBC qAM # Aortic Stenosis -Echo 03/20/25 -- Moderate to Severe Aortic Valvular Stenosis - has not been following with cardiology outpatient - patient has plans to make appointment with them; asymptomatic this morning, no current management outpatient - plan for cardiology and PCP follow-up after discharge. # Gastric Cancer -in remission - recently had EGD in March with negative biopsies at site of previous gastric cancer # Chronic Kidney Disease - Cr 1.67 this morning - at baseline -No acute issues, follow up with PCP # Chronic DVT -Venous Doppler Ultrasound -- 12/10/23 -- Right Deep Veins -2.0 x 0.6 cm echogenic structure within the right distal femoral vein -- appears attached to the anterior wall. May represent nonocclusive thrombus. - not on chronic anticoagulation outpatient for management. - will manage inpatient with heparin 5000 units sq q12 CODE -- Full Code DVT -- Heparin 5000 Units sq DISPO -- MED/SURG Admission and Anticipated Discharge Date Admission Date: June 07, 2025 Supervising Physician Co-Signing Physician Notes I personally examined the patient and verified all rowell points of history and exam, discussed case, and agree with decision making with Dr. Garces with the following additions/exceptions: S-patient feels the pain in the leg is improving, otherwise no complaints O- Vitals Reviewed Gen: AAOx3, NAD HEENT: Anicteric sclerae, EOMI CV: RRR 3/6 KENNETH at RUSB nl S1S2 Pulm: CTAB no wcr Abd: +BS soft NT ND no masses or hernias Ext: Left leg anteriorly with erythema on leg and dorsal foot much improved from previous, 1+ pitting edema left leg to knee improved from previous, large laceration with sutures in place, some scant purulent drainage;2+ DP pulses CBC, BMP, wound culture, MRSA nasal swab, blood cultures reviewed A/P: 85 yo male here with left leg wound infection and cellulitis, failed outpatient treatment. Growing Pseudomonas and wound culture - Continue IV Zosyn and discontinue Doxy - Hopeful that Pseudomonas will be sensitive fluoroquinolones or can switch to oral therapy for discharge - He is clinically much improved already - Appreciate surgery consult to see about removing sutures/wound care-continue current sutures for now - Ordered daily wound care dressing changes - Add on home ferrous sulfate tablets twice a day and follow CBC for chronic anemia-he had EGD in 03/2025 which was negative for cancer as per patient. He has not had a colonoscopy in 5 years. No gross bleeding anywhere - Will arrange outpatient cardiology follow-up for his moderate-severe aortic stenosis which is asymptomatic Subjective Patient seen and examined at bedside this morning. A&Ox3. Resting comfortably and responding appropriately. States having minimal pain this morning. Has been ambulating without concern. Tolerating regular diet, denies N/V/abdominal pain. Denies chest pain, palpitations, SOB. Remains afebrile and hemodynamically stable Review of Systems Review of Systems: All systems reviewed & are unremarkable except as noted in HPI & below Physical Exam Constitutional: WD/WN, vitals as above Eyes: PERRL, conjunctivae normal, anicteric sclerae Respiratory: normal respiratory effort, lungs clear to auscultation Cardiovascular: Rate/Rhythm: regular rate and regular rhythm Heart Sounds: + murmur Gastrointestinal (Abdomen): normal bowel sounds, soft, nontender, no hepatosplenomegaly Musculoskeletal: no cyanosis or clubbing, extremities motor strength 5/5 Skin: no rashes, warm and dry Results & Data Results & Data Vital Signs (Past 12 Hours) Vital Signs Temp Pulse Resp BP Pulse Ox O2 Del Method 06/08/25 07:23 36.8 C 60 16 109/65 98 Room Air 06/07/25 22:34 36.7 C 68 18 169/88 H 99 Room Air
[2025-06-08 11:53] LABS: Iron 34.0 mcg/dl (35-175); Total Iron Binding Cap Calc 286.0 mcg/dl (250-450); Transferrin 204.0 mg/dl (200-360); Transferrin (FE) Percent Satur 12.0 % (20-50)
--- NOTE | 2025-06-08 18:01 | Billing Data ---
Date of Service June 08, 2025 Coding Level of Care Code 65363 SUB INP/OBS CARE
[2025-06-08] MEDS: FERROUS SULFATE 325 MG TAB PO SCH (19:38)
[2025-06-09 07:17] LABS: Thyroid Stimulating Hormone 1.88 uIu/ml (0.300-4.500)
[2025-06-09 07:23] LABS: Ferritin 44.3 ng/ml (8-388)
[2025-06-09 07:28] LABS: Folate (Folic Acid),Ser orPlas > 22.30 ng/ml (>5.38)
[2025-06-09 07:29] LABS: Vitamin B12 755 pg/ml (180-914)
[2025-06-09 07:39] VITALS: PULSE 66; RESP 16; TEMP 97.2; O2SAT 97
[2025-06-09 08:24] LABS: Hematocrit (blood only) 25.9 % (42.0-52.0); Hemoglobin 8.5 g/dl (14.0-18.0); Immature Granulocytes # (auto) 0.01 K/uL (0.01-0.20); Immature Granulocytes % (auto) 0.2 %; Mean Corpuscular Hemoglobin 29.5 pg (25.0-34.0); Mean Corpuscular Volume 89.9 fL (80.0-100.0); Platelet Count 197 K/uL (130-400); RDW Standard Deviation 44.1 fL (36.4-46.3); Red Blood Count 2.88 M/uL (4.70-6.10); White Blood Count 6.54 K/ul (4.8-10.8)
[2025-06-09 08:26] LABS: Alanine Aminotransferase 48.0 U/L (7-52); Albumin Globulin Ratio 1.4 (0.9-2); Alkaline Phosphatase 58.0 U/L (34-104); Anion Gap 7.0 (3-11); Bilirubin,Total 0.4 mg/dl (0.2-1.0); Blood Urea Nitrogen 47.0 mg/dl (6-23); Calcium 8.4 mg/dl (8.6-10.3); Carbon Dioxide 23.0 mmol/L (21-32); Chloride 110.0 mmol/L (98-107); Creatinine Clr Calc Pharmacy 27.1 ml/min; Globulin 2.2 gm/dl (2.5-4.0); Glucose 92.0 mg/dl (70-99(Fasting)); Potassium 4.1 mmol/L (3.5-5.1); Sodium 140.0 mmol/L (136-145); Total Protein 5.3 gm/dl (6.0-8.3)
--- NOTE | 2025-06-09 10:08 | Hospitalist Progress Note ---
Date of Service June 09, 2025 Assessment & Plan (1) Cellulitis: (2) Anemia: (3) Aortic stenosis: (4) Chronic deep vein thrombosis (DVT): Plan Pt is an 85 yo male arriving to the ED today with lower left leg pain as a result of an injury treated on 05/28. PMHx includes Moderate to Severe Valvular Aortic Stenosis, Gastric Adenocarcinoma, Anemia of Chronic Disease, CKD Stage 3, Chronic DVTs. Pt is admitted for resistant cellulitis of LLE laceration # Cellulitis - LLE 17cm below the knee laceration repair; erythema and edema is improving. No overt discharge, bleeding or drainage from the wound. Sutures are still intact. Wound curing oven tender to palpation. Sensation intact in BL LE. Normal ROM of BL LE. There are currently no systemic signs of infection, as patient has remained hemodynamically stable, afebrile and without leukocytosis. - wound cultures positive for Pseudomonas and have been treating with Zosyn 4.5mg IV q8h. Doxycycline was discontinued yesterday. Sensitivity results showing sensitivity to ciprofloxacin. This would be the favorable option as this can be given orally. Discussed risks with patient and he is agreeable. Will plan for renally-dosed ciprofloxacin - ordered EKG to confirm normal QT interval - Initial workup of injury on admission included XR left tibia/fibula without fracture, only notable swelling and edema. ESR 72 and CRP 3.8 on admission. Blood cultures showing no growth after 24 hours. Nasal MRSA swab was negative. - general surgery consulted and no surgical intervention recommended at this time. Plan to keep sutures in until cellulitis improves to avoid wound dehiscence, however as of today they have been in place for 12 days. Working towards referral to outpatient [facility] for regular follow-up. We would like him to be seen no later than Wednesday 06/13 for suture removal and routine care until healed. # Anemia of Chronic Disease 2/2 Gastric Cancer / CKD - H&H 8.5 & 25.9% - still around patient's baseline. Iron studies completed today showing decreased iron (34) and transferrin sat (12%);ferritin wnl, B12 wnl, folate wnl, TSH wnl. There are no overt signs of bleeding and patient has remained hemodynamically stable. Has been taking iron tablets at home, managing her with ferrous sulfate 325mg po bid. - Patient's last colonoscopy was 5 years ago and has been cleared from routine colon cancer screenings, however due to the chronic anemia in the setting of gastric cancer, iron deficiency, and CKD we would recommend colonoscopy outpatient if fails to improve with iron therapy. Also encouraged following with nephrology as anemia could be the result of CKD and there may be need for EPO repletion. # Aortic Stenosis - patient had echo completed 03/20/25 showing moderate to severe aortic stenosis. Has not been following with cardiology outpatient and there has been no current management of this in outpatient setting. Patient states he has plans to make appointment with them; denies chest pain, palpitations, SOB this morning. Plan for cardiology f/u after discharge # Gastric Cancer - in remission; following with GI and oncology outpatient - recently had EGD in March with negative biopsies at site of previous gastric cancer. Routine follow- up with oncologist outpatient # Chronic Kidney Disease - Cr 1.87 this morning which is slightly higher than -No acute issues, follow up with PCP # Chronic DVT -Venous Doppler Ultrasound -- 12/10/23 -- Right Deep Veins -2.0 x 0.6 cm echogenic structure within the right distal femoral vein -- appears attached to the anterior wall. May represent nonocclusive thrombus. - not on chronic anticoagulation outpatient for management. - will manage inpatient with heparin 5000 units sq q12 CODE -- Full Code DVT -- Heparin 5000 Units sq DISPO -- MED/SURG Admission and Anticipated Discharge Date Admission Date: June 08, 2025 Subjective Patient seen and examined at bedside this morning. A&Ox3. Resting comfortably and responding appropriately. States having minimal burning pain this morning that is really only bothersome when walking. Otherwise, has been ambulating without concern. Tolerating regular diet. Denies chest pain, palpitations, SOB, fever/chills, N/V/D. Remains afebrile and hemodynamically stable Review of Systems 2 Review of Systems: All systems reviewed & are unremarkable except as noted in HPI & below Physical Exam 2 Constitutional: WD/WN, vitals as above Eyes: PERRL, conjunctivae normal, anicteric sclerae Respiratory: normal respiratory effort, lungs clear to auscultation Cardiovascular: Rate/Rhythm: regular rate and regular rhythm Heart Sounds: + murmur Gastrointestinal (Abdomen): normal bowel sounds, soft, nontender, no hepatosplenomegaly Musculoskeletal: no cyanosis or clubbing, extremities motor strength 5/5 Skin: no rashes, warm and dry nails not dystrophic Neurologic: no focal neurological deficits Psychiatric: A+Ox3, euthymic affect Results & Data Results & Data Vital Signs (Past 12 Hours) Vital Signs Temp Pulse Resp BP Pulse Ox O2 Del Method 06/09/25 07:38 36.2 C L 66 16 147/79 H 97 Room Air 06/08/25 23:11 36.6 C 60 18 115/67 98 Room Air CBC Results Results Complete Blood Count Results: 2 RBC 2.88 M/uL (4.70-6.10) L 06/09/25 WBC 6.54 K/ul (4.8-10.8) 06/09/25 Hgb 8.5 g/dl (14.0-18.0) L 06/09/25 Hct 25.9 % (42.0-52.0) L 06/09/25 Plt Count 197 K/uL (130-400) 06/09/25 Chemistry Results CMP Results: 2 Sodium 140 mmol/L (136-145) 06/09/25 Potassium 4.1 mmol/L (3.5-5.1) 06/09/25 Chloride 110 mmol/L (98-107) H 06/09/25 Carbon Dioxide 23 mmol/L (21-32) 06/09/25 Anion Gap 7 (3-11) 06/09/25 BUN 47 mg/dl (6-23) H 06/09/25 Creatinine 1.89 mg/dl (0.6-1.4) H 06/09/25 eGFR 33.93 06/09/25 Est GFR ( Amer) 58.9 ml/min 07/13/24 Est GFR (Non-Af Amer) 50.8 ml/min 07/13/24 BUN/Creatinine Ratio 24.9 (10-20) H 06/09/25 Glucose 92 mg/dl (70-99(Fasting)) 06/09/25 Calcium 8.4 mg/dl (8.6-10.3) L 06/09/25 Phosphorus 3.6 mg/dl (2.5-4.9) 08/30/24 Total Bilirubin 0.4 mg/dl (0.2-1.0) 06/09/25 Direct Bilirubin 0.1 mg/dl (0-0.2) 03/19/25 AST 41 U/L (13-39) H 06/09/25 ALT 48 U/L (7-52) 06/09/25 Alkaline Phosphatase 58 U/L (34-104) 06/09/25 Total Protein 5.3 gm/dl (6.0-8.3) L 06/09/25 Albumin 3.1 gm/dl (3.4-5.0) L 06/09/25 Globulin 2.2 gm/dl (2.5-4.0) L 06/09/25 Albumin/Globulin Ratio 1.4 (0.9-2) 06/09/25 Lactate Dehydrogenase 141 U/L (86-244) 02/08/25
[2025-06-09] MEDS: CALCITRIOL 0.25 MCG CAPSULE PO SCH (11:49)
--- NOTE | 2025-06-09 12:35 | Discharge Summary ---
Date of Service June 09, 2025 Admission HPI Per Admitting Provider Pt is an 85 yo male arriving to the ED today with lower left leg pain as a result of an injury treated on 05/28. PMHx includes Moderate to Severe Valvular Aortic Stenosis, Gastric Adenocarcinoma, Anemia of Chronic Disease, CKD Stage 3, Chronic DVTs. On May 28, pt lacerated his lower left leg (love) on the bottom of the car door,while trying to get out of his vehicle. The wound was treated with 20 sutures on that day. Antibiotic care, however, did not begin until 5 days later with doxycycline. Pt finally decided to come to the ED today as the love area around the sutures had become red, swollen and warm to the touch. Admission Exam Per Admitting Provider Pt is AOx3, with no SOB or chest pain. Auscultation of lungs reveal vesicular sounds, while auscultation of heart identifies S1 & S2, with no gallops, rubs or murmur. Light and heavy touch elicits no pain in the abdomen region. On examination of pt's lower extremities, ptis left lower extremity is noticeably red and swollen, with a consistent sheen, in comparison to the right lower right extremity. Pt's left lower extremity is warmer than his right at the sight of sutures. Based on this information, we admitted this patient for resistant cellulitis. Principal Diagnosis cellulitis of LLE Discharge Exam Constitutional WD/WN, vitals as above Eyes PERRL, conjunctivae normal, anicteric sclerae Respiratory normal respiratory effort, lungs clear to auscultation Cardiovascular Rate/Rhythm: regular rate and regular rhythm Heart Sounds: + murmur Gastrointestinal (Abdomen) normal bowel sounds, soft, nontender, no hepatosplenomegaly Musculoskeletal no cyanosis or clubbing, extremities motor strength 5/5 Skin no rashes, warm and dry There is a notable decrease in erythema and edema compared to photo in ED visit note from 06/07/25 Neurologic no focal neurological deficit Psychiatric A+Ox3, euthymic affect Discharge Data Allergies Allergy/AdvReac Type Severity Reaction Status Date / Time gabapentin AdvReac Intermediate Hallucinati Verified 05/28/25 14:31 ng pregabalin [From Lyrica] AdvReac Intermediate Dizziness Verified 05/28/25 14:31 Consultations 06/07/25 18:24 ED Decision to Admit Stat 06/07/25 22:31 Consult General Surgery Routine Hospital Course (1) Cellulitis: (2) Anemia: (3) Aortic stenosis: (4) Chronic deep vein thrombosis (DVT): Plan Pt is an 85 yo male arriving to the ED today with lower left leg pain as a result of an injury treated on 05/28. PMHx includes Moderate to Severe Valvular Aortic Stenosis, Gastric Adenocarcinoma, Anemia of Chronic Disease, CKD Stage 3, Chronic DVTs. Pt is admitted for resistant cellulitis of LLE laceration # Cellulitis/wound infection - LLE 17cm below the knee laceration repair; erythema and edema is improving. No overt discharge, bleeding or drainage from the wound. Sutures are still intact. Wound polishing machine tender to palpation. Sensation intact in BL LE. Normal ROM of BL LE. There are currently no systemic signs of infection, as patient has remained hemodynamically stable, afebrile and without leukocytosis. - wound cultures positive for Pseudomonas and have been treating with Zosyn 4.5mg IV q8h. Doxycycline was discontinued yesterday. Sensitivity results showing sensitivity to ciprofloxacin. This would be the favorable option as this can be given orally. Discussed risks with patient and he is agreeable. Will plan for renally-dosed ciprofloxacin 500mg every 24 hours for 7 days, for a total of a 10 day antibiotic course including the Zosyn given during admission. EKG performed, QTc interval 422 ms. CTA chest 02/2025 showing aortic size wnl. - There was a small increase in patient AST 29 -> 41, which is likely in the setting of Zosyn. Follow-up LFTs in 1 week to check for resolution. - Initial workup of injury on admission included XR left tibia/fibula without fracture, only notable swelling and edema. ESR 72 and CRP 3.8 on admission. Blood cultures showing no growth after 24 hours. Nasal MRSA swab was negative. - General surgery consulted and no surgical intervention recommended at this time. Plan to keep sutures in until cellulitis improves to avoid wound dehiscence, however as of today they have been in place for 12 days. Working towards referral to outpatient [facility] for regular follow-up. We would like him to be seen no later than Wednesday 06/13 for suture removal and routine care until healed. # Anemia of Chronic Disease 2/2 Gastric Cancer / CKD - H&H 8.5 & 25.9% - still around patient's baseline. Iron studies completed today showing decreased iron (34) and transferrin sat (12%);ferritin wnl, B12 wnl, folate wnl, TSH wnl. There are no overt signs of bleeding and patient has remained hemodynamically stable. Has been taking iron tablets at home, managing here with ferrous sulfate 325mg po bid. - Patient's last colonoscopy was 5 years ago and has been cleared from routine colon cancer screenings, however due to the chronic anemia in the setting of gastric cancer, iron deficiency, and CKD we would recommend colonoscopy outpatient if fails to improve with iron therapy. Also encouraged following with nephrology as anemia could be the result of CKD and there may be need for EPO repletion. # Aortic Stenosis - patient had echo completed 03/20/25 showing moderate to severe aortic stenosis. Has not been following with cardiology outpatient and there has been no current management of this in outpatient setting. Patient states he has plans to make appointment with them; denies chest pain, palpitations, SOB this morning. Plan for cardiology f/u after discharge # Gastric Cancer - in remission; following with GI and oncology outpatient - recently had EGD in March with negative biopsies at site of previous gastric cancer. Routine follow- up with oncologist outpatient # Chronic Kidney Disease - Cr 1.87 this morning which is slightly higher than his baseline -No acute issues, follow up with PCP # Chronic DVT - Venous Doppler Ultrasound -- 12/10/23 -- Right Deep Veins -2.0 x 0.6 cm echogenic structure within the right distal femoral vein -- appears attached to the anterior wall. May represent nonocclusive thrombus. - not on chronic anticoagulation outpatient for management. - will manage inpatient with heparin 5000 units sq q12 CODE -- Full Code DVT -- Heparin 5000 Units sq DISPO -- [facility] to [facility] today Total Time Total Time Spent Total Time Spent (In Minutes): 45 Total Time Includes: Examination of the Patient, Discharge Planning, Medication Reconciliation and Communication With Other Providers Discharge Plan Discharge Items Patient Disposition: Home - Self-Care Reason For Visit: CELLULITIS,WOUND INFECTION Discharge Diagnosis: cellulitis of LLE ; Pseudomonas infection Anemia Aortic stenosis Condition on Discharge: Fair Activity: Resume your previous activity Non-emergency contact: Primary Care Provider, Inspector Weights [employer] Measures, Account Executive [employer] and Oncologist Call non-emergency contact if: you have any medication questions, your symptoms worsen and your pain is not controlled Follow-up/Referrals: Haylie Beltran DO, FACEP [Physician] - 06/21/25 1:00 pm ([facility] 06/21/2025 at 1:00PM) William Huynh MD [Primary Care Provider] - (PATIENT IS [facility]; HE WILL MAKE HIS OWN HOSPITAL FOLLOW UP VISIT IN 7-10 DAYS.) Diet: Regular Addtl Attending Provider Instructions: You were admitted to [facility] for an infection of your left lower leg. We were treating you with IV antibiotics. We have prescribed you 500mg ciprofloxacin to take daily for 7 days. Limit strenuous activity. Please return to care if you or your notice changes to your mental status, tendon pain, swelling, inflammation or rupture, numbness/tingling in your extremities, or new rash. There is a chance this medication can affect your liver enzymes. Please follow- up with your PCP within 1 week to recheck these labs. You have a scheduled visit with the Wound Care Clinic on 06/21/25. In the meantime, please follow-up with the nurses at [facility] for wound care. You will need to have your sutures removed in about 2 to 3 days. You are not anemic and your hemoglobin is lower than your baseline. Some of this is attributed to your chronic kidney disease and some due to iron deficiency. Please continue your iron tablets and follow-up with your carpenter maintenance/oncologist and potentially with gastroenterology if they feel you should undergo a colonoscopy for further evaluation. For your heart valve issue called aortic stenosis, Dr. Camacho will follow up with you as an outpatient. Pending Studies at Discharge: No Stand-Alone Forms: My [facility] Therapydia, Smoking Cessation Medications and DC Order Prescriptions: New ciprofloxacin HCl 500 mg tablet 500 mg PO DAILY Qty: 7 0RF Continued famotidine [Pepcid] 20 mg tablet 20 mg PO BID dorzolamide 2 % drops 1 drp OPR BID Patient Comments: 06/07-last filled 01/21/25 100 day supply ferrous sulfate 325 mg (65 mg iron) Tablet 325 mg PO BID calcitriol 0.25 mcg capsule 0.25 mcg PO QDL Discontinued doxycycline hyclate 100 mg capsule 100 mg PO BID Discharge Orders: Discharge Order (Routine); Ordered 06/09/25 Ordered By: Erendira Connor Admission Data Admit Date/Time: 06/08/25 16:47 Attending Provider: Erendira Connor Admit Provider: Erendira Connor Primary Care Provider: William Huynh Other Providers: Erendira Connor; Michale Schmitz Supervising Physician Co-Signing Physician Notes I personally examined the patient and verified all rowell points of history and exam, discussed case, and agree with decision making with Dr. Garces with the following additions/exceptions: S-patient feels the pain in the leg is improving, otherwise no complaints O- Vitals Reviewed Gen: AAOx3, NAD HEENT: Anicteric sclerae, EOMI CV: RRR 3/6 KENNETH at RUSB nl S1S2 Pulm: CTAB no wcr Abd: +BS soft NT ND no masses or hernias Ext: Left leg anteriorly with erythema on leg and dorsal foot much improved from previous, 1+ pitting edema left leg to knee improved from previous, large laceration with sutures in place, some scant purulent drainage;2+ DP pulses CBC, BMP, wound culture, blood cultures reviewed A/P: 85 yo male here with left leg wound infection and cellulitis, failed outpatient treatment. Growing Pseudomonas in wound culture sensitive to ciprofloxacin - He received IV Zosyn and will discharge to home on p.o. Cipro to be renally dosed at 500 mg once daily for 7 more days - Wound looks much improved, sutures remain in place-plan to remove them on 06/13 with PCP and follow with wound care clinic after that - Continue daily wound care dressing changes - Can continue home ferrous sulfate tablets twice a day and follow CBC for chronic anemia-he had EGD in 03/2025 which was negative for cancer as per patient. He has not had a colonoscopy in 5 years. No gross bleeding anywhere - Will arrange outpatient cardiology follow-up for his moderate-severe aortic stenosis which is asymptomatic
[2025-06-09 14:44] VITALS: BP 133/68
--- NOTE | 2025-06-09 16:31 | Billing Data ---
Date of Service June 09, 2025 Coding Level of Care Code 05182 INP/OBS DISCH >30 MIN Time Spent (min) 35 Comment Spent 35 minutes in [id number] time, review of labs, coordination of care
[2025-06-10 06:33] LABS: A calco-baum cmplx NotReported Not Detected (NotDetected); Bact fragilis Not Reported Not Detected (NotDetected); Blood Culture Id Panel See PCR Comment (NotDetected); C auris Not Reported Not Detected (NotDetected); Calbicans Not Reported Not Detected (NotDetected); Candida glabrata Not Reported Not Detected (NotDetected); Candida krusei Not Reported Not Detected (NotDetected); Cneoformans/gatti Not Reported Not Detected (NotDetected); Cparapsilosis Not Reported Not Detected (NotDetected); Ctropicalis Not Reported Not Detected (NotDetected); E cloacae compx Not Reported Not Detected (NotDetected); Efaecalis Not Reported Not Detected (NotDetected); Efaecium Not Reported Not Detected (NotDetected); Enterobacterales Not Reported Not Detected (NotDetected); Escherichia coli Not Reported Not Detected (NotDetected); H influenzae Not Reported Not Detected (NotDetected); K aerogenes Not Reported Not Detected (NotDetected); Koxytoca Not Reported Not Detected (NotDetected); Kpneumoniae grp Not Reported Not Detected (NotDetected); Lmonocyt Not Reported Not Detected (NotDetected); N meningitidis Not Reported Not Detected (NotDetected); P aeruginosa Not Reported Not Detected (NotDetected); Proteus spp Not Reported Not Detected (NotDetected); Salmonella spp Not Reported Not Detected (NotDetected); Staph lugdunensis Not Reported Not Detected (NotDetected); Staph spp. Not Reported Not Detected (NotDetected); Staphaureus Not Reported Not Detected (NotDetected); Staphepi Not Reported Not Detected (NotDetected); Stenmaltophilia Not Reported Not Detected (NotDetected); Strep agal(GrpB) Not Reported Not Detected (NotDetected); Strep pneum Not Reported Not Detected (NotDetected); Strep pyog (GrpA) Not Reported Not Detected (NotDetected); Strep spp Not Reported DETECTED (NotDetected)
[2025-06-10 07:08] LABS: Streptococcus spp DETECTED (NotDetected)
--- NOTE | 2025-06-10 07:33 | Communication Note ---
Date of Service: June 10, 2025 More contacted by lab on the morning of 06/10 that 1 of 4 bottles of patient's blood cultures are growing Streptococcus but there is no ID on PCR thus far, sensitivities pending on the blood cultures. Discussed with on-call infectious disease and suspicious for either possible contaminant versus Streptococcus viridans. Cipro would not likely cover. Will add on Keflex 500 mg p.o. 3 times daily x 14 days which is renally dosed. 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 He was clinically doing very well, no evidence of sepsis at the time of discharge and do not feel he needs to return for repeat cultures or repeat IV antibiotics.
--- NOTE | 2025-06-10 14:55 | Electrocardiogram Report ---
Test Reason : Blood Pressure : */* mmHG Vent. Rate : 56 BPM Atrial Rate : 56 BPM P-R Int : 232 ms QRS Dur : 128 ms QT Int : 438 ms P-R-T Axes : -1 -40 12 degrees QTcB Int : 422 ms Sinus bradycardia with 1st degree A-V block Left axis deviation Right bundle branch block Abnormal ECG When compared with ECG of 20-Mar-2025 09:20, Premature ventricular complexes are no longer Present GA interval has increased Confirmed by Kem Finley ([id number]) on 06/10/2025 2:55:03 PM Referred By: REFERRED SELF Confirmed By: Kem Finley
== END 2025-06-09 15:18 | disposition home or self-care (01) | DRG 603 ==
LOC: ED 14:33 → 3N 14:33

== ENCOUNTER 2025-09-06 08:54 | Inpatient (IN) ==
--- NOTE | 2025-09-06 09:03 | Emergency Department Note ---
Impression & Plan Syncope, Cellulitis of left lower extremity, Anemia, Acute dehydration, Laceration of scalp ED Provider Note NAME: SHARMAINE HAQ II AGE: 85 SEX: M : 1940 ARRIVES VIA: Ambulance INFORMANT: Patient, ED PROVIDER(S): Lenny Agrawal MD CHIEF COMPLAINT: Syncope, closed head injury MEDICAL DECISION MAKING: Patient presents with the above. Cervical spine was cleared clinically at the time of evaluation. CT head obtained along with blood work and EKG. Patient was ordered IV fluids. The patient's blood work shows a normal white count hemoglobin 10.6 chronic and stable. Kidney function unremarkable but with prerenal azotemia did receive IV fluids. Patient CT head does not show evidence of fracture or ICH. Chest x-ray is unremarkable. The patient did have laceration repairs completed of the scalp. Given the patient's known history of aortic stenosis and syncope do believe the patient would benefit from admission and monitoring and further discussion about treatment. I did speak the on-call hospitalist service Dr. Araujo. I also did disclose that the patient does have a left lower extremity cellulitis and does have a chronic wound although the wound appears healed likely does require antibiotic treatment as well. Procedures: Laceration repair performed by Dr. Agrawal Location: Left parietal scalp Total length: 5 cm Complexity: Simple Verbal consent was obtained after the risks and benefits were explained, including but not limited to bleeding, scarring, infection, pain, and bone/joint/nerve damage. At this time, the risks of the procedure are less than the risks of NOT performing the procedure. A time out was taken and the correct patient and site identified. The skin was prepped with betadine and a sterile field set. The wound was explored for foreign bodies and none found. Examination revealed no injury to deep structures such as tendons, bone, or significant blood vessels. Debridement was not performed. The wound edges were approximated using 3 phuong. Hemostasis and excellent approximation was achieved. Antibacterial ointment and a sterile dressing applied. Detailed wound care instructions and signs and symptoms of infection reviewed with the patient. No complications and the patient tolerated the procedure well. Laceration repair no. [address] Agrawal Location: Occipital scalp Total length: 4 cm Complexity: Simple Verbal consent was obtained after the risks and benefits were explained, including but not limited to bleeding, scarring, infection, pain, and bone/joint/nerve damage. At this time, the risks of the procedure are less than the risks of NOT performing the procedure. A time out was taken and the correct patient and site identified. The skin was prepped with betadine and a sterile field set. The wound was explored for foreign bodies and none found. Examination revealed no injury to deep structures such as tendons, bone, or significant blood vessels. Debridement was not performed. The wound edges were approximated using Dermabond. Hemostasis and excellent approximation was achieved. Detailed wound care instructions and signs and symptoms of infection reviewed with the patient. No complications and the patient tolerated the procedure well. Discussion w/ other healthcare providers: None Prior /Outside records reviewed: None Differential diagnosis: Vasovagal event, dehydration, infection, hypoglycemia, electrolyte abnormalities, arrhythmia, pulmonary embolism, seizure among others were considered. Diagnostics, as interpreted by me: ECG: Normal sinus rhythm, rate of 67 prolonged TN wide QRS right bundle branch block pattern, left axis deviation no obvious STEMI. Cardiac monitoring: An order was placed for continuous cardiac monitoring. The monitor shows a rate of 68 with sinus rhythm. Patient was placed on pulse oximetry Medical decision rules: None Imaging studies: I informally interpreted the patient's chest x-ray does not show obvious pneumonia with formal report to follow. HPI: Patient presents due to concern for syncope. The patient does reside at [facility]. He reports that he was feeling kind of tired this morning but was "pushing through." Patient states that he was feeling as though he needed to go back to bed but was trying to get set up with his breakfast in the morning when he stood up and got lightheaded and dizzy passed out and fell backward striking the back of his head. Patient denies taking blood thinning medications. He does not complain of any significant head pain. No nausea or vomiting. Patient denies any back chest or extremity pain. No abdominal pain or nausea vomiting. He states that he had yet to eat this morning. EMS reported that he did have a hematoma as well as a laceration to the back of the head. PAST MEDICAL HISTORY: See Below PAST SURGICAL HISTORY: See Below SOCIAL HISTORY: See Below HOME MEDICATIONS: See Below ALLERGIES: See Below VITALS: See Below PHYSICAL EXAMINATION: GENERAL: NAD, non-toxic. Head: Occipital hematoma and small laceration noted. Currently hemostatic. EYE EXAM: Normal conjunctiva. PERRL, no anisocoria and EOM's grossly intact w/o pain. OROPHARYNX: Moist mucus membranes, grossly normal dentition. NECK: Trachea midline, no stridor. Supple, no nuchal rigidity, no adenopathy, non-tender. No signs of meningismus. FROM of the neck with good chin to chest and neck extension. No midline C-spine TTP. LUNGS: Clear to auscultation. Normal chest wall mechanics. HEART: NSR, systolic ejection murmur noted. ABDOMEN: Abdomen soft, non-tender, no masses, no rebound or guarding. BACK: No CVA TTP. No midline thoracic or lumbar TTP. SKIN: No rashes and no bruising. UPPER EXTREMITIES: Upper extremities are grossly normal. No TTP or deformity. LOWER EXTREMITIES: Mild redness and warmth to the left lower leg. NEURO EXAM: Awake and alert, follows commands, no obvious facial asymmetry, normal speech, moves all 4 extremities. Past Med/Surg History Problem List (Updated 09/07/25 @ 09:03 by Lenny Agrawal MD) Laceration of scalp (Acute) Acute dehydration (Acute) Syncope (Acute) Aortic stenosis Lower extremity edema (Acute) Traumatic open wound of left lower leg with delayed healing (Acute) Chronic kidney disease Chronic deep vein thrombosis (DVT) (Chronic) Gastric cancer Anemia (Acute) Aortic stenosis Cellulitis Cellulitis of left lower extremity (Acute) SOM (acute kidney injury) (Acute) Post surgical complication Fatigue (Acute) Bilateral edema of lower extremity (Acute) Dyspnea (Acute) Pedal edema Sensorineural hearing loss, bilateral 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 Bilateral edema of lower extremity Chronic deep vein thrombosis (DVT) Normocytic anemia Greater trochanteric pain syndrome Lumbar degenerative disc disease Lumbar radiculopathy Decreased hearing of right ear Hearing loss Post herpetic neuralgia CKD (chronic kidney disease) First degree atrioventricular block by electrocardiogram RBBB (right bundle branch block) wore a holter monitor 07/2022- followed w/ Dr Martinez for results Anemia (Acute) Secondary hyperparathyroidism Hepatic cyst Gastric adenocarcinoma (Acute) hx GERD (gastroesophageal reflux disease) Osteopenia Hyperlipidemia Carotid artery plaque "mild carotid plaque and normal velocity" per 2016 PCP records (unable to obtain official imaging) Medical History Sudden-onset sensorineural hearing loss Lumbar spinal stenosis History of syncope - 06/2022, had episode of fall/syncope- seen by neuro at [facility] 07/01/22- "believe this patient had a syncopal event ( cardiovascular in origin ), had closed head trauma and brief concussion, with some brief secondary seizure activity." No need for additional neurological testing or anticonvulsants; EEG normal - No recurrence of issues since that time (possibly dehydrated per patient) Osteopenia Hyperlipidemia History of basal cell carcinoma s/p excision (in office) Carotid artery plaque "mild carotid plaque and normal velocity" per 2015 PCP records Ambulates with cane History of right bundle branch block (RBBB) MS cardio 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, chemo and immunotherapy tx only (11/2019-04/18/21) Mild aortic stenosis Per 11/2023 echo CKD (chronic kidney disease) Chronic anemia iron daily SBO (small bowel obstruction) Hx- during chemo Hepatic cyst Acid reflux Well controlled and stable 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 (until 03/2021) Deafness in left ear bilat hearing aids History of actinic keratosis Surgical History History of total right hip replacement History of esophagogastroduodenoscopy (EGD) Hx of detached retina repair Hx of oral surgery (10/01/22) Open Reduction of Lefort II Fracture(Not Applicable) - Leland Dimas, DMD able to open mouth entire way History of Mohs micrographic surgery for skin cancer Port-A-Cath in place (11/29/19) bard power port--left cephalic vein--currently in place History of tonsillectomy History of colonoscopy History of tooth extraction History of bilateral cataract extraction S/P appendectomy S/P tonsillectomy Family History Mother , age 60 colon cancer Colon cancer Colorectal cancer Grandfather (Maternal) Myocardial infarction Grandfather Colorectal cancer Father , age 77 of heart disease Heart disease Other Hearing loss No family history of adverse response to anesthesia No family history of bleeding disorder Denies family history of Ovarian cancer Prostate cancer Breast cancer Social History Smoking Status: Never smoker Second Hand Exposure: No; Do You Dip or Chew Tobacco: No; Tobacco Cessation Education Requested by Patient: No Hx Alcohol Use: Yes Alcohol type: wine Alcohol Intake Frequency: 2-3 x/Week Alcohol Intake Frequency Comment: 1 glass with dinner 4 times a week Hx Substance Use: No Preferred Language: Burkinan Communication Ability: Effective Visual Impairment: No Limitations Hearing Ability: Normal Road Patcher Required: No Beliefs That Will Affect Care: None marital status: Current Living Situation: Spouse Current Living Situation Comment: lives at [facility] with current occupational status: retired 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 [employer] Other Information That Helps Us Care for You: No Feels Safe at Home: Yes Safety Concerns: Feels Safe At This Time Childhood Exposure to Second-Hand Smoke: No Diet: other and regular Diet Comment: mediterranean diet caffeine: Yes (2-3 large cups tea daily) Dental Care, Regularly: Yes Physical Activity Frequency: 5-6 Times per Week Seatbelt Use: always Sunscreen Use: Yes Do you think of yourself as: straight/heterosexual Gender Identity: Male Assistive Devices: Cane, Glasses and Hearing Aid - Bilateral Allergies Allergies Allergy/AdvReac Type Severity Reaction Status Date / Time gabapentin AdvReac Intermediate Hallucinati Verified 08/25/25 13:36 ng pregabalin [From Lyrica] AdvReac Intermediate Dizziness Verified 08/25/25 13:36 Home Meds Home Medications Medication Instructions Recorded Confirmed famotidine 20 mg tablet (Pepcid) 20 mg PO BID 09/21/21 09/06/25 calcitriol 0.25 mcg capsule 0.25 mcg PO QDL 12/09/24 09/06/25 dorzolamide 2 % eye drops 1 drp OPR BID 05/28/25 09/06/25 ferrous sulfate 325 mg (65 mg 325 mg PO BID 06/08/25 09/06/25 iron) tablet Previous Rx's Medication Instructions Recorded fluocinonide 0.05 % topical cream 1 applic topical BID #30 grams 08/16/25 fluocinonide 0.05 % topical 1 applic topical DAILY #60 mL 08/16/25 solution Results & Data (ED) Vital Signs Vital Signs - 24 hr 09/06/25 09:03 09/06/25 09:03 09/06/25 09:05 Pulse Rate 66 Pulse Rate [Apical] Pulse Rate from SpO2 Sensor 64 Pulse Rhythm [Apical] Pulse Strength [Apical] Respiratory Rate 15 Blood Pressure 170/74 H Blood Pressure [Right Arm] Blood Pressure Mean 91 Blood Pressure Mean [Right Arm] Blood Pressure Position [Right Arm] Pulse Oximetry 100 Oxygen Delivery Method 09/06/25 09:07 09/06/25 09:12 09/06/25 09:21 Pulse Rate Pulse Rate [Apical] Pulse Rate from SpO2 Sensor Pulse Rhythm [Apical] Pulse Strength [Apical] Respiratory Rate Blood Pressure Blood Pressure [Right Arm] Blood Pressure Mean Blood Pressure Mean [Right Arm] Blood Pressure Position [Right Arm] Pulse Oximetry 100 100 99 Oxygen Delivery Method Room Air 09/06/25 09:30 09/06/25 09:30 09/06/25 10:10 Pulse Rate 61 Pulse Rate [Apical] Pulse Rate from SpO2 Sensor 62 Pulse Rhythm [Apical] Pulse Strength [Apical] Respiratory Rate 12 Blood Pressure 155/88 H 147/89 H Blood Pressure [Right Arm] Blood Pressure Mean 107 122 Blood Pressure Mean [Right Arm] Blood Pressure Position [Right Arm] Pulse Oximetry 99 Oxygen Delivery Method 09/06/25 10:12 09/06/25 10:30 09/06/25 10:42 Pulse Rate 62 61 Pulse Rate [Apical] Pulse Rate from SpO2 Sensor 64 61 Pulse Rhythm [Apical] Pulse Strength [Apical] Respiratory Rate 19 17 Blood Pressure 163/84 H Blood Pressure [Right Arm] Blood Pressure Mean 135 Blood Pressure Mean [Right Arm] Blood Pressure Position [Right Arm] Pulse Oximetry 99 99 Oxygen Delivery Method 09/06/25 11:10 Pulse Rate Pulse Rate [Apical] 62 Pulse Rate from SpO2 Sensor Pulse Rhythm [Apical] Regular Pulse Strength [Apical] Normal Respiratory Rate Blood Pressure Blood Pressure [Right Arm] 170/96 H Blood Pressure Mean Blood Pressure Mean [Right Arm] 120 Blood Pressure Position [Right Arm] Sitting Pulse Oximetry 98 Oxygen Delivery Method Room Air Home Medications Current Medication List: was personally reviewed by me Laboratory Data Attestation: I reviewed the patient's lab results. 09/06/25 09:20 09/06/25 09:20 Lab Results 09/06/25 Range/Units 09:20 WBC 8.54 (4.8-10.8) K/ul RBC 3.58 L (4.70-6.10) M/uL Hgb 10.6 L (14.0-18.0) g/dL Hct 31.7 L (42.0-52.0) % MCV 88.5 (80.0-100.0) fL MCH 29.6 (25.0-34.0) pg MCHC 33.4 (32.0-36.0) g/dL RDW Std Deviation 43.1 (36.4-46.3) fL RDW Coeff of Jf 13.2 (11.5-14.5) % Plt Count 181 (130-400) K/uL MPV 10.0 (9.4-12.4) fL Immature Gran % (Auto) 0.2 % Neut % (Auto) 75.1 % Lymph % (Auto) 13.7 % [place] % (Auto) 9.4 % Eos % (Auto) 1.4 % Baso % (Auto) 0.2 % Neut # (Auto) 6.41 (1.40-6.50) K/uL Lymph # (Auto) 1.17 L (1.20-3.40) K/uL [place] # (Auto) 0.80 H (0.11-0.59) K/uL Eos # (Auto) 0.12 (0.00-0.50) K/uL Baso # (Auto) 0.02 (0.00-0.20) K/uL Immature Gran # (Auto) 0.02 (0.01-0.20) K/uL Sodium 136 (136-145) mmol/L Potassium 4.2 (3.5-5.1) mmol/L Chloride 103 (98-107) mmol/L Carbon Dioxide 26 (21-32) mmol/L Anion Gap 7 (3-11) BUN 36 H (6-23) mg/dl Creatinine 1.38 (0.6-1.4) mg/dl Est Cr Clr Drug Dosing 38.1 ml/min eGFR 49.49 BUN/Creatinine Ratio 26.1 H (10-20) Glucose 101 H (70-99(Fasting)) mg/dl Calcium 9.1 (8.6-10.3) mg/dl Magnesium 2.3 (1.7-2.4) mg/dl Total Bilirubin 0.8 (0.2-1.0) mg/dl AST 22 (13-39) U/L ALT 11 (7-52) U/L Alkaline Phosphatase 70 (34-104) U/L Total Protein 6.5 (6.0-8.3) gm/dl Albumin 4.0 (3.4-5.0) gm/dl Globulin 2.5 (2.5-4.0) gm/dl Albumin/Globulin Ratio 1.6 (0.9-2) Administered Medications Acetaminophen (Acetaminophen 325 Mg Tab) 650 mg PO Q4H PRN PRN Reason: Pain Stop: 10/06/25 17:07 Last Admin: 09/06/25 20:39 Dose: 650 mg Documented By: SARAH Dorzolamide HCl (Dorzolamide Hcl 2% Oph Soln 10 Ml Btl) 1 drops OPR BID SANTINO Stop: 10/06/25 20:59 Last Admin: 09/07/25 08:09 Dose: 1 drops Documented By: Admin: 09/06/25 20:40 Dose: 1 drops Documented By: SARAH Enoxaparin Sodium (Enoxaparin Inj 40 Mg/0.4 Ml Syr) 40 mg SQ QAM SANTINO Stop: 10/07/25 08:59 Last Admin: 09/07/25 08:09 Dose: 40 mg Documented By: ADY Famotidine (Famotidine 20 Mg Tab) 20 mg PO BID SANTINO Stop: 10/06/25 20:59 Last Admin: 09/07/25 08:08 Dose: 20 mg Documented By: Admin: 09/06/25 20:39 Dose: 20 mg Documented By: SARAH Ferrous Sulfate (Ferrous Sulfate 325 Mg Tab) 325 mg PO BID SANTINO Stop: 10/06/25 20:59 Last Admin: 09/07/25 08:08 Dose: 325 mg Documented By: Admin: 09/06/25 20:39 Dose: 325 mg Documented By: SARAH Miscellaneous (Fluocinonide 0.05% Solution -Order Awaiting Action) 1 each N/A QS COUNT INCLUDES THE [facility] Stop: 10/06/25 15:59 Last Admin: 09/07/25 07:27 Dose: Not Given Documented By: Admin: 09/07/25 07:21 Dose: Not Given Documented By: Admin: 09/07/25 07:21 Dose: Not Given Documented By: ADY Miscellaneous (Fluocinonide 0.05% Cream - Order Awaiting Action) 1 each N/A QS SANTINO Stop: 10/06/25 15:59 Last Admin: 09/07/25 07:26 Dose: Not Given Documented By: Admin: 09/07/25 07:21 Dose: Not Given Documented By: Admin: 09/07/25 07:21 Dose: Not Given Documented By: ADY Discontinued Medications Ceftriaxone Sodium (Rocephin) 2,000 mg in 50 mls @ 100 mls/hr IV NOW STA Stop: 09/06/25 09:36 Last Infusion: 09/06/25 10:53 Dose: Infused Documented By: lupillo Admin: 09/06/25 10:14 Dose: 100 mls/hr Documented By: lupillo Sodium Chloride (Nss) 500 mls @ 999 mls/hr IV .Q31M ONE Stop: 09/06/25 10:03 Last Infusion: 09/06/25 10:53 Dose: Infused Documented By: lupillo Admin: 09/06/25 10:15 Dose: 999 mls/hr Documented By: lupillo Iron Sucrose 200 mg/ Sodium (Chloride) 110 mls @ 220 mls/hr IV TODAY ONE Stop: 09/07/25 07:59 Last Admin: 09/07/25 08:09 Dose: 220 mls/hr Documented By: ADY Ioversol (Optiray 320 125ml) 119 ml IV ONCE ONE Stop: 09/06/25 13:25 Last Admin: 09/06/25 13:25 Dose: 119 ml Documented By: TED Imaging Data Radiologist's Impression: Head CT 09/06/25 09:07 CT head/brain wo con CLINICAL HISTORY: 85 years-old Male with syncope, fall, occipital hematoma. Acute head trauma status post fall TECHNIQUE: Multiple axial CT images of the head were obtained without contrast. A dose lowering technique was utilized adhering to the principles of ALARA. CT DOSE: 703.85 mGy.cm COMPARISON: None. FINDINGS: No acute intracranial hemorrhage, midline shift, intracranial mass, hydrocephalus, territorial ischemia or abnormal extra-axial collection. The calvarium is intact. Right-sided scleral banding. Prior bilateral lens repair. Postoperative changes of the anterior maxillary cary. 5.8 cm left occipital scalp contusion/hematoma. The paranasal sinuses, mastoid air cells, and middle ear cavities are clear. IMPRESSION: 1. No acute intracranial abnormality or calvarial fracture. 2. Left occipital scalp contusion/hematoma. ACT 112: Negative or not required by law. The above report was generated using voice recognition software. It may contain grammatical, syntax or spelling errors. Electronically signed by: Rolo Brar M.D. 09/06/2025 10:11 AM Chest X-Ray 09/06/25 09:34 XR chest 1V portable CLINICAL HISTORY: syncope COMPARISON STUDY: 03/17/2025 FINDINGS: Stable chest port. Heart size and pulmonary vasculature are normal. No consolidation or pleural effusion. No pneumothorax. IMPRESSION: No acute findings. ACT 112: Negative or not required by law. Electronically signed by: Davide Gomez M.D. 09/06/2025 9:54 AM Discharge Plan Visit Data Chief Complaint: Fall Stated Complaint: FALL, HEMATOMA TO BACK OF HEAD ED Provider: Lenny Agrawal Discharge Problem: Syncope, Cellulitis of left lower extremity, Anemia, Acute dehydration, Laceration of scalp Patient Disposition: Admitted As Inpatient Condition: Good Discharge Instructions Interventions: ED Discharge Assessment Last Done: 09/06/25 13:28 Discharge Problem: Syncope Qualifiers: Syncope type: unspecified Qualified Code(s): R55 - Syncope and collapse Anemia Qualifiers: Anemia type: unspecified type Qualified Code(s): D64.9 - Anemia, unspecified Laceration of scalp Qualifiers: Encounter type: initial encounter Qualified Code(s): S01.01XA - Laceration without foreign body of scalp, initial encounter
[2025-09-06 09:42] LABS: Hematocrit (blood only) 31.7 % (42.0-52.0); Hemoglobin 10.6 g/dL (14.0-18.0); Immature Granulocytes # (auto) 0.02 K/uL (0.01-0.20); Immature Granulocytes % (auto) 0.2 %; Mean Corpuscular Hemoglobin 29.6 pg (25.0-34.0); Mean Corpuscular Volume 88.5 fL (80.0-100.0); Platelet Count 181 K/uL (130-400); RDW Standard Deviation 43.1 fL (36.4-46.3); Red Blood Count 3.58 M/uL (4.70-6.10); White Blood Count 8.54 K/ul (4.8-10.8)
--- NOTE | 2025-09-06 09:55 | XRay Report ---
XR chest 1V portable CLINICAL HISTORY: syncope COMPARISON STUDY: 03/17/2025 FINDINGS: Stable chest port. Heart size and pulmonary vasculature are normal. No consolidation or ple ural effusion. No pneumothorax. IMPRESSION: No acute findings. ACT 112: Negative or not required by law. Electronically signed by: Davide Gomez M.D. 09/06/2025 9:54 AM
[2025-09-06 10:06] LABS: Alanine Aminotransferase 11.0 U/L (7-52); Albumin Globulin Ratio 1.6 (0.9-2); Albumin Level 4.0 gm/dl (3.4-5.0); Alkaline Phosphatase 70.0 U/L (34-104); Anion Gap 7.0 (3-11); Bilirubin,Total 0.8 mg/dl (0.2-1.0); Blood Urea Nitrogen 36.0 mg/dl (6-23); Calcium 9.1 mg/dl (8.6-10.3); Carbon Dioxide 26.0 mmol/L (21-32); Chloride 103.0 mmol/L (98-107); Creatinine Clr Calc Pharmacy 38.1 ml/min; Globulin 2.5 gm/dl (2.5-4.0); Glucose 101.0 mg/dl (70-99(Fasting)); Magnesium 2.3 mg/dl (1.7-2.4); Potassium 4.2 mmol/L (3.5-5.1); Sodium 136.0 mmol/L (136-145); Total Protein 6.5 gm/dl (6.0-8.3)
--- NOTE | 2025-09-06 10:13 | CT Scan Report ---
CT head/brain wo con CLINICAL HISTORY: 85 years-old Male with syncope, fall, occipital hematoma. Acute head trauma status post fall TECHNIQUE: Multiple axial CT images of the head were obtained without contrast. A dose lowering tech nique was utilized adhering to the principles of ALARA. CT DOSE: 703.85 mGy.cm COMPARISON: None. FINDINGS: No acute intracranial hemorrhage, midline shift, intracranial mass, hydrocephalus, territorial ischem ia or abnormal extra-axial collection. The calvarium is intact. Right-sided scleral banding. Prior bilateral lens repair. Postoperative barroso ges of the anterior maxillary cary. 5.8 cm left occipital scalp contusion/hematoma. The paranasal si nuses, mastoid air cells, and middle ear cavities are clear. IMPRESSION: 1. No acute intracranial abnormality or calvarial fracture. 2. Left occipital scalp contusion/hematoma. ACT 112: Negative or not required by law. The above report was generated using voice recognition software. It may contain grammatical, syntax o r spelling errors. Electronically signed by: Rolo Brar M.D. 09/06/2025 10:11 AM
[2025-09-06] MEDS: cefTRIAXone SODIUM 2,000 MG/50 ML BAG IV STA (10:14)
[2025-09-06] MEDS: SODIUM CHLORIDE 0.9% 500 ML IV ONE (10:15)
[2025-09-06] MEDS: OPTIRAY 320 125ml IV ONE (13:25)
--- NOTE | 2025-09-06 13:45 | CT Scan Report ---
CT ANGIOGRAM OF THE CHEST CLINICAL HISTORY: Syncope. COMPARISON STUDY: Prior chest CT scans, most recently dated [id number]. Chest x-ray dated 09/06/2025. TECHNIQUE: Following the IV administration of 119 cc of Optiray 320, CT angiogram of the chest was pe rformed from the upper abdomen to the thoracic inlet utilizing the pulmonary embolus protocol. Images are reviewed in the axial, sagittal, and coronal planes. 3-D MIPS images are created and assessed. I V contrast was administered without complication. A dose lowering technique was utilized adhering to the principles of ALARA. CT DOSE: 715.54 mGy.cm FINDINGS: Thyroid: Imaged portions of the thyroid gland are normal in size and attenuation. Thoracic aorta: There is atherosclerotic calcification of the thoracic aorta. There is moderate ectas ia of the ascending thoracic aorta which measures up to 3.8 cm in diameter. The remainder of the thor acic aorta is normal in caliber, and the arch demonstrates bovine variant anatomy. No dissection is s een. Pulmonary vasculature: The pulmonary trunk is normal in caliber. There are no filling defects identif ied in main, lobar, or segmental pulmonary branches to suggest pulmonary embolus. Heart: A left subclavian central venous infusion port is in place. The heart is enlarged and without pericardial effusion. There is coronary artery atherosclerosis. Lungs and pleural spaces: No airspace consolidation there is seen typical for pneumonia. There is tra ce left pleural effusion. Subpleural reticulation seen throughout both lungs, and there is subpleural groundglass change/scarring which is greatest in the lower lobes. Mild bronchiectasis is observed. N o honeycombing is seen. There are scattered calcified granulomas. The trachea and central airways are clear. Lower neck: Calcified lymph nodes are seen in the left lower neck. Mediastinum: There there are calcified mediastinal lymph nodes. No pathologically enlarged nodes are seen. Catherine: There are calcified hilar lymph nodes. No adenopathy is identified. Axillae: There is no axillary lymphadenopathy. Upper abdomen: There are calcified splenic granulomas. A 12 mm cyst is noted in the left hepatic lobe . Calcified nodes are seen in the upper abdomen. Skeletal structures: The skeletal structures are osteopenic. Degenerative change and hyperkyphosis is noted in the thoracic spine with evidence of DISH. No lytic or blastic bony lesions are seen. Arthri tic change is seen in the shoulders. IMPRESSION: 1. There is no evidence of pulmonary embolus in the main, lobar, or segmental pulmonary arteries. 2. Cardiomegaly noting coronary artery atherosclerosis. 3. Changes of chronic lung disease as above with no airspace consolidation typical for pneumonia. 4. Trace left pleural effusion. 5. Additional findings as above. ACT 112: Negative or not required by law. Electronically signed by: Yahir Darby M.D. 09/06/2025 1:43 PM
[2025-09-06] MEDS: FAMOTIDINE 20 MG TAB PO SCH (20:39)
[2025-09-06] MEDS: ACETAMINOPHEN 325 MG TAB PO PRN (20:39)
[2025-09-06] MEDS: FERROUS SULFATE 325 MG TAB PO SCH (20:39)
[2025-09-06] MEDS: DORZOLAMIDE HCL 2% OPH SOLN 10 ML BTL OPR SCH (20:40)
--- NOTE | 2025-09-06 21:14 | History & Physical Report ---
Date of Service September 06, 2025 Assessment & Plan (1) Aortic stenosis: (2) Chronic kidney disease: (3) Gastric cancer: (4) Chronic deep vein thrombosis (DVT): (5) Bilateral edema of lower extremity: Plan #Syncope in an 85 yo male with history of gastric cancer, aortic stenosis WIll admit to PCU Place on quality assurance monitor body, will obtain orthostatic vitals. will recheck cbc will check iron levels will obtain a CTA chest given chornic venous thromboembolism in past. WIll stop antibiotics as this does not look like cellulitis on left lower leg will consult cardiology. # Anemia of Chronic Disease 2/2 Gastric Cancer / CKD/ Iron def. anemia -hgb 10.3 (within baseline range) -Continue to monitor with AM labs -itransferrin is low, will order venofer # Aortic Stenosis -Echo 03/20/25 -- Moderate to Severe Aortic Valvular Stenosis -No acute issues, consult cardiology # Gastric Cancer -in remission # Chronic Kidney Disease -Cr 1.5(within baseline range); eGFR 36.47 --> CKD stage 3 -No acute issues, follow up with PCP # Chronic DVT -Venous Doppler Ultrasound -- 12/10/23 -- Right Deep Veins -2.0 x 0.6 cm echogenic structure within the right distal femoral vein -- appears attached to the anterior wall. May represent nonocclusive thrombus. -Not on prophylaxis prior to admission -Heparin 5000 units sq q12 starting tomorrow #Laceration/ fall Will need to remove phuong in 7-10 days Admission and Anticipated Discharge Date Admission Date: September 06, 2025 History of Present Illness Chief Complaint: syncope Primary Care Provider: William Huynh MD Juan Antonio Xiong is an 85 year old male with history of stage IV (distal node mets) gastric adenocarcinoma (currently under surveillance since 2020) who presents to the ER with a syncopal episode. Patient was feeling well this AM and sat down to eat his breakfast. He was sitting for about 2 minutes when his stated that he looked pale. Patient reported that he did not feel well, and thought that he should held back to his room. Patient reported that he then stood up turned around to head back, but then passed out. He fell backwards and his head hit the table as he fell under the table. It took him a few minutes to respond. He was brought by ambulance and had 2 lacerations on his head. Admission was called. Allergies Allergy/AdvReac Type Severity Reaction Status Date / Time gabapentin AdvReac Intermediate Hallucinati Verified 08/25/25 13:36 ng pregabalin [From Lyrica] AdvReac Intermediate Dizziness Verified 08/25/25 13:36 Home Medications Medication Instructions Recorded Confirmed Type famotidine 20 mg tablet (Pepcid) 20 mg PO BID 09/21/21 09/06/25 History calcitriol 0.25 mcg capsule 0.25 mcg PO QDL 12/09/24 09/06/25 History dorzolamide 2 % eye drops 1 drp OPR BID 05/28/25 09/06/25 History ferrous sulfate 325 mg (65 mg 325 mg PO BID 06/08/25 09/06/25 History iron) tablet fluocinonide 0.05 % topical cream 1 applic topical BID #30 grams 08/16/25 09/06/25 Rx fluocinonide 0.05 % topical 1 applic topical DAILY #60 mL 08/16/25 09/06/25 Rx solution Past Med/Surg History Problem List (Updated 08/16/25 @ 12:55 by Tonny Camacho MD) Aortic stenosis Lower extremity edema (Acute) Traumatic open wound of left lower leg with delayed healing (Acute) Chronic kidney disease Chronic deep vein thrombosis (DVT) (Chronic) Gastric cancer Anemia Aortic stenosis Cellulitis Cellulitis of left lower extremity (Acute) SOM (acute kidney injury) (Acute) Post surgical complication Fatigue (Acute) Bilateral edema of lower extremity (Acute) Dyspnea (Acute) Pedal edema Sensorineural hearing loss, bilateral 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 Bilateral edema of lower extremity Chronic deep vein thrombosis (DVT) Normocytic anemia Greater trochanteric pain syndrome Lumbar degenerative disc disease Lumbar radiculopathy Decreased hearing of right ear Hearing loss Post herpetic neuralgia CKD (chronic kidney disease) First degree atrioventricular block by electrocardiogram RBBB (right bundle branch block) wore a holter monitor 07/2022- followed w/ Dr Martinez for results Anemia (Acute) Secondary hyperparathyroidism Hepatic cyst Gastric adenocarcinoma (Acute) hx GERD (gastroesophageal reflux disease) Osteopenia Hyperlipidemia Carotid artery plaque "mild carotid plaque and normal velocity" per 2016 PCP records (unable to obtain official imaging) Medical History Sudden-onset sensorineural hearing loss Lumbar spinal stenosis History of syncope - 06/2022, had episode of fall/syncope- seen by neuro at [facility] 07/01/22- "believe this patient had a syncopal event ( cardiovascular in origin ), had closed head trauma and brief concussion, with some brief secondary seizure activity." No need for additional neurological testing or anticonvulsants; EEG normal - No recurrence of issues since that time (possibly dehydrated per patient) Osteopenia Hyperlipidemia History of basal cell carcinoma s/p excision (in office) Carotid artery plaque "mild carotid plaque and normal velocity" per 2015 PCP records Ambulates with cane History of right bundle branch block (RBBB) [place] cardio 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, chemo and immunotherapy tx only (11/2019-04/18/21) Mild aortic stenosis Per 11/2023 echo CKD (chronic kidney disease) Chronic anemia iron daily SBO (small bowel obstruction) Hx- during chemo Hepatic cyst Acid reflux Well controlled and stable 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 (until 03/2021) Deafness in left ear bilat hearing aids History of actinic keratosis Surgical History History of total right hip replacement History of esophagogastroduodenoscopy (EGD) Hx of detached retina repair Hx of oral surgery (10/01/22) Open Reduction of Lefort II Fracture(Not Applicable) - Leland Dimas, DMD able to open mouth entire way History of Mohs micrographic surgery for skin cancer Port-A-Cath in place (11/29/19) bard power port--left cephalic vein--currently in place History of tonsillectomy History of colonoscopy History of tooth extraction History of bilateral cataract extraction S/P appendectomy S/P tonsillectomy Family History Mother , age 60 colon cancer Colon cancer Colorectal cancer Grandfather (Maternal) Myocardial infarction Grandfather Colorectal cancer Father , age 77 of heart disease Heart disease Other Hearing loss No family history of adverse response to anesthesia No family history of bleeding disorder Denies family history of Ovarian cancer Prostate cancer Breast cancer Social History Smoking Status: Never smoker Second Hand Exposure: No; Do You Dip or Chew Tobacco: No; Tobacco Cessation Education Requested by Patient: No Hx Alcohol Use: Yes Alcohol type: wine Alcohol Intake Frequency: 2-3 x/Week Alcohol Intake Frequency Comment: 1 glass with dinner 4 times a week Hx Substance Use: No Preferred Language: [place] Communication Ability: Effective Visual Impairment: No Limitations Hearing Ability: Normal Ssds Mk 2 Advanced Operator Required: No Beliefs That Will Affect Care: None marital status: Current Living Situation: Spouse Current Living Situation Comment: lives at [facility] with current occupational status: retired 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 [employer] Other Information That Helps Us Care for You: No Feels Safe at Home: Yes Safety Concerns: Feels Safe At This Time Childhood Exposure to Second-Hand Smoke: No Diet: other and regular Diet Comment: mediterranean diet caffeine: Yes (2-3 large cups tea daily) Dental Care, Regularly: Yes Physical Activity Frequency: 5-6 Times per Week Seatbelt Use: always Sunscreen Use: Yes Do you think of yourself as: straight/heterosexual Gender Identity: Male Assistive Devices: Cane, Glasses and Hearing Aid - Bilateral Review of Systems Review of Systems: All systems reviewed & are unremarkable except as noted in HPI & below Physical Exam Constitutional: WD/WN, vitals as above Eyes: PERRL, conjunctivae normal, anicteric sclerae ENMT: 2 lacerations: one on crown closed with glue, and the other on the back of the head closed withstaple Neck: trachea midline, no thyromegaly Respiratory: normal respiratory effort, lungs clear to auscultation Cardiovascular: RRR, no murmur, no edema Gastrointestinal (Abdomen): normal bowel sounds, soft, nontender, no hepatosplenomegaly Neurologic: PERRL, EOMI, accommodation nl, no face palsy, no dysarthria Psychiatric: A+Ox3, euthymic affect Results & Data Results & Data Vital Signs (Past 12 Hours) Vital Signs Temp Pulse Pulse Resp BP BP Pulse Ox 09/06/25 19:14 36.9 C 77 20 105/63 96 09/06/25 15:35 36.7 C 74 19 126/71 99 09/06/25 15:30 72 09/06/25 14:05 36.7 C 67 18 159/69 H 100 09/06/25 13:28 09/06/25 12:58 66 16 155/78 H 99 09/06/25 11:10 62 170/96 H 98 09/06/25 10:42 61 17 99 09/06/25 10:30 163/84 H 09/06/25 10:12 62 19 99 09/06/25 10:10 147/89 H 09/06/25 09:30 155/88 H 09/06/25 09:30 61 12 99 09/06/25 09:21 99 O2 Del Method 09/06/25 19:14 Room Air 09/06/25 15:35 Room Air 09/06/25 15:30 09/06/25 14:05 Room Air 09/06/25 13:28 Room Air 09/06/25 12:58 Room Air 09/06/25 11:10 Room Air 09/06/25 10:42 09/06/25 10:30 09/06/25 10:12 09/06/25 10:10 09/06/25 09:30 09/06/25 09:30 09/06/25 09:21 PG Care Time/CCT Total # of Minutes Spent Total Time Spent with Patient: Total time spent is greater than 50% in coordination of care (as documented) at patient's floor/unit and/or counseling patient: Coding Level of Care Code 01053 INT INP/OBS CARE 3/75MIN Diagnoses Aortic stenosis I35.0 Chronic kidney disease N18.9 Gastric cancer C16.9 Chronic deep vein thrombosis (DVT) of femoral vein of right lower extremity I82.511 Affected thrombotic vein of extremity: femoral DVT location: lower extremity Laterality: right Bilateral edema of lower extremity R60.0 (4) Chronic deep vein thrombosis (DVT) Affected thrombotic vein of extremity: femoral DVT location: lower extremity Laterality: right Qualified Code(s): I82.511 - Chronic embolism and thrombosis of right femoral vein
[2025-09-07] MEDS ORDERED: HEPARIN 100 UNIT/ML 5ML FLUSH FLUSH PRN (05:34)
--- NOTE | 2025-09-07 06:34 | Electrocardiogram Report ---
Test Reason : Blood Pressure : */* mmHG Vent. Rate : 67 BPM Atrial Rate : 67 BPM P-R Int : 208 ms QRS Dur : 130 ms QT Int : 418 ms P-R-T Axes : 27 -42 39 degrees QTcB Int : 441 ms Normal sinus rhythm Left axis deviation Right bundle branch block Abnormal ECG When compared with ECG of 09-Jun-2025 11:42, No significant change was found Confirmed by Berry Rivera ([id number]) on 09/07/2025 6:34:19 AM Referred By: Confirmed By: Berry Rivera
[2025-09-07] MEDS: ENOXAPARIN INJ 40 MG/0.4 ML SYR SQ SCH (08:09)
[2025-09-07] MEDS: IRON SUCROSE 200 MG in SODIUM CHLORIDE 0.9% 100 ML IV ONE (08:09)
[2025-09-07] MEDS ORDERED: cefTRIAXone SODIUM 2,000 MG/50 ML BAG IV SCH (09:00)
[2025-09-07 09:17] LABS: Hematocrit (blood only) 28.5 % (42.0-52.0); Hemoglobin 9.4 g/dL (14.0-18.0); Mean Corpuscular Hemoglobin 29.6 pg (25.0-34.0); Mean Corpuscular Volume 89.6 fL (80.0-100.0); Platelet Count 169 K/uL (130-400); RDW Standard Deviation 44.7 fL (36.4-46.3); Red Blood Count 3.18 M/uL (4.70-6.10); White Blood Count 7.62 K/ul (4.8-10.8)
[2025-09-07 09:28] LABS: Anion Gap 8.0 (3-11); Blood Urea Nitrogen 39.0 mg/dl (6-23); Calcium 8.4 mg/dl (8.6-10.3); Carbon Dioxide 22.0 mmol/L (21-32); Chloride 107.0 mmol/L (98-107); Creatinine Clr Calc Pharmacy 35.1 ml/min; Glucose 127.0 mg/dl (70-99(Fasting)); Potassium 4.0 mmol/L (3.5-5.1); Sodium 137.0 mmol/L (136-145)
[2025-09-07] MEDS: CALCITRIOL 0.25 MCG CAPSULE PO SCH (10:20)
--- NOTE | 2025-09-07 11:10 | Discharge Summary ---
Discharge Summary Date of Service September 07, 2025 Principal Dx & Hospital Course #1 = Principal Diagnosis (1) Aortic stenosis: (2) Chronic kidney disease: (3) Gastric cancer: (4) Chronic deep vein thrombosis (DVT): (5) Bilateral edema of lower extremity: Plan This is an 85 year old male with moderate aortic stenosis, stage IV gastric adenocarcinoma under surveillance; coming in with syncopal episode; lost consciousness. had a head CT and negative for acute intracranial abnormality. CTA chest done and negative for acute PE. had a head laceration requiring phuong. Was seen by cardiology; recommendation was outpatient dyed raw stock blower feeder limited echo to evaluate the aortic valve. Patient ambulating at time of discharge and plan made to d/c home. #Syncope in an 85 yo male with history of gastric cancer, aortic stenosis WIll admit to PCU Place on dyed raw stock blower feeder, will obtain orthostatic vitals. will recheck cbc will check iron levels will obtain a CTA chest given chornic venous thromboembolism in past. WIll stop antibiotics as this does not look like cellulitis on left lower leg will consult cardiology. # Anemia of Chronic Disease 2/2 Gastric Cancer / CKD/ Iron def. anemia -hgb 10.3 (within baseline range) -Continue to monitor with AM labs -itransferrin is low, will order venofer # Aortic Stenosis -Echo 03/20/25 -- Moderate to Severe Aortic Valvular Stenosis -No acute issues, consult cardiology # Gastric Cancer -in remission # Chronic Kidney Disease -Cr 1.5(within baseline range); eGFR 36.47 --> CKD stage 3 -No acute issues, follow up with PCP # Chronic DVT -Venous Doppler Ultrasound -- 12/10/23 -- Right Deep Veins -2.0 x 0.6 cm echogenic structure within the right distal femoral vein -- appears attached to the anterior wall. May represent nonocclusive thrombus. -Not on prophylaxis prior to admission -Heparin 5000 units sq q12 starting tomorrow #Laceration/ fall Will need to remove phuong in 7-10 days Admission HPI Per Admitting Provider Juan Antonio Xiong is an 85 year old male with history of stage IV (distal node mets) gastric adenocarcinoma (currently under surveillance since 2020) who presents to the ER with a syncopal episode. Patient was feeling well this AM and sat down to eat his breakfast. He was sitting for about 2 minutes when his stated that he looked pale. Patient reported that he did not feel well, and thought that he should held back to his room. Patient reported that he then stood up turned around to head back, but then passed out. He fell backwards and his head hit the table as he fell under the table. It took him a few minutes to respond. He was brought by ambulance and had 2 lacerations on his head. Admission was called. Discharge Exam VITALS: Reviewed. WEIGHT/BMI reviewed. GEN: Healthy appearing, well-developed, NAD. PSYCH: Good Judgment. AOx3. Normal memory, mood, and affect. HEENT -Head: NC/AT; -Eyes: PERRL, EOMI. No discharge or redness; -Ears: External ears are normal. Normal TMs. -Nose: Normal nares. -Mouth and throat: MMM. Normal gums, mucosa, palate,. Good dentition. NECK: Supple, with no masses. CV: RRR, no m/r/g. LUNGS: CTAB, no w/r/c. ABD: Soft, NT/ND, NBS, no masses or organomegaly. : N/A SKIN: Warm, well perfused. No skin rashes or abnormal lesions. MSK: No deformities, Normal gait. EXT: No clubbing, cyanosis, or edema. NEURO: Ambulating with no limitations. Normal muscle strength and tone. No focal deficits. Discharge Plan Discharge Items Patient Disposition: Home - Self-Care Reason For Visit: syncope Discharge Diagnosis: Syncope Moderate Aortic Stenosis Condition on Discharge: Good Activity: Resume your previous activity Non-emergency contact: Primary Care Provider and Project Estimator Call non-emergency contact if: you have any medication questions Follow-up/Referrals: William Huynh MD [Primary Care Provider] - Diet: Heart Healthy Addtl Attending Provider Instructions: F/u with cardiology you need a dyed raw stock blower feeder as an outpatient Pending Studies at Discharge: No Stand-Alone Forms: My [employer], Smoking Cessation Medications and DC Order Prescriptions: Continued fluocinonide 0.05 % solution 1 applic topical DAILY Qty: 60 0RF Rx Instructions: Apply to areas of the scalp once daily as needed for flaring. fluocinonide 0.05 % cream 1 applic topical BID Qty: 30 0RF Rx Instructions: Apply to affected areas of the trunk and extremities twice daily for up to 2 weeks as needed for flaring. famotidine [Pepcid] 20 mg tablet 20 mg PO BID dorzolamide 2 % drops 1 drp OPR BID Patient Comments: 06/07-last filled 01/21/25 100 day supply ferrous sulfate 325 mg (65 mg iron) Tablet 325 mg PO BID calcitriol 0.25 mcg capsule 0.25 mcg PO QDL Discharge Orders: Discharge Order (Routine); Ordered 09/07/25 Ordered By: Rose Caceres/Other Patient Handouts: Syncope Tx Heart Admission Data Admit Date/Time: 09/06/25 12:15 Attending Provider: Rose Fernandes Admit Provider: Polo Araujo Primary Care Provider: William Huynh Other Providers: Polo Araujo; Kalia Trejo; Alli Gtz; Dave Vidal; Kem Finley; Noé Quezada Jr; Berry Rivera; Nida Geiger; Yenifer Cohen; Tonny Camacho; Tonny Hammond; Zarina Garnica; Des Gonzalez; Ana Lombardi; Des Alejandra; Peter Samuels; Drake Roche; Sathya Abdalla; Gabriel Ortiz; Samantha Palmer; Char Bauman Hospital Stay Data Consultations 09/06/25 10:27 ED Decision to Admit Stat 09/06/25 12:18 Consult Cardiology Routine Diagnostic Imagining Performed 09/06/25 09:07 CT head/brain wo con Stat 09/06/25 12:36 CT angio chest PE protocol Stat Pending Results Patient Have Any Pending Studies at Discharge: No Discharge Instructions Given to Patient (Per Discharging Provider) F/u with cardiology you need a dyed raw stock blower feeder as an outpatient Home Health Attestation I certify that this patient is under my care and that I, or a physicians technical staff assistant working with me, had a face to-face encounter that meets the home health [id number] encounter requirements with this patient. The encounter with the patient was in whole, or in part, for the following medical condition, which is the primary reason for home health care (list medical condition): I certify that, based on my findings, the following services are medically necessary home health services: My clinical findings support the need for the above services because: Further, I certify that my clinical findings support that this patient is homebound (i.e. absences from home require considerable and taxing effort and are for medical reasons or worship services or infrequently or of short duration when for other reasons) because: Certification for Home Health Services: Based on the above findings, I certify that this patient is confined to the home and needs intermittent halfway care, physical therapy and/or speech therapy or continues to need occupational therapy. The patient is under my care, and I have initiated the establishment of the plan of care. This patient will be followed by a physician who will periodically review the plan of care. Total Time Total Time Spent Total Time Spent (In Minutes): 35 Coding Level of Care Code 22778 INP/OBS DISCH >30 MIN Diagnoses Aortic stenosis I35.0 Chronic kidney disease N18.9 Gastric cancer C16.9 Chronic deep vein thrombosis (DVT) of femoral vein of right lower extremity I82.511 DVT location: lower extremity Affected thrombotic vein of extremity: femoral Laterality: right Bilateral edema of lower extremity R60.0
[2025-09-07 11:47] VITALS: BP 110/67; PULSE 58; RESP 17; TEMP 97.7; O2SAT 96
--- NOTE | 2025-09-07 14:05 | XCELERA ---
[id number]
--- NOTE | 2025-09-07 14:11 | Cardiology Consultation ---
Date of Consultation September 07, 2025 Assessment & Plan (1) Syncope: 2. Moderate to severe aortic stenosis 3. Chronic venous insufficiencyleft GSV varices reflux 4. Gastric cancer postchemotherapy/immunotherapy 5. RLE incidental chronic deep vein thrombotic changes 6. Reported brief SVT during prior hospitalization 7. Anemia of chronic disease 8. Stage III CKD 9. First-degree AV block, right bundle branch block Seen today for new episode of syncope yesterday. Had prodromal symptoms potentially consistent with vasovagal, maybe some orthostatic component. Repeat echo again showed a is more consistent with moderate disease. Do not feel syncopal episode occurring at rest secondary to his . He does have some evidence of conduction disease on his EKG (chronic first- degree AV block, RBBB) and carries a diagnosis of SVT during a prior hospitalization. Cannot rule out arrhythmogenic cause of his event. Recommend additional ambulatory monitoring as an outpatient. Will have him wear a 14-day Holter monitor We talked about avoiding potential precipitants for vasovagal syncope and abortive techniques Previously had discussed using compression stockings for his venous disease Follow-up with me in 4 weeks to discuss monitor results. History of Present Illness Attending Physician: Rose Fernandes, DO History of Present Illness Mr. Xiong is a very pleasant 85-year-old man with a history of moderate to severe aortic stenosis, prior brief SVT, metastatic gastric cancer post chemo and immunotherapy, incidental RLE deep vein chronic thrombotic changes, CKD, iron deficiency anemia, GERD, OA post right total hip replacement and slow healing left lower extremity wound seen today in hospital due to syncope. From a cardiac standpoint was initially seen by me in 2019 in the setting of murmur. Most recently had an echo 06/2025 which showed moderate to severe . He has been asymptomatic with this. Last seen 08/16/2025. Denied any chest pain, presyncope or new exertional shortness of breath. Was recovering from his prior cancer therapy and gradually gaining weight. Today reports that he was feeling well, his wound is healed. He was back going to the gym, doing cardio and had returned to shooting hoops. With these activities no presyncope, chest pain or shortness of breath. Yesterday while sitting about to eat breakfast began feeling sick, nauseated, flushed for several minutes. No associated chest symptoms or palpitations. He attempted get up to lay down and fell backwards striking his head on the table. Had laceration with bleeding. No other recent changes to his health. Denies viral illness, change in p.o. intake or recent medications. Reports 1 syncopal episode maybe 6 years ago when was out hiking. Without event no prodromal symptoms. Since admission no recurrent presyncopal symptoms. Chest CTA negative for PE. Head CT unremarkable. ECG showed sinus rhythm with first-degree AV block, right bundle branch block, left axis deviation, no new ST normalities. Repeat limited echo today showed preserved LV function with more moderate and preserved LV function. Telemetry has been unremarkable. Hemoglobin 9.4 and received IV iron. Prior cardiovascular studies: Arterial duplex 06/2025: Normal bilateral ALLIE/TBI's. Left lower extremity arterial system widely patent. Venous reflux ultrasound 06/2025: Reflux left GSV calf varices (1500 ms). Echo 06/2025: EF 55%, mild LVH, moderate to severe (PV 3.1, MG 22, BRITTANY 1.0, DI 0.30), mild MR, normal PA/RA. Allergies Allergy/AdvReac Type Severity Reaction Status Date / Time gabapentin AdvReac Intermediate Hallucinati Verified 08/25/25 13:36 ng pregabalin [From Lyrica] AdvReac Intermediate Dizziness Verified 08/25/25 13:36 Home Medications Medication Instructions Recorded Confirmed Type famotidine 20 mg tablet (Pepcid) 20 mg PO BID 09/21/21 09/06/25 History calcitriol 0.25 mcg capsule 0.25 mcg PO QDL 12/09/24 09/06/25 History dorzolamide 2 % eye drops 1 drp OPR BID 05/28/25 09/06/25 History ferrous sulfate 325 mg (65 mg 325 mg PO BID 06/08/25 09/06/25 History iron) tablet fluocinonide 0.05 % topical cream 1 applic topical BID #30 grams 08/16/25 09/06/25 Rx fluocinonide 0.05 % topical 1 applic topical DAILY #60 mL 08/16/25 09/06/25 Rx solution Patient History Medical History Sudden-onset sensorineural hearing loss Lumbar spinal stenosis History of syncope - 06/2022, had episode of fall/syncope- seen by neuro at [facility] 07/01/22- "believe this patient had a syncopal event ( cardiovascular in origin ), had closed head trauma and brief concussion, with some brief secondary seizure activity." No need for additional neurological testing or anticonvulsants; EEG normal - No recurrence of issues since that time (possibly dehydrated per patient) Osteopenia Hyperlipidemia History of basal cell carcinoma s/p excision (in office) Carotid artery plaque "mild carotid plaque and normal velocity" per 2015 PCP records Ambulates with cane History of right bundle branch block (RBBB) [place] cardio 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, chemo and immunotherapy tx only (11/2019-04/18/21) Mild aortic stenosis Per 11/2023 echo CKD (chronic kidney disease) Chronic anemia iron daily SBO (small bowel obstruction) Hx- during chemo Hepatic cyst Acid reflux Well controlled and stable 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 (until 03/2021) Deafness in left ear bilat hearing aids History of actinic keratosis Surgical History History of total right hip replacement History of esophagogastroduodenoscopy (EGD) Hx of detached retina repair Hx of oral surgery (10/01/22) Open Reduction of Lefort II Fracture(Not Applicable) - Leland Dimas, ALLAN able to open mouth entire way History of Mohs micrographic surgery for skin cancer Port-A-Cath in place (11/29/19) bard power port--left cephalic vein--currently in place History of tonsillectomy History of colonoscopy History of tooth extraction History of bilateral cataract extraction S/P appendectomy S/P tonsillectomy Family History Mother , age 60 colon cancer Colon cancer Colorectal cancer Grandfather (Maternal) Myocardial infarction Grandfather Colorectal cancer Father , age 77 of heart disease Heart disease Other Hearing loss No family history of adverse response to anesthesia No family history of bleeding disorder Denies family history of Ovarian cancer Prostate cancer Breast cancer Social History Smoking Status: Never smoker Second Hand Exposure: No; Do You Dip or Chew Tobacco: No; Hx Alcohol Use: Yes Alcohol type: wine Alcohol Intake Frequency: 2-3 x/Week Alcohol Intake Frequency Comment: 1 glass with dinner 4 times a week Hx Substance Use: No Preferred Language: Serbian Communication Ability: Effective Visual Impairment: No Limitations Hearing Ability: Normal Nursing Unit Coordinator Required: No Beliefs That Will Affect Care: None marital status: Current Living Situation: Spouse Current Living Situation Comment: lives at [facility] with current occupational status: retired 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 2 areas of superficial breakdown over posterior scalp, 2 cm in diameter, no active bleeding. Lungs: Clear to auscultation bilaterally, no crackles or wheezes Cardiac: Regular rate and rhythm, 2 out of 6 systolic ejection murmur, mid speaking, normal carotid upstrokes Vascular: 2+ radial Abdomen: Soft, nontender Extremities: Well perfused, trace edema on the left extending to below the knee. Prior left lower extremity wound healed. Psych: Alert orient x3, normal affect and mood Results & Data Vital Signs (Past 12 Hours) Vital Signs Temp Pulse Pulse Resp BP Pulse Ox O2 Del Method 09/07/25 11:46 97.7 F 58 L 17 110/67 96 Room Air 09/07/25 11:21 59 L 09/07/25 07:34 97.5 F L 62 24 128/69 97 Room Air 09/07/25 03:02 98.8 F 66 18 109/62 95 Room Air PG Care Time/CCT Total # of Minutes Spent Total Time Spent with Patient: Total time spent is greater than 50% in coordination of care (as documented) at patient's floor/unit and/or counseling patient: Coding Level of Care Code 43264 INT INP/OBS CARE 2/55MIN Diagnoses Syncope R55 Syncope type: unspecified (1) Syncope Syncope type: unspecified Qualified Code(s): R55 - Syncope and collapse
== END 2025-09-07 15:27 | disposition home or self-care (01) | DRG 312 ==
LOC: ED 08:54 → SUATTDRO 12:15 → 2S 12:15